=== PATIENT | male | born 1960 | race Caucasian/White ===

== ENCOUNTER 2016-03-26 08:19 | Inpatient (IN) ==
--- NOTE | 2016-03-26 08:18 | Anesthesia Evaluation PreOp ---
Date of Encounter: 03/26/16 Time of Encounter: 09:05 - Past History Planned Operation: R-femoral endarterectomy Cardiac History: Denies any Significant Hx (PVD - with associated LE claudication maintained on ASA, Pentoxifylline), Hyperlipidemia (maintained on Lovastatin,), Other (Nuclear STRESS 06/2015 - LVEF = 68%, medium sized, mild- moderate intensity fixed inferior/infero-lateral defect. Prior infarct cannot be excluded. 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 BiPolar d/o maintained on Citalopram, Seropquel. Anxiety. Agoraphobia - maintained on Valium, ATivan, Lorazepam, Propanolol, Quetiapine) Other Medical History: Diabetes Type II (maintained on Metformin, Jardiance, Lantus, Januvia) Anesthesia History: No Prior Anesthetic Complications, Past Anesthesia (Tammie, Colonoscopy, R-foot surgery 02/2016, LLE femoral endarectomy 01/2017) Alcohol Use: none Drug use: none Medications and Allergies Gabapentin [Neurontin] 800 mg PO TID 07/19/15 [History] GlipiZIDE [Glipizide] 10 mg PO BID 07/19/15 [History] LORazepam [Ativan] 1 mg PO BID 07/19/15 [History] Lovastatin 40 mg PO HS 07/19/15 [History] Propranolol [Inderal] 40 mg PO BID 07/19/15 [History] Quetiapine Fumarate [Seroquel] 600 mg PO HS 07/19/15 [History] Ranitidine HCl [Zantac] 150 mg PO BID 07/19/15 [History] Sitagliptin Phosphate [Januvia] 50 mg PO DAILY 07/19/15 [History] TraMADol [Ultram] 50 mg PO TID 07/19/15 [History] Zolpidem [Ambien] 10 mg PO HS 07/19/15 [History] Furosemide [Lasix] 40 mg PO DAILY 10/17/15 [History] Aspirin 81 mg PO DAILY 01/24/16 [History] Citalopram Hydrobromide [Celexa] 40 mg PO DAILY 01/24/16 [History] Empagliflozin [Jardiance] 10 mg PO DAILY 01/24/16 [History] Insulin Glargine,Hum.rec.anlog [Lantus Solostar] 10 unit SQ DAILY 01/24/16 [ History] Metformin HCl [Metformin HCl ER] 500 mg PO HS 01/24/16 [History] Naproxen [Naprosyn] 500 mg PO BID 01/24/16 [History] Pentoxifylline [TRENtal] 400 mg PO BID 01/24/16 [History] Potassium Chloride [Klor-Con] 20 meq PO DAILY 01/24/16 [History] OxyCODONE Immed Rel [Roxicodone 5 MG] 5 mg PO Q4H PRN #40 tablet 01/25/16 [Rx] Allergies No Known Allergies Allergy (Verified 01/24/16 07:39) - Meds/Allergy Pre-op Review Medications Reviewed: Yes Allergies Reviewed: Yes Beta Blockers on Current Med List: Yes (Propanolol) If Beta Blockers taken, Date/Time (Last Dose taken): 03/26/16 @ 0630 Anesthesia Results - Labs Laboratory Tests 09/28/15 02/22/16 03/24/16 13:40 14:38 12:46 WBC Hgb Hct Plt Count PT 11.5 INR 1.1 APTT 30.6 Sodium Potassium Chloride Carbon Dioxide BUN POC Creatinine 1.00 Creatinine Est GFR (Non-Af Amer) Glucose Est Mean Plasma Glucose 154 Hemoglobin A1c 7.0 H 03/24/16 03/24/16 12:46 12:46 WBC 12.7 H Hgb 15.5 Hct 44.5 Plt Count 247 PT INR APTT Sodium 136 Potassium 4.0 Chloride 97 L Carbon Dioxide 28 BUN 12 POC Creatinine Creatinine 1.11 Est GFR (Non-Af Amer) > 60 Glucose 190 H Est Mean Plasma Glucose Hemoglobin A1c - Imaging EKG: image reviewed (54bpm SB) Anesthesia Exam O2 Sat Height 1.78 m Height 1.78 m Weight 111.13 kg Weight 111.13 kg O2 Sat by Pulse Oximetry 97 Vital Signs Temp Pulse Resp BP Pulse Ox 99.2 F 66 18 135/69 97 03/26/16 08:43 03/26/16 08:43 03/26/16 08:43 03/26/16 08:43 03/26/16 08:43 Height: 5'10" Weight: 261# BMI = 35 - HEENT Pupil (Motor): Pupils equal, EOMI Mallampati: II Teeth: Edentulous Oral Opening: Greater than 3 - 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 LOC: Oriented 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 Sierra Jaimes MD
[2016-03-26] MEDS ORDERED: *HR* Labetalol 100 MG/20 ML MDV IVP PRN (08:27)
[2016-03-26] MEDS ORDERED: *HR* Promethazine 25 MG/ML VIAL IVP PRN (08:27)
[2016-03-26] MEDS ORDERED: cloNIDine HCl 0.1 MG TABLET PO ONE (08:27)
[2016-03-26] MEDS ORDERED: *HR* HYDROmorphone (PF) 1 MG/ML SYRINGE IVP PRN (08:27)
[2016-03-26] MEDS ORDERED: Famotidine 20 MG/2 ML VIAL IVP ONE (08:27)
[2016-03-26] MEDS ORDERED: Gabapentin 300 MG CAPSULE PO STA (08:30)
[2016-03-26] MEDS ORDERED: Lidocaine -MPF 2% 2 ML VIAL ONE (08:46)
[2016-03-26] MEDS ORDERED: Dexamethasone 4 MG/ML VIAL ONE (08:46)
[2016-03-26] MEDS ORDERED: Ondansetron 4 MG/2 ML VIAL ONE (08:46)
[2016-03-26] MEDS ORDERED: *HR* Succinylcholine 200 MG/10 ML VIAL IVP ONE (08:46)
[2016-03-26] MEDS ORDERED: *HR* Heparin 5,000 UNIT/ML VIAL ONE (08:47)
[2016-03-26] MEDS ORDERED: *HR* Propofol 200 MG/20 ML VIAL IVP ONE (08:48)
[2016-03-26] MEDS ORDERED: *HR* FentaNYL (PF) 100 MCG/2 ML VIAL ONE (08:48)
[2016-03-26] MEDS ORDERED: Heparin 1,000 UNITS/500 mL NS 1,000 ML ONE (08:48)
[2016-03-26] MEDS ORDERED: Vancomycin 1,000 MG VIAL ONE (08:48)
[2016-03-26] MEDS ORDERED: *HR* Midazolam HCl 2 MG/2 ML VIAL ONE (08:48)
[2016-03-26] MEDS ORDERED: Vancomycin 1,750 MG in D5% in Water 250 ML IVPB ONE (08:53)
[2016-03-26] MEDS ORDERED: CeFAZolin Pre 2,000 MG/100 ML 2,000 MG/100 ML BAG IVPB ONE (08:53)
[2016-03-26] MEDS ORDERED: Albuterol 2.5 MG/3 ML NEBULIZER IH ONE (08:55)
[2016-03-26] MEDS ORDERED: NiCARdipine 2.5 MG/10 ML Syringe IVPB ONE (08:58)
[2016-03-26] MEDS ORDERED: Ringers Solution, Lactated 1,000 ML IVC SCH (09:00)
[2016-03-26] MEDS ORDERED: *HR* Phenylephrine 10 MG/ML VIAL ONE ×2 (09:04)
--- NOTE | 2016-03-26 09:29 | History & Physical Report ---
Date of Encounter: 03/26/16 Time of Encounter: 09:15 24 Hour HP Update - Instructions Instructions: If the History and Physical is less than 30 days old and was completed prior to A.M. admission and or procedure and has NOT been updated on calendar day of procedure please complete this update prior to performing procedure. - Update Patient reports changes in Medical Condition: No Changes in assessment/condition: No Changes in Medication: No Preop tests/diagnostics Reviewed: Yes Surgery Remains Indicated: Yes Consent for Planned Operative Procedure(s) Verified: Yes - Pre-Operative Checklist Preoperative Checklist Indicated: Yes Prophylactic Antibiotic Ordered: Yes (Vancomycin due to MRSA risk) Home Medications Include Beta Praneeth: Yes Beta Praneeth Taken Today (Day of Surgery): Yes Beta Praneeth Taken Yesterday (Day Prior to Surgery): Yes
[2016-03-26] MEDS ORDERED: EPHEDrine 50 MG/ML VIAL ONE (10:35)
[2016-03-26] MEDS ORDERED: *HR* Vasopressin 20 UNIT/ML VIAL ONE (10:56)
[2016-03-26] MEDS ORDERED: Naloxone 0.4 MG/ML INJ ONE (11:24)
--- NOTE | 2016-03-26 13:24 | Operative Note ---
Date of procedure: 03/26/16 Pre-op diagnosis: Peripheral Vascular Disease with Disabling Claudication Post-op diagnosis: same Procedure: 1. Right iliofemoral endarterectomy with bovine pericardial patch angioplasty. 2. Right superficial femoral endarterectomy with bovine pericardial patch angioplasty. Complications: None Anesthesia: LYUBOVA Surgeon: Wale Hansen Estimated blood loss (cc): 100 Specimen: Right lower extremity plaque Condition: stable Disposition: same day Procedure in Detail: Indications: The patient is a 56 year old male with a history of peripheral vascular disease with disabling claudication. He was lso noted to have right foot and ankle ulcers. He was found to have significant right iliac and femoral artery disease. Endarterectomy was recommended to alleviate symptoms, promote wound healing and minimize risk of limb loss. Procedure: The patient was identified in the preoperative area. The risks, benefits, and alternatives of procedure were discussed and all questions were answered. He was taken to the operating room and placed in supine position on the operating room table. After the induction of general endotracheal anesthesia, she was cleaned and draped in normal sterile fashion. An oblique incision was made in the right groin sharply. Hemostasis was obtained with electrocautery. Through a process of blunt and sharp electrocautery dissection , the skin and subcutaneous tissues were incised and the right distal iliac, common femoral, deep femoral and superficial femoral arteries were dissected cicumferentially and surrounded with vessel loops. The patient received 5000 units of heparin intravenously and additional heparin. After waiting adequate time for the heparin to ciruclate. The vessels were occluded by applying tension to the vessel loops. A longitudinal ateriotomy was made into the common femoral artery. It was extended proximally into the right external iliac artery and distally into the superficial femoral artery beyond the stenotic superficial femoral arteryplaque. Using a dental [place], a standard iliofemoral endarterctomy was performed. The plaque was excised then an endarterectomy was performed on the proximal superficial femoral artery for several centimeters. Proximal and distal endpoints were inspected. No elevated flaps were noted. A bovine pericardial patch was cut to fit the defect and sutured in place with running 6-0 Prolene. Brittney entire patch was required for the procedure. Prior to completing the patch anastomosis, each vessel was flushed individually, then reoccluded. Heparinized saline was infused into the lumen. The patch was completed and flow was restored. Thrombin and Gelfoam were used to aid in hemostasis. Polyphasic signal was noted distal to the distal end of the patch as well as the posterior tibial artery. Wound was irrigated with antibiotic-containing saline. Platelet-rich and platelet-poor plasma were infused into the wound. The wounds were reapproximated with layer of 2-0 Vicryl followed by two layers of 3-0 and Vicryl 3-0 Monocryl in the subcuticular layer. Sterile dressings were applied. The patient was extubated, taken to recovery room in stable condition.
[2016-03-26] MEDS ORDERED: Ondansetron 4 MG/2 ML VIAL IVP PRN (14:47)
[2016-03-26] MEDS ORDERED: D5% in Water 1,000 ML IV PRN (14:47)
[2016-03-26] MEDS ORDERED: Dextrose Gel 15 GM PO PRN ×2 (14:47)
[2016-03-26] MEDS ORDERED: *HR* Dextrose 50 % in Water (Syg) 50 ML SYRINGE IVP PRN (14:47)
[2016-03-26] MEDS ORDERED: *HR* HYDROcodone/Acet 5/325 mg TABLET PO PRN (14:47)
[2016-03-26] MEDS ORDERED: Acetaminophen 325 MG TABLET PO PRN (14:47)
[2016-03-26] MEDS ORDERED: Naloxone 0.4 MG/ML INJ IVP PRN (14:47)
[2016-03-26] MEDS ORDERED: *HR* Morphine 2 MG/ML SYRINGE IVP PRN (14:47)
[2016-03-26] MEDS ORDERED: *HR* Labetalol 20 MG/4 ML SYRINGE IVP PRN (14:47)
[2016-03-26] MEDS ORDERED: *HR* OxyCODONE Immed Rel 5 MG TABLET PO PRN (14:47)
--- NOTE | 2016-03-26 15:09 | Anesthesia Evaluation Post Op ---
Date of Encounter: 03/26/16 Time of Encounter: 14:50 - Vital Signs Vital Signs: Vital Signs/O2 Sat/Glucose, Most Recent Temp Pulse Resp BP Pulse Ox 97.6 F 74 14 106/56 96 03/26/16 14:59 03/26/16 14:59 03/26/16 14:59 03/26/16 14:59 03/26/16 14:59 Blood Glucose* 208 - Lungs Lungs: Clear Ascult./Percussion - Airway Airway: Non-obstructed - Cardiovascular Regular Rate - Mental Status Mental Status: Alert & Oriented, Answers Appropriately - Pain Pain Scale: 0 Pain Scale used: Numeric (1 - 10) - Nausea Vomiting Nausea Vomiting: Not Present - Hydration Hydration: NPO - Discharge PostOp Status: Transfer Patient to floor
[2016-03-26] MEDS: Gabapentin 400 MG CAPSULE PO SCH ×2 (16:42→22:12)
[2016-03-26] MEDS: ceFAZolin 2,000 MG in D5% in Water 100 ML IVPB SCH (16:52)
[2016-03-26] MEDS: Insulin LISPRO 300 UNITS/3 ML VIAL SQ SCH (16:58)
[2016-03-26] MEDS: *HR* GlipiZIDE 5 MG TABLET PO SCH (17:01)
[2016-03-26] MEDS: *HR* Metoprolol 5 MG/5 ML VIAL IVP SCH (17:07)
[2016-03-26] MEDS ORDERED: *HR* Heparin 5,000 UNIT/ML VIAL SQ SCH (19:00)
[2016-03-26] MEDS ORDERED: Vancomycin 1,500 MG in D5% in Water 250 ML IVPB ONE (20:30)
[2016-03-26] MEDS ORDERED: Insulin LISPRO 300 UNITS/3 ML VIAL SQ SCH (21:00)
[2016-03-26] MEDS: Famotidine 20 MG TABLET PO SCH (22:11)
[2016-03-26] MEDS: *HR* LORazepam 1 MG TABLET PO SCH (22:14)
[2016-03-27] MEDS: ceFAZolin 2,000 MG in D5% in Water 100 ML IVPB SCH (00:04)
[2016-03-27] MEDS: *HR* Metoprolol 5 MG/5 ML VIAL IVP SCH ×2 (00:12→06:30)
[2016-03-27 04:09] LABS: Basophils % 0.1 %; Hematocrit 40.1 % (37.5-50.1); Immature Granulocytes % 0.8 % (0-4); Lymphocytes # 2.3 K/mcL (0.6-4.6); Lymphocytes % 10.6 %; Mean Corpuscular HGB Conc 33.7 g/dL (31.6-35.5); Mean Corpuscular Volume 92.2 fL (83.0-100.0); Mean Platelet Volume 8.7 fL (9.4-12.4); Monocytes # 1.7 K/mcL (0.0-1.3); Monocytes % 7.7 %; Platelet Count 222 K/mcL (140-400); Red Blood Count 4.35 M/mcL (4.19-5.50); Red Cell Distribution Width 13.3 % (11.5-14.5); Segmented Neutrophils % 80.8 %
[2016-03-27 04:11] LABS: Hemoglobin 13.5 g/dL (12.9-16.9); Neutrophils # 17.9 K/mcL (1.6-8.9)
[2016-03-27 04:21] LABS: BUN/Creatinine Ratio 12 (6-26); Blood Urea Nitrogen 12 mg/dL (8-26); Calcium 8.8 mg/dL (8.6-10.8); Carbon Dioxide 27 mEq/L (19-29); Chloride 101 mEq/L (98-109); Glucose 116 mg/dL (70-99); Osmolality,Calculated 283 (280-300); Potassium 3.9 mEq/L (3.5-4.5); Sodium 136 mEq/L (136-145); eGFR For African Americans > 60 (> 60); eGFR For Non-African Americans > 60 (> 60)
[2016-03-27 04:46] VITALS: BP 108/68
[2016-03-27] MEDS: *HR* Heparin 5,000 UNIT/ML VIAL SQ SCH ×2 (06:30→06:32)
--- NOTE | 2016-03-27 07:58 | Discharge Summary ---
Date of Encounter: 03/27/16 Time of Encounter: 07:45 - Discharge Diagnosis (1) Atherosclerosis of [place] arteries of right leg with ulceration of other part of foot Priority: Primary Status: Chronic Comments: The patient is postoperative day #1 after right iliofemoral and deep femoral endarterectomy for PVD with ulceration. He reports that his foot feels better. His wound is healing. He will be discharged today. 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 (4) Mixed hyperlipidemia Priority: Secondary Status: Chronic (5) Tobacco abuse Priority: Secondary Status: Chronic Comments: The patient was counseled regarding smoking cessation. He was reminded that continued smoking would likely lead to progression of his periphearl vascular disease and it's associated complications. - Discharge Medications Prescriptions: OxyCODONE Immed Rel [Roxicodone 5 MG] 5 mg PO Q4H PRN #40 tablet PRN Reason: POSTOPERATIVE PAIN Home Medications: Gabapentin [Neurontin] 800 mg PO TID 07/19/15 [History] LORazepam [Ativan] 1 mg PO BID 07/19/15 [History] Lovastatin 40 mg PO HS 07/19/15 [History] Propranolol [Inderal] 40 mg PO BID 07/19/15 [History] Quetiapine Fumarate [Seroquel] 300 mg PO BID 07/19/15 [History] Ranitidine HCl [Zantac] 150 mg PO BID 07/19/15 [History] TraMADol [Ultram] 100 mg PO TID PRN 07/19/15 [History] Zolpidem [Ambien] 10 mg PO HS 07/19/15 [History] Citalopram Hydrobromide [Celexa] 40 mg PO DAILY 01/24/16 [History] Empagliflozin [Jardiance] 10 mg PO DAILY 01/24/16 [History] Insulin Glargine,Hum.rec.anlog [Lantus Solostar] 10 unit SQ DAILY 01/24/16 [ History] Metformin HCl [Metformin HCl ER] 500 mg PO HS 01/24/16 [History] Naproxen [Naprosyn] 500 mg PO BID 01/24/16 [History] Pentoxifylline [TRENtal] 400 mg PO BID 01/24/16 [History] Potassium Chloride [Klor-Con] 20 meq PO DAILY 01/24/16 [History] Aspirin Enteric Coated [Aspirin EC] 81 mg PO DAILY 03/26/16 [History] GlipiZIDE [Glipizide] 10 mg PO BID 03/26/16 [History] SitaGLIPtin [Januvia] 100 mg PO DAILY 03/26/16 [History] OxyCODONE Immed Rel [Roxicodone 5 MG] 5 mg PO Q4H PRN #40 tablet 03/27/16 [Rx] Allergies/Adverse Reactions: Allergies No Known Allergies Allergy (Verified 03/26/16 10:37) Date of admission: 03/26/16 13:35 Primary care physician: Sunita Murrell Discharging clinician: Wale Hansen Anticipated date of discharge: 03/27/16 - Patient Status Disposition: Home, Self-Care Condition: Good Functional capacity at discharge: independent ambulation Overall status at discharge: patient is back to baseline - Discharge Instructions Instructions: Peripheral Vascular Disorders (DC) Follow Up With: Sunita Murrell MD [Primary Care Provider] - Amada Moreno CNP [Advanced Practice Nurse] - 03/31/16 4:00 pm Wale Hansen MD [Partnered Physician] - 05/05/16 1:10 pm Additional Instructions: May shower 03/28/16. Wash wound gently and pat to dry. Apply dry gauze to groin wound daily for 7 days. Call [phone] with questions or concerns. - Diet and Activity Activity: increase activity as tolerated Diet: diabetic diet - Hospital Course Hospital course: Mr. Almanza is a 55 year old male with a history of peripheral vascular disease with ulceration. He was admitted on 03/26/16 and taken to the OR. He underwent a right lower extremity endarterectomy. He tolerated the procedure well. He was discharged on postoperative day #1 without complications. At discharge, he reported that his right leg felt better, his incision was healing and his compartments were soft. - Time Spent with Patient Total time spent providing and/or coordinating discharge services: Exam Vital Signs, Last 4 Hours Temp Pulse Resp BP Pulse Ox 03/27/16 04:42 97.8 F 69 16 108/68 97 General: Present: Conversant, No Apparent Distress HEENT: Present: Atraumatic Neck: Absent: JVD Cardiac: Present: Reg Rate and Rhythm, Normal S1 and S2 Lungs: Present: Normal Breath Sounds, No Wheeze, Rales, Rhonchi Neuro: Present: Alert and responsive, No focal deficits noted Abdomen: Present: Soft, Non-tender Vascular: Present: Normal capillary refill, Surgical incisions (incision clean, dry and intact wihtout erythema, drainage or hematoma). Absent: Cyanosis, Edema Skin: Present: Wound/ulcer(s) (chronic right leg ulcers are stable without evidence of infection) - VTE Documentation of Mechanical Device: Intermittent pneumatic compression device
[2016-03-27] MEDS: *HR* LORazepam 1 MG TABLET PO SCH (08:20)
[2016-03-27] MEDS: Gabapentin 400 MG CAPSULE PO SCH (08:23)
[2016-03-27] MEDS: Famotidine 20 MG TABLET PO SCH (08:24)
[2016-03-27] MEDS: *HR* GlipiZIDE 5 MG TABLET PO SCH (08:25)
[2016-03-27] MEDS: Insulin LISPRO 300 UNITS/3 ML VIAL SQ SCH (08:27)
[2016-03-27] MEDS ORDERED: (Empagliflozin [Jardiance] 10 MG) PO SCH (09:00)
[2016-03-27] MEDS ORDERED: Aspirin Enteric Coated 81 MG Tablet PO SCH (09:00)
[2016-03-27] MEDS ORDERED: Insulin DETEMIR 100 UNIT/ML X5UNITS SQ SCH (09:00)
[2016-03-27] MEDS ORDERED: *HR* Metformin 500 MG TABLET PO SCH (21:00)
[2016-03-28] MEDS ORDERED: *HR* SitaGLIPtin 100 MG TABLET PO SCH (09:00)
== END 2016-03-27 10:57 | disposition home or self-care (01) | DRG 169 ==
LOC: SAMDAY 08:19 → 2NNU 13:35
PROVIDERS: ADMIT Surgery; ATTEND Surgery

== ENCOUNTER 2016-08-28 06:13 | Inpatient (IN) ==
[2016-08-28] MEDS ORDERED: Lidocaine -MPF 1% 2 ML VIAL ID ONE (06:29)
[2016-08-28] MEDS ORDERED: Vancomycin 1,750 MG in D5% in Water 250 ML IVPB ONE (06:29)
[2016-08-28] MEDS ORDERED: CeFAZolin Pre 2,000 MG/100 ML 2,000 MG/100 ML BAG IVPB ONE (06:29)
[2016-08-28] MEDS ORDERED: Albuterol 2.5 MG/3 ML NEBULIZER IH ONE ×2 (06:31→11:36)
[2016-08-28] MEDS ORDERED: Albuterol 2.5 MG/3 ML NEBULIZER ONE (06:33)
[2016-08-28] MEDS ORDERED: Vancomycin 1,750 MG in D5% in Water 500 ML IVPB ONE ×2 (06:34→18:00)
[2016-08-28] MEDS ORDERED: Ringers Solution, Lactated 1,000 ML IVC SCH (06:45)
[2016-08-28] MEDS ORDERED: *HR* Rocuronium Bromide 50 MG/5 ML VIAL ONE (06:57)
[2016-08-28] MEDS ORDERED: Lidocaine -MPF 4% 5 ML AMPUL ONE (06:57)
[2016-08-28] MEDS ORDERED: Lidocaine -MPF 2% 2 ML VIAL ONE (06:57)
[2016-08-28] MEDS ORDERED: *HR* Phenylephrine 10 MG/ML VIAL ONE (06:57)
[2016-08-28] MEDS ORDERED: Dexamethasone 4 MG/ML VIAL ONE (06:57)
[2016-08-28] MEDS ORDERED: Ondansetron 4 MG/2 ML VIAL ONE (06:57)
[2016-08-28] MEDS ORDERED: *HR* FentaNYL (PF) 100 MCG/2 ML VIAL ONE ×2 (07:01→07:59)
[2016-08-28] MEDS ORDERED: *HR* Midazolam HCl 2 MG/2 ML VIAL ONE (07:01)
[2016-08-28] MEDS ORDERED: *HR* Propofol 200 MG/20 ML VIAL IVP ONE (07:01)
[2016-08-28] MEDS ORDERED: *HR* Remifentanil 1 MG VIAL IVP ONE (07:02)
--- NOTE | 2016-08-28 07:07 | Anesthesia Evaluation PreOp ---
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) Other Medical History: Diabetes Type II (insulin dependent) Anesthesia History: No Prior Anesthetic Complications, Past Anesthesia (R fem endarterectomy, cholecystectomy, L knee surgery, multiple cystectomies) Alcohol Use: none Drug use: none Medications and Allergies Gabapentin [Neurontin] 800 mg PO TID 07/19/15 [History] LORazepam [Ativan] 1 mg PO BID 07/19/15 [History] Lovastatin 40 mg PO HS 07/19/15 [History] Propranolol [Inderal] 40 mg PO BID 07/19/15 [History] Quetiapine Fumarate [Seroquel] 300 mg PO BID 07/19/15 [History] Ranitidine HCl [Zantac] 150 mg PO BID 07/19/15 [History] Zolpidem [Ambien] 10 mg PO HS 07/19/15 [History] traMADol [Ultram] 100 mg PO TID PRN 07/19/15 [History] Citalopram Hydrobromide [Celexa] 40 mg PO DAILY 01/24/16 [History] Empagliflozin [Jardiance] 10 mg PO DAILY 01/24/16 [History] Insulin Glargine,Hum.rec.anlog [Lantus Solostar] 10 unit SQ DAILY 01/24/16 [ History] Metformin HCl [Metformin HCl ER] 500 mg PO HS 01/24/16 [History] Naproxen [Naprosyn] 500 mg PO BID 01/24/16 [History] Pentoxifylline [TRENtal] 400 mg PO BID 01/24/16 [History] Potassium Chloride [Klor-Con] 20 meq PO DAILY 01/24/16 [History] Aspirin Enteric Coated [Aspirin EC] 81 mg PO DAILY 03/26/16 [History] SitaGLIPtin [Januvia] 100 mg PO DAILY 03/26/16 [History] glipiZIDE [Glipizide] 10 mg PO BID 03/26/16 [History] OxyCODONE Immed Rel [Roxicodone 5 MG] 5 mg PO Q4H PRN #40 tablet 03/27/16 [Rx] Allergies No Known Allergies Allergy (Verified 03/26/16 10:37) - Meds/Allergy Pre-op Review Medications Reviewed: Yes Allergies Reviewed: Yes Beta Blockers on Current Med List: Yes (propranolol) If Beta Blockers taken, Date/Time (Last Dose taken): 08-27-16 14:00 Anesthesia Results - Labs Laboratory Tests 08/25/16 08/25/16 08/25/16 15:30 15:30 15:30 WBC 11.9 H Hgb 14.9 Hct 45.7 Plt Count 258 PT 11.5 INR 1.1 APTT 30.3 Sodium 135 L Potassium 4.0 Chloride 98 Carbon Dioxide 27 BUN 13 Creatinine 1.32 H Est GFR ( Amer) > 60 Est GFR (Non-Af Amer) 56 L BUN/Creatinine Ratio 10 Glucose 164 H Est Mean Plasma Glucose Hemoglobin A1c Calculated Osmolality 284 Calcium 9.2 08/25/16 15:30 WBC Hgb Hct Plt Count PT INR APTT Sodium Potassium Chloride Carbon Dioxide BUN Creatinine Est GFR ( Amer) Est GFR (Non-Af Amer) BUN/Creatinine Ratio Glucose Est Mean Plasma Glucose 143 Hemoglobin A1c 6.6 H Calculated Osmolality Calcium - Imaging EKG: report reviewed, image reviewed (SR) Anesthesia Exam Last Vital Signs Temp 99.0 F 08/28/16 06:26 Pulse 60 08/28/16 06:26 Resp 18 08/28/16 06:46 BP 134/71 08/28/16 06:46 Pulse Ox 97 08/28/16 06:46 Weight: 112 kg NPO (# of Hours): >>8 hrs - HEENT Pupil (Motor): Pupils equal, EOMI Mallampati: III Teeth: Edentulous Oral Opening: Greater than 3 - 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
[2016-08-28] MEDS ORDERED: Heparin 1,000 UNITS/500 mL NS 1,000 ML ONE (07:12)
[2016-08-28] MEDS ORDERED: Heparin 1,000 UNITS/500 mL NS 500 ML ONE ×2 (07:27→07:29)
--- NOTE | 2016-08-28 07:33 | History & Physical Report ---
Date of Encounter: 08/28/16 Time of Encounter: 07:28 24 Hour HP Update - Instructions Instructions: If the History and Physical is less than 30 days old and was completed prior to A.M. admission and or procedure and has NOT been updated on calendar day of procedure please complete this update prior to performing procedure. - Update Patient reports changes in Medical Condition: No Changes in examination, assessment, or condition: No Changes in Medication: No Preop tests/diagnostics Reviewed: Yes Pre-Op MRSA Screen: Positive, Vancomycin for Prophylaxis Surgery Remains Indicated: Yes Consent for Planned Operative Procedure(s) Verified: Yes - Pre-Operative Checklist Preoperative Checklist Indicated: Yes Prophylactic Antibiotic Ordered: Yes (vancomycin due to MRSA ) Home Medications Include Beta Praneeth: Yes Beta Praneeth Taken Today (Day of Surgery): Yes Beta Praneeth Taken Yesterday (Day Prior to Surgery): Yes Is VTE Prophylaxis Indicated?: Yes
[2016-08-28] MEDS ORDERED: EPHEDrine 50 MG/ML VIAL ONE (08:07)
[2016-08-28] MEDS ORDERED: *HR* Vasopressin 20 UNIT/ML VIAL ONE (08:28)
--- NOTE | 2016-08-28 08:51 | Anesthesia Procedures ---
Date of Encounter: 08/28/16 Time of Encounter: 07:45 Procedures: Anesthesia - Arterial Line Consent obtained: verbal consent Time out performed: Yes Sedation: Versed (mg): 2 Sedation: Fentanyl (mcg): 100 Supplemental Oxygen via Nasal Cannula (L/min): 2 Local Anesthetic: Lidocaine 1% Amount of Anesthetic used (mls): 0.5 Size (Gauge): 20 Length (inches): 1 3/4 Technique Used: sterile prep, guide wire technique Post-Procedure: line taped into place, dry sterile dressing placed Patient tolerated procedure: well, no complications Complications: none Site: Radial R Vitals: Vital Signs/O2 Sat/Glucose, Most Recent Temp Pulse Resp BP Pulse Ox 99.0 F 57 18 125/72 98 08/28/16 06:26 08/28/16 07:50 08/28/16 07:50 08/28/16 07:50 08/28/16 07:50 Blood Glucose* 148 Comments: [email or web address]
[2016-08-28] MEDS ORDERED: *HR* Labetalol 20 MG/4 ML SYRINGE IVP PRN ×2 (08:52→12:46)
[2016-08-28] MEDS ORDERED: Ondansetron 4 MG/2 ML VIAL IVP ONE (08:52)
[2016-08-28] MEDS ORDERED: *HR* Morphine 2 MG/ML SYRINGE IVP PRN (08:52)
[2016-08-28] MEDS ORDERED: Dexamethasone 4 MG/ML VIAL IVP ONE (08:52)
[2016-08-28] MEDS ORDERED: *HR* Promethazine 25 MG/ML VIAL IVP PRN (08:52)
[2016-08-28] MEDS ORDERED: *HR* EPINEPHrine 1 MG/ML AMPUL ONE (08:55)
[2016-08-28] MEDS ORDERED: *HR* Heparin 5,000 UNIT/ML VIAL ONE (09:48)
[2016-08-28] MEDS ORDERED: Vancomycin 1,000 MG VIAL ONE (11:02)
[2016-08-28] MEDS ORDERED: *HR* Morphine 10 MG/ML VIAL ONE (11:05)
--- NOTE | 2016-08-28 11:55 | Operative Note ---
Date of procedure: 08/28/16 Pre-op diagnosis: Peripheral vascular disease with ulceration Post-op diagnosis: same Procedure: 1. Right femoral to above knee popliteal artery bypass with 6mm Distaflo PTFE small cuff graft. 2. Right deep femoral thrombectomy with 4 chadian balloon. 3. Right popliteal artery endarterectomy. Complications: None Anesthesia: LYUBOVA Surgeon: Wale Hansen Estimated blood loss (cc): 200 Specimen: None Condition: stable Disposition: PACU Procedure in Detail: Indications: The patient is a 56 year old male with a long history of peripheral vascular disease. The patient has a history of a right femoral endarterctomy. He presented to clinic with a new right lower extremity nonhealing ulcer. He was found to have significant femoral to popliteal artery disease and bypass was recommended to aid in healing his wound and reduce his risk of limb loss. Procedure: The patient was identified in the preoperative area. The risks, benefits, and alternatives of the procedure were discussed. All questions were answered. The patient was taken to the operating room and placed in supine position on the operating room table. After the induction of general endotracheal anesthesia, he was cleaned and draped in normal sterile fashion. An oblique incision was made through is prior scar over the right groin sharply. The scar was noted to be hypertrophic and was completely excised. Hemostasis was obtained with electrocautery. Through a process of blunt, sharp , and electrocautery dissection, the right femoral vessels were dissected circumferentially and surrounded with vessel loops. An incision was made on the right medial distal thigh sharply. Hemostasis was obtained with electrocautery. Through a process of blunt, sharp, and electrocautery dissection, the right above-knee popliteal artery was dissected proximally and distally and surrounded with vessel loops. A graft was tunneled between the popliteal and femoral incisions. The patient received 5000 units of heparin intravenously. Additional heparin was given throughout the case to maintain adequate anticoagulation. The popliteal vessels were occluded and a longitudinal arteriotomy was made in the popliteal artery. A paritally occlusive plaque was noted at this level and was excised with a freer. Endopints revealed no elevated flaps. The distal end of the graft was then sutured in place with a running 6-0 Prolene, but not tied. Heparinized saline was infused into the lumen. Tension was applied to the femoral vessel loops. An arteriotomy was made in the common femoral artery. At this point chronic thrombus was identified in the common femoral artery. NO retrograde flow was noted through the deep femoral artery. However strong pulsatile antegrade flow as noted from the external iliac artery. The thrombus was removed under direct vision. However, this did not improve flow from the deep femoral artery. Using a 4 chadian choe occluder balloon, a deep femoral thrombectomy was performed. After multiple passes, significant well organized thrombus was retrieved and retrograde flow as noted. The vessel was flushed with heparinized saline and the choe occluder was then inflated in the lumen. The proximal end of the bypass graft was then cut to fit the defect. The graft was anastamosed with a running 6-0 Prolene. Prior to completing the anastamosis , the Choe occluder was deflated and removed. The anastamosis was completed and tied. The vessels were flushed through the graft and heparin was infused into the lumen. The graft was clamped with an atraumatic clamp. Thrombis and gelfoam were used at the proximal anastamosis. The distal arterial anastomosis was completed and prior to completing the closure, the popliteal vessels were flushed and reoccluded. Heparinized saline was infused into the lumen. The anastamosis was tied and then flow was restored. Polyphasic signals were noted distal to the distal anastomosis as well as at the posterior tibial artery. Wounds were irrigated with antibiotic-containing saline. Thrombin and gelfoam were used to aid in hemostasis. Platelet rich and platelet poor plasma were infused into the wounds. Meticulous hemostasis was obtained throughout the wound with electrocautery. Wounds were reapproximated with layers of 2-0 and 3-0 Vicryl. Skin was reapproximated with 3-0 Monocryl. Sterile dressing was applied. The patient was extubated and taken to recovery room in stable condition.
--- NOTE | 2016-08-28 11:58 | Operative Note ---
Date of procedure: 08/28/16 Pre-op diagnosis: Right lower extremity PAD and nonhealing ulcer Post-op diagnosis: same Procedure: Right femoral to above-knee popliteal artery bypass graft with 6 mm PTFE. Right above-knee popliteal artery endarterectomy Complications: None Anesthesia: GETA Surgeon: Wale Hansen Co-Surgeon: Eddy Jasso Foil Spinner Other: 100 Specimen: None Condition: stable Disposition: PACU Procedure in Detail: History Hola Almanza is a 56-year-old white male who is seen in the [facility] for lower extremity vascular disease and he has gone on to develop a nonhealing ulcer of the right leg. Workup has revealed occlusion of the right superficial femoral artery. As he has been unresponsive to conservative therapy the patient was recommended to undergo direct vascular reconstruction and he now comes for that operation. Of note the patient is status post a previous right common femoral artery endarterectomy and patch angioplasty. Procedure After informed consent was obtained the patient was taken to the operating room. General endotracheal anesthesia was established under arterial line pressure monitoring. The abdomen groins and right lower extremity were sterilely prepped and draped. A timeout protocol was observed. A 2 team surgical approach was used in order to reduce blood loss and time in the OR. Also to facilitate complex intraoperative decision making in this redo surgery. A 2 team approach was utilized. Dissection was made in the [id number] popliteal artery as well as through the previous incision in the right groin. The dissection in the right groin was particular tedious due to the scar and the inflammation surrounding the femoral artery. Dissection of the above-knee popliteal revealed a normal diameter vessel. It was moderately soft. A subsartorial tunnel was created after vascular introitus obtained. 5000 units of heparin were administered intravenously. After 3 minute delay the vessels were clamped. The distal anastomosis was created first as the graft and been passed through the subsartorial tunnel. A 6 mm PTFE small cuffed Distaflo graft was selected. The anastomosis was made and an end of graft to side of artery fashion using 6-0 Prolene suture. It should be noted that that upon opening the popliteal artery there were findings of chronic thrombus as well as atherosclerotic disease. Therefore an endarterectomy was performed of the above- the-knee popliteal in order to enhance the runoff and decreased resistance through the graft at this level. Simultaneously the proximal anastomosis was being performed to the common femoral artery in an end-to-side fashion using 6- 0 Prolene. After appropriate backbleeding and flushing the graft was opened. Excellent pulsatile flow into the popliteal artery was demonstrated. A strong biphasic signal was documented over the dorsalis pedis artery distal to the area of the pretibial wound. The incisions were then irrigated with antibiotic containing solution and hemostasis was achieved. The incisions were then closed in layers using absorbable suture. Dry sterile dressings were applied. The patient was extubated and taken to the recovery room in stable condition. There were no intraoperative complications.
--- NOTE | 2016-08-28 12:11 | Anesthesia Evaluation Post Op ---
Date of Encounter: 08/28/16 Time of Encounter: 12:09 - Vital Signs Vital Signs: Vital Signs/O2 Sat, Most Current Temp Pulse Resp BP Pulse Ox 98.5 F 71 14 124/82 95 08/28/16 11:36 08/28/16 11:56 08/28/16 11:56 08/28/16 11:56 08/28/16 11:56 - Lungs Lungs: Clear Ascult./Percussion - Airway Airway: Non-obstructed - Cardiovascular Regular Rate - Mental Status Mental Status: Alert & Oriented, Answers Appropriately - Pain Pain Scale: 5 Pain Scale used: Numeric (1 - 10) - Nausea Vomiting Nausea Vomiting: Not Present - Hydration Hydration: Ice chips, Farley catheter - Discharge PostOp Status: Transfer Patient to floor
[2016-08-28] MEDS ORDERED: D5% in Water 1,000 ML IVC PRN (12:46)
[2016-08-28] MEDS ORDERED: 0.9 % Sodium Chloride 1,000 ML IVC SCH (12:46)
[2016-08-28] MEDS ORDERED: Naloxone 0.4 MG/ML INJ IVP PRN (12:46)
[2016-08-28] MEDS ORDERED: *HR* Dextrose 50 % in Water (Syg) 50 ML SYRINGE IVP PRN (12:46)
[2016-08-28] MEDS ORDERED: Ondansetron 4 MG/2 ML VIAL IVP PRN (12:46)
[2016-08-28] MEDS ORDERED: *HR* OxyCODONE Immed Rel 5 MG TABLET PO PRN (12:46)
[2016-08-28] MEDS ORDERED: Acetaminophen 325 MG TABLET PO PRN (12:46)
[2016-08-28] MEDS ORDERED: Dextrose Gel 15 GM PO PRN ×2 (12:46)
[2016-08-28] MEDS: *HR* Morphine 2 MG/ML SYRINGE IVP PRN ×3 (13:18→19:28)
[2016-08-28] MEDS: ceFAZolin 2,000 MG in D5% in Water 100 ML IVPB SCH ×2 (14:30→21:43)
[2016-08-28] MEDS: Gabapentin 400 MG CAPSULE PO SCH ×2 (16:01→21:44)
[2016-08-28] MEDS: Insulin LISPRO 300 UNITS/3 ML VIAL SQ SCH (16:16)
[2016-08-28] MEDS: *HR* Heparin 5,000 UNIT/ML VIAL SQ SCH (17:01)
[2016-08-28] MEDS ORDERED: Vancomycin 0 MG in D5% in Water 250 ML IVPB ONE (18:00)
[2016-08-28] MEDS ORDERED: *HR* Heparin 5,000 UNIT/ML VIAL SQ SCH (18:00)
[2016-08-28] MEDS ORDERED: Insulin LISPRO 300 UNITS/3 ML VIAL SQ SCH (21:00)
[2016-08-28] MEDS: Famotidine 20 MG TABLET PO SCH (21:45)
[2016-08-28] MEDS: *HR* LORazepam 1 MG TABLET PO SCH (21:45)
[2016-08-28] MEDS: *HR* HYDROcodone/Acet 5/325 mg TABLET PO PRN (21:51)
[2016-08-29 04:30] LABS: Hematocrit 39.5 % (37.5-50.1); Hemoglobin 13.4 g/dL (12.9-16.9); Immature Granulocytes % 0.6 % (0-4); Lymphocytes % 8.7 %; Mean Corpuscular HGB Conc 33.9 g/dL (31.6-35.5); Mean Corpuscular Hemoglobin 31.7 pg (28.0-33.3); Mean Corpuscular Volume 93.4 fL (83.0-100.0); Monocytes % 7.9 %; Platelet Count 232 K/mcL (140-400); Red Blood Count 4.23 M/mcL (4.19-5.50); Red Cell Distribution Width 13.1 % (11.5-14.5); Segmented Neutrophils % 82.7 %
[2016-08-29 04:31] LABS: Basophils % 0.1 %; Lymphocytes # 1.8 K/mcL (0.6-4.6); Monocytes # 1.6 K/mcL (0.0-1.3)
[2016-08-29 04:51] LABS: BUN/Creatinine Ratio 12 (6-26); Blood Urea Nitrogen 11 mg/dL (8-26); Calcium 8.7 mg/dL (8.6-10.8); Carbon Dioxide 27 mEq/L (19-29); Chloride 102 mEq/L (98-109); Glucose 134 mg/dL (70-99); Osmolality,Calculated 283 (280-300); Potassium 4.1 mEq/L (3.5-4.5); Sodium 136 mEq/L (136-145); eGFR For African Americans > 60 (> 60); eGFR For Non-African Americans > 60 (> 60)
[2016-08-29] MEDS: *HR* Heparin 5,000 UNIT/ML VIAL SQ SCH (05:53)
--- NOTE | 2016-08-29 07:12 | Discharge Summary ---
Date of Encounter: 08/29/16 Time of Encounter: 08:05 - Discharge Diagnosis (1) Atherosclerosis of craig arteries of right leg with ulceration of other part of foot Priority: Primary Status: Chronic Comments: The patient is postoperative day #1 after a right femoral to popliteal artery bypass for PVD with ulceration. He is healing well. He has polyphasic signals and he reports that his leg feels much better. He will be discharged today. (2) Mixed hyperlipidemia Priority: Secondary Status: Chronic Comments: The patient was counseled regarding atherosclerotic risk factor reduction. (3) Tobacco abuse Priority: Secondary Status: Chronic (4) Diabetes mellitus with peripheral angiopathy without gangrene Priority: Secondary Status: Chronic Qualifiers: Diabetes mellitus type: type 2 Diabetes mellitus assisted insulin use: with assisted use Qualified Code(s): E11.51 - Type 2 diabetes mellitus with diabetic peripheral angiopathy without gangrene; Z79.4 - exterminator helper termite (current) use of insulin (5) Essential hypertension Priority: Secondary Status: Chronic (6) Carotid stenosis, bilateral Priority: Secondary Status: Chronic - Discharge Medications Prescriptions: OxyCODONE/APAP 5/325 [Percocet 5/325 MG] 1 each PO Q4HR PRN #30 tablet PRN Reason: postoperative pain Clopidogrel [Plavix] 75 mg PO DAILY #30 tablet Home Medications: Gabapentin [Neurontin] 800 mg PO TID 07/19/15 [History] LORazepam [Ativan] 1 mg PO BID 07/19/15 [History] Lovastatin 40 mg PO HS 07/19/15 [History] Propranolol [Inderal] 40 mg PO BID 07/19/15 [History] Quetiapine Fumarate [Seroquel] 300 mg PO BID 07/19/15 [History] Ranitidine HCl [Zantac] 150 mg PO BID 07/19/15 [History] Zolpidem [Ambien] 10 mg PO HS 07/19/15 [History] traMADol [Ultram] 100 mg PO TID PRN 07/19/15 [History] Citalopram Hydrobromide [Celexa] 40 mg PO DAILY 01/24/16 [History] Empagliflozin [Jardiance] 10 mg PO DAILY 01/24/16 [History] Insulin Glargine,Hum.rec.anlog [Lantus Solostar] 10 unit SQ DAILY 01/24/16 [ History] Metformin HCl [Metformin HCl ER] 500 mg PO HS 01/24/16 [History] Naproxen [Naprosyn] 500 mg PO BID PRN 01/24/16 [History] Pentoxifylline [TRENtal] 400 mg PO BID 01/24/16 [History] Potassium Chloride [Klor-Con] 20 meq PO DAILY 01/24/16 [History] Aspirin Enteric Coated [Aspirin EC] 81 mg PO DAILY 03/26/16 [History] SitaGLIPtin [Januvia] 100 mg PO DAILY 03/26/16 [History] glipiZIDE [Glipizide] 10 mg PO BID 03/26/16 [History] Furosemide [Lasix] 40 mg PO DAILY 08/28/16 [History] Clopidogrel [Plavix] 75 mg PO DAILY #30 tablet 08/29/16 [Rx] OxyCODONE/APAP 5/325 [Percocet 5/325 MG] 1 each PO Q4HR PRN #30 tablet 08/29/16 [Rx] Allergies/Adverse Reactions: Allergies No Known Allergies Allergy (Verified 08/28/16 10:04) Date of admission: 08/28/16 12:07 Primary care physician: Sunita Murrell Procedure(s) Performed: Right femoral to popliteal artery bypass Discharging clinician: Wale Hansen Anticipated date of discharge: 08/29/16 - Patient Status Disposition: Home, Self-Care Condition: Good Functional capacity at discharge: independent ambulation Overall status at discharge: patient is back to baseline - Discharge Instructions Instructions: Femoropopliteal Bypass (DC), Diabetes Mellitus Type 2 in Adults ( DC), Peripheral Vascular Disorders (DC), Chronic Hypertension (DC) Follow Up With: Sunita Murrell MD [Primary Care Provider] - 09/04/16 7:00 pm () Wale Hansen MD [Partnered Physician] - 10/08/16 1:50 pm Additional Instructions: MAY REMOVE BANDAGE AND SHOWER ON 08/30/16. WASH WOUND GENTLY AND PAT TO DRY. APPLY DRY BANDAGE DAILY FOR 7 DAYS. NO TUB BATHS OR SWIMMING UNTIL 09/23/16. CALL DR. HANSEN AT [phone] WITH QUESTIONS OR CONCERNS. - Diet and Activity Activity: increase activity as tolerated Diet: diabetic diet - Hospital Course Hospital course: Mr. Almanza is a 56 year old male with multiple medical comorbidities who presented with a nonhealing right lower extremity ulcer. He was admitted on . He underwent a right femoral to popliteal artery bypass. He tolerated the procedure well. He was discharged in stable condition on postoperative day #1 without complications. Time spent discussing smoking cessation with patient: 3 to 10 minutes - Time Spent with Patient Total time spent providing and/or coordinating discharge services: Exam Vital Signs, Last 4 Hours Temp Pulse Resp Pulse Ox 08/29/16 04:10 74 08/29/16 04:03 98.1 F 79 18 95 General: Present: Conversant, No Apparent Distress HEENT: Present: Atraumatic Cardiac: Present: Reg Rate and Rhythm Lungs: Present: Normal Breath Sounds Neuro: Present: Alert and responsive, No focal deficits noted Abdomen: Present: Soft Vascular: Present: Normal capillary refill, Surgical incisions (no hematoma). Absent: Clubbing, Cyanosis Skin: Present: No rashes noted on visualized skin, Wound/ulcer(s) (ulcer without erythema or drainage) - VTE Documentation of Mechanical Device: Intermittent pneumatic compression device
[2016-08-29 08:02] VITALS: BP 124/65
[2016-08-29] MEDS: Insulin LISPRO 300 UNITS/3 ML VIAL SQ SCH (08:02)
[2016-08-29] MEDS: Gabapentin 400 MG CAPSULE PO SCH (08:06)
[2016-08-29] MEDS: *HR* LORazepam 1 MG TABLET PO SCH (08:07)
[2016-08-29] MEDS: Famotidine 20 MG TABLET PO SCH (08:07)
[2016-08-29] MEDS: *HR* HYDROcodone/Acet 5/325 mg TABLET PO PRN (08:07)
[2016-08-29] MEDS ORDERED: Patient Taking Own Medication 1 EACH PO SCH (09:00)
[2016-08-29] MEDS ORDERED: Furosemide 40 MG TABLET PO SCH (09:00)
[2016-08-29] MEDS ORDERED: Aspirin Enteric Coated 81 MG Tablet PO SCH (09:00)
== END 2016-08-29 11:56 | disposition home or self-care (01) | DRG 181 ==
LOC: SAMDAY 06:13 → 2NNU 12:07
PROVIDERS: ADMIT Surgery; ATTEND Surgery

== ENCOUNTER 2016-11-25 07:48 | Inpatient (IN) ==
[2016-11-25] MEDS ORDERED: *HR* HYDROcodone/Acet 5/325 mg TABLET PO PRN ×2 (08:42→20:28)
[2016-11-25] MEDS ORDERED: *HR* OxyCODONE Immed Rel 5 MG TABLET PO PRN (08:42)
[2016-11-25] MEDS ORDERED: *HR* Morphine 2 MG/ML SYRINGE IVP PRN ×2 (08:42→20:28)
[2016-11-25] MEDS ORDERED: *HR* Labetalol 20 MG/4 ML SYRINGE IVP PRN ×2 (08:42→20:28)
[2016-11-25] MEDS ORDERED: Naloxone 0.4 MG/ML INJ IVP PRN ×2 (08:42→20:28)
[2016-11-25] MEDS ORDERED: Acetaminophen 325 MG TABLET PO PRN ×2 (08:42→20:28)
[2016-11-25] MEDS ORDERED: 0.9 % Sodium Chloride 1,000 ML IVC SCH (08:45)
[2016-11-25] MEDS ORDERED: *HR* Dextrose 50 % in Water (Syg) 50 ML SYRINGE IVP PRN ×2 (08:47→20:28)
[2016-11-25] MEDS ORDERED: D5% in Water 1,000 ML IVC PRN ×2 (08:47→20:28)
[2016-11-25] MEDS ORDERED: Dextrose Gel 15 GM PO PRN ×4 (08:47→20:28)
--- NOTE | 2016-11-25 08:55 | Vascular/Endovascular H&P ---
Date of Encounter: 11/25/16 Time of Encounter: 11:00 Assessment and Plan (1) Atherosclerosis of [place] arteries of right leg with ulceration of other part of foot Status: Acute The patient has a long history of peripheral vascular disease with ulceration. He presented with progressive pain in the right lower extremity with walking and at rest. He has superficial ulcers on the right lower extremity. CT reveals an occluded right femoral to popliteal artery bypass graft. Due to his progressive symptoms, he is being admitted for anticoagulation and pain pain control. He has been scheduled for graft thrombectomy with possible revision. The risks, benefits and alternatives were discussed and all questions were answered. He expressed understanding and wishes to proceed. He was informed that due to the progressive limb ischemia, he is at increased risk for amputation. (2) Mixed hyperlipidemia Status: Chronic He was counseled regarding atherosclerotic risk factor reduction. (3) Unspecified essential hypertension Status: Chronic (4) Carotid stenosis, bilateral Status: Chronic (5) Tobacco abuse Status: Chronic He was counseled extensively regarding smoking cessation. He was advised that continued smoking will likely result in limb loss. (6) Diabetes mellitus with peripheral angiopathy without gangrene Status: Chronic Qualifiers: Diabetes mellitus type: type 2 Diabetes mellitus assisted insulin use: with superintendent terminal use Qualified Code(s): E11.51 - Type 2 diabetes mellitus with diabetic peripheral angiopathy without gangrene; Z79.4 - alf (current) use of insulin; Z79.4 - superintendent terminal (current) use of insulin; Z79.4 - alf ( current) use of insulin; Z79.4 - superintendent terminal (current) use of insulin (7) Essential hypertension Status: Chronic History of Present Illness Chief complaint: Acute on chronic limb ischemia HPI: Mr. Almanza is a 56 year old male with a long history of peripheral vascular disease with ulceration. He has previously undergone femoral endarterectomy and a right femoral to popliteal artery bypass. The patient underwent vascular labs on 11/18/16 and was found to have a right SILVIA of 0.0. The patient was immediately seen in the office and adivsed to be admitted for anticoagulation, further evaluation and surgical intervention. The patient declined admission at that time despite being advised multiple times about his risk of limb loss. He stated that he wanted to wait until today to be admitted. The patient underwent a CT scan and was found to have a graft occlusion with evidence of occlusion distal to the graft. He reports that his foot continues to hurt. He now reports decreasd sensation and decreased motor function. He denies chest pain or shortness of breath. Past Med Surg Social Fam HX - Past Medical History Medical history: COPD, diabetes, hyperlipidemia, hypertension, peripheral artery disease Psychiatric history: anxiety, bipolar, other - Past Surgical History Surgical History: cholecystectomy, vascular surgery (Bilateral femoral endarterectomy, bilateral femoral to popliteal artery bypass) - Social History Smoking Status: Current every day smoker Smokeless Tobacco Status: No Alcohol use: none Drug use: none - Family History Paternal Living Status: Hx Family Cardiac Disorders: No Hx Family Respiratory Disorders: Yes (Emphysema Grandfather) Hx Family Cancer: Yes (Mother and sister stomach CA, Grand father prostate) Hx Family GI Disorders: No Hx Family Endocrine Disorder: Yes (Grandmother) Hx Family Neuromuscular Disorders: No Hx Family Neurologic Disorders: No Hx Family HEENT Disorders: No Hx Family Autoimmune Disorders: No Medications and Allergies Gabapentin [Neurontin] 800 mg PO TID 07/19/15 [History] LORazepam [Ativan] 1 mg PO HS 07/19/15 [History] Lovastatin 40 mg PO HS 07/19/15 [History] Propranolol [Inderal] 40 mg PO BID 07/19/15 [History] Quetiapine Fumarate [Seroquel] 600 mg PO HS 07/19/15 [History] Ranitidine HCl [Zantac] 150 mg PO BID 07/19/15 [History] Zolpidem [Ambien] 10 mg PO HS 07/19/15 [History] traMADol [Ultram] 100 mg PO BID 07/19/15 [History] Citalopram Hydrobromide [Celexa] 40 mg PO DAILY 01/24/16 [History] Empagliflozin [Jardiance] 10 mg PO DAILY 01/24/16 [History] Insulin Glargine,Hum.rec.anlog [Lantus Solostar] 10 unit SQ QAM 01/24/16 [ History] Metformin HCl [Metformin HCl ER] 500 mg PO HS 01/24/16 [History] Naproxen [Naprosyn] 500 mg PO BID PRN 01/24/16 [History] Pentoxifylline [TRENtal] 400 mg PO BID 01/24/16 [History] Aspirin Enteric Coated [Aspirin EC] 81 mg PO DAILY 03/26/16 [History] glipiZIDE [Glipizide] 10 mg PO BID 03/26/16 [History] Furosemide [Lasix] 40 mg PO DAILY 08/28/16 [History] Alogliptin Benzoate [Alogliptin] 25 mg PO DAILY 11/25/16 [History] Amantadine HCl [Amantadine] 100 mg PO BID 11/25/16 [History] Potassium Chloride [Klor-Con 10] 10 meq PO DAILY 11/25/16 [History] Nicotine Patch [Nicoderm] 21 mg TD DAILY #30 patch.td24 11/26/16 [Rx] OxyCODONE/APAP 5/325 [Percocet 5/325 MG] 1 each PO Q6HR PRN #25 tablet 11/26/16 [Rx] Rivaroxaban [Xarelto] 20 mg PO DAILY #30 tablet 11/26/16 [Rx] 3 Allergy/AdvReac Type Severity Reaction Status Date / Time No Known Allergies Allergy Verified 08/28/16 10:04 All Systems Review: A 10-system review of systems was performed and is negative for pertinent findings except as documented above in the HPI. - Constitutional Constitutional: no chills, no fatigue, no fever(s) - Cardiovascular Cardiovascular: no chest pain at rest, no dyspnea at rest - Vascular Vascular: lower extremity coldness (right foot) Exam Vital Signs, Last 4 Hours Temp Pulse Resp BP Pulse Ox 11/25/16 08:00 98.9 F 72 16 103/63 98 General: Present: Conversant, No Apparent Distress HEENT: Present: Atraumatic, Trachea midline, Pupils equal Neck: Absent: JVD, Lymphadenopathy Cardiac: Present: Reg Rate and Rhythm, Normal S1 and S2 Lungs: Present: Normal Breath Sounds, No Wheeze, Rales, Rhonchi Neuro: Present: Alert and responsive, Motor nerves grossly intact (decreased at right foot), Sensory nerves grossly intact (Decreased at right foot) Abdomen: Present: Soft, Non-tender. Absent: Masses Vascular: Present: Capillary refill delayed (Right foot), Pulse, absent (Right popliteal dorsalis pedis and posterior tibial pulses), Color/Temperature (Right foot cool to touch) Skin: Present: Wound/ulcer(s) (Multiple eschars and ulcers present on right foot and leg, no erythema, minimal serous drainage), Other Results 11/26/16 04:45 11/26/16 04:45 - Imaging / Other Tests CT/CTA: report reviewed, image reviewed
[2016-11-25] MEDS ORDERED: Nicotine 21 MG PATCH.TD24 TD SCH (09:00)
[2016-11-25] MEDS ORDERED: *HR* Heparin 5,000 UNIT/ML VIAL IVP PRN ×4 (11:12→20:28)
[2016-11-25] MEDS ORDERED: *HR* Heparin 5,000 UNIT/ML VIAL IVP ONE (11:12)
[2016-11-25] MEDS ORDERED: Heparin 25,000 UNIT/500 ML D5W 25,000 UNIT/500 ML MLS IVC SCH ×2 (11:15→20:28)
[2016-11-25 12:59] LABS: Hematocrit 34.5 % (37.5-50.1); Hemoglobin 11.5 g/dL (12.9-16.9); Mean Corpuscular HGB Conc 33.3 g/dL (31.6-35.5); Mean Corpuscular Hemoglobin 28.7 pg (28.0-33.3); Mean Platelet Volume 8.6 fL (9.4-12.4); Platelet Count 406 K/mcL (140-400); Red Blood Count 4.01 M/mcL (4.19-5.50); Red Cell Distribution Width 13.7 % (11.5-14.5)
[2016-11-25 13:04] LABS: INR 1.4; Prothrombin Time 14.8 Seconds (9.4-12.1)
[2016-11-25 13:07] LABS: Activated Partial Thrombo Time 32.1 Seconds (26.0-36.0)
[2016-11-25] MEDS: Insulin LISPRO 300 UNITS/3 ML VIAL SQ SCH ×2 (13:31→18:15)
[2016-11-25] MEDS: *HR* Metoprolol 5 MG/5 ML VIAL IVP SCH ×3 (13:33→23:55)
--- NOTE | 2016-11-25 13:57 | Anesthesia Evaluation PreOp ---
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: Other (tremor) Other Medical History: Diabetes Type II (accu check 130) Anesthesia History: No Prior Anesthetic Complications, Past Anesthesia Alcohol Use: none Drug use: none Medications and Allergies Gabapentin [Neurontin] 800 mg PO TID 07/19/15 [History] LORazepam [Ativan] 1 mg PO HS 07/19/15 [History] Lovastatin 40 mg PO HS 07/19/15 [History] Propranolol [Inderal] 40 mg PO BID 07/19/15 [History] Quetiapine Fumarate [Seroquel] 600 mg PO HS 07/19/15 [History] Ranitidine HCl [Zantac] 150 mg PO BID 07/19/15 [History] Zolpidem [Ambien] 10 mg PO HS 07/19/15 [History] traMADol [Ultram] 100 mg PO BID 07/19/15 [History] Citalopram Hydrobromide [Celexa] 40 mg PO DAILY 01/24/16 [History] Empagliflozin [Jardiance] 10 mg PO DAILY 01/24/16 [History] Insulin Glargine,Hum.rec.anlog [Lantus Solostar] 10 unit SQ QAM 01/24/16 [ History] Metformin HCl [Metformin HCl ER] 500 mg PO HS 01/24/16 [History] Naproxen [Naprosyn] 500 mg PO BID PRN 01/24/16 [History] Pentoxifylline [TRENtal] 400 mg PO BID 01/24/16 [History] Potassium Chloride [Klor-Con] 20 meq PO DAILY 01/24/16 [History] Aspirin Enteric Coated [Aspirin EC] 81 mg PO DAILY 03/26/16 [History] glipiZIDE [Glipizide] 10 mg PO BID 03/26/16 [History] Furosemide [Lasix] 40 mg PO DAILY 08/28/16 [History] Clopidogrel [Plavix] 75 mg PO DAILY #30 tablet 08/29/16 [Rx] Alogliptin Benzoate [Alogliptin] 25 mg PO DAILY 11/25/16 [History] Amantadine HCl [Amantadine] 100 mg PO BID 11/25/16 [History] Potassium Chloride [Klor-Con 10] 10 meq PO DAILY 11/25/16 [History] 3 Allergy/AdvReac Type Severity Reaction Status Date / Time No Known Allergies Allergy Verified 08/28/16 10:04 - Meds/Allergy Pre-op Review Medications Reviewed: Yes Allergies Reviewed: Yes Beta Blockers on Current Med List: Yes (Labetolol 1330) Anesthesia Results - Labs 11/25/16 12:49 - Imaging EKG: report reviewed (sinus rhythm) Anesthesia Exam Selected Entries 11/25/16 11:44 Temperature 99.0 F Pulse Rate 72 Respiratory Rate 18 Blood Pressure 109/71 O2 Sat by Pulse Oximetry 98 Weight: 94 kg BMI 29 - HEENT Pupil (Motor): Pupils equal Mallampati: I Teeth: Edentulous Oral Opening: Greater than 3 - ASSOCIATE VETERINARIAN ASSOCIATE VETERINARIAN Motor: Normal RUE (diffuse intention tremors), Normal LUE - Cardiac Rhythm: Regular Murmur: None - Pulmonary Breath Sounds: bilateral Clear Respiratory Effort: Symmetrical Anesthesia Assess/Plan ASA Score: 3 Modified [place] Scale for Level of Consciousness: Cooperative, oriented, and tranquil Anesthetic Plan: General Monitoring Plan: Standard Monitors Recovery Plan: PACU
[2016-11-25] MEDS ORDERED: Lidocaine -MPF 2% 2 ML VIAL ONE ×2 (14:08→14:27)
[2016-11-25] MEDS ORDERED: *HR* Succinylcholine 200 MG/10 ML VIAL IVP ONE ×2 (14:08→14:27)
[2016-11-25] MEDS ORDERED: *HR* FentaNYL (PF) 100 MCG/2 ML VIAL ONE ×2 (14:08→14:28)
[2016-11-25] MEDS ORDERED: Ondansetron 4 MG/2 ML VIAL ONE ×2 (14:08→14:27)
[2016-11-25] MEDS ORDERED: Albuterol 2.5 MG/3 ML NEBULIZER IH ONE (14:08)
[2016-11-25] MEDS ORDERED: *HR* Midazolam HCl 2 MG/2 ML VIAL ONE (14:08)
[2016-11-25] MEDS ORDERED: Dexamethasone 4 MG/ML VIAL ONE ×2 (14:08→14:27)
[2016-11-25] MEDS ORDERED: Lidocaine -MPF 4% 5 ML AMPUL ONE ×2 (14:08→14:27)
[2016-11-25] MEDS ORDERED: *HR* Propofol 200 MG/20 ML VIAL IVP ONE ×2 (14:08→14:28)
[2016-11-25] MEDS ORDERED: Vancomycin 1,000 MG VIAL ONE (14:34)
[2016-11-25] MEDS ORDERED: Heparin 1,000 UNITS/500 mL NS 500 ML ONE (14:34)
[2016-11-25] MEDS ORDERED: Vancomycin 1,500 MG in D5% in Water 250 ML IVPB ONE (14:50)
[2016-11-25] MEDS ORDERED: ceFAZolin 2,000 MG in D5% in Water (Mini-Bag+) 100 ML IVPB ONE (14:50)
[2016-11-25] MEDS ORDERED: CeFAZolin Pre 2,000 MG/100 ML 2,000 MG/100 ML BAG IVPB ONE (15:00)
[2016-11-25] MEDS ORDERED: ceFAZolin 2,000 MG in D5% in Water 100 ML IVPB ONE (15:03)
[2016-11-25] MEDS ORDERED: *HR* Remifentanil 2 MG VIAL IVP ONE (15:57)
[2016-11-25] MEDS ORDERED: *HR* Heparin 5,000 UNIT/ML VIAL ONE (16:47)
[2016-11-25] MEDS ORDERED: *HR* Promethazine 25 MG/ML VIAL IVP PRN (19:18)
--- NOTE | 2016-11-25 19:18 | Operative Note ---
Date of procedure: 11/25/16 Pre-op diagnosis: Acute on chronic right lower extremity ischemia Post-op diagnosis: same Procedure: 1. Right femoral to popliteal artery bypass graft thrombectomy with 4 scottish princess embolectomy catheter. 2. Right tibial thrombectomy with 3 scott[place] princess embolectomy catheter. Complications: None Anesthesia: LYUBOVA Surgeon: Wale Hansen Estimated blood loss (cc): 400 Specimen: Right groin lymph node, right lower extremity thrombus Condition: stable Disposition: PACU Procedure in Detail: Indications: The patient is a 56 year old male with a history of peripheral vascular disease. He was seen in clinic with an ankle brachial index of 0.0 and an occluded right lower extremity bypass graft. The patient was advised to get admitted for anticoagulation and revascularization. He declined and present to the hosptial today. He was found to have sensory and motor deficits with rogressive limb ischemia including a cold foot, ulceration and skin necrosis with eschar formation. He was brought to the OR for revascularization. Procedure: The patient was identified in the preoperative area. The risks, benefits and alternatives were discussed and all questions were answered. The patient was taken to the operating room and placed in the supine position on the operating room table. After the induction of general endotracheal anesthesia, the patient was cleaned and draped in the normal sterile fashion. An oblique incision was made sharply through his previous right groin scar overlying the femoral vessels and graft. Hemostasis was obtained with electrocautery. Through a process of blunt, sharp and electrocautery dissection , the common, deep and superficial femoral arteries were dissected and surrounded with vessel loops. The graft was also dissected and surrounded with vesel loops. The patient received a 5000 unit bolus of heparin. After waiting adequate time or the heparin to circulate, the vessels were occluded with the vessel loops. Additonal heparin was given throughout the procedure to maintain anticoagulation. A longitudinal arteriotomy was made through the graft anastamosis and extended distally. No flow was noted on release of the loops. A 4 scottish princess catheter was passed into the aorta and inflated. It was withdrawn and some acute thrombus and chronic thrombus was retrieved. This was sent to pathology. Brisk pulsatile flow was noted at this time. Additional passes of the catheter resulted in no additional thrombus or embolus proximally. A 4 scottish princess catheter was passed distally and thrombus was retrieved from the deep femoral artery. Significant retrograde flow was noted from the deep femoral artery. A 4 scottish princess catheter was passed distally through the graft and into the distal popliteal artery. Thrombus was retrieved on multiple passes. Additional passes then resulted in no additional thrombus retrieval. Retrograde flow as noted through the graft. The vessels and graft were flushed with heparin. The graftotomy was reapproximated with a runnnig 6-0 prolene. Prior to completing the closure, the vessels were flushed, the graft was flushed and heparin was infused into the lumen. Flow was restored in the [place] vessels and graft. No signals could be identified in the posterior tibial or dorsalis pedis arteries. An incision was made in the right medial calf. Through a process of blunt, sharp and electrocautery dissection, skin, subcutaneous tissue and gastrocnemius fascia was traversed. The popliteal artery was dissected proximally and distally. No doppler damon was identified in the popliteal artery. A transverse arteriotomy was then performed and a 3 scottish princess was passed proximally and distally. Significant organized thrombus was retrieved. After multiple passes, pulsatile antegrade flow and brisk retrograde flow was noted. The lumen was flushed with heparinized saline. The arteriotomy was reapproximated with 6-0 prolene. Flow was restored and a polyphasic signal was present in the popliteal artery distal to the arteriotomy. However, no signals were identified in the posterior tibial or dorsalis pedis arteries. Given that thrombectomy had been performed to the foot the tibial vessels appeared to be in spasm. The wounds were irrigated with antibiotic containing saline. Hemostasis was obtained with electrocautery. The wounds were reapproximated with 2-0 and 3-0 vicryl. Skin was reapproximated with 3-0 Monocryl. Sterile dressings were applied. The patient was then extubated and taken to the recovery room in stable condition.
[2016-11-25] MEDS ORDERED: *HR* HYDROmorphone (PF) 1 MG/ML SYRINGE IVP PRN (19:19)
[2016-11-25] MEDS ORDERED: *HR* Promethazine 25 MG/ML VIAL ONE (19:19)
--- NOTE | 2016-11-25 19:57 | Anesthesia Evaluation Post Op ---
Date of Encounter: 11/25/16 Time of Encounter: 19:56 - Vital Signs Vital Signs: Last Vital Signs Temp 98.3 F 11/25/16 19:45 Pulse 86 11/25/16 19:45 Resp 16 11/25/16 19:45 BP 132/84 11/25/16 19:45 Pulse Ox 100 11/25/16 19:45 - Lungs Lungs: Clear Ascult./Percussion - Airway Airway: Non-obstructed - Cardiovascular Regular Rate - Mental Status Mental Status: Alert & Oriented, Answers Appropriately - Pain Pain Scale: 5 - Nausea Vomiting Nausea Vomiting: Not Present - Hydration Hydration: Ice chips - Discharge PostOp Status: Transfer Patient to floor
[2016-11-25] MEDS ORDERED: *HR* LORazepam 1 MG TABLET PO SCH (21:00)
[2016-11-25] MEDS ORDERED: Insulin LISPRO 300 UNITS/3 ML VIAL SQ SCH ×2 (21:00)
[2016-11-25] MEDS: Famotidine 20 MG TABLET PO SCH (21:52)
[2016-11-25] MEDS: 0.9 % Sodium Chloride 1,000 ML IVC SCH (21:53)
[2016-11-25] MEDS: *HR* OxyCODONE Immed Rel 5 MG TABLET PO PRN (21:53)
[2016-11-25] MEDS: Gabapentin 400 MG CAPSULE PO SCH (21:53)
[2016-11-26 05:44] LABS: Basophils % 0.3 %; Eosinophils % 0.1 %; Hematocrit 32.1 % (37.5-50.1); Hemoglobin 10.3 g/dL (12.9-16.9); Immature Granulocytes % 0.8 % (0-4); Lymphocytes # 1.9 K/mcL (0.6-4.6); Lymphocytes % 13.7 %; Mean Corpuscular HGB Conc 32.1 g/dL (31.6-35.5); Mean Corpuscular Hemoglobin 27.9 pg (28.0-33.3); Mean Platelet Volume 8.7 fL (9.4-12.4); Monocytes # 1.3 K/mcL (0.0-1.3); Monocytes % 9.2 %; Neutrophils # 10.7 K/mcL (1.6-8.9); Platelet Count 377 K/mcL (140-400); Red Blood Count 3.69 M/mcL (4.19-5.50); Red Cell Distribution Width 13.7 % (11.5-14.5); Segmented Neutrophils % 75.9 %
[2016-11-26 06:05] LABS: BUN/Creatinine Ratio 12 (6-26); Blood Urea Nitrogen 8 mg/dL (8-26); Calcium 8.8 mg/dL (8.6-10.8); Carbon Dioxide 26 mEq/L (19-29); Chloride 100 mEq/L (98-109); Glucose 111 mg/dL (70-99); Osmolality,Calculated 281 (280-300); Potassium 3.2 mEq/L (3.5-4.5); Sodium 136 mEq/L (136-145); eGFR For African Americans > 60 (> 60); eGFR For Non-African Americans > 60 (> 60)
[2016-11-26] MEDS: *HR* Metoprolol 5 MG/5 ML VIAL IVP SCH ×2 (06:10→11:57)
[2016-11-26] MEDS: Gabapentin 400 MG CAPSULE PO SCH ×2 (07:31→15:17)
[2016-11-26] MEDS: Insulin LISPRO 300 UNITS/3 ML VIAL SQ SCH ×2 (07:33→11:49)
[2016-11-26] MEDS: 0.9 % Sodium Chloride 1,000 ML IVC SCH (07:42)
[2016-11-26] MEDS ORDERED: Furosemide 40 MG TABLET PO SCH (09:00)
[2016-11-26] MEDS ORDERED: Aspirin Enteric Coated 81 MG Tablet PO SCH (09:00)
[2016-11-26] MEDS ORDERED: Nicotine 21 MG PATCH.TD24 TD SCH (09:00)
[2016-11-26 11:42] VITALS: BP 151/76
[2016-11-26] MEDS: *HR* OxyCODONE Immed Rel 5 MG TABLET PO PRN (11:54)
--- NOTE | 2016-11-26 13:34 | Discharge Summary ---
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 He underwent a right lower extremity thrombectomy. His right foot is warm. His ulcers are stable. He has pedal signals by doppler. He reports subjective improvement of his symptoms. His compartments are soft. He will be discharged today. Given the severity of his disease and progression despite aspirin and plavix, he will start Xarelto for anticoagulation. He will be discharged today with home health. (2) Mixed hyperlipidemia Priority: Secondary Status: Chronic (3) Unspecified essential hypertension Priority: Secondary Status: Chronic (4) Carotid stenosis, bilateral Priority: Secondary Status: Chronic (5) Tobacco abuse Priority: Secondary Status: Chronic Comments: He was counseled regarding smoking cessation. He was informed that continued smoking will most likely result in amputation. (6) Diabetes mellitus with peripheral angiopathy without gangrene Priority: Secondary Status: Chronic Qualifiers: Diabetes mellitus type: type 2 Diabetes mellitus fdc insulin use: with terminal worker use Qualified Code(s): E11.51 - Type 2 diabetes mellitus with diabetic peripheral angiopathy without gangrene; Z79.4 - detention (current) use of insulin; Z79.4 - detention (current) use of insulin; Z79.4 - detention ( current) use of insulin; Z79.4 - detention (current) use of insulin (7) Essential hypertension Priority: Secondary Status: Chronic (8) Chronic anemia Priority: Secondary Status: Chronic Comments: The patient has chronic anemia. He is hemodynamically stable without evidence of ongoing blood loss. - Discharge Medications Prescriptions: OxyCODONE/APAP 5/325 [Percocet 5/325 MG] 1 each PO Q6HR PRN #25 tablet PRN Reason: postoperative pain Nicotine Patch [Nicoderm] 21 mg TD DAILY #30 patch.td24 Rivaroxaban [Xarelto] 20 mg PO DAILY #30 tablet Home Medications: Gabapentin [Neurontin] 800 mg PO TID 07/19/15 [History] LORazepam [Ativan] 1 mg PO HS 07/19/15 [History] Lovastatin 40 mg PO HS 07/19/15 [History] Propranolol [Inderal] 40 mg PO BID 07/19/15 [History] Quetiapine Fumarate [Seroquel] 600 mg PO HS 07/19/15 [History] Ranitidine HCl [Zantac] 150 mg PO BID 07/19/15 [History] Zolpidem [Ambien] 10 mg PO HS 07/19/15 [History] traMADol [Ultram] 100 mg PO BID 07/19/15 [History] Citalopram Hydrobromide [Celexa] 40 mg PO DAILY 01/24/16 [History] Empagliflozin [Jardiance] 10 mg PO DAILY 01/24/16 [History] Insulin Glargine,Hum.rec.anlog [Lantus Solostar] 10 unit SQ QAM 01/24/16 [ History] Metformin HCl [Metformin HCl ER] 500 mg PO HS 01/24/16 [History] Naproxen [Naprosyn] 500 mg PO BID PRN 01/24/16 [History] Pentoxifylline [TRENtal] 400 mg PO BID 01/24/16 [History] Aspirin Enteric Coated [Aspirin EC] 81 mg PO DAILY 03/26/16 [History] glipiZIDE [Glipizide] 10 mg PO BID 03/26/16 [History] Furosemide [Lasix] 40 mg PO DAILY 08/28/16 [History] Alogliptin Benzoate [Alogliptin] 25 mg PO DAILY 11/25/16 [History] Amantadine HCl [Amantadine] 100 mg PO BID 11/25/16 [History] Potassium Chloride [Klor-Con 10] 10 meq PO DAILY 11/25/16 [History] Nicotine Patch [Nicoderm] 21 mg TD DAILY #30 patch.td24 11/26/16 [Rx] OxyCODONE/APAP 5/325 [Percocet 5/325 MG] 1 each PO Q6HR PRN #25 tablet 11/26/16 [Rx] Rivaroxaban [Xarelto] 20 mg PO DAILY #30 tablet 11/26/16 [Rx] Allergies/Adverse Reactions: 3 Allergy/AdvReac Type Severity Reaction Status Date / Time No Known Allergies Allergy Verified 08/28/16 10:04 Date of admission: 11/25/16 07:48 Primary care physician: Sunita Murrell Consults: 11/25/16 09:48 Consult to Automatic Casting Machine Operator [CONS] Routine Reason for SW Consult: Patient currently has home health Procedure(s) Performed: Right lower extremity thrombectomy. Discharging clinician: Wale Hansen Anticipated date of discharge: 11/26/16 - Patient Status Disposition: Home Health Service Condition: Good Functional capacity at discharge: independent ambulation Overall status at discharge: patient is progressing back to baseline - Discharge Instructions Instructions: Rivaroxaban (By mouth), How to Stop Smoking (GEN), Cigarette Smoking and Your Health (GEN), Peripheral Vascular Disorders (GEN) Follow Up With: Amada Moreno CNP [Advanced Practice Nurse] - 12/03/16 4:00 pm Wale Hansen MD [Partnered Physician] - 01/06/17 1:00 pm Additional Instructions: Resume showers on 11/30/16 No lifting more than 10 pounds for two weeks No driving for one week - Diet and Activity Activity: increase activity as tolerated Diet: diabetic diet - Hospital Course Hospital course: Mr. Almanza is a 56 year old male admitted on 11/25/16 with acute on chronic limb ischemia. The patient was advised approximately 1 week ago that he needed urgent surgery. He chose to wait until 11/25/16 for admission. On arrival, it was noted that his right lower extremity had deteriorated significantly with the interval development of ulcerations and skin necrosis. The patient had decreased sensation and motor function. He was started on a heparin drip and taken to the operating room where he underwent an extensive thrombectomy of the right lower extremity. On postoperative day #1, he was noted to had pedal signals present, his foot was warm and his motor function had returned. He reported improved sensation and his wounds were healing. His compartments were soft. He was noted to have chronic anemia without evidence of ongoing blood loss. He was started on Xarelto and discharged to home with home health in stable condition without complication. Time spent discussing smoking cessation with patient: 3 to 10 minutes - Time Spent with Patient Total time spent providing and/or coordinating discharge services: Exam Vital Signs, Last 4 Hours Temp Pulse Resp BP Pulse Ox 11/26/16 11:38 98.4 F 66 18 151/76 98 General: Present: Conversant, No Apparent Distress HEENT: Present: Pupils equal Cardiac: Present: Reg Rate and Rhythm Lungs: Present: Normal Breath Sounds Neuro: Present: Alert and responsive, No focal deficits noted Abdomen: Present: Soft Vascular: Present: Pulse, diminished (RIGHT DORSALIS PEDIS SIGNAL IS POLYPHASIC) , Color/Temperature (right foot warm), Other (compartments soft) Skin: Present: Wound/ulcer(s) (eschars present on right leg wounds, incisions clean, dry and intact without erythema) - VTE Documentation of Mechanical Device: Intermittent pneumatic compression device
--- NOTE | 2016-11-26 13:42 | Physician Discharge Referral ---
Home Health/Hosp Referral Info Transfer to: Home Health Provider in Charge Post Discharge: PCP - Diagnosis (1) Atherosclerosis of [place] arteries of right leg with ulceration of other part of foot Priority: Primary Status: Chronic (2) Mixed hyperlipidemia Priority: Secondary Status: Chronic (3) Unspecified essential hypertension Priority: Secondary Status: Chronic (4) Carotid stenosis, bilateral Priority: Secondary Status: Chronic (5) Tobacco abuse Priority: Secondary Status: Chronic (6) Diabetes mellitus with peripheral angiopathy without gangrene Priority: Secondary Status: Chronic (7) Essential hypertension Priority: Secondary Status: Chronic - Respiratory Orders Smoking Cessation: Smoking cessation has been advised. For more information, call the [place] Tobacco Quit Line at 6-635-KNBP-NOW. - Activity Activity Orders: Up ad lorenzo - Services Needed Following services are medically necessary services: Home Health Aide Other Treatments: Cleanse right lower extremity wounds daily. Cleanse incisions daily and apply dry gauze to wounds daily and as needed. - Transfer Medications Prescriptions: OxyCODONE/APAP 5/325 [Percocet 5/325 MG] 1 each PO Q6HR PRN #25 tablet PRN Reason: postoperative pain Home Medications: Gabapentin [Neurontin] 800 mg PO TID 07/19/15 [History] LORazepam [Ativan] 1 mg PO HS 07/19/15 [History] Lovastatin 40 mg PO HS 07/19/15 [History] Propranolol [Inderal] 40 mg PO BID 07/19/15 [History] Quetiapine Fumarate [Seroquel] 600 mg PO HS 07/19/15 [History] Ranitidine HCl [Zantac] 150 mg PO BID 07/19/15 [History] Zolpidem [Ambien] 10 mg PO HS 07/19/15 [History] traMADol [Ultram] 100 mg PO BID 07/19/15 [History] Citalopram Hydrobromide [Celexa] 40 mg PO DAILY 01/24/16 [History] Empagliflozin [Jardiance] 10 mg PO DAILY 01/24/16 [History] Insulin Glargine,Hum.rec.anlog [Lantus Solostar] 10 unit SQ QAM 01/24/16 [ History] Metformin HCl [Metformin HCl ER] 500 mg PO HS 01/24/16 [History] Naproxen [Naprosyn] 500 mg PO BID PRN 01/24/16 [History] Pentoxifylline [TRENtal] 400 mg PO BID 01/24/16 [History] Aspirin Enteric Coated [Aspirin EC] 81 mg PO DAILY 03/26/16 [History] glipiZIDE [Glipizide] 10 mg PO BID 03/26/16 [History] Furosemide [Lasix] 40 mg PO DAILY 08/28/16 [History] Clopidogrel [Plavix] 75 mg PO DAILY #30 tablet 08/29/16 [Rx] Alogliptin Benzoate [Alogliptin] 25 mg PO DAILY 11/25/16 [History] Amantadine HCl [Amantadine] 100 mg PO BID 11/25/16 [History] Potassium Chloride [Klor-Con 10] 10 meq PO DAILY 11/25/16 [History] OxyCODONE/APAP 5/325 [Percocet 5/325 MG] 1 each PO Q6HR PRN #25 tablet 11/26/16 [Rx] Allergies/Adverse Reactions: 3 Allergy/AdvReac Type Severity Reaction Status Date / Time No Known Allergies Allergy Verified 08/28/16 10:04 Certification: Further, I certify that my clinical findings support that this patient is homebound (i.e. absences from home require considerable and taxing effort and are for medical reasons or restoration services or infrequently or short duration when for other reasons) because: Homebound Reason: Post-surgery restriction and or conditions limit ability to leave home, Leaving home requires considerable and taxing effort due to condition Attestation: My signature below is to certify that this patient is under my care and that I, or nurse practitioner, or a physician's photographer assistant working with me, has a face-to -face encounter with this patient.
[2016-11-26] MEDS: Famotidine 20 MG TABLET PO SCH (13:54)
[2016-11-26] MEDS ORDERED: *HR* Rivaroxaban 10 MG TABLET PO SCH (14:00)
[2016-11-26] MEDS ORDERED: Famotidine 20 MG TABLET PO SCH (21:00)
== END 2016-11-26 16:09 | disposition home health service (06) | DRG 181 ==
LOC: 2NNU 07:48
PROVIDERS: ADMIT Surgery; ATTEND Surgery

== ENCOUNTER 2016-12-23 13:46 | Inpatient (IN) ==
[~2016-12-23 13:46] MED LIST: *HR* Etomidate 20 MG/10 ML AMPUL IVP ONE; *HR* Midazolam HCl 5 MG/5 ML VIAL IVP ONE
--- NOTE | 2016-12-23 14:02 | Emergency Department Note ---
Disposition Clinical Impression: Arterial insufficiency of lower extremity, Septic shock, Anemia, Hypokalemia, Hypotension, Altered mental status, Elevated troponin, Demand ischemia, ST segment depression, Lactic acid acidosis, Hyperglycemia Disposition: Admitted As Inpatient Condition: Critical General Adult HPI - General Chief complaint: ED Altered Mental Status Stated complaint: Lethargic / Right LE Infection Time Seen by Provider: 12/23/16 13:57 Source: EMS Limitations: altered mental status - History of Present Illness Pain Scale: 0 - Related Data Home Medications Medication Instructions Recorded Confirmed Gabapentin [Neurontin] 800 mg PO TID 07/19/15 12/23/16 LORazepam [Ativan] 1 mg PO HS 07/19/15 12/23/16 Lovastatin 40 mg PO HS 07/19/15 12/23/16 Propranolol [Inderal] 40 mg PO BID 07/19/15 12/23/16 Quetiapine Fumarate [Seroquel] 600 mg PO HS 07/19/15 12/23/16 Ranitidine HCl [Zantac] 150 mg PO BID 07/19/15 12/23/16 Zolpidem [Ambien] 10 mg PO HS 07/19/15 12/23/16 traMADol [Ultram] 100 mg PO BID 07/19/15 12/23/16 Citalopram Hydrobromide [Celexa] 40 mg PO DAILY 01/24/16 12/23/16 Empagliflozin [Jardiance] 10 mg PO DAILY 01/24/16 12/23/16 Metformin HCl [Metformin HCl ER] 500 mg PO HS 01/24/16 12/23/16 Naproxen [Naprosyn] 500 mg PO BID PRN 01/24/16 12/23/16 Pentoxifylline [TRENtal] 400 mg PO BID 01/24/16 12/23/16 Aspirin Enteric Coated [Aspirin EC] 81 mg PO DAILY 03/26/16 12/23/16 glipiZIDE [Glipizide] 10 mg PO BID 03/26/16 12/23/16 Furosemide [Lasix] 40 mg PO DAILY 08/28/16 12/23/16 Alogliptin Benzoate [Alogliptin] 25 mg PO DAILY 11/25/16 12/23/16 Amantadine HCl [Amantadine] 100 mg PO BID 11/25/16 12/23/16 Potassium Chloride [Klor-Con 10] 10 meq PO DAILY 11/25/16 12/23/16 Clopidogrel [Plavix] 75 mg PO DAILY 12/23/16 12/23/16 Insulin Glargine,Hum.rec.anlog 6 unit SQ DAILY 12/23/16 12/23/16 [Basaglar Kwikpen U-100] Previous Rx's Medication Instructions Recorded Nicotine Patch [Nicoderm] 21 mg TD DAILY #30 patch.td24 11/26/16 Rivaroxaban [Xarelto] 20 mg PO DAILY #30 tablet 11/26/16 Allergies Allergy/AdvReac Type Severity Reaction Status Date / Time No Known Allergies Allergy Verified 08/28/16 10:04 Past Medical History - Past Medical History Medical history: Reports: COPD, diabetes, hyperlipidemia, hypertension, peripheral artery disease Surgical history: Reports: cholecystectomy, vascular surgery (Bilateral femoral endarterectomy, bilateral femoral to popliteal artery bypass) Psychiatric history: Reports: anxiety, bipolar, other - Social History Smoking Status: Current every day smoker Smokeless Tobacco Status: No Alcohol use: Reports: none Drug use: Reports: none Physical Exam - General Limitations: altered mental status General appearance: lethargic Course Vital Signs Temperature 97.8 F 12/23/16 13:49 Pulse Rate 114 12/23/16 13:49 Respiratory Rate 10 12/23/16 13:49 Blood Pressure 64/46 12/23/16 13:49 O2 Sat by Pulse Oximetry 99 12/23/16 13:49 Temperature 99.8 F H 12/23/16 22:00 Pulse Rate 106 12/23/16 22:00 Respiratory Rate 15 12/23/16 22:00 Blood Pressure 100/55 12/23/16 22:00 O2 Sat by Pulse Oximetry 100 12/23/16 22:00 Oxygen Delivery Oxygen Delivery Room Air Medical Decision Making - Lab Data Result diagrams: 12/23/16 17:44 12/23/16 18:59 Lab Results 12/23/16 12/23/16 12/23/16 Range/Units 13:52 13:55 13:55 WBC 18.3 H (4.3-11.1) K/mcL RBC 2.39 L (4.19-5.50) M/mcL Hgb 6.1 L (12.9-16.9) g/dL Hct 19.7 L (37.5-50.1) % MCV 82.4 L (83.0-100.0) fL MCH 25.5 L (28.0-33.3) pg MCHC 31.0 L (31.6-35.5) g/dL RDW 16.2 H (11.5-14.5) % Plt Count 410 H (140-400) K/mcL MPV 9.3 L (9.4-12.4) fL Immature Gran % 2.8 (0-4) % Seg Neutrophils % 87.4 % Lymphocytes % 4.6 % Monocytes % 4.9 % Eosinophils % 0.1 % Basophils % 0.2 % Neutrophils # 16.0 H (1.6-8.9) K/mcL Lymphocytes # 0.9 (0.6-4.6) K/mcL Monocytes # 0.9 (0.0-1.3) K/mcL Eosinophils # 0.0 (0.0-0.6) K/mcL Basophils # 0.0 (0.0-0.2) K/mcL PT 41.1 H (9.4-12.1) Seconds INR 3.7 APTT 39.1 H (26.0-36.0) Seconds Sample Site ABG pH (7.32-7.45) pH Units ABG pCO2 (35-45) mmHg ABG pO2 (85-104) mmHg ABG HCO3 (21-27) mEq/L ABG Total CO2 (20-26) mEq/L ABG O2 Saturation (95-98) % ABG Base Excess (-2 to 3) mEq/L Roland Test O2 Delivery Device Sodium (136-145) mEq/L Potassium (3.5-4.5) mEq/L Chloride (98-109) mEq/L Carbon Dioxide (19-29) mEq/L BUN (8-26) mg/dL Creatinine (0.72-1.25) mg/dL Est GFR ( Amer) (> 60) Est GFR (Non-Af Amer) (> 60) BUN/Creatinine Ratio (6-26) Glucose (70-99) mg/dL POC Glucose 272 H (58-89) Calculated Osmolality (280-300) Lactic Acid (0.5-2.2) mmol/L Calcium (8.6-10.8) mg/dL Phosphorus (2.3-4.7) mg/dL Magnesium (1.6-2.6) mg/dL Total Bilirubin (0.2-1.2) mg/dL Direct Bilirubin (0.0-0.5) mg/dL Indirect Bilirubin (0.0-1.2) mg/dL AST (5-34) Units/L ALT (0-55) Units/L Alkaline Phosphatase (38-126) Units/L Creatine Kinase (30-200) Units/L Troponin I (0-0.03) ng/mL Serum Total Protein (6.0-8.3) g/dL Albumin (3.5-5.0) g/dL Globulin (2.4-3.5) g/dL Albumin/Globulin Ratio (1.1-2.2) Urine Color (Yellow) Urine Clarity (Clear) Urine pH (5.0-8.0) pH Units Ur Specific [place] (1.010-1.025) Urine Protein (Neg-Trace) mg/dL Urine Glucose (UA) (Normal) mg/dL Urine Ketones (Negative) mg/dL Urine Blood (Negative) Urine Nitrite (Negative) Urine Bilirubin (Negative) Urine Urobilinogen (Normal) mg/dL Ur Leukocyte Esterase (Negative) Ur Culture Indicated? (NO) Blood Type Antibody Screen Crossmatch 12/23/16 12/23/16 12/23/16 Range/Units 13:55 13:55 13:55 WBC (4.3-11.1) K/mcL RBC (4.19-5.50) M/mcL Hgb (12.9-16.9) g/dL Hct (37.5-50.1) % MCV (83.0-100.0) fL MCH (28.0-33.3) pg MCHC (31.6-35.5) g/dL RDW (11.5-14.5) % Plt Count (140-400) K/mcL MPV (9.4-12.4) fL Immature Gran % (0-4) % Seg Neutrophils % % Lymphocytes % % Monocytes % % Eosinophils % % Basophils % % Neutrophils # (1.6-8.9) K/mcL Lymphocytes # (0.6-4.6) K/mcL Monocytes # (0.0-1.3) K/mcL Eosinophils # (0.0-0.6) K/mcL Basophils # (0.0-0.2) K/mcL PT (9.4-12.1) Seconds INR APTT (26.0-36.0) Seconds Sample Site ABG pH (7.32-7.45) pH Units ABG pCO2 (35-45) mmHg ABG pO2 (85-104) mmHg ABG HCO3 (21-27) mEq/L ABG Total CO2 (20-26) mEq/L ABG O2 Saturation (95-98) % ABG Base Excess (-2 to 3) mEq/L Roland Test O2 Delivery Device Sodium 134 L (136-145) mEq/L Potassium 2.2 L* (3.5-4.5) mEq/L Chloride 89 L (98-109) mEq/L Carbon Dioxide 27 (19-29) mEq/L BUN 21 (8-26) mg/dL Creatinine 1.11 (0.72-1.25) mg/dL Est GFR ( Amer) > 60 (> 60) Est GFR (Non-Af Amer) > 60 (> 60) BUN/Creatinine Ratio 19 (6-26) Glucose 348 H (70-99) mg/dL POC Glucose (58-89) Calculated Osmolality 295 (280-300) Lactic Acid 7.2 H* (0.5-2.2) mmol/L Calcium 9.0 (8.6-10.8) mg/dL Phosphorus 4.9 H (2.3-4.7) mg/dL Magnesium 1.7 (1.6-2.6) mg/dL Total Bilirubin 0.6 (0.2-1.2) mg/dL Direct Bilirubin 0.5 (0.0-0.5) mg/dL Indirect Bilirubin 0.1 (0.0-1.2) mg/dL AST 23 (5-34) Units/L ALT 15 (0-55) Units/L Alkaline Phosphatase 149 H (38-126) Units/L Creatine Kinase 94 (30-200) Units/L Troponin I 2.51 H* (0-0.03) ng/mL Serum Total Protein 6.9 (6.0-8.3) g/dL Albumin 2.2 L (3.5-5.0) g/dL Globulin 4.7 H (2.4-3.5) g/dL Albumin/Globulin Ratio 0.5 L (1.1-2.2) Urine Color (Yellow) Urine Clarity (Clear) Urine pH (5.0-8.0) pH Units Ur Specific [place] (1.010-1.025) Urine Protein (Neg-Trace) mg/dL Urine Glucose (UA) (Normal) mg/dL Urine Ketones (Negative) mg/dL Urine Blood (Negative) Urine Nitrite (Negative) Urine Bilirubin (Negative) Urine Urobilinogen (Normal) mg/dL Ur Leukocyte Esterase (Negative) Ur Culture Indicated? (NO) Blood Type Antibody Screen Crossmatch 12/23/16 12/23/16 12/23/16 Range/Units 13:55 14:02 15:16 WBC (4.3-11.1) K/mcL RBC (4.19-5.50) M/mcL Hgb (12.9-16.9) g/dL Hct (37.5-50.1) % MCV (83.0-100.0) fL MCH (28.0-33.3) pg MCHC (31.6-35.5) g/dL RDW (11.5-14.5) % Plt Count (140-400) K/mcL MPV (9.4-12.4) fL Immature Gran % (0-4) % Seg Neutrophils % % Lymphocytes % % Monocytes % % Eosinophils % % Basophils % % Neutrophils # (1.6-8.9) K/mcL Lymphocytes # (0.6-4.6) K/mcL Monocytes # (0.0-1.3) K/mcL Eosinophils # (0.0-0.6) K/mcL Basophils # (0.0-0.2) K/mcL PT (9.4-12.1) Seconds INR APTT (26.0-36.0) Seconds Sample Site L Brach ABG pH 7.41 (7.32-7.45) pH Units ABG pCO2 31 L (35-45) mmHg ABG pO2 75 L (85-104) mmHg ABG HCO3 20 L (21-27) mEq/L ABG Total CO2 21 (20-26) mEq/L ABG O2 Saturation 95 (95-98) % ABG Base Excess -4 L (-2 to 3) mEq/L Roland Test N/A O2 Delivery Device Room Air Sodium (136-145) mEq/L Potassium (3.5-4.5) mEq/L Chloride (98-109) mEq/L Carbon Dioxide (19-29) mEq/L BUN (8-26) mg/dL Creatinine (0.72-1.25) mg/dL Est GFR ( Amer) (> 60) Est GFR (Non-Af Amer) (> 60) BUN/Creatinine Ratio (6-26) Glucose (70-99) mg/dL POC Glucose (58-89) Calculated Osmolality (280-300) Lactic Acid (0.5-2.2) mmol/L Calcium (8.6-10.8) mg/dL Phosphorus (2.3-4.7) mg/dL Magnesium (1.6-2.6) mg/dL Total Bilirubin (0.2-1.2) mg/dL Direct Bilirubin (0.0-0.5) mg/dL Indirect Bilirubin (0.0-1.2) mg/dL AST (5-34) Units/L ALT (0-55) Units/L Alkaline Phosphatase (38-126) Units/L Creatine Kinase (30-200) Units/L Troponin I (0-0.03) ng/mL Serum Total Protein (6.0-8.3) g/dL Albumin (3.5-5.0) g/dL Globulin (2.4-3.5) g/dL Albumin/Globulin Ratio (1.1-2.2) Urine Color Yellow (Yellow) Urine Clarity Clear (Clear) Urine pH 6.0 (5.0-8.0) pH Units Ur Specific [place] 1.026 H (1.010-1.025) Urine Protein Negative (Neg-Trace) mg/dL Urine Glucose (UA) >=1000 H (Normal) mg/dL Urine Ketones Negative (Negative) mg/dL Urine Blood Negative (Negative) Urine Nitrite Negative (Negative) Urine Bilirubin Negative (Negative) Urine Urobilinogen Normal (Normal) mg/dL Ur Leukocyte Esterase Negative (Negative) Ur Culture Indicated? NO (NO) Blood Type A POSITIVE Antibody Screen NEGATIVE Crossmatch See Detail 12/23/16 Range/Units 15:55 WBC (4.3-11.1) K/mcL RBC (4.19-5.50) M/mcL Hgb (12.9-16.9) g/dL Hct (37.5-50.1) % MCV (83.0-100.0) fL MCH (28.0-33.3) pg MCHC (31.6-35.5) g/dL RDW (11.5-14.5) % Plt Count (140-400) K/mcL MPV (9.4-12.4) fL Immature Gran % (0-4) % Seg Neutrophils % % Lymphocytes % % Monocytes % % Eosinophils % % Basophils % % Neutrophils # (1.6-8.9) K/mcL Lymphocytes # (0.6-4.6) K/mcL Monocytes # (0.0-1.3) K/mcL Eosinophils # (0.0-0.6) K/mcL Basophils # (0.0-0.2) K/mcL PT (9.4-12.1) Seconds INR APTT (26.0-36.0) Seconds Sample Site ABG pH (7.32-7.45) pH Units ABG pCO2 (35-45) mmHg ABG pO2 (85-104) mmHg ABG HCO3 (21-27) mEq/L ABG Total CO2 (20-26) mEq/L ABG O2 Saturation (95-98) % ABG Base Excess (-2 to 3) mEq/L Roland Test O2 Delivery Device Sodium (136-145) mEq/L Potassium 2.8 L (3.5-4.5) mEq/L Chloride (98-109) mEq/L Carbon Dioxide (19-29) mEq/L BUN (8-26) mg/dL Creatinine (0.72-1.25) mg/dL Est GFR ( Amer) (> 60) Est GFR (Non-Af Amer) (> 60) BUN/Creatinine Ratio (6-26) Glucose (70-99) mg/dL POC Glucose (58-89) Calculated Osmolality (280-300) Lactic Acid (0.5-2.2) mmol/L Calcium (8.6-10.8) mg/dL Phosphorus (2.3-4.7) mg/dL Magnesium (1.6-2.6) mg/dL Total Bilirubin (0.2-1.2) mg/dL Direct Bilirubin (0.0-0.5) mg/dL Indirect Bilirubin (0.0-1.2) mg/dL AST (5-34) Units/L ALT (0-55) Units/L Alkaline Phosphatase (38-126) Units/L Creatine Kinase (30-200) Units/L Troponin I (0-0.03) ng/mL Serum Total Protein (6.0-8.3) g/dL Albumin (3.5-5.0) g/dL Globulin (2.4-3.5) g/dL Albumin/Globulin Ratio (1.1-2.2) Urine Color (Yellow) Urine Clarity (Clear) Urine pH (5.0-8.0) pH Units Ur Specific [place] (1.010-1.025) Urine Protein (Neg-Trace) mg/dL Urine Glucose (UA) (Normal) mg/dL Urine Ketones (Negative) mg/dL Urine Blood (Negative) Urine Nitrite (Negative) Urine Bilirubin (Negative) Urine Urobilinogen (Normal) mg/dL Ur Leukocyte Esterase (Negative) Ur Culture Indicated? (NO) Blood Type Antibody Screen Crossmatch Critical Care Time Critical Care Time: Yes Total Critical Care Time: 30 Attestation: Patient with a STEMI, sepsis, hypotension, necrotic right lower extremity Attestation Statement - Attestation Attestation: I examined this patient and my medical decision-making was reviewed with the Resident Physician. I agree with the documented findings, disposition and treatment plan as described except to the extent set forth below. [id number] time provided Patient presents with altered mental status. He appears to have an ischemic necrotic right lower extremity. He is hypotensive. Likely septic. He is alert and able to open his eyes to command. He is protecting his airway. EKG shows no ST segment elevation pattern in the inferior leads which is dynamically new compared to previous study dated earlier this year. STEMI alert activated.
[2016-12-23] MEDS ORDERED: Vancomycin 1,000 MG in D5% in Water 250 ML IVPB ONE (14:03)
[2016-12-23] MEDS ORDERED: Piperacillin/Tazobactam 3.375 GM in D5% in Water 50 ML IVPB ONE (14:03)
[2016-12-23 14:17] LABS: Bilirubin,Urine Negative (Negative); Blood,Urine Negative (Negative); Clarity,Urine Clear (Clear); Color,Urine Yellow (Yellow); Glucose,Urine (UA) >=1000 mg/dL (Normal); Ketones,Urine Negative (Negative); Leukocyte Esterase,Urine Negative (Negative); Nitrite,Urine Negative (Negative); Protein,Urine Negative (Neg-Trace); Specific Gravity,Urine 1.026 (1.010-1.025); Urobilinogen,Urine Normal (Normal)
[2016-12-23 14:18] LABS: Basophils % 0.2 %; Eosinophils % 0.1 %; Hematocrit 19.7 % (37.5-50.1); Immature Granulocytes % 2.8 % (0-4); Lymphocytes # 0.9 K/mcL (0.6-4.6); Lymphocytes % 4.6 %; Mean Corpuscular Hemoglobin 25.5 pg (28.0-33.3); Mean Corpuscular Volume 82.4 fL (83.0-100.0); Mean Platelet Volume 9.3 fL (9.4-12.4); Monocytes # 0.9 K/mcL (0.0-1.3); Monocytes % 4.9 %; Platelet Count 410 K/mcL (140-400); Red Blood Count 2.39 M/mcL (4.19-5.50); Red Cell Distribution Width 16.2 % (11.5-14.5); Segmented Neutrophils % 87.4 %
[2016-12-23 14:21] LABS: INR 3.7; Prothrombin Time 41.1 Seconds (9.4-12.1)
[2016-12-23] MEDS ORDERED: 0.9 % Sodium Chloride 1,000 ML ONE ×2 (14:21→20:05)
[2016-12-23 14:23] LABS: Activated Partial Thrombo Time 39.1 Seconds (26.0-36.0)
[2016-12-23] MEDS: 0.9 % Sodium Chloride 1,000 ML IVC SCH ×3 (14:24→14:27)
[2016-12-23 14:31] LABS: Alanine Aminotransferase 15 Units/L (0-55); Albumin 2.2 g/dL (3.5-5.0); Albumin/Globulin Ratio 0.5 (1.1-2.2); Alkaline Phosphatase 149 Units/L (38-126); Aspartate Amino Transferase 23 Units/L (5-34); BUN/Creatinine Ratio 19 (6-26); Bilirubin,Direct 0.5 mg/dL (0.0-0.5); Bilirubin,Indirect 0.1 mg/dL (0.0-1.2); Bilirubin,Total 0.6 mg/dL (0.2-1.2); Blood Urea Nitrogen 21 mg/dL (8-26); Carbon Dioxide 27 mEq/L (19-29); Chloride 89 mEq/L (98-109); Globulin 4.7 g/dL (2.4-3.5); Glucose 348 mg/dL (70-99); Hemoglobin 6.1 g/dL (12.9-16.9); Magnesium 1.7 mg/dL (1.6-2.6); Osmolality,Calculated 295 (280-300); Phosphorous 4.9 mg/dL (2.3-4.7); Sodium 134 mEq/L (136-145); Total Protein 6.9 g/dL (6.0-8.3); eGFR For African Americans > 60 (> 60); eGFR For Non-African Americans > 60 (> 60)
--- NOTE | 2016-12-23 14:35 | Emergency Department Note ---
Disposition Clinical Impression: Arterial insufficiency of lower extremity, Septic shock, Hypokalemia, Elevated troponin, Demand ischemia, ST segment depression, Lactic acid acidosis, Hyperglycemia Anemia Qualifiers: Anemia type: unspecified type Qualified Code(s): D64.9 - Anemia, unspecified Hypotension Qualifiers: Hypotension type: unspecified hypotension type Qualified Code(s): I95.9 - Hypotension, unspecified Altered mental status Qualifiers: Altered mental status type: somnolence Qualified Code(s): R40.0 - Somnolence Disposition: Admitted As Inpatient Condition: Critical Referrals: Sunita Murrell MD [Primary Care Provider] - Forms: ED Satisfaction Letter Time of Disposition: 16:12 General Adult HPI - General Chief complaint: ED Altered Mental Status Stated complaint: Lethargic / Right LE Infection Time Seen by Provider: 12/23/16 13:57 Source: EMS Mode of arrival: EMS Limitations: altered mental status Nursing Notes Reviewed: Yes Vital Signs Reviewed: Yes - History of Present Illness HPI Narrative: 56-year-old male with history of recent fem-popliteal bypass as well as right lower extremity thrombectomy arrives [facility] emergency department with alteration in mentation. The patient was noted to be tachycardic in the 120s to 130s and was noted initially to be hypertensive. The patient was noted to have a large amount of bleeding in his right ankle associated with a possible laceration that was noted at home. EMS noted a large amount of blood on the floor. The patient was alert to sternal rub. He was answering some questions appropriate and following some commands appropriately. The patient was hypotensive with a systolic in the 60s upon arrival to the emergency department is tachycardic with a heart rate in the 130s. The patient had 2 boluses of IV fluids immediately performed after second IV was placed by nursing staff. At that time a central line was elected to be placed emergently in the right IJ. Upon arrival to the emergency Department EKG was performed which noted ST elevation in leads 3, aVF. As well as ST depressions noted in V2, V3 3. At that time a STEMI alert was activated where we consulted cardiology. Interventional cardiology, Dr. Ivy came to bedside with EKG and stated that she did not feel as though this was an actual STEMI and this was likely demand ischemia. She did however state that we will perform a bedside echocardiogram to determine if there are any wall abnormalities to determine if this is a STEMI. She also recommended consultation with Dr. Hansen, who performed the patient's femoropopliteal in August of 2016. At that time we spoke to Dr. Hansen who stated this was likely associated with the patient's thrombectomy in November of 2016 and infection. He had recommendation of medical management of the patient's symptoms at this time. He felt as though given the patient's ST elevation and instability, the patient would be not appropriate to go to the OR at this time. The patient was started on IV vancomycin and Zosyn. The patient received 4 L of normal saline. It was elected at that time after placement of the right IJ CVC that we would start the patient on levophed. The patient's labs were drawn and the patient will likely be admitted to the ICU. It was noted that the patient's right lower extremity is without pulses on both Doppler as well as palpation. The patient has no capillary refill of the right lower extremity is cold to palpation. Onset (ago): unknown Pain Scale: 0 Associated symptoms: Reports: confusion Treatments Prior to Arrival: none - Related Data Home Medications Medication Instructions Recorded Confirmed Gabapentin [Neurontin] 800 mg PO TID 07/19/15 12/23/16 LORazepam [Ativan] 1 mg PO HS 07/19/15 12/23/16 Lovastatin 40 mg PO HS 07/19/15 12/23/16 Propranolol [Inderal] 40 mg PO BID 07/19/15 12/23/16 Quetiapine Fumarate [Seroquel] 600 mg PO HS 07/19/15 12/23/16 Ranitidine HCl [Zantac] 150 mg PO BID 07/19/15 12/23/16 Zolpidem [Ambien] 10 mg PO HS 07/19/15 12/23/16 traMADol [Ultram] 100 mg PO BID 07/19/15 12/23/16 Citalopram Hydrobromide [Celexa] 40 mg PO DAILY 01/24/16 12/23/16 Empagliflozin [Jardiance] 10 mg PO DAILY 01/24/16 12/23/16 Metformin HCl [Metformin HCl ER] 500 mg PO HS 01/24/16 12/23/16 Naproxen [Naprosyn] 500 mg PO BID PRN 01/24/16 12/23/16 Pentoxifylline [TRENtal] 400 mg PO BID 01/24/16 12/23/16 Aspirin Enteric Coated [Aspirin EC] 81 mg PO DAILY 03/26/16 12/23/16 glipiZIDE [Glipizide] 10 mg PO BID 03/26/16 12/23/16 Furosemide [Lasix] 40 mg PO DAILY 08/28/16 12/23/16 Alogliptin Benzoate [Alogliptin] 25 mg PO DAILY 11/25/16 12/23/16 Amantadine HCl [Amantadine] 100 mg PO BID 11/25/16 12/23/16 Potassium Chloride [Klor-Con 10] 10 meq PO DAILY 11/25/16 12/23/16 Clopidogrel [Plavix] 75 mg PO DAILY 12/23/16 12/23/16 Insulin Glargine,Hum.rec.anlog 6 unit SQ DAILY 12/23/16 12/23/16 [Basaglar Kwikpen U-100] Previous Rx's Medication Instructions Recorded Nicotine Patch [Nicoderm] 21 mg TD DAILY #30 patch.td24 11/26/16 Rivaroxaban [Xarelto] 20 mg PO DAILY #30 tablet 11/26/16 Allergies Allergy/AdvReac Type Severity Reaction Status Date / Time No Known Allergies Allergy Verified 08/28/16 10:04 Limitations: ROS unobtainable due to patients medical condition Past Medical History - Past Medical History Source: old records reviewed Medical history: Reports: COPD, diabetes, hyperlipidemia, hypertension, peripheral artery disease Surgical history: Reports: cholecystectomy, vascular surgery (Bilateral femoral endarterectomy, bilateral femoral to popliteal artery bypass) Psychiatric history: Reports: anxiety, bipolar, other - Social History Smoking Status: Current every day smoker Smokeless Tobacco Status: No Alcohol use: Reports: none Drug use: Reports: none Physical Exam - General Limitations: altered mental status General appearance: lethargic - Head Head exam: atraumatic, normocephalic, normal inspection - Eye Eye exam: Present: normal appearance, PERRL, EOMI - ENT ENT exam: normal exam, normal oropharynx, mucous membranes moist - Neck Neck exam: Present: normal inspection, full ROM, trachea midline - Chest Chest inspection: Present: normal inspection, symmetric chest wall rise - Respiratory Respiratory exam: Present: normal lung sounds bilaterally - Cardiovascular Cardiovascular exam: Present: normal rhythm, tachycardia, normal heart sounds - Abdominal Exam Abdominal exam: Present: soft, Non-Tender - Male exam: Present: normal inspection - Extremities Exam Extremities exam: Present: other (The patient has no pulse in right lower extremity at the DP or PT region. His right lower extremity is cold to palpation and is pale. The patient has an incision wound of his right medial calf with a large area of necrosis on the right lower extremity. The patient had a bandage surrounding his right lower extremity. It was a large amount of blood around his ankle where it appears the patient has a small laceration and skin tear. The patient has a large amount of necrotic tissue underneath the bandage with purulent discharge surrounding wound. The patient has femoral pulses bilaterally. Other abnormalities noted on either extremity with the exception of left lower extremity cold to palpation.) Course - Consultations Consultation #1: After speaking with Dr. Arora, he requested that Dr. Hansen perform a bedside exam on the patient. He also requested that we control the patient's airway. He had no further recommendations other than likely beginning the patient on a second vasopressor. He agrees to admission and accepts the patient to ICU once vascular surgeon has seen the patient. Time: 16:04 Consultation #2: After speaking with vascular surgery, Dr. Hansen, who examined the patient and noted that this is likely a pulseless extremity, he recommended the patient go to the operating room. After discussion with patient's family, vascular surgeon , [employer], we will not perform intubation here in the emergency department and perform it in OR once patient was operating room as patient is stable with his airway at this time. Time: 16:05 Vital Signs Temperature 97.8 F 12/23/16 13:49 Pulse Rate 114 12/23/16 13:49 Respiratory Rate 10 12/23/16 13:49 Blood Pressure 64/46 12/23/16 13:49 O2 Sat by Pulse Oximetry 99 12/23/16 13:49 Temperature 97.8 F 12/23/16 13:49 Pulse Rate 121 12/23/16 15:37 Respiratory Rate 18 12/23/16 15:37 Blood Pressure 82/56 12/23/16 15:37 O2 Sat by Pulse Oximetry 96 12/23/16 15:37 Oxygen Delivery Oxygen Delivery Room Air Medical Decision Making - MDM Narrative Medical decision making narrative: After speaking with vascular surgeon and [employer], was concerned about stability of patient's airway in addition to his generalized instability including blood pressure. The patient had a concern for decompensation of his airway. After bedside examination bibasilar surgery, it was recommended that the patient go to the operating room for removal of his right lower extremity AKA. The patient will be transfused with packed red blood cells. He received 5 L of IV fluids. He is on Levothroid at 20 mics at this time. The patient will have vasopressin added. The patient's map has remained above 65 since started on Levophed. He should not will be intubated in the OR. No further recommendations at this time. The patient received vancomycin and Zosyn at bedside. Central line was placed. The patient was accepted by [employer], Dr. Chopra. - Lab Data Lab results reviewed: Yes I reviewed the patient's lab results. Result diagrams: 12/23/16 13:55 12/23/16 13:55 Lab Results 12/23/16 12/23/16 12/23/16 Range/Units 13:55 13:55 13:55 WBC 18.3 H (4.3-11.1) K/mcL RBC 2.39 L (4.19-5.50) M/mcL Hgb 6.1 L (12.9-16.9) g/dL Hct 19.7 L (37.5-50.1) % MCV 82.4 L (83.0-100.0) fL MCH 25.5 L (28.0-33.3) pg MCHC 31.0 L (31.6-35.5) g/dL RDW 16.2 H (11.5-14.5) % Plt Count 410 H (140-400) K/mcL MPV 9.3 L (9.4-12.4) fL Immature Gran % 2.8 (0-4) % Seg Neutrophils % 87.4 % Lymphocytes % 4.6 % Monocytes % 4.9 % Eosinophils % 0.1 % Basophils % 0.2 % Neutrophils # 16.0 H (1.6-8.9) K/mcL Lymphocytes # 0.9 (0.6-4.6) K/mcL Monocytes # 0.9 (0.0-1.3) K/mcL Eosinophils # 0.0 (0.0-0.6) K/mcL Basophils # 0.0 (0.0-0.2) K/mcL PT 41.1 H (9.4-12.1) Seconds INR 3.7 APTT 39.1 H (26.0-36.0) Seconds Sample Site ABG pH (7.32-7.45) pH Units ABG pCO2 (35-45) mmHg ABG pO2 (85-104) mmHg ABG HCO3 (21-27) mEq/L ABG Total CO2 (20-26) mEq/L ABG O2 Saturation (95-98) % ABG Base Excess (-2 to 3) mEq/L Roland Test O2 Delivery Device Sodium 134 L (136-145) mEq/L Potassium 2.2 L* (3.5-4.5) mEq/L Chloride 89 L (98-109) mEq/L Carbon Dioxide 27 (19-29) mEq/L BUN 21 (8-26) mg/dL Creatinine 1.11 (0.72-1.25) mg/dL Est GFR ( Amer) > 60 (> 60) Est GFR (Non-Af Amer) > 60 (> 60) BUN/Creatinine Ratio 19 (6-26) Glucose 348 H (70-99) mg/dL Calculated Osmolality 295 (280-300) Lactic Acid (0.5-2.2) mmol/L Calcium 9.0 (8.6-10.8) mg/dL Phosphorus 4.9 H (2.3-4.7) mg/dL Magnesium 1.7 (1.6-2.6) mg/dL Total Bilirubin 0.6 (0.2-1.2) mg/dL Direct Bilirubin 0.5 (0.0-0.5) mg/dL Indirect Bilirubin 0.1 (0.0-1.2) mg/dL AST 23 (5-34) Units/L ALT 15 (0-55) Units/L Alkaline Phosphatase 149 H (38-126) Units/L Creatine Kinase 94 (30-200) Units/L Troponin I (0-0.03) ng/mL Serum Total Protein 6.9 (6.0-8.3) g/dL Albumin 2.2 L (3.5-5.0) g/dL Globulin 4.7 H (2.4-3.5) g/dL Albumin/Globulin Ratio 0.5 L (1.1-2.2) Urine Color (Yellow) Urine Clarity (Clear) Urine pH (5.0-8.0) pH Units Ur Specific [place] (1.010-1.025) Urine Protein (Neg-Trace) mg/dL Urine Glucose (UA) (Normal) mg/dL Urine Ketones (Negative) mg/dL Urine Blood (Negative) Urine Nitrite (Negative) Urine Bilirubin (Negative) Urine Urobilinogen (Normal) mg/dL Ur Leukocyte Esterase (Negative) Ur Culture Indicated? (NO) Blood Type Antibody Screen Crossmatch 12/23/16 12/23/16 12/23/16 Range/Units 13:55 13:55 13:55 WBC (4.3-11.1) K/mcL RBC (4.19-5.50) M/mcL Hgb (12.9-16.9) g/dL Hct (37.5-50.1) % MCV (83.0-100.0) fL MCH (28.0-33.3) pg MCHC (31.6-35.5) g/dL RDW (11.5-14.5) % Plt Count (140-400) K/mcL MPV (9.4-12.4) fL Immature Gran % (0-4) % Seg Neutrophils % % Lymphocytes % % Monocytes % % Eosinophils % % Basophils % % Neutrophils # (1.6-8.9) K/mcL Lymphocytes # (0.6-4.6) K/mcL Monocytes # (0.0-1.3) K/mcL Eosinophils # (0.0-0.6) K/mcL Basophils # (0.0-0.2) K/mcL PT (9.4-12.1) Seconds INR APTT (26.0-36.0) Seconds Sample Site ABG pH (7.32-7.45) pH Units ABG pCO2 (35-45) mmHg ABG pO2 (85-104) mmHg ABG HCO3 (21-27) mEq/L ABG Total CO2 (20-26) mEq/L ABG O2 Saturation (95-98) % ABG Base Excess (-2 to 3) mEq/L Roland Test O2 Delivery Device Sodium (136-145) mEq/L Potassium (3.5-4.5) mEq/L Chloride (98-109) mEq/L Carbon Dioxide (19-29) mEq/L BUN (8-26) mg/dL Creatinine (0.72-1.25) mg/dL Est GFR ( Amer) (> 60) Est GFR (Non-Af Amer) (> 60) BUN/Creatinine Ratio (6-26) Glucose (70-99) mg/dL Calculated Osmolality (280-300) Lactic Acid 7.2 H* (0.5-2.2) mmol/L Calcium (8.6-10.8) mg/dL Phosphorus (2.3-4.7) mg/dL Magnesium (1.6-2.6) mg/dL Total Bilirubin (0.2-1.2) mg/dL Direct Bilirubin (0.0-0.5) mg/dL Indirect Bilirubin (0.0-1.2) mg/dL AST (5-34) Units/L ALT (0-55) Units/L Alkaline Phosphatase (38-126) Units/L Creatine Kinase (30-200) Units/L Troponin I 2.51 H* (0-0.03) ng/mL Serum Total Protein (6.0-8.3) g/dL Albumin (3.5-5.0) g/dL Globulin (2.4-3.5) g/dL Albumin/Globulin Ratio (1.1-2.2) Urine Color (Yellow) Urine Clarity (Clear) Urine pH (5.0-8.0) pH Units Ur Specific [place] (1.010-1.025) Urine Protein (Neg-Trace) mg/dL Urine Glucose (UA) (Normal) mg/dL Urine Ketones (Negative) mg/dL Urine Blood (Negative) Urine Nitrite (Negative) Urine Bilirubin (Negative) Urine Urobilinogen (Normal) mg/dL Ur Leukocyte Esterase (Negative) Ur Culture Indicated? (NO) Blood Type A POSITIVE Antibody Screen NEGATIVE Crossmatch See Detail 12/23/16 12/23/16 Range/Units 14:02 15:16 WBC (4.3-11.1) K/mcL RBC (4.19-5.50) M/mcL Hgb (12.9-16.9) g/dL Hct (37.5-50.1) % MCV (83.0-100.0) fL MCH (28.0-33.3) pg MCHC (31.6-35.5) g/dL RDW (11.5-14.5) % Plt Count (140-400) K/mcL MPV (9.4-12.4) fL Immature Gran % (0-4) % Seg Neutrophils % % Lymphocytes % % Monocytes % % Eosinophils % % Basophils % % Neutrophils # (1.6-8.9) K/mcL Lymphocytes # (0.6-4.6) K/mcL Monocytes # (0.0-1.3) K/mcL Eosinophils # (0.0-0.6) K/mcL Basophils # (0.0-0.2) K/mcL PT (9.4-12.1) Seconds INR APTT (26.0-36.0) Seconds Sample Site L Brach ABG pH 7.41 (7.32-7.45) pH Units ABG pCO2 31 L (35-45) mmHg ABG pO2 75 L (85-104) mmHg ABG HCO3 20 L (21-27) mEq/L ABG Total CO2 21 (20-26) mEq/L ABG O2 Saturation 95 (95-98) % ABG Base Excess -4 L (-2 to 3) mEq/L Roland Test N/A O2 Delivery Device Room Air Sodium (136-145) mEq/L Potassium (3.5-4.5) mEq/L Chloride (98-109) mEq/L Carbon Dioxide (19-29) mEq/L BUN (8-26) mg/dL Creatinine (0.72-1.25) mg/dL Est GFR ( Amer) (> 60) Est GFR (Non-Af Amer) (> 60) BUN/Creatinine Ratio (6-26) Glucose (70-99) mg/dL Calculated Osmolality (280-300) Lactic Acid (0.5-2.2) mmol/L Calcium (8.6-10.8) mg/dL Phosphorus (2.3-4.7) mg/dL Magnesium (1.6-2.6) mg/dL Total Bilirubin (0.2-1.2) mg/dL Direct Bilirubin (0.0-0.5) mg/dL Indirect Bilirubin (0.0-1.2) mg/dL AST (5-34) Units/L ALT (0-55) Units/L Alkaline Phosphatase (38-126) Units/L Creatine Kinase (30-200) Units/L Troponin I (0-0.03) ng/mL Serum Total Protein (6.0-8.3) g/dL Albumin (3.5-5.0) g/dL Globulin (2.4-3.5) g/dL Albumin/Globulin Ratio (1.1-2.2) Urine Color Yellow (Yellow) Urine Clarity Clear (Clear) Urine pH 6.0 (5.0-8.0) pH Units Ur Specific [place] 1.026 H (1.010-1.025) Urine Protein Negative (Neg-Trace) mg/dL Urine Glucose (UA) >=1000 H (Normal) mg/dL Urine Ketones Negative (Negative) mg/dL Urine Blood Negative (Negative) Urine Nitrite Negative (Negative) Urine Bilirubin Negative (Negative) Urine Urobilinogen Normal (Normal) mg/dL Ur Leukocyte Esterase Negative (Negative) Ur Culture Indicated? NO (NO) Blood Type Antibody Screen Crossmatch - EKG Data EKG #1 EKG attestation: Yes I reviewed and interpreted this EKG. EKG results narrative: Heart rate 1 14 bpm. IA interval 82 ms. QTC 393 ms. Normal axis. Sinus tachycardia. ST elevation noted in leads [address] depression noted in leads V1, V2, V3. EKG from 06/20/2016. 1509: Heart rate 1 20 bpm. IA interval 152 ms. QTC 367 ms. Sinus tachycardia. No ST elevation but mild ST depression noted in leads V2 and V3 as well as V4. There is some J-point depression noted throughout. No longer any ST elevation from previous EKG performed at 1351.
[2016-12-23 14:37] LABS: Potassium 2.2 mEq/L (3.5-4.5)
[2016-12-23] MEDS ORDERED: Potassium Chloride 40 MEQ/200 ML BAG IVPB PRN (14:37)
[2016-12-23] MEDS: Norepinephrine 4 MG in D5% in Water 250 ML IVC SCH ×2 (14:43→23:50)
[2016-12-23] MEDS ORDERED: Perflutren Lipid Microsphere 1.3 ML in 0.9 % Sodium Chloride 8.7 ML IVP ONE (15:04)
[2016-12-23] MEDS ORDERED: Perflutren Lipid Microsphere 2 ML VIAL ONE (15:06)
[2016-12-23 15:31] LABS: Creatine Kinase 94 Units/L (30-200)
[2016-12-23 15:34] LABS: ABG Base Excess -4 mEq/L (-2 to 3); ABG HCO3 20 mEq/L (21-27); ABG Oxygen Saturation 95 % (95-98); ABG PCO2 31 mmHg (35-45); ABG PH 7.41 pH Units (7.32-7.45); ABG PO2 75 mmHg (85-104); ABG TCO2 21 mEq/L (20-26)
[2016-12-23] MEDS: Vasopressin 40 UNIT in D5% in Water 100 ML IV SCH (15:52)
[2016-12-23] MEDS ORDERED: *HR* Midazolam HCl 2 MG/2 ML VIAL ONE ×2 (16:10→16:49)
[2016-12-23] MEDS ORDERED: *HR* Propofol 200 MG/20 ML VIAL IVP ONE (16:10)
[2016-12-23] MEDS ORDERED: Ketamine *HR* 500 MG/10 ML MDV ONE (16:10)
[2016-12-23] MEDS ORDERED: Lidocaine -MPF 2% 2 ML VIAL ONE (16:10)
[2016-12-23] MEDS ORDERED: *HR* FentaNYL (PF) 100 MCG/2 ML VIAL ONE (16:10)
--- NOTE | 2016-12-23 16:15 | Anesthesia Evaluation PreOp ---
Date of Encounter: 12/23/16 Time of Encounter: 16:13 - Past History Planned Operation: right AKA Cardiac History: HTN, Hyperlipidemia, Other (demand ischemia) Pulmonary History: COPD Other Medical History: Diabetes Type II, Other (sepsis) Anesthesia History: No Prior Anesthetic Complications, Past Anesthesia (fem-pop , sepideh) Alcohol Use: none Drug use: none Medications and Allergies Gabapentin [Neurontin] 800 mg PO TID 07/19/15 [History] LORazepam [Ativan] 1 mg PO HS 07/19/15 [History] Lovastatin 40 mg PO HS 07/19/15 [History] Propranolol [Inderal] 40 mg PO BID 07/19/15 [History] Quetiapine Fumarate [Seroquel] 600 mg PO HS 07/19/15 [History] Ranitidine HCl [Zantac] 150 mg PO BID 07/19/15 [History] Zolpidem [Ambien] 10 mg PO HS 07/19/15 [History] traMADol [Ultram] 100 mg PO BID 07/19/15 [History] Citalopram Hydrobromide [Celexa] 40 mg PO DAILY 01/24/16 [History] Empagliflozin [Jardiance] 10 mg PO DAILY 01/24/16 [History] Metformin HCl [Metformin HCl ER] 500 mg PO HS 01/24/16 [History] Naproxen [Naprosyn] 500 mg PO BID PRN 01/24/16 [History] Pentoxifylline [TRENtal] 400 mg PO BID 01/24/16 [History] Aspirin Enteric Coated [Aspirin EC] 81 mg PO DAILY 03/26/16 [History] glipiZIDE [Glipizide] 10 mg PO BID 03/26/16 [History] Furosemide [Lasix] 40 mg PO DAILY 08/28/16 [History] Alogliptin Benzoate [Alogliptin] 25 mg PO DAILY 11/25/16 [History] Amantadine HCl [Amantadine] 100 mg PO BID 11/25/16 [History] Potassium Chloride [Klor-Con 10] 10 meq PO DAILY 11/25/16 [History] Nicotine Patch [Nicoderm] 21 mg TD DAILY #30 patch.td24 11/26/16 [Rx] Rivaroxaban [Xarelto] 20 mg PO DAILY #30 tablet 11/26/16 [Rx] Clopidogrel [Plavix] 75 mg PO DAILY 12/23/16 [History] Insulin Glargine,Hum.rec.anlog [Abhayagldaija Quirogapen U-100] 6 unit SQ DAILY [History] 3 Allergy/AdvReac Type Severity Reaction Status Date / Time No Known Allergies Allergy Verified 08/28/16 10:04 - Meds/Allergy Pre-op Review Medications Reviewed: Yes Allergies Reviewed: Yes Beta Blockers on Current Med List: Yes If Beta Blockers taken, Date/Time (Last Dose taken): unknown Anesthesia Results - Labs 12/23/16 13:55 12/23/16 15:55 Anesthesia Exam Selected Entries 12/23/16 16:01 12/23/16 16:13 Pulse Rate 124 Respiratory Rate 18 Blood Pressure 84/59 O2 Sat by Pulse Oximetry 96 Weight: 104kg - HEENT Pupil (Motor): EOMI Mallampati: II Teeth: Edentulous Oral Opening: Greater than 3 - [employer] LOC: Confused, Disoriented, Uncooperative [employer] Motor: Normal RUE, Normal LUE, Normal RLE, Normal LLE, Normal Face [employer] Sensory: Normal: RUE, LUE, LLE, Face, Deficit: RLE - Cardiac Rhythm: Regular (tachy) Murmur: None - Pulmonary Breath Sounds: bilateral Clear (expir wheezes) Anesthesia Assess/Plan ASA Score: 5, E Modified Radha Scale for Level of Consciousness: Anixous, agitated or restless Anesthetic Plan: General Monitoring Plan: Standard Monitors, A-Line Recovery Plan: ICU
--- NOTE | 2016-12-23 16:16 | Pulmonology History & Physical ---
<Jori Alfonso W - Last Filed: 12/23/16 17:05> Date of Encounter: 12/23/16 History of Present Illness HPI: Mr. Almanza is a 56 year old male Medications and Allergies Gabapentin [Neurontin] 800 mg PO TID 07/19/15 [History] LORazepam [Ativan] 1 mg PO HS 07/19/15 [History] Lovastatin 40 mg PO HS 07/19/15 [History] Propranolol [Inderal] 40 mg PO BID 07/19/15 [History] Quetiapine Fumarate [Seroquel] 600 mg PO HS 07/19/15 [History] Ranitidine HCl [Zantac] 150 mg PO BID 07/19/15 [History] Zolpidem [Ambien] 10 mg PO HS 07/19/15 [History] traMADol [Ultram] 100 mg PO BID 07/19/15 [History] Citalopram Hydrobromide [Celexa] 40 mg PO DAILY 01/24/16 [History] Empagliflozin [Jardiance] 10 mg PO DAILY 01/24/16 [History] Metformin HCl [Metformin HCl ER] 500 mg PO HS 01/24/16 [History] Naproxen [Naprosyn] 500 mg PO BID PRN 01/24/16 [History] Pentoxifylline [TRENtal] 400 mg PO BID 01/24/16 [History] Aspirin Enteric Coated [Aspirin EC] 81 mg PO DAILY 03/26/16 [History] glipiZIDE [Glipizide] 10 mg PO BID 03/26/16 [History] Furosemide [Lasix] 40 mg PO DAILY 08/28/16 [History] Alogliptin Benzoate [Alogliptin] 25 mg PO DAILY 11/25/16 [History] Amantadine HCl [Amantadine] 100 mg PO BID 11/25/16 [History] Potassium Chloride [Klor-Con 10] 10 meq PO DAILY 11/25/16 [History] Nicotine Patch [Nicoderm] 21 mg TD DAILY #30 patch.td24 11/26/16 [Rx] Rivaroxaban [Xarelto] 20 mg PO DAILY #30 tablet 11/26/16 [Rx] Clopidogrel [Plavix] 75 mg PO DAILY 12/23/16 [History] Insulin Glargine,Hum.rec.anlog [Basaglar Kwikpen U-100] 6 unit SQ DAILY [History] 3 Allergy/AdvReac Type Severity Reaction Status Date / Time No Known Allergies Allergy Verified 08/28/16 10:04 All Systems: A 10-system review of systems was performed and is negative for pertinent findings except as documented above in the HPI. Physical Examination Vital Signs: Vital Signs, Last 4 Hours Pulse Resp BP Pulse Ox 12/23/16 16:29 117 36 78/56 89 Results - Laboratory Findings CBC and BMP: 12/23/16 13:55 12/23/16 15:55 ABG ABG pH 7.41 pH Units (7.32-7.45) 12/23/16 15:16 ABG pCO2 31 mmHg (35-45) L 12/23/16 15:16 ABG pO2 75 mmHg (85-104) L 12/23/16 15:16 ABG O2 Saturation 95 % (95-98) 12/23/16 15:16 PT/INR, D-dimer PT 41.1 Seconds (9.4-12.1) H 12/23/16 13:55 Abnormal lab findings: Abnormal lab results WBC 18.3 K/mcL (4.3-11.1) H 12/23/16 13:55 RBC 2.39 M/mcL (4.19-5.50) L 12/23/16 13:55 Hgb 6.1 g/dL (12.9-16.9) L 12/23/16 13:55 Hct 19.7 % (37.5-50.1) L 12/23/16 13:55 MCV 82.4 fL (83.0-100.0) L 12/23/16 13:55 MCH 25.5 pg (28.0-33.3) L 12/23/16 13:55 MCHC 31.0 g/dL (31.6-35.5) L 12/23/16 13:55 RDW 16.2 % (11.5-14.5) H 12/23/16 13:55 Plt Count 410 K/mcL (140-400) H 12/23/16 13:55 MPV 9.3 fL (9.4-12.4) L 12/23/16 13:55 Neutrophils # 16.0 K/mcL (1.6-8.9) H 12/23/16 13:55 PT 41.1 Seconds (9.4-12.1) H 12/23/16 13:55 APTT 39.1 Seconds (26.0-36.0) H 12/23/16 13:55 ABG pCO2 31 mmHg (35-45) L 12/23/16 15:16 ABG pO2 75 mmHg (85-104) L 12/23/16 15:16 ABG HCO3 20 mEq/L (21-27) L 12/23/16 15:16 ABG Base Excess -4 mEq/L (-2 to 3) L 12/23/16 15:16 Sodium 134 mEq/L (136-145) L 12/23/16 13:55 Potassium 2.8 mEq/L (3.5-4.5) L 12/23/16 15:55 Chloride 89 mEq/L (98-109) L 12/23/16 13:55 Glucose 348 mg/dL (70-99) H 12/23/16 13:55 Lactic Acid 7.2 mmol/L (0.5-2.2) H* 12/23/16 13:55 Phosphorus 4.9 mg/dL (2.3-4.7) H 12/23/16 13:55 Alkaline Phosphatase 149 Units/L (38-126) H 12/23/16 13:55 Troponin I 2.51 ng/mL (0-0.03) H* 12/23/16 13:55 Albumin 2.2 g/dL (3.5-5.0) L 12/23/16 13:55 Globulin 4.7 g/dL (2.4-3.5) H 12/23/16 13:55 Albumin/Globulin Ratio 0.5 (1.1-2.2) L 12/23/16 13:55 Ur Specific Mobile 1.026 (1.010-1.025) H 12/23/16 14:02 Urine Glucose (UA) >=1000 mg/dL (Normal) H 12/23/16 14:02 - Attending Attestation I examined this patient and my medical decision-making was reviewed with the Resident Physician. I agree with the documented findings, disposition and treatment plan as described except to the extent set forth below. We independently had twyr-pl-dduh contact with the patient Patient seen and examined at bedside in ED. Labs, radiology, chart personally reviewed. DIRECTOR IT PROJECT: Acute encephalopathy secondary to sepsis and metabolic derangements head CT pending Pulm: Recommend intubation as of metabolic demand from sepsis and encephalopathy repeat ABG post intubation. [place] ventilator bundle to prevent pneumonia Cards:Acute SEMI evaluated by cardiology felt to be demand ischemia in the context of acute blood loss anemia and septic shock. Formal echocardiogram has been ordered and is pending. Vasodilatory shock secondary to sepsis lactate elevated trend every 6 hours patient has received adequate volume resuscitation. Currently not a candidate for invasive intervention because of systemic illness and acute blood loss anemia of unclear etiology FEN-GI: Nothing by mouth for now PPI prophylaxis given Renal: Kidney function monitored trend electrolytes twice daily ID: Septic shock secondary to ischemic leg with kun gangrene vascular surgery has evaluated the patient plan to be taken to or for [id number] amputation appreciate vascular surgery seeing this patient. Continue broad-spectrum antimicrobials with planned to de-escalate Heme/Onc: Holding chemical DVT prophylaxis for acute blood loss anemia canister to mechanical prophylaxis as able unclear source of bleeding although there is significant bleeding from the lower extremity noted at the time of arrival we will transfuse for goal hemoglobin around 9 with active cardiac ischemia. It appears patient was taking NOAC prior to admission with notable coagulopathy which will need to be corrected prior to surgery. Recommend FFP and Vitamin K with ungoing undifferentiated blood loss anemia. Endo: Glucose Monitored Integ/MSK: Skin Care per routine ICU Nursing Protocol to prevent ulcers. Lines: All lines examined without evidence of infection : Dispo: OR then Transfer to ICU for ongoing care CODE: Full Code. <Thony Glez - Last Filed: 12/23/16 19:02> Date of Encounter: 12/23/16 Time of Encounter: 16:16 Assessment and Plan (1) Acute respiratory failure Current visit: Yes Status: Acute Secondary to septic shock in the setting of acute right lower extremity ischemia. Patient is on mechanical ventilation. We will continue this at this time. Recheck ABG upon arrival in the ICU post surgery. Qualifiers: Respiratory failure complication: hypoxia Qualified Code(s): J96.01 - Acute respiratory failure with hypoxia (2) Ischemic leg Current visit: Yes Status: Acute Patient has acute right lower extremity ischemia with necrosis. Patient was evaluated by vascular surgery in the emergency department and was taken emergently to the OR for an ohdog-ogd-[id number] amputation. (3) Septic shock Current visit: Yes Status: Acute Secondary to acute necrosis and infection of his right lower extremity. Patient is being taken emergently to the OR as discussed above. Blood cultures have been drawn, antibiotics and been initiated with vancomycin and Zosyn. Initial lactate was 7.4, repeat pending, trending lactates. (4) Acute blood loss anemia Current visit: Yes Status: Acute Secondary to lower extremity wound and acute leg ischemia. 4 units of blood have been ordered, for more on hold. We will have a transfusion goal of 9 given the concern for myocardial ischemia as well as limb ischemia. Given the patient's hypercoagulable state if he does not respond to transfusions will obtain CT of the abdomen and pelvis. (5) Elevated INR Current visit: Yes Status: Acute INR 3.7 on presentation. Patient is on Zaroxolyn home. Given the concern for acute blood loss anemia as well as recent surgery we will reverse with vitamin K 5 mg subcutaneous daily for 24h (6) PVD (peripheral vascular disease) Current visit: No Status: Chronic (7) Diabetes mellitus with peripheral angiopathy with gangrene Current visit: Yes Status: Acute Patient is nothing by mouth. [place] every 4 hours Accu-Cheks and sliding scale insulin. Continue monitoring blood sugars. 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 We will obtain a head CT when stable. Qualifiers: Altered mental status type: somnolence Qualified Code(s): R40.0 - Somnolence History of Present Illness Chief complaint: Leg ischemia HPI: Mr. Almanza is a 56 year old male with history of peripheral vascular disease, type 2 diabetes presents with acute right lower lobe. Patient is acutely altered and unable to provide history. Per record review he was seen by his brother over the last several days who advised him to seek medical attention however he declined. Apparently he sustained a laceration today and had significant blood loss. He was found unresponsive. On my evaluation the patient is minimally responsive, spontaneously breathing and spontaneously moving all 4 extremities. He does withdrawal to painful stimuli. He appears to be in mild distress. Past Med Surg Social Fam HX - Past Medical History Medical history: COPD, diabetes, hyperlipidemia, hypertension, peripheral artery disease Psychiatric history: anxiety, bipolar, other - Past Surgical History Surgical History: cholecystectomy, vascular surgery (Bilateral femoral endarterectomy, bilateral femoral to popliteal artery bypass) - Social History Smoking Status: Current every day smoker Smokeless Tobacco Status: No Alcohol use: none Drug use: none - Family History Paternal Living Status: Hx Family Cardiac Disorders: No Hx Family Respiratory Disorders: Yes (Emphysema Grandfather) Hx Family Cancer: Yes (Mother and sister stomach CA, Grand father prostate) Hx Family GI Disorders: No Hx Family Endocrine Disorder: Yes (Grandmother) Hx Family Neuromuscular Disorders: No Hx Family Neurologic Disorders: No Hx Family HEENT Disorders: No Hx Family Autoimmune Disorders: No ROS unobtainable: due to mental status All Systems: A 10-system review of systems was performed and is negative for pertinent findings except as documented above in the HPI. Physical Examination Vital Signs: Vital Signs, Last 4 Hours Temp Pulse Resp BP Pulse Ox 12/23/16 16:13 18 84/59 12/23/16 16:01 124 20 85/61 96 12/23/16 15:37 121 18 82/56 96 12/23/16 15:18 120 14 80/58 100 12/23/16 15:00 120 14 72/53 100 12/23/16 14:39 109 18 73/50 92 12/23/16 13:59 115 14 81/47 99 12/23/16 13:55 99 12/23/16 13:49 97.8 F 114 10 64/46 99 General appearance: lethargic, appears uncomfortable Effort: very labored Auscultation: bilateral: diminished breath sounds, rhonchi Cardiovascular: other (Regular rate, tachycardia) Gastrointestinal: hypoactive bowel sounds, soft, non-tender, non-distended Extremities: other (Right lower extremity is cold, cyanotic, with necrosis and multiple areas of purulent drainage below the knee) pupils equal and round, unable to assess due to mental status Results - Laboratory Findings CBC and BMP: 12/23/16 17:44 12/23/16 15:55 ABG ABG pH 7.41 pH Units (7.32-7.45) 12/23/16 15:16 ABG pCO2 31 mmHg (35-45) L 12/23/16 15:16 ABG pO2 75 mmHg (85-104) L 12/23/16 15:16 ABG O2 Saturation 95 % (95-98) 12/23/16 15:16 PT/INR, D-dimer PT 41.1 Seconds (9.4-12.1) H 12/23/16 13:55 Abnormal lab findings: Abnormal lab results WBC 18.3 K/mcL (4.3-11.1) H 12/23/16 13:55 RBC 2.39 M/mcL (4.19-5.50) L 12/23/16 13:55 Hgb 6.1 g/dL (12.9-16.9) L 12/23/16 13:55 Hct 19.7 % (37.5-50.1) L 12/23/16 13:55 MCV 82.4 fL (83.0-100.0) L 12/23/16 13:55 MCH 25.5 pg (28.0-33.3) L 12/23/16 13:55 MCHC 31.0 g/dL (31.6-35.5) L 12/23/16 13:55 RDW 16.2 % (11.5-14.5) H 12/23/16 13:55 Plt Count 410 K/mcL (140-400) H 12/23/16 13:55 MPV 9.3 fL (9.4-12.4) L 12/23/16 13:55 Neutrophils # 16.0 K/mcL (1.6-8.9) H 12/23/16 13:55 PT 41.1 Seconds (9.4-12.1) H 12/23/16 13:55 APTT 39.1 Seconds (26.0-36.0) H 12/23/16 13:55 ABG pCO2 31 mmHg (35-45) L 12/23/16 15:16 ABG pO2 75 mmHg (85-104) L 12/23/16 15:16 ABG HCO3 20 mEq/L (21-27) L 12/23/16 15:16 ABG Base Excess -4 mEq/L (-2 to 3) L 12/23/16 15:16 Sodium 134 mEq/L (136-145) L 12/23/16 13:55 Potassium 2.8 mEq/L (3.5-4.5) L 12/23/16 15:55 Chloride 89 mEq/L (98-109) L 12/23/16 13:55 Glucose 348 mg/dL (70-99) H 12/23/16 13:55 Lactic Acid 7.2 mmol/L (0.5-2.2) H* 12/23/16 13:55 Phosphorus 4.9 mg/dL (2.3-4.7) H 12/23/16 13:55 Alkaline Phosphatase 149 Units/L (38-126) H 12/23/16 13:55 Troponin I 2.51 ng/mL (0-0.03) H* 12/23/16 13:55 Albumin 2.2 g/dL (3.5-5.0) L 12/23/16 13:55 Globulin 4.7 g/dL (2.4-3.5) H 12/23/16 13:55 Albumin/Globulin Ratio 0.5 (1.1-2.2) L 12/23/16 13:55 Ur Specific Mobile 1.026 (1.010-1.025) H 12/23/16 14:02 Urine Glucose (UA) >=1000 mg/dL (Normal) H 12/23/16 14:02
--- NOTE | 2016-12-23 16:16 | Cardiology Consult Note ---
<Le Reed - Last Filed: 12/23/16 16:12> Date of Encounter: 12/23/16 Time of Encounter: 15:00 Assessment and Plan (1) Septic shock Current Visit: Yes Status: Acute Per cardiology: -Admitted after being found unresponsive at home. -Right leg wound noted with stables. -On vasopressors. -Management per primary service. (2) Abnormal ECG Current Visit: Yes Status: Acute Per cardiology: -Initial ECG with ST elevation in inferior leads. -Repeat ECG with diffuse ST depression, no Q waves noted. -ECGS reviewed with and Dr.Jennifer Ivy. -Unknown symptoms. -No previous history of CAD. -Stress test 06/2015 with no ischemia noted. Evidence of prior infarct. Gated EF 68%. -Patient is not a LHC candidate due to sepsis, anemia, hypotension, and mental status. -TTE pending. (3) Elevated troponin Current Visit: Yes Status: Acute Per cardiology: -Troponin 2.51, in the setting of septic shock, anemia, hypotension requireing multiple vasopressors. -Unknown symptoms. -ECG with changes noted. -Patient is not a LHC candidate at this time due to sepsis, anemia, hypotension , and mental status. -No cardiac rehab warranted at this time. -NO asa or heparin drip due to bleeding from leg wound and anemia. -No beta binta due to hypotension requireing vasopressors. -Trend troponins. (4) PAD (peripheral artery disease) Current Visit: Yes Status: Chronic Per cardiology: -Known PAD s/p thrombectomy with . -RIght leg wound noted with andrea. -Vascular surgery consulted. -Management per primary and vascular surgery. Discussion w patient/family: The assessment and plan as outlined above was discussed with the patient who expressed understanding and agreement. All questions were answered. Thank you for involving us in the care of your patient. Please call with any questions. Discussed and reviewed with . History of Present Illness Consult date: 12/23/16 Requesting physician: Po Lopez Consult reason: ECG changes Chief complaint: unresponsive History of present illness: Mr. Almanza is a 56 year old male with a relevant past medical history of PVD, hyperlipidemia, DM, COPD, tobacco abuse, anxiety. Per reports, patient was found altered at home by brother. Of note, it was also reported that patient was noted to have a pool of blood around his right foot. Cardiology has been asked to see and evaluate patient due to concerning ECG changes. At time of assessment, patient does not purposefully respond to stimuli. Patient has spontaneous movements of all four extremities, however movement non-purposeful. Does not respond to commands. Patient does not answer questions. Past Med Surg Social Fam HX - Past Medical History Attestation: Yes The following information was validated with the patient. Source: old records reviewed (Unable to obtain history from patient. ) Medical history: COPD, diabetes, hyperlipidemia, hypertension, peripheral artery disease Psychiatric history: anxiety, bipolar, other - Past Surgical History Surgical History: cholecystectomy, vascular surgery (Bilateral femoral endarterectomy, bilateral femoral to popliteal artery bypass) - Social History Smoking Status: Current every day smoker Smokeless Tobacco Status: No Alcohol use: none Drug use: none - Family History Paternal Living Status: Hx Family Cardiac Disorders: No Hx Family Respiratory Disorders: Yes (Emphysema Grandfather) Hx Family Cancer: Yes (Mother and sister stomach CA, Grand father prostate) Hx Family GI Disorders: No Hx Family Endocrine Disorder: Yes (Grandmother) Hx Family Neuromuscular Disorders: No Hx Family Neurologic Disorders: No Hx Family HEENT Disorders: No Hx Family Autoimmune Disorders: No Medications and Allergies Gabapentin [Neurontin] 800 mg PO TID 07/19/15 [History] LORazepam [Ativan] 1 mg PO HS 07/19/15 [History] Lovastatin 40 mg PO HS 07/19/15 [History] Propranolol [Inderal] 40 mg PO BID 07/19/15 [History] Quetiapine Fumarate [Seroquel] 600 mg PO HS 07/19/15 [History] Ranitidine HCl [Zantac] 150 mg PO BID 07/19/15 [History] Zolpidem [Ambien] 10 mg PO HS 07/19/15 [History] traMADol [Ultram] 100 mg PO BID 07/19/15 [History] Citalopram Hydrobromide [Celexa] 40 mg PO DAILY 01/24/16 [History] Empagliflozin [Jardiance] 10 mg PO DAILY 01/24/16 [History] Metformin HCl [Metformin HCl ER] 500 mg PO HS 01/24/16 [History] Naproxen [Naprosyn] 500 mg PO BID PRN 01/24/16 [History] Pentoxifylline [TRENtal] 400 mg PO BID 01/24/16 [History] Aspirin Enteric Coated [Aspirin EC] 81 mg PO DAILY 03/26/16 [History] glipiZIDE [Glipizide] 10 mg PO BID 03/26/16 [History] Furosemide [Lasix] 40 mg PO DAILY 08/28/16 [History] Alogliptin Benzoate [Alogliptin] 25 mg PO DAILY 11/25/16 [History] Amantadine HCl [Amantadine] 100 mg PO BID 11/25/16 [History] Potassium Chloride [Klor-Con 10] 10 meq PO DAILY 11/25/16 [History] Nicotine Patch [Nicoderm] 21 mg TD DAILY #30 patch.td24 11/26/16 [Rx] Rivaroxaban [Xarelto] 20 mg PO DAILY #30 tablet 11/26/16 [Rx] Clopidogrel [Plavix] 75 mg PO DAILY 12/23/16 [History] Insulin Glargine,Hum.rec.anlog [Basaglar Kwikpen U-100] 6 unit SQ DAILY [History] 3 Allergy/AdvReac Type Severity Reaction Status Date / Time No Known Allergies Allergy Verified 08/28/16 10:04 All Systems Review: A 10-system review of systems was performed and is negative for pertinent findings except as documented above in the HPI. - Cardiovascular Cardiovascular: as per HPI (Unresponsive) Physical Examination Vital Signs, Last 4 Hours Temp Pulse Resp BP Pulse Ox 12/23/16 16:01 124 20 85/61 96 12/23/16 15:37 121 18 82/56 96 12/23/16 15:18 120 14 80/58 100 12/23/16 15:00 120 14 72/53 100 12/23/16 14:39 109 18 73/50 92 12/23/16 13:59 115 14 81/47 99 12/23/16 13:55 99 12/23/16 13:49 97.8 F 114 10 64/46 99 General: Other (Non-verbal, no purposeful response to commands. ) HEENT: Atraumatic, Normocephaly, Mucus Membranes Moist Neck: No JVD, Normal carotid pulses Cardiac: Normal S1 and S2, No Murmur, Other (Tachycardic. ) Lungs: Normal Breath Sounds, No Wheeze, Rales, Rhonchi Neuro: Other (Spontaneous movement of all four extremities. Non-purposeful. ) Abdomen: Soft Skin: Other (Right leg dusky. Right leg andrea noted. ) Musculoskeletal: Other (No grimacing to chest wall palpation noted. ) Extremities: Other (No pulse noted to right lower extremity. ) Results 12/23/16 13:55 12/23/16 15:55 Lab Results Impressions Chest X-Ray 12/23/16 14:27 IMPRESSION: Right IJ central line appears in good position without evidence of pneumothorax. No acute cardiopulmonary process. D/ / Flaco Agee MD / Flaco Agee MD Interpreting Provider: Flaco Agee MD Active Medications Piperacillin Sod/Tazobactam (Sod 3.375 gm/ Dextrose) 50 mls @ 12.5 mls/hr IVPB ONCE ONE Stop: 12/23/16 18:02 Last Infusion: 12/23/16 15:22 Dose: Infused Norepinephrine Bitartrate 4 mg (/ Dextrose) 254 mls @ 19.05 mls/hr IVC CONT FLORA ; 5 MCG/MIN PRN Reason: Protocol Stop: 06/24/17 14:31 Last Admin: 12/23/16 14:43 Dose: 5 mcg/min, 19.05 mls/hr Potassium Chloride (Potassium Chloride 20 Meq/100 Ml) 40 meq in 200 mls @ 100 mls/hr IVPB Q1H PRN PRN Reason: hypokalemia Stop: 06/24/17 14:38 Last Admin: 12/23/16 15:28 Dose: 100 mls/hr Vasopressin 40 unit/ Dextrose 102 mls @ 4.59 mls/hr IV .[id number] FLORA PRN Reason: 0.03 UNIT/MIN Stop: 06/24/17 15:46 Last Admin: 12/23/16 15:52 Dose: 0.03 unit/min, 4.59 mls Laboratory Tests 12/23/16 12/23/16 12/23/16 13:55 13:55 13:55 WBC 18.3 H Hgb 6.1 L Potassium 2.2 L* Lactic Acid 7.2 H* Troponin I 12/23/16 13:55 WBC Hgb Potassium Lactic Acid Troponin I 2.51 H* - Imaging and Cardiology Chest Xray: report reviewed Stress Test: report reviewed Echo: pending - EKG Interpretation EKG results cardiology: personally reviewed (Most recent ECG with ST, HR 120. Diffuse ST depression noted.) Consult Discharge Plan - Plan Referrals: Sunita Murrell MD [Primary Care Provider] - <MiladShavonne - Last Filed: 12/23/16 18:09> Date of Encounter: 12/23/16 - Attending Attestation I have personally performed a face to face evaluation on this patient. I have reviewed and agree with the care plan with [facility]. Mr. Almanza presented with altered mental status in critical condition after being found down at home. An ECG obtained in the ER demonstrated concern for ST elevation changes in the inferior leads with possible posterior involvement. Repeat ECG at the time of bedside evaluation demonstrated resolution of inferior changes but possible worsening of depression laterally. ECG does not demonstrate STEMI criteria at this time. Overall, LV systolic function was difficult to evaluate by echo due to suboptimal images. He has a gangrenous lower extremity and is septic and requiring vasopressors. He also has profound anemia with Hgb 6. At this time, we would not recommend pursuing an invasive ischemic approach with [facility] due to critical condition. Consider repeat echo when clinical status improves and re-evaluation of LV systolic function. For now, we will sign off. Please call with questions. Assessment and Plan Discussion w patient/family: The assessment and plan as outlined above was discussed with the patient and/or family members who expressed understanding and agreement. All questions were answered. Thank you for involving us in the care of your patient. Please call with any questions. History of Present Illness History of present illness: Mr. Almanza is a 56 year old male All Systems Review: A 10-system review of systems was performed and is negative for pertinent findings except as documented above in the HPI. Physical Examination Vital Signs, Last 4 Hours Pulse Resp BP Pulse Ox 12/23/16 16:29 117 36 78/56 89 Results 12/23/16 13:55 12/23/16 15:55
[2016-12-23] MEDS ORDERED: Heparin 1,000 UNITS/500 mL NS 500 ML ONE (16:20)
--- NOTE | 2016-12-23 16:20 | Vascular/Endovasc Consult Note ---
Date of Encounter: 12/23/16 Time of Encounter: 15:40 Assessment and Plan (1) Atherosclerotic peripheral vascular disease with gangrene Current Visit: Yes Status: Chronic The patient was found unresponsive today by his family after severe days of progressive gangrenous changes to his right lower extremity. He has evidence of septic shock due to the chronic limb ischemia and prolonged gangrenous necrosis. Without amputation, appears likely. He will be taken emergently to the operating room for a right above knee amputation to improve his chances of survival. The patients condition was discussed in detail with his family. The risks and benefits of surgery were discussed with the patient and all questions were answered. The patient was discussed with the ER and ICU physicians. (2) Diabetes mellitus with peripheral angiopathy with gangrene Current Visit: Yes Status: Acute Qualifiers: Diabetes mellitus type: type 2 Diabetes mellitus alf insulin use: with terminal carman use Qualified Code(s): E11.52 - Type 2 diabetes mellitus with diabetic peripheral angiopathy with gangrene; Z79.4 - terminal operations supervisor (current) use of insulin; Z79.4 - terminal operations supervisor (current) use of insulin; Z79.4 - terminal operations supervisor ( current) use of insulin; Z79.4 - terminal operations supervisor (current) use of insulin (3) Lactic acid acidosis Current Visit: Yes Status: Acute Lactic acidosis likely secondary to his gangrenous right lower extremity. (4) Septic shock Current Visit: Yes Status: Acute Likely secondary to his gangrenous right lower extremity. (5) Essential hypertension Current Visit: No Status: Chronic (6) Mixed hyperlipidemia Current Visit: No Status: Chronic (7) Tobacco abuse Current Visit: No Status: Chronic (8) Coronary artery disease Current Visit: Yes Status: Acute The patient presented with EKG abnormalities, elevated tropoinins and hemodynamic instablity. He was evaluated by Cardiology. Qualifiers: Coronary Disease-Associated Artery/Lesion type: false pass artery [place] vs. transplanted heart: false pass heart Associated angina: with unspecified angina Qualified Code(s): I25.119 - Atherosclerotic heart disease of false pass coronary artery with unspecified angina pectoris (9) Acute blood loss anemia Current Visit: Yes Status: Acute The patient has a hemoglobin of 6.1 on arrival to the ER. His family reports that he lacerated his right foot yesterday with resultant significant blood loss. His family reports that he refused to seek medical attention regarding his injury. He will be transfused. (10) Acute respiratory failure Current Visit: Yes Status: Acute The patient will be intubated. Qualifiers: Respiratory failure complication: hypoxia Qualified Code(s): J96.01 - Acute respiratory failure with hypoxia (11) Altered mental status Current Visit: Yes Status: Acute Qualifiers: Altered mental status type: somnolence Qualified Code(s): R40.0 - Somnolence - History of Present Illness Consult date: 12/23/16 Requesting physician: Po Lopez Consult reason: Necrotic left foot Chief complaint: Necrotic right lower extremity History of present illness: Mr. Almanza is a 56 year old male with a long history of peripheral vascular disease. He has undergone multiple prior procedures including a right femoral to popliteal artery bypass and a right lower extremity thrombectomy. The patient reportedly developed acute right lower extremity ischemia 3-4 days ago. He was seen by his brother who advised him to seek medical attention several times over the last few days, however, the patient declined to go to the hospital. The patients brother reports that the patient sustained a laceration to the right foot yesterday and significant blood loss occurred. The patient was found unresponsive today and was transferred to [facility]. Vascular surgery was consulted for further evaluation. Past Med Surg Social Fam HX - Past Medical History Medical history: COPD, diabetes, hyperlipidemia, hypertension, peripheral artery disease Psychiatric history: anxiety, bipolar, other - Past Surgical History Surgical History: cholecystectomy, vascular surgery (Bilateral femoral endarterectomy, bilateral femoral to popliteal artery bypass) - Social History Smoking Status: Current every day smoker Smokeless Tobacco Status: No Alcohol use: none Drug use: none - Family History Paternal Living Status: Hx Family Cardiac Disorders: No Hx Family Respiratory Disorders: Yes (Emphysema Grandfather) Hx Family Cancer: Yes (Mother and sister stomach CA, Grand father prostate) Hx Family GI Disorders: No Hx Family Endocrine Disorder: Yes (Grandmother) Hx Family Neuromuscular Disorders: No Hx Family Neurologic Disorders: No Hx Family HEENT Disorders: No Hx Family Autoimmune Disorders: No Father Living Status: Still Living Mother Living Status: Age at : 37 Cause of : cancer Medications and Allergies Gabapentin [Neurontin] 800 mg PO TID 07/19/15 [History] LORazepam [Ativan] 1 mg PO HS 07/19/15 [History] Lovastatin 40 mg PO HS 07/19/15 [History] Propranolol [Inderal] 40 mg PO BID 07/19/15 [History] Quetiapine Fumarate [Seroquel] 600 mg PO HS 07/19/15 [History] Ranitidine HCl [Zantac] 150 mg PO BID 07/19/15 [History] Zolpidem [Ambien] 10 mg PO HS 07/19/15 [History] traMADol [Ultram] 100 mg PO BID 07/19/15 [History] Citalopram Hydrobromide [Celexa] 40 mg PO DAILY 01/24/16 [History] Empagliflozin [Jardiance] 10 mg PO DAILY 01/24/16 [History] Metformin HCl [Metformin HCl ER] 500 mg PO HS 01/24/16 [History] Naproxen [Naprosyn] 500 mg PO BID PRN 01/24/16 [History] Pentoxifylline [TRENtal] 400 mg PO BID 01/24/16 [History] Aspirin Enteric Coated [Aspirin EC] 81 mg PO DAILY 03/26/16 [History] glipiZIDE [Glipizide] 10 mg PO BID 03/26/16 [History] Furosemide [Lasix] 40 mg PO DAILY 08/28/16 [History] Alogliptin Benzoate [Alogliptin] 25 mg PO DAILY 11/25/16 [History] Amantadine HCl [Amantadine] 100 mg PO BID 11/25/16 [History] Potassium Chloride [Klor-Con 10] 10 meq PO DAILY 11/25/16 [History] Nicotine Patch [Nicoderm] 21 mg TD DAILY #30 patch.td24 11/26/16 [Rx] Rivaroxaban [Xarelto] 20 mg PO DAILY #30 tablet 11/26/16 [Rx] Clopidogrel [Plavix] 75 mg PO DAILY 12/23/16 [History] Insulin Glargine,Hum.rec.anlog [Basaglar Kwikpen U-100] 6 unit SQ DAILY [History] 3 Allergy/AdvReac Type Severity Reaction Status Date / Time No Known Allergies Allergy Verified 08/28/16 10:04 ROS unobtainable: due to mental status All Systems Review: A 10-system review of systems was performed and is negative for pertinent findings except as documented above in the HPI. Exam Vital Signs, Last 4 Hours Temp Pulse Resp BP Pulse Ox 12/23/16 16:01 124 20 85/61 96 12/23/16 15:37 121 18 82/56 96 12/23/16 15:18 120 14 80/58 100 12/23/16 15:00 120 14 72/53 100 12/23/16 14:39 109 18 73/50 92 12/23/16 13:59 115 14 81/47 99 12/23/16 13:55 99 12/23/16 13:49 97.8 F 114 10 64/46 99 General: Present: Well nourished HEENT: Present: Trachea midline, Pupils equal Neck: Absent: JVD Cardiac: Present: Reg Rate and Rhythm, Normal S1 and S2 Lungs: Present: Normal Breath Sounds, No Wheeze, Rales, Rhonchi Abdomen: Present: Soft Vascular: Present: Capillary refill delayed (right foot), Pulse, absent (right foot), Cyanosis (right foot), Other (The right foot is cold, necrosis is seen along the entire leg to the level just below the knee, purulent drainage from necrotic ulcers noted, foul odor present) Consult Discharge Plan - Plan Referrals: Sunita Murrell MD [Primary Care Provider] -
[2016-12-23] MEDS ORDERED: *HR* Vasopressin 20 UNIT/ML VIAL ONE (16:29)
[2016-12-23] MEDS ORDERED: Vancomycin 1,000 MG VIAL ONE (16:31)
[2016-12-23] MEDS ORDERED: *HR* Midazolam HCl 5 MG/5 ML VIAL IVP ONE (16:51)
[2016-12-23] MEDS ORDERED: *HR* FentaNYL (PF) 1,000 MCG/20 ML VIAL ONE (16:51)
[2016-12-23] MEDS ORDERED: Naloxone 0.4 MG/ML INJ IVP PRN (17:22)
[2016-12-23] MEDS ORDERED: Lacri-Lube 3.5 GM TUBE BOTH EYES PRN (17:37)
[2016-12-23] MEDS ORDERED: *HR* Dextrose 50 % in Water (Syg) 50 ML SYRINGE IVP PRN (17:41)
[2016-12-23] MEDS ORDERED: Dextrose Gel 15 GM PO PRN ×2 (17:41)
[2016-12-23] MEDS ORDERED: D5% in Water 1,000 ML IVC PRN (17:41)
--- NOTE | 2016-12-23 17:58 | Operative Note ---
Date of procedure: 12/23/16 Pre-op diagnosis: Right lower extremity gangrene Post-op diagnosis: same Procedure: Right above knee amputation Complications: None Anesthesia: LYUBOVA Surgeon: Wale Hansen Estimated blood loss (cc): 250 Specimen: Right lower extremity Condition: critical Disposition: ICU Procedure in Detail: Indications: The patient is a 56 year old male with a long history of peripheral vascular disease. The patient presented to the ER today with an ischemic leg with severe gangrenous necrosis of at least 3 days in duration. Emergent right above knee amputation has been recommended to reduce his risk of . Procedure: The patient was identified and the operative site was marked on the skin. A barrier was placed on the opposite extremity. The risks, benefits and alternatives were discussed and all questions were answered. The patient was taken to the operating room and placed in the supine position on the operating room table. After the induction of general endotracheal anesthesia, the patient was cleaned and draped in the normal sterile fashion. The skin was demarcated along the thigh with a marker in the standard fashion. The skin was incised with a #15 blade. Using a process of blunt, sharp and electrocautery dissection, the muscle fascia was traversed. Vessels were cauterized or ligated with silk suture for hemostasis. The nerve was identified and divided. The artery and vein were clamped and divided. The periosteum was elevated off of the femur. Using a powered saw, the femur was then transected along the midportion of the shaft. The specimen was sent to pathology. The artery and vein were then suture ligated with 2-0 silk suture. The nerve was grasped and transected as high as possible. The wound was irrigated with saline. Meticulous hemostasis was obtained through out the wound with electrocautery. The fascial layers were reapproximated with Vicryl surture. Skin was reapproximated with andrea. A sterile dressing was applied. The patient was taken to the intensive care unit and remained intubated.
[2016-12-23] MEDS ORDERED: 0.9 % Sodium Chloride 500 ML ONE (18:02)
[2016-12-23 18:14] LABS: ABG Base Excess -5 mEq/L (-2 to 3); ABG HCO3 24 mEq/L (21-27); ABG Oxygen Saturation 91 % (95-98); ABG PCO2 62 mmHg (35-45); ABG PH 7.19 pH Units (7.32-7.45); ABG PO2 76 mmHg (85-104); ABG TCO2 25 mEq/L (20-26); Blood Gas Modality VC; Blood Gas PEEP 5 cm H2O; Blood Gas Respiration Rate 12; Blood Gas VT 500 cc
[2016-12-23 18:25] LABS: ABG Base Excess -9 mEq/L (-2 to 3); ABG HCO3 18 mEq/L (21-27); ABG Oxygen Saturation 100 % (95-98); ABG PCO2 39 mmHg (35-45); ABG PH 7.27 pH Units (7.32-7.45); ABG PO2 296 mmHg (85-104); ABG TCO2 19 mEq/L (20-26)
[2016-12-23 18:31] LABS: Basophils % 0.1 %; Eosinophils % 0.1 %; Hematocrit 20.2 % (37.5-50.1); Hemoglobin 6.6 g/dL (12.9-16.9); Immature Granulocytes % 3.3 % (0-4); Lymphocytes # 0.9 K/mcL (0.6-4.6); Lymphocytes % 5.4 %; Mean Corpuscular HGB Conc 32.7 g/dL (31.6-35.5); Mean Corpuscular Hemoglobin 28.2 pg (28.0-33.3); Mean Corpuscular Volume 86.3 fL (83.0-100.0); Mean Platelet Volume 9.3 fL (9.4-12.4); Monocytes # 1.5 K/mcL (0.0-1.3); Monocytes % 8.9 %; Neutrophils # 14.1 K/mcL (1.6-8.9); Platelet Count 265 K/mcL (140-400); Red Blood Count 2.34 M/mcL (4.19-5.50); Red Cell Distribution Width 14.6 % (11.5-14.5); Segmented Neutrophils % 82.2 %
[2016-12-23 18:49] LABS: ABG Base Excess -3 mEq/L (-2 to 3); ABG HCO3 23 mEq/L (21-27); ABG Oxygen Saturation 99 % (95-98); ABG PCO2 46 mmHg (35-45); ABG PH 7.31 pH Units (7.32-7.45); ABG PO2 151 mmHg (85-104); ABG TCO2 24 mEq/L (20-26); Blood Gas Modality VC; Blood Gas PEEP 5 cm H2O; Blood Gas Respiration Rate 18; Blood Gas VT 500 cc
[2016-12-23] MEDS: *HR* Phytonadione 10 MG/ML AMPUL SQ SCH (18:51)
[2016-12-23] MEDS: FentaNYL (PF) 1,000 MCG in 0.9 % Sodium Chloride 80 ML IVC SCH ×2 (18:53→23:52)
[2016-12-23 19:25] LABS: INR 2.4
[2016-12-23 19:39] LABS: Alanine Aminotransferase 15 Units/L (0-55); Albumin/Globulin Ratio 0.5 (1.1-2.2); Alkaline Phosphatase 94 Units/L (38-126); Aspartate Amino Transferase 44 Units/L (5-34); BUN/Creatinine Ratio 21 (6-26); Blood Urea Nitrogen 16 mg/dL (8-26); Calcium 7.3 mg/dL (8.6-10.8); Carbon Dioxide 22 mEq/L (19-29); Chloride 104 mEq/L (98-109); Osmolality,Calculated 298 (280-300); Potassium 2.8 mEq/L (3.5-4.5); Sodium 137 mEq/L (136-145); Total Protein 4.6 g/dL (6.0-8.3); eGFR For African Americans > 60 (> 60); eGFR For Non-African Americans > 60 (> 60)
[2016-12-23 19:40] LABS: Albumin 1.6 g/dL (3.5-5.0); Glucose 322 mg/dL (70-99)
[2016-12-23] MEDS: Chlorhexidine Rinse 15 ML MOUTHWASH MM SCH (20:07)
[2016-12-23] MEDS: Insulin LISPRO 300 UNITS/3 ML VIAL SQ SCH (20:07)
[2016-12-23] MEDS: Lacri-Lube 3.5 GM TUBE BOTH EYES SCH (20:07)
[2016-12-23] MEDS: Potassium Chloride 40 MEQ/200 ML BAG IVPB PRN (20:15)
[2016-12-23] MEDS: Calcium Gluconate 1,000 MG in D5% in Water 100 ML IVPB PRN (21:13)
[2016-12-23] MEDS: Vancomycin 1,500 MG in D5% in Water 250 ML IVPB SCH (22:26)
[2016-12-23] MEDS: Piperacillin/Tazobactam 3.375 GM in D5% in Water 50 ML IVPB SCH (23:25)
[2016-12-24] MEDS: Lacri-Lube 3.5 GM TUBE BOTH EYES SCH ×7 (00:11→23:29)
[2016-12-24] MEDS: Insulin LISPRO 300 UNITS/3 ML VIAL SQ SCH ×6 (00:14→19:46)
[2016-12-24 00:39] LABS: Basophils % 0.1 %; Hematocrit 20.7 % (37.5-50.1); Immature Granulocytes % 0.8 % (0-4); Lymphocytes % 6.2 %; Mean Corpuscular HGB Conc 33.8 g/dL (31.6-35.5); Mean Corpuscular Hemoglobin 28.8 pg (28.0-33.3); Mean Corpuscular Volume 85.2 fL (83.0-100.0); Mean Platelet Volume 8.9 fL (9.4-12.4); Monocytes # 1.3 K/mcL (0.0-1.3); Monocytes % 8.5 %; Neutrophils # 13.4 K/mcL (1.6-8.9); Nucleated Red Blood Cells 0.1 /100 WBC (0); Platelet Count 215 K/mcL (140-400); Red Blood Count 2.43 M/mcL (4.19-5.50); Segmented Neutrophils % 84.4 %
[2016-12-24 00:41] LABS: INR 1.8; Prothrombin Time 19.1 Seconds (9.4-12.1)
[2016-12-24] MEDS ORDERED: *HR* Atropine Sulfate 1 MG/10 ML SYRINGE ONE (01:02)
[2016-12-24] MEDS ORDERED: *HR* EPINEPHrine 1 MG/10 ML SYRINGE ONE (01:02)
[2016-12-24 01:21] LABS: Alanine Aminotransferase 24 Units/L (0-55); Albumin/Globulin Ratio 0.5 (1.1-2.2); Alkaline Phosphatase 97 Units/L (38-126); Aspartate Amino Transferase 110 Units/L (5-34); BUN/Creatinine Ratio 21 (6-26); Bilirubin,Direct 0.6 mg/dL (0.0-0.5); Bilirubin,Indirect 0.3 mg/dL (0.0-1.2); Blood Urea Nitrogen 15 mg/dL (8-26); Carbon Dioxide 23 mEq/L (19-29); Chloride 105 mEq/L (98-109); Globulin 3.1 g/dL (2.4-3.5); Glucose 277 mg/dL (70-99); Magnesium 1.9 mg/dL (1.6-2.6); Osmolality,Calculated 293 (280-300); Phosphorous 2.7 mg/dL (2.3-4.7); Sodium 136 mEq/L (136-145); eGFR For African Americans > 60 (> 60); eGFR For Non-African Americans > 60 (> 60)
[2016-12-24 01:22] LABS: Bilirubin,Total 0.9 mg/dL (0.2-1.2); Calcium 7.7 mg/dL (8.6-10.8); Total Protein 4.8 g/dL (6.0-8.3)
[2016-12-24 01:23] LABS: Albumin 1.7 g/dL (3.5-5.0)
[2016-12-24] MEDS: Potassium Chloride 40 MEQ/200 ML BAG IVPB PRN ×2 (02:17→14:17)
[2016-12-24] MEDS ORDERED: 0.9 % Sodium Chloride 500 ML ONE (02:27)
[2016-12-24 04:03] LABS: ABG Base Excess 1 mEq/L (-2 to 3); ABG HCO3 26 mEq/L (21-27); ABG Oxygen Saturation 99 % (95-98); ABG PCO2 44 mmHg (35-45); ABG PH 7.38 pH Units (7.32-7.45); ABG PO2 121 mmHg (85-104); ABG TCO2 27 mEq/L (20-26); Blood Gas Modality PRVC; Blood Gas PEEP 5 cm H2O; Blood Gas Respiration Rate 14; Blood Gas VT 500 cc
[2016-12-24] MEDS: Norepinephrine 4 MG in D5% in Water 250 ML IVC SCH ×4 (04:29→20:37)
[2016-12-24] MEDS: Potassium Phosphate 44 MEQ in 0.9 % Sodium Chloride 250 ML IVPB PRN (04:29)
[2016-12-24] MEDS ORDERED: 0.9 % Sodium Chloride 250 ML ONE ×2 (05:11→08:07)
[2016-12-24 06:22] LABS: Basophils # 0.1 K/mcL (0.0-0.2); Basophils % 0.3 %; Eosinophils % 0.1 %; Hematocrit 29.5 % (37.5-50.1); Lymphocytes # 2.2 K/mcL (0.6-4.6); Mean Corpuscular HGB Conc 33.9 g/dL (31.6-35.5); Mean Corpuscular Hemoglobin 28.2 pg (28.0-33.3); Mean Corpuscular Volume 83.1 fL (83.0-100.0); Mean Platelet Volume 8.9 fL (9.4-12.4); Monocytes # 2.1 K/mcL (0.0-1.3); Monocytes % 9.7 %; Neutrophils # 16.9 K/mcL (1.6-8.9); Nucleated Red Blood Cells 0.3 /100 WBC (0); Platelet Count 296 K/mcL (140-400); Red Blood Count 3.55 M/mcL (4.19-5.50); Red Cell Distribution Width 14.2 % (11.5-14.5); Segmented Neutrophils % 78.9 %
[2016-12-24] MEDS: Piperacillin/Tazobactam 3.375 GM in D5% in Water 50 ML IVPB SCH ×3 (06:33→23:28)
[2016-12-24 06:38] LABS: Alanine Aminotransferase 30 Units/L (0-55); Albumin/Globulin Ratio 0.5 (1.1-2.2); Alkaline Phosphatase 92 Units/L (38-126); Aspartate Amino Transferase 137 Units/L (5-34); BUN/Creatinine Ratio 20 (6-26); Bilirubin,Direct 0.4 mg/dL (0.0-0.5); Bilirubin,Indirect 0.3 mg/dL (0.0-1.2); Bilirubin,Total 0.7 mg/dL (0.2-1.2); Blood Urea Nitrogen 13 mg/dL (8-26); Calcium 7.2 mg/dL (8.6-10.8); Carbon Dioxide 25 mEq/L (19-29); Chloride 109 mEq/L (98-109); Globulin 3.3 g/dL (2.4-3.5); Glucose 176 mg/dL (70-99); Magnesium 2.1 mg/dL (1.6-2.6); Osmolality,Calculated 292 (280-300); Phosphorous 2.9 mg/dL (2.3-4.7); Potassium 3.7 mEq/L (3.5-4.5); Sodium 139 mEq/L (136-145); Total Protein 4.9 g/dL (6.0-8.3); eGFR For African Americans > 60 (> 60); eGFR For Non-African Americans > 60 (> 60)
[2016-12-24 06:39] LABS: Albumin 1.6 g/dL (3.5-5.0)
[2016-12-24] MEDS: FentaNYL (PF) 1,000 MCG in 0.9 % Sodium Chloride 80 ML IVC SCH ×3 (08:03→20:09)
[2016-12-24] MEDS: Pantoprazole 40 MG VIAL IVPB SCH (08:13)
[2016-12-24] MEDS: Chlorhexidine Rinse 15 ML MOUTHWASH MM SCH ×2 (08:13→19:47)
--- NOTE | 2016-12-24 09:12 | Pulmonology Progress Note ---
<RenardThony reid - Last Filed: 12/24/16 11:35> Date of Encounter: 12/24/16 Time of Encounter: 09:11 Assessment and Plan (1) Acute respiratory failure Current Visit: Yes Status: Acute Secondary to septic shock in the setting of acute right lower extremity ischemia. Patient is on mechanical ventilation. We will continue this at this time. ABG shows adequate oxygenation and ventilation Qualifiers: Respiratory failure complication: hypoxia Qualified Code(s): J96.01 - Acute respiratory failure with hypoxia (2) Ischemic leg Current Visit: Yes Status: Acute Patient has acute right lower extremity ischemia with necrosis. Postop day 1 status post right [id number] amputation. Patient appears slightly improved clinically from before surgery. Vascular surgery is following. (3) Septic shock Current Visit: Yes Status: Acute Secondary to acute necrosis and infection of his right lower extremity. Patient is being taken emergently to the OR as discussed above. Blood cultures are pending, antibiotics and been initiated with vancomycin and Zosyn. Initial lactate was 7.4, trended down overnight and is normalized this morning (4) Acute blood loss anemia Current Visit: Yes Status: Acute Secondary to lower extremity wound and acute leg ischemia. 4 units of blood have been ordered, for more on hold. We will have a transfusion goal of 9 given the concern for myocardial ischemia as well as limb ischemia. Given the patient's hypercoagulable state if he does not respond to transfusions will obtain CT of the abdomen and pelvis. (5) Elevated INR Current Visit: Yes Status: Acute INR 3.7 on presentation. Patient is on Zaroxolyn home. Given the concern for acute blood loss anemia as well as recent surgery we will reverse with vitamin K 5 mg subcutaneous daily for 24h (6) PVD (peripheral vascular disease) Current Visit: No Status: Chronic (7) Diabetes mellitus with peripheral angiopathy with gangrene Current Visit: Yes Status: Acute Patient is nothing by mouth. [place] every 4 hours Accu-Cheks and sliding scale insulin. Continue monitoring blood sugars. Qualifiers: Diabetes mellitus type: type 2 Diabetes mellitus residential insulin use: with long term care pharmacist use Qualified Code(s): E11.52 - Type 2 diabetes mellitus with diabetic peripheral angiopathy with gangrene; Z79.4 - snf (current) use of insulin; Z79.4 - buttermaker (current) use of insulin; Z79.4 - buttermaker ( current) use of insulin; Z79.4 - snf (current) use of insulin (8) Altered mental status Current Visit: Yes Status: Acute Likely related to septic shock and acute gangrene as discussed above. We will obtain a head CT when stable. Qualifiers: Altered mental status type: somnolence Qualified Code(s): R40.0 - Somnolence (9) Elevated troponin Current Visit: Yes Status: Acute Subjective Principal diagnosis: Ischemic limb Interval history: Patient seen and examined at bedside. Patient is awake and responsive to verbal stimuli. He does not appear to be in any acute distress. Objective PUL Vital signs: Last Vital Signs Temp 99.6 F 12/24/16 08:00 Pulse 96 12/24/16 08:00 Resp 20 12/24/16 08:02 BP 106/65 12/24/16 08:02 Pulse Ox 100 12/24/16 08:02 General appearance: no acute distress ENT: oropharynx moist Auscultation: bilateral: diminished breath sounds Cardiovascular: irregular rhythm Gastrointestinal: normoactive bowel sounds, soft, non-tender Extremities: no cyanosis, no clubbing, other (Diminished pulses on the left) Musculoskeletal: other (Patient is status post right AKA, dressing clean dry and intact) unable to assess due to mental status Ventilator Settings Ventilator Settings: Ventilator Settings, Last 8 Hours Ventilator Mode VC+ Ventilator Mode VC+ Ventilator Mode VC+ Ventilator Mode VC+ Ventilator Mode VC+ Ventilator Mode VC+ Ventilator Tidal Volume 500 Setting Ventilator Tidal Volume 500 Setting Ventilator Tidal Volume 500 Setting Ventilator Tidal Volume 500 Setting Ventilator Tidal Volume 500 Setting Ventilator Tidal Volume 500 Setting Ventilator Respiratory Rate 14 Setting Ventilator Respiratory Rate 14 Setting Ventilator Respiratory Rate 14 Setting Ventilator Respiratory Rate 14 Setting Ventilator Respiratory Rate 14 Setting Ventilator Respiratory Rate 14 Setting Actual Respiratory Rate 18 Actual Respiratory Rate 18 Actual Respiratory Rate 18 Actual Respiratory Rate 18 Actual Respiratory Rate 16 Positive End Expiratory 5 Pressure Positive End Expiratory 5 Pressure Positive End Expiratory 5 Pressure Positive End Expiratory 5 Pressure Positive End Expiratory 5 Pressure Positive End Expiratory 5 Pressure Peak Inspiratory Airway 14 Pressure Peak Inspiratory Airway 14 Pressure Peak Inspiratory Airway 14 Pressure Peak Inspiratory Airway 13 Pressure Peak Inspiratory Airway 18 Pressure Results - Laboratory Findings CBC and BMP: 12/24/16 10:05 12/24/16 10:05 ABG ABG pH 7.38 pH Units (7.32-7.45) 12/24/16 04:00 ABG pCO2 44 mmHg (35-45) 12/24/16 04:00 ABG pO2 121 mmHg (85-104) H 12/24/16 04:00 ABG O2 Saturation 99 % (95-98) H 12/24/16 04:00 PT/INR, D-dimer PT 19.1 Seconds (9.4-12.1) H 12/24/16 00:30 Abnormal lab findings: Abnormal lab results WBC 21.4 K/mcL (4.3-11.1) H 12/24/16 06:15 RBC 3.55 M/mcL (4.19-5.50) L 12/24/16 06:15 Hgb 10.0 g/dL (12.9-16.9) L D 12/24/16 06:15 Hct 29.5 % (37.5-50.1) L 12/24/16 06:15 MPV 8.9 fL (9.4-12.4) L 12/24/16 06:15 Neutrophils # 16.9 K/mcL (1.6-8.9) H 12/24/16 06:15 Monocytes # 2.1 K/mcL (0.0-1.3) H 12/24/16 06:15 Nucleated RBCs/100 WBC 0.3 /100 WBC (0) H 12/24/16 06:15 PT 19.1 Seconds (9.4-12.1) H 12/24/16 00:30 APTT 39.1 Seconds (26.0-36.0) H 12/23/16 13:55 ABG pO2 121 mmHg (85-104) H 12/24/16 04:00 ABG Total CO2 27 mEq/L (20-26) H 12/24/16 04:00 ABG O2 Saturation 99 % (95-98) H 12/24/16 04:00 Creatinine 0.65 mg/dL (0.72-1.25) L 12/24/16 06:15 Glucose 176 mg/dL (70-99) H 12/24/16 06:15 POC Glucose 150 (58-89) H 12/24/16 07:09 Calcium 7.2 mg/dL (8.6-10.8) L 12/24/16 06:15 Ionized Calcium 1.04 mmol/L (1.15-1.35) L 12/24/16 06:38 AST 137 Units/L (5-34) H 12/24/16 06:15 Troponin I > 50.00 ng/mL (0-0.03) H* 12/24/16 06:38 Serum Total Protein 4.9 g/dL (6.0-8.3) L 12/24/16 06:15 Albumin 1.6 g/dL (3.5-5.0) L 12/24/16 06:15 Albumin/Globulin Ratio 0.5 (1.1-2.2) L 12/24/16 06:15 Ur Specific [place] 1.026 (1.010-1.025) H 12/23/16 14:02 Urine Glucose (UA) >=1000 mg/dL (Normal) H 12/23/16 14:02 - Clinical Findings Intake & Output: Intake & Output 12/23/16 12/24/16 12/24/16 23:59 07:59 15:59 Intake Total 1625 / 1625 1632 / 1632 69 / 69 Output Total 2625 / 2625 600 / 600 Balance -1000 / -1000 1032 / 1032 / 69 - VTE Documentation of Mechanical Device: Intermittent pneumatic compression device Consult Discharge Plan - Plan Referrals: Sunita Murrell MD [Primary Care Provider] - <Jori Alfonso W - Last Filed: 12/24/16 15:45> Date of Encounter: 12/24/16 Objective PUL Vital signs: Last Vital Signs Temp 99.6 F 12/24/16 08:00 Pulse 96 12/24/16 08:00 Resp 20 12/24/16 08:02 BP 106/65 12/24/16 08:02 Pulse Ox 100 12/24/16 08:02 Ventilator Settings Ventilator Settings: Ventilator Settings, Last 8 Hours Ventilator Mode VC+ Ventilator Mode VC+ Ventilator Mode VC+ Ventilator Mode VC+ Ventilator Mode VC+ Ventilator Mode VC+ Ventilator Tidal Volume 500 Setting Ventilator Tidal Volume 500 Setting Ventilator Tidal Volume 500 Setting Ventilator Tidal Volume 500 Setting Ventilator Tidal Volume 500 Setting Ventilator Tidal Volume 500 Setting Ventilator Respiratory Rate 14 Setting Ventilator Respiratory Rate 14 Setting Ventilator Respiratory Rate 14 Setting Ventilator Respiratory Rate 14 Setting Ventilator Respiratory Rate 14 Setting Ventilator Respiratory Rate 14 Setting Actual Respiratory Rate 18 Actual Respiratory Rate 18 Actual Respiratory Rate 18 Actual Respiratory Rate 18 Actual Respiratory Rate 16 Positive End Expiratory 5 Pressure Positive End Expiratory 5 Pressure Positive End Expiratory 5 Pressure Positive End Expiratory 5 Pressure Positive End Expiratory 5 Pressure Positive End Expiratory 5 Pressure Peak Inspiratory Airway 14 Pressure Peak Inspiratory Airway 14 Pressure Peak Inspiratory Airway 14 Pressure Peak Inspiratory Airway 13 Pressure Peak Inspiratory Airway 18 Pressure Results - Laboratory Findings CBC and BMP: 12/24/16 10:05 12/24/16 10:05 ABG ABG pH 7.38 pH Units (7.32-7.45) 12/24/16 04:00 ABG pCO2 44 mmHg (35-45) 12/24/16 04:00 ABG pO2 121 mmHg (85-104) H 12/24/16 04:00 ABG O2 Saturation 99 % (95-98) H 12/24/16 04:00 PT/INR, D-dimer PT 19.1 Seconds (9.4-12.1) H 12/24/16 00:30 Abnormal lab findings: Abnormal lab results WBC 21.4 K/mcL (4.3-11.1) H 12/24/16 06:15 RBC 3.55 M/mcL (4.19-5.50) L 12/24/16 06:15 Hgb 10.0 g/dL (12.9-16.9) L D 12/24/16 06:15 Hct 29.5 % (37.5-50.1) L 12/24/16 06:15 MPV 8.9 fL (9.4-12.4) L 12/24/16 06:15 Neutrophils # 16.9 K/mcL (1.6-8.9) H 12/24/16 06:15 Monocytes # 2.1 K/mcL (0.0-1.3) H 12/24/16 06:15 Nucleated RBCs/100 WBC 0.3 /100 WBC (0) H 12/24/16 06:15 PT 19.1 Seconds (9.4-12.1) H 12/24/16 00:30 APTT 39.1 Seconds (26.0-36.0) H 12/23/16 13:55 ABG pO2 121 mmHg (85-104) H 12/24/16 04:00 ABG Total CO2 27 mEq/L (20-26) H 12/24/16 04:00 ABG O2 Saturation 99 % (95-98) H 12/24/16 04:00 Creatinine 0.65 mg/dL (0.72-1.25) L 12/24/16 06:15 Glucose 176 mg/dL (70-99) H 12/24/16 06:15 POC Glucose 150 (58-89) H 12/24/16 07:09 Calcium 7.2 mg/dL (8.6-10.8) L 12/24/16 06:15 Ionized Calcium 1.04 mmol/L (1.15-1.35) L 12/24/16 06:38 AST 137 Units/L (5-34) H 12/24/16 06:15 Troponin I > 50.00 ng/mL (0-0.03) H* 12/24/16 06:38 Serum Total Protein 4.9 g/dL (6.0-8.3) L 12/24/16 06:15 Albumin 1.6 g/dL (3.5-5.0) L 12/24/16 06:15 Albumin/Globulin Ratio 0.5 (1.1-2.2) L 12/24/16 06:15 Ur Specific [place] 1.026 (1.010-1.025) H 12/23/16 14:02 Urine Glucose (UA) >=1000 mg/dL (Normal) H 12/23/16 14:02 - Clinical Findings Intake & Output: Intake & Output 12/23/16 12/24/16 12/24/16 23:59 07:59 15:59 Intake Total 1625 / 1625 1632 / 1632 69 / 69 Output Total 2625 / 2625 600 / 600 Balance -1000 / -1000 1032 / 1032 - Attending Attestation I examined this patient and my medical decision-making was reviewed with the Resident Physician. I agree with the documented findings, disposition and treatment plan as described except to the extent set forth below. We independently had [id number] contact with the patient I spent 30min of Critical Care time with this patient. It involved decision making of high complexity to assess, manipulate, and support vital organ system failure and/or to prevent further life threatening deterioration of the patient' s condition. The time involved in the performance of separately reportable procedures was not counted toward critical care time. Patient seen and examined at bedside Labs, radiology, chart personally reviewed. Management was reviewed during multidisciplinary critical care rounds. BPM ANALYST: Mild encephalopathy secondary to metabolic derangements septic shock and sedation continue to titrate sedation for goal [place] 2-3 Pulm: Hypoxic respiratory failure intubated on vent not currently SPT candidate secondary to ongoing shock and ongoing myocardial ischemia Cards: Vasodilatory shock secondary to sepsis acute myocardial infarction seen by cardiology but no acute intervention planned because of active hemorrhage is not a candidate for aspirin or antiplatelet therapy is also not a candidate for infusion of heparin. I suspect he is at high risk of sudden ventricular arrhythmia related to this ischemia and will need to monitor him closely FEN-GI: Nothing by mouth for now U PPI prophylaxis Renal: No AK I acceptable urine output continue to monitor electrolytes and replace per protocol ID: Septic shock secondary to ischemic right lower extremity status post above the knee amputation cultures pending patient remains on broad-spectrum antimicrobials we will plan to de-escalate based upon culture results Heme/Onc: Acute blood loss anemia likely secondary to trauma several lower extremity CT scan of the abdomen without clear evidence of intra-abdominal hemorrhage. He is status post transfusion of multiple PRBCs with stabilization in hemoglobin and hematocrit over this morning we will continue to trend this every 6 hours he also presented with a significant coagulopathy which is been corrected with plasma and vitamin K goal hemoglobin around 9 for active myocardial ischemia. Endo: Glucose Monitored Integ/MSK: Skin Care per routine ICU Nursing Protocol to prevent ulcers. History of peripheral vascular disease with ischemic gangrene of the lower extremity status post amputation with vascular surgery appreciate their consultation on this case Lines: All lines examined without evidence of infection : Dispo: Remain ICU for critical illness CODE: Full his next of kin brother and his were updated at bedside
--- NOTE | 2016-12-24 10:06 | Vascular/Endovas Progress Note ---
Date of Encounter: 12/24/16 Time of Encounter: 09:15 - Assessment and plan (1) Atherosclerotic peripheral vascular disease with gangrene Current Visit: Yes Status: Chronic He is postoperative day #1 after an emergent right above knee ampuation. His bandages is dry. The bandage will remain in place until Thursday. (2) Mixed hyperlipidemia Current Visit: No Status: Chronic (3) Tobacco abuse Current Visit: No Status: Chronic (4) Essential hypertension Current Visit: No Status: Chronic (5) Chronic anemia Current Visit: No Status: Chronic (6) Septic shock Current Visit: Yes Status: Acute - Subjective Interval history: The patient remains sedated and intubated. No acute issues overnight. Vital Signs, Last 4 Hours Temp Pulse Resp BP Pulse Ox 12/24/16 08:02 20 106/65 100 12/24/16 08:00 99.6 F 96 20 106/63 100 12/24/16 07:35 99.6 F 12/24/16 07:01 96 20 104/64 100 12/24/16 07:00 96 20 104/64 100 12/24/16 06:07 21 98/56 100 - Physical Examination HEENT: Present: Trachea midline Cardiac: Present: Reg Rate and Rhythm Lungs: Present: Normal Breath Sounds Vascular: Present: Normal capillary refill (left, pedal signals present by doppler), Surgical incisions (bandage dry, no drainage noted) Abdomen: Present: Soft - VTE Documentation of Mechanical Device: Intermittent pneumatic compression device Results 12/25/16 03:40 12/25/16 03:40 Lab Results, Last 24 hours 12/23/16 12/23/16 12/23/16 17:44 18:59 18:59 WBC 17.2 H Hgb 6.6 L Hct 20.2 L Plt Count 265 INR Sodium 137 Potassium 2.8 L Chloride 104 D Carbon Dioxide 22 BUN 16 Creatinine 0.77 Glucose 322 H Calcium 7.3 L D Magnesium Total Bilirubin 1.0 D AST 44 H ALT 15 Alkaline Phosphatase 94 Troponin I 3.17 H* 12/23/16 12/24/16 12/24/16 18:59 00:30 00:30 WBC 15.8 H Hgb 7.0 L Hct 20.7 L Plt Count 215 INR 2.4 Sodium Potassium Chloride Carbon Dioxide BUN Creatinine Glucose Calcium Magnesium Total Bilirubin AST ALT Alkaline Phosphatase Troponin I 41.80 H* 12/24/16 12/24/16 12/24/16 00:30 00:30 06:15 WBC 21.4 H Hgb 10.0 L D Hct 29.5 L Plt Count 296 INR 1.8 Sodium 136 Potassium 3.0 L Chloride 105 Carbon Dioxide 23 BUN 15 Creatinine 0.71 L Glucose 277 H Calcium 7.7 L Magnesium 1.9 Total Bilirubin 0.9 AST 110 H ALT 24 Alkaline Phosphatase 97 Troponin I 12/24/16 12/24/16 06:15 06:38 WBC Hgb Hct Plt Count INR Sodium 139 Potassium 3.7 Chloride 109 Carbon Dioxide 25 BUN 13 Creatinine 0.65 L Glucose 176 H Calcium 7.2 L Magnesium 2.1 Total Bilirubin 0.7 AST 137 H ALT 30 Alkaline Phosphatase 92 Troponin I > 50.00 H* Consult Discharge Plan - Plan Referrals: Sunita Murrell MD [Primary Care Provider] -
[2016-12-24 10:18] LABS: Hematocrit 30.1 % (37.5-50.1); Hemoglobin 10.2 g/dL (12.9-16.9)
[2016-12-24 10:29] LABS: Phosphorous 3.3 mg/dL (2.3-4.7); Potassium 3.8 mEq/L (3.5-4.5)
[2016-12-24] MEDS: Vancomycin 1,500 MG in D5% in Water 250 ML IVPB SCH ×2 (11:04→23:28)
[2016-12-24] MEDS: Vasopressin 40 UNIT in D5% in Water 100 ML IV SCH (11:51)
--- NOTE | 2016-12-24 12:54 | Cardiology Progress Note ---
Date of Encounter: 12/24/16 Time of Encounter: 10:30 Assessment and Plan (1) Septic shock Current Visit: Yes Status: Acute Per cardiology: -Admitted after being found unresponsive at home. -S/p AKA yesterday per vascular surgery. -On vasopressors. -Management per primary service. (2) Abnormal ECG Current Visit: Yes Status: Acute Per cardiology: -Initial ECG with ST elevation in inferior leads. -Repeat ECG with diffuse ST depression, no Q waves noted. -ECGS reviewed with and Dr.Jennifer Ivy. -Unknown symptoms. -No previous history of CAD. -Stress test 06/2015 with no ischemia noted. Evidence of prior infarct. Gated EF 68%. -TTE with poor windows. -Patient is not a LHC candidate due to sepsis, anemia, hypotension, and mental status. -Recommend repeating TTE once patient is extubated. (3) Elevated troponin Current Visit: Yes Status: Acute Per cardiology: -Troponin now >50 in the setting of septic shock, anemia, hypotension requireing multiple vasopressors. -Unknown symptoms. Patient currently intubated and sedated. -ECG with changes noted. -Patient is not a LHC candidate at this time due to sepsis, anemia, hypotension , and mental status. -No cardiac rehab warranted at this time. -NO asa or heparin drip due to bleeding from leg wound and anemia. -No beta binta due to hypotension requireing vasopressors. -Recommend LHC prior to discharge. (4) PAD (peripheral artery disease) Current Visit: Yes Status: Chronic Per cardiology: -Known PAD s/p right AKA yesterday with . -Vascular surgery following. -Management per primary and vascular surgery. Discussion w patient/family: The assessment and plan as outlined above was discussed with the patient. Thank you for involving us in the care of your patient. Please call with any questions. Discussed and reviewed with . Subjective Principal diagnosis: Ischemic limb Interval history: Patient intubated and sedated. Objective Vital Signs, Last 4 Hours Temp Pulse Resp BP Pulse Ox 12/24/16 12:23 99.9 F H 12/24/16 12:00 99.9 F H 89 17 115/65 96 12/24/16 11:23 99.6 F 96 20 106/63 99 12/24/16 11:11 17 98 12/24/16 11:00 92 18 112/63 100 12/24/16 10:00 99.6 F 85 12 112/61 100 12/24/16 09:09 17 108/59 99 12/24/16 09:00 96 20 113/65 100 General: Other (Intubated and sedated) HEENT: Atraumatic, Normocephaly, Mucus Membranes Moist Neck: No JVD, Normal carotid pulses Cardiac: Reg Rate and Rhythm, Normal S1 and S2, No Murmur Lungs: Normal Breath Sounds, No Wheeze, Rales, Rhonchi, Other (On ventilator with setting of RR 14, Vt 500, FiO2 40%, PEEP 5. ) Neuro: Other (Intubated and sedated) Abdomen: Soft Skin: Other (Right leg surgical dressing noted. ) Musculoskeletal: Other (No grimacing noted to chest wall palpation. ) Extremities: No Clubbing, No Cyanosis, No Edema, Other (Left lower extremity pulses per doppler. Right leg now with AKA. ) Results 12/24/16 10:05 12/24/16 10:05 Lab Results 12/23/16 12/23/16 12/23/16 17:44 18:59 18:59 WBC 17.2 H Hgb 6.6 L Hct 20.2 L Plt Count 265 INR Sodium 137 Potassium 2.8 L Chloride 104 D Carbon Dioxide 22 BUN 16 Creatinine 0.77 Glucose 322 H Calcium 7.3 L D Magnesium Total Bilirubin 1.0 D AST 44 H ALT 15 Alkaline Phosphatase 94 Troponin I 3.17 H* 12/23/16 12/24/16 12/24/16 18:59 00:30 00:30 WBC 15.8 H Hgb 7.0 L Hct 20.7 L Plt Count 215 INR 2.4 Sodium Potassium Chloride Carbon Dioxide BUN Creatinine Glucose Calcium Magnesium Total Bilirubin AST ALT Alkaline Phosphatase Troponin I 41.80 H* Impressions Echocardiogram Limited Views 12/23/16 00:00 Impressions: Technically sub-optimal due to poor echocardiographic windows and clinical status. Sinus tachycardia. Despite the use of Definity contrast enhancement, precise evaluation of LV function cannot be determined. Grossly, LV function appears normal. In some views, LV function appears grossly normal. Right ventricle was not well visualized. Unable to estimate RVSP due to lack of TR jet. No obvious significant valvular dysfunction. Recommend a repeat study to evaluate LV function once HR better controlled. Left Ventricular Wall Motion: Rest Echo Findings The apex, apical inferior, mid inferior, basal inferior, apical anterior, mid anterior, basal anterior, apical septal, mid inferior septal, basal inferior septal, apical lateral, mid anterior lateral, basal anterior lateral, mid anterior septal, mid inferior lateral, basal anterior septal and basal inferior lateral sarkar were hypokinetic. Findings: Study Quality * Technically sub-optimal due to poor echocardiographic windows and clinical status. ECG Findings * Sinus tachycardia. Left Ventricle * Despite the use of Definity contrast enhancement, precise evaluation of LV function cannot be determined. * In some views, LV function appears grossly normal. Right Ventricle * Right ventricle was not well visualized. Left Atrium * Left atrium is not well visualized. Right Atrium * Right atrium is not well visualized. Interatrial Septum * Interatrial septum not well evaluated. Aortic Valve * Aortic valve not well visualized. * No aortic stenosis. * No aortic regurgitation. Mitral Valve * Mitral valve not well visualized. * No mitral regurgitation. * No mitral stenosis. Tricuspid Valve * Tricuspid valve not well visualized. * No tricuspid regurgitation. * Unable to estimate RVSP due to lack of TR jet. Pulmonic Valve * Pulmonic valve not well visualized. * No pulmonic regurgitation. Aorta * Normally sized aortic root. Pericardium * The pericardium appears normal. IVC * Normal IVC dimensions and inspiratory collapse. * The IVC is not well evaluated. Pulmonary Artery * Pulmonary artery not well visualized. Chest X-Ray 12/23/16 14:27 IMPRESSION: Right IJ central line appears in good position without evidence of pneumothorax. No acute cardiopulmonary process. D/ / Flaco Agee MD / Flaco Agee MD Interpreting Provider: Flaco Agee MD Abdomen/Pelvis CT 12/24/16 00:53 IMPRESSION: 1. Limited study due to lack of IV contrast. 2. Within the right groin at the origin of the fem-pop bypass graft, there is a small fluid collection with tiny foci of gas which may represent sequela of recent catheterization with small hematoma. Correlate clinically. 3. Otherwise no acute findings within the abdomen or pelvis. No large intraperitoneal or retroperitoneal hemorrhage identified. 4. Trace bilateral pleural effusion with associated atelectasis or consolidation. D/ / 12/24/2016 07:28:35 Chan Sena MD / richa Interpreting Provider: Chan Sena MD Head CT 12/24/16 17:15 IMPRESSION: No acute intracranial abnormality. D/ / Thony Hernandez MD / Thony Hernandez MD Interpreting Provider: Thony Hernandez MD Active Medications Artificial Tears (Lacri-Lube) 1 appl BOTH EYES Q4HR FLORA PRN Reason: Protocol Stop: 06/24/17 20:01 Last Admin: 12/24/16 11:51 Dose: 1 appl Artificial Tears (Lacri-Lube) 1 appl BOTH EYES Q2HR PRN; Protocol PRN Reason: Dry Eyes Stop: 06/24/17 17:38 Chlorhexidine Gluconate (Chlorhexidine Rinse) 15 ml MM BID FLORA Stop: 06/24/17 21:01 Last Admin: 12/24/16 08:13 Dose: 15 ml Dextrose/Water (Dextrose 50% (Syg)) 25 ml IVP AD PRN PRN Reason: Hypoglycemia Stop: 06/24/17 17:42 Glucagon (Glucagen) 1 mg IM ONCE PRN PRN Reason: Hypoglycemia Stop: 06/24/17 17:42 Glucose (Gluctose) 15 gm PO ONCE PRN PRN Reason: Hypoglycemia Stop: 06/24/17 17:42 Glucose (Gluctose) 30 gm PO ONCE PRN PRN Reason: Hypoglycemia Stop: 06/24/17 17:42 Norepinephrine Bitartrate 4 mg (/ Dextrose) 254 mls @ 19.05 mls/hr IVC CONT FLORA ; 5 MCG/MIN PRN Reason: Protocol Stop: 06/24/17 14:31 Last Admin: 12/24/16 11:28 Dose: 13 mcg/min, 49.53 mls/hr Vasopressin 40 unit/ Dextrose 102 mls @ 4.59 mls/hr IV .[id number] FLORA PRN Reason: 0.03 UNIT/MIN Stop: 06/24/17 15:46 Last Admin: 12/24/16 11:51 Dose: Not Given Piperacillin Sod/Tazobactam (Sod 3.375 gm/ Dextrose) 50 mls @ 12.5 mls/hr IVPB Q8H FLORA Stop: 06/24/17 22:01 Last Admin: 12/24/16 06:33 Dose: 12.5 mls/hr Vancomycin HCl 1,500 mg/ (Dextrose) 250 mls @ 167 mls/hr IVPB Q12H FLORA PRN Reason: Protocol Stop: 06/24/17 22:01 Last Admin: 12/24/16 11:04 Dose: 167 mls/hr Fentanyl Citrate 1,000 mcg/ (Sodium Chloride) 100 mls @ 2.5 mls/hr IVC CONT FLORA ; 25 MCG/HR PRN Reason: Protocol Stop: 06/24/17 17:46 Last Admin: 12/24/16 08:03 Dose: 150 mcg/hr, 15 mls/hr Propofol (Diprivan) 1,000 mg in 100 mls @ 6.26 mls/hr IVC .[id number] FLORA; 10 MCG/ KG/MIN PRN Reason: Protocol Stop: 06/24/17 17:46 Last Admin: 12/24/16 04:27 Dose: 15 mcg/kg/min, 9.389 mls/hr Dextrose (Dextrose 5%) 1,000 mls @ 100 mls/hr IVC .Q10H PRN PRN Reason: HYPOGLYCEMIA Stop: 06/24/17 17:42 Calcium Gluconate 1,000 mg/ (Dextrose) 110 mls @ 50 mls/hr IVPB Q6HR PRN PRN Reason: Hypocalcemia Stop: 06/24/17 19:28 Last Infusion: 12/23/16 22:30 Dose: Infused Magnesium Sulfate (Magnesium Sulfate Premix 2gm/50ml) 2 gm in 50 mls @ 50 mls/ hr IVPB Q6H PRN PRN Reason: Hypomagnesemia Stop: 06/24/17 19:28 Last Infusion: 12/24/16 05:00 Dose: Infused Potassium Chloride (Potassium Chloride 20 Meq/100 Ml) 40 meq in 200 mls @ 100 mls/hr IVPB Q1H PRN PRN Reason: Potassium less than 4 Stop: 06/24/17 19:28 Last Infusion: 12/24/16 04:33 Dose: Infused Potassium Phosphate 44 meq/ (Sodium Chloride) 260 mls @ 40 mls/hr IVPB Q10H PRN PRN Reason: Phosphate less than 3 Stop: 06/24/17 19:28 Last Admin: 12/24/16 04:29 Dose: 40 mls/hr Insulin Human Lispro (Humalog) 0 units SQ Q4HR FLORA PRN Reason: Protocol Stop: 06/24/17 20:01 Last Admin: 12/24/16 11:50 Dose: 6 units Naloxone HCl (Narcan) 0.4 mg IVP Q2MIN PRN PRN Reason: Opioid Reversal Stop: 06/24/17 17:23 Pantoprazole Sodium (Protonix) 40 mg IVPB DAILY [facility] Stop: 06/25/17 09:01 Last Admin: 12/24/16 08:13 Dose: 40 mg Phytonadione (Aquamephyton) 5 mg SQ Q24H [facility] Stop: 12/25/16 17:31 Last Admin: 12/23/16 18:51 Dose: 5 mg Laboratory Tests 12/23/16 12/23/16 12/24/16 13:55 18:59 00:30 WBC Hgb Potassium Creatinine Troponin I 2.51 H* 3.17 H* 41.80 H* 12/24/16 12/24/16 12/24/16 00:30 00:30 06:38 WBC 15.8 H Hgb 7.0 L Potassium 3.0 L Creatinine 0.71 L Troponin I > 50.00 H* - Imaging and Cardiology Chest Xray: report reviewed Echo: report reviewed - EKG Interpretation EKG results cardiology: other (Telemetry reviewed with average HR previous 12 hours noted to be 98, sinus rhythm. PVCs, couplets, and short runs of non- sustained ventricular tachycardia noted, longest 10 beats. PACS noted.) - VTE Documentation of Mechanical Device: Intermittent pneumatic compression device Consult Discharge Plan - Plan Referrals: Sunita Murrell MD [Primary Care Provider] -
--- NOTE | 2016-12-24 13:05 | Electrocardiograph Report ---
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
--- NOTE | 2016-12-24 13:07 | Electrocardiograph Report ---
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
--- NOTE | 2016-12-24 13:15 | Electrocardiograph Report ---
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
[2016-12-24] MEDS: *HR* Phytonadione 10 MG/ML AMPUL SQ SCH (15:30)
[2016-12-24 17:01] LABS: Basophils # 0.1 K/mcL (0.0-0.2); Basophils % 0.2 %; Eosinophils % 0.2 %; Hematocrit 29.2 % (37.5-50.1); Hemoglobin 9.8 g/dL (12.9-16.9); Immature Granulocytes % 1.1 % (0-4); Lymphocytes # 2.1 K/mcL (0.6-4.6); Lymphocytes % 8.9 %; Mean Corpuscular HGB Conc 33.6 g/dL (31.6-35.5); Mean Corpuscular Hemoglobin 28.3 pg (28.0-33.3); Mean Corpuscular Volume 84.4 fL (83.0-100.0); Monocytes # 2.4 K/mcL (0.0-1.3); Monocytes % 10.2 %; Neutrophils # 18.4 K/mcL (1.6-8.9); Nucleated Red Blood Cells 0.2 /100 WBC (0); Platelet Count 294 K/mcL (140-400); Red Blood Count 3.46 M/mcL (4.19-5.50); Red Cell Distribution Width 14.6 % (11.5-14.5); Segmented Neutrophils % 79.4 %
[2016-12-24 17:07] LABS: INR 1.4; Prothrombin Time 14.7 Seconds (9.4-12.1)
[2016-12-24 17:23] LABS: BUN/Creatinine Ratio 16 (6-26); Blood Urea Nitrogen 10 mg/dL (8-26); Calcium 7.7 mg/dL (8.6-10.8); Carbon Dioxide 26 mEq/L (19-29); Chloride 108 mEq/L (98-109); Glucose 162 mg/dL (70-99); Osmolality,Calculated 293 (280-300); Potassium 4.3 mEq/L (3.5-4.5); Sodium 140 mEq/L (136-145); eGFR For African Americans > 60 (> 60); eGFR For Non-African Americans > 60 (> 60)
[2016-12-25] MEDS: FentaNYL (PF) 1,000 MCG in 0.9 % Sodium Chloride 80 ML IVC SCH (02:32)
[2016-12-25] MEDS: Insulin LISPRO 300 UNITS/3 ML VIAL SQ SCH ×6 (02:32→19:27)
[2016-12-25] MEDS: Lacri-Lube 3.5 GM TUBE BOTH EYES SCH ×2 (03:53→07:48)
[2016-12-25 03:55] LABS: Basophils % 0.2 %; Mean Corpuscular HGB Conc 32.8 g/dL (31.6-35.5); Red Blood Count 3.16 M/mcL (4.19-5.50); Red Cell Distribution Width 14.8 % (11.5-14.5)
[2016-12-25 03:58] LABS: Basophils # 0.1 K/mcL (0.0-0.2); Eosinophils % 0.1 %; Hematocrit 27.4 % (37.5-50.1); INR 1.4; Immature Granulocytes % 1.7 % (0-4); Immature Platelets 2.5 % (1.1-6.1); Lymphocytes # 2.2 K/mcL (0.6-4.6); Lymphocytes % 8.7 %; Mean Corpuscular Hemoglobin 28.5 pg (28.0-33.3); Mean Corpuscular Volume 86.7 fL (83.0-100.0); Mean Platelet Volume 8.8 fL (9.4-12.4); Monocytes # 2.3 K/mcL (0.0-1.3); Monocytes % 9.3 %; Neutrophils # 19.8 K/mcL (1.6-8.9); Nucleated Red Blood Cells 0.1 /100 WBC (0); Platelet Count 340 K/mcL (140-400); Prothrombin Time 15.6 Seconds (9.4-12.1)
[2016-12-25 04:06] LABS: Ionized Calcium 1.06 mmol/L (1.15-1.35)
[2016-12-25 04:10] LABS: Alanine Aminotransferase 30 Units/L (0-55); Albumin 1.6 g/dL (3.5-5.0); Albumin/Globulin Ratio 0.5 (1.1-2.2); Alkaline Phosphatase 95 Units/L (38-126); Aspartate Amino Transferase 83 Units/L (5-34); BUN/Creatinine Ratio 15 (6-26); Bilirubin,Direct 0.4 mg/dL (0.0-0.5); Bilirubin,Indirect 0.3 mg/dL (0.0-1.2); Bilirubin,Total 0.7 mg/dL (0.2-1.2); Blood Urea Nitrogen 10 mg/dL (8-26); Calcium 7.5 mg/dL (8.6-10.8); Carbon Dioxide 28 mEq/L (19-29); Chloride 106 mEq/L (98-109); Globulin 3.5 g/dL (2.4-3.5); Glucose 150 mg/dL (70-99); Magnesium 1.8 mg/dL (1.6-2.6); Osmolality,Calculated 290 (280-300); Potassium 4.2 mEq/L (3.5-4.5); Sodium 139 mEq/L (136-145); Total Protein 5.1 g/dL (6.0-8.3); eGFR For African Americans > 60 (> 60); eGFR For Non-African Americans > 60 (> 60)
[2016-12-25] MEDS ORDERED: FentaNYL (PF) 3,000 MCG in 0.9 % Sodium Chloride 240 ML IVC SCH (04:30)
[2016-12-25 05:06] LABS: Platelet Estimate Normal (Normal)
[2016-12-25] MEDS: Piperacillin/Tazobactam 3.375 GM in D5% in Water 50 ML IVPB SCH ×3 (05:42→23:01)
[2016-12-25] MEDS: Potassium Phosphate 44 MEQ in 0.9 % Sodium Chloride 250 ML IVPB PRN ×2 (06:14→18:37)
[2016-12-25] MEDS: Calcium Gluconate 1,000 MG in D5% in Water 100 ML IVPB PRN (06:14)
--- NOTE | 2016-12-25 07:37 | Pulmonology Progress Note ---
<RenardThony reid Jairo - Last Filed: 12/25/16 09:49> Date of Encounter: 12/25/16 Time of Encounter: 07:37 Assessment and Plan (1) Acute respiratory failure Current Visit: Yes Status: Acute Secondary to septic shock in the setting of acute right lower extremity ischemia. Patient is currently undergoing spontaneous breathing trial and tolerating well, plan for extubation today. ABG shows adequate oxygenation and ventilation. Qualifiers: Respiratory failure complication: hypoxia Qualified Code(s): J96.01 - Acute respiratory failure with hypoxia (2) Ischemic leg Current Visit: Yes Status: Acute Patient has acute right lower extremity ischemia with necrosis. Postop day 2 status post right [id number] amputation. Patient continues to improve. Vascular surgery is following. (3) Septic shock Current Visit: Yes Status: Acute Resolved. Patient is no longer requiring vasopressor support. Secondary to acute necrosis and infection of his right lower extremity. Patient had been taken emergently to the OR as discussed above. Blood cultures are pending, antibiotics and been initiated with vancomycin and Zosyn. Initial lactate was 7.4, trended down and has normalized (4) Acute blood loss anemia Current Visit: Yes Status: Acute Secondary to lower extremity wound and acute leg ischemia. Patient received a total of 8 units packed red blood cells. Hemoglobin has remained stable We will have a transfusion goal of 9 given the concern for myocardial ischemia as well as limb ischemia. (5) Elevated INR Current Visit: Yes Status: Acute INR 3.7 on presentation, down to 1.4 with 1 unit of FFP. Patient is on Xarelto at home. Given the concern for acute blood loss anemia as well as recent surgery we will reverse with vitamin K 5 mg subcutaneous daily for 3 days. (6) PVD (peripheral vascular disease) Current Visit: No Status: Chronic (7) Diabetes mellitus with peripheral angiopathy with gangrene Current Visit: Yes Status: Acute Patient is nothing by mouth, bedside swallow eval post extubation. Continue every 4 hours Accu-Cheks and sliding scale insulin. Blood sugars been under good control. Continue monitoring blood sugars. 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 Likely related to septic shock and acute gangrene as discussed above. Head CT unremarkable Qualifiers: Altered mental status type: somnolence Qualified Code(s): R40.0 - Somnolence (9) Elevated troponin Current Visit: Yes Status: Acute Subjective Principal diagnosis: Ischemic limb Interval history: Patient seen and examined at bedside. Patient is awake and responsive to verbal stimuli. He does not appear to be in any acute distress. Plan for extubation this morning. Objective PUL Vital signs: Last Vital Signs Temp 97.8 F 12/25/16 07:23 Pulse 96 12/25/16 07:23 Resp 16 12/25/16 07:29 BP 88/57 12/25/16 07:29 Pulse Ox 95 12/25/16 07:29 General appearance: no acute distress ENT: oropharynx moist Effort: normal Auscultation: bilateral: diminished breath sounds Cardiovascular: regular rate and rhythm Gastrointestinal: normoactive bowel sounds, soft, non-tender, non-distended Extremities: no cyanosis, no edema, no clubbing, other (Dressing applied to right AKA site, clean dry and intact.) normal mental status, non-focal exam Ventilator Settings Ventilator Settings: Ventilator Settings, Last 8 Hours Ventilator Mode CPAP Ventilator Mode CPAP Ventilator Mode A/C Ventilator Mode A/C Ventilator Mode A/C Ventilator Tidal Volume 500 Setting Ventilator Tidal Volume 500 Setting Ventilator Tidal Volume 500 Setting Ventilator Respiratory Rate 14 Setting Ventilator Respiratory Rate 14 Setting Ventilator Respiratory Rate 14 Setting Actual Respiratory Rate 12 Actual Respiratory Rate 12 Actual Respiratory Rate 17 Actual Respiratory Rate 19 Actual Respiratory Rate 15 Positive End Expiratory 5 Pressure Positive End Expiratory 5 Pressure Positive End Expiratory 5 Pressure Positive End Expiratory 5 Pressure Positive End Expiratory 5 Pressure Peak Inspiratory Airway 11 Pressure Peak Inspiratory Airway 14 Pressure Peak Inspiratory Airway 25 Pressure Peak Inspiratory Airway 21 Pressure Peak Inspiratory Airway 24 Pressure Results - Laboratory Findings CBC and BMP: 12/25/16 03:40 12/25/16 03:40 ABG ABG pH 7.38 pH Units (7.32-7.45) 12/24/16 04:00 ABG pCO2 44 mmHg (35-45) 12/24/16 04:00 ABG pO2 121 mmHg (85-104) H 12/24/16 04:00 ABG O2 Saturation 99 % (95-98) H 12/24/16 04:00 PT/INR, D-dimer PT 15.6 Seconds (9.4-12.1) H 12/25/16 03:40 Abnormal lab findings: Abnormal lab results WBC 24.8 K/mcL (4.3-11.1) H 12/25/16 03:40 RBC 3.16 M/mcL (4.19-5.50) L 12/25/16 03:40 Hgb 9.0 g/dL (12.9-16.9) L 12/25/16 03:40 Hct 27.4 % (37.5-50.1) L 12/25/16 03:40 RDW 14.8 % (11.5-14.5) H 12/25/16 03:40 MPV 8.8 fL (9.4-12.4) L 12/25/16 03:40 Neutrophils # 19.8 K/mcL (1.6-8.9) H 12/25/16 03:40 Monocytes # 2.3 K/mcL (0.0-1.3) H 12/25/16 03:40 Nucleated RBCs/100 WBC 0.1 /100 WBC (0) H 12/25/16 03:40 PT 15.6 Seconds (9.4-12.1) H 12/25/16 03:40 APTT 39.1 Seconds (26.0-36.0) H 12/23/16 13:55 ABG pO2 121 mmHg (85-104) H 12/24/16 04:00 ABG Total CO2 27 mEq/L (20-26) H 12/24/16 04:00 ABG O2 Saturation 99 % (95-98) H 12/24/16 04:00 Creatinine 0.65 mg/dL (0.72-1.25) L 12/25/16 03:40 Glucose 150 mg/dL (70-99) H 12/25/16 03:40 POC Glucose 124 (58-89) H 12/25/16 07:02 Calcium 7.5 mg/dL (8.6-10.8) L 12/25/16 03:40 Ionized Calcium 1.06 mmol/L (1.15-1.35) L 12/25/16 03:40 Phosphorus 2.0 mg/dL (2.3-4.7) L 12/25/16 03:40 AST 83 Units/L (5-34) H 12/25/16 03:40 Troponin I > 50.00 ng/mL (0-0.03) H* 12/24/16 06:38 Serum Total Protein 5.1 g/dL (6.0-8.3) L 12/25/16 03:40 Albumin 1.6 g/dL (3.5-5.0) L 12/25/16 03:40 Albumin/Globulin Ratio 0.5 (1.1-2.2) L 12/25/16 03:40 Ur Specific [place] 1.026 (1.010-1.025) H 12/23/16 14:02 Urine Glucose (UA) >=1000 mg/dL (Normal) H 12/23/16 14:02 - Clinical Findings Intake & Output: Intake & Output 12/24/16 12/24/16 12/25/16 15:59 23:59 07:59 Intake Total 523 / 523 1518 / 1518 838 / 838 Output Total 250 / 250 700 / 700 375 / 375 Balance 273 / 273 818 / 818 463 / 463 Weight 89.5 kg - VTE Documentation of Mechanical Device: Graduated compression elastic hosiery Consult Discharge Plan - Plan Referrals: Sunita Murrell MD [Primary Care Provider] - <Jori Alfonso - Last Filed: 12/25/16 10:21> Date of Encounter: 12/25/16 Objective PUL Vital signs: Last Vital Signs Temp 99.9 F H 12/25/16 08:13 Pulse 98 12/25/16 08:00 Resp 20 12/25/16 08:00 BP 81/50 12/25/16 08:00 Pulse Ox 91 12/25/16 08:00 Ventilator Settings Ventilator Settings: Ventilator Settings, Last 8 Hours Ventilator Mode CPAP Ventilator Mode CPAP Ventilator Mode A/C Ventilator Mode A/C Ventilator Mode A/C Ventilator Tidal Volume 500 Setting Ventilator Tidal Volume 500 Setting Ventilator Tidal Volume 500 Setting Ventilator Respiratory Rate 14 Setting Ventilator Respiratory Rate 14 Setting Ventilator Respiratory Rate 14 Setting Actual Respiratory Rate 12 Actual Respiratory Rate 12 Actual Respiratory Rate 17 Actual Respiratory Rate 19 Actual Respiratory Rate 15 Positive End Expiratory 5 Pressure Positive End Expiratory 5 Pressure Positive End Expiratory 5 Pressure Positive End Expiratory 5 Pressure Positive End Expiratory 5 Pressure Peak Inspiratory Airway 11 Pressure Peak Inspiratory Airway 14 Pressure Peak Inspiratory Airway 25 Pressure Peak Inspiratory Airway 21 Pressure Peak Inspiratory Airway 24 Pressure Results - Laboratory Findings CBC and BMP: 12/25/16 03:40 12/25/16 03:40 ABG ABG pH 7.38 pH Units (7.32-7.45) 12/24/16 04:00 ABG pCO2 44 mmHg (35-45) 12/24/16 04:00 ABG pO2 121 mmHg (85-104) H 12/24/16 04:00 ABG O2 Saturation 99 % (95-98) H 12/24/16 04:00 PT/INR, D-dimer PT 15.6 Seconds (9.4-12.1) H 12/25/16 03:40 Abnormal lab findings: Abnormal lab results WBC 24.8 K/mcL (4.3-11.1) H 12/25/16 03:40 RBC 3.16 M/mcL (4.19-5.50) L 12/25/16 03:40 Hgb 9.0 g/dL (12.9-16.9) L 12/25/16 03:40 Hct 27.4 % (37.5-50.1) L 12/25/16 03:40 RDW 14.8 % (11.5-14.5) H 12/25/16 03:40 MPV 8.8 fL (9.4-12.4) L 12/25/16 03:40 Neutrophils # 19.8 K/mcL (1.6-8.9) H 12/25/16 03:40 Monocytes # 2.3 K/mcL (0.0-1.3) H 12/25/16 03:40 Nucleated RBCs/100 WBC 0.1 /100 WBC (0) H 12/25/16 03:40 PT 15.6 Seconds (9.4-12.1) H 12/25/16 03:40 APTT 39.1 Seconds (26.0-36.0) H 12/23/16 13:55 ABG pO2 121 mmHg (85-104) H 12/24/16 04:00 ABG Total CO2 27 mEq/L (20-26) H 12/24/16 04:00 ABG O2 Saturation 99 % (95-98) H 12/24/16 04:00 Creatinine 0.65 mg/dL (0.72-1.25) L 12/25/16 03:40 Glucose 150 mg/dL (70-99) H 12/25/16 03:40 POC Glucose 124 (58-89) H 12/25/16 07:02 Calcium 7.5 mg/dL (8.6-10.8) L 12/25/16 03:40 Ionized Calcium 1.06 mmol/L (1.15-1.35) L 12/25/16 03:40 Phosphorus 2.0 mg/dL (2.3-4.7) L 12/25/16 03:40 AST 83 Units/L (5-34) H 12/25/16 03:40 Troponin I 25.68 ng/mL (0-0.03) H* 12/25/16 03:40 Serum Total Protein 5.1 g/dL (6.0-8.3) L 12/25/16 03:40 Albumin 1.6 g/dL (3.5-5.0) L 12/25/16 03:40 Albumin/Globulin Ratio 0.5 (1.1-2.2) L 12/25/16 03:40 Ur Specific [place] 1.026 (1.010-1.025) H 12/23/16 14:02 Urine Glucose (UA) >=1000 mg/dL (Normal) H 12/23/16 14:02 - Clinical Findings Intake & Output: Intake & Output 12/24/16 12/25/16 12/25/16 23:59 07:59 15:59 Intake Total 1518 / 1518 838 / 838 Output Total 700 / 700 375 / 375 200 / 200 Balance 818 / 818 463 / 463 -200 / -200 Weight 89.5 kg - Attending Attestation I examined this patient and my medical decision-making was reviewed with the Resident Physician. I agree with the documented findings, disposition and treatment plan as described except to the extent set forth below. We independently had [id number] contact with the patient Patient seen and examined at bedside Labs, radiology, chart personally reviewed. Management was reviewed during multidisciplinary critical care rounds. 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 Cont narcotics for pain control Pulm: liberated from vent acceptable oxygenation on Oxymask. Cards: ACS trop trending down cardiology following cardiology following plan for LHC when more stable. appreciate cardiology eval. BP on lower side but MAP > 65 off pressors. Start ASA 81mg. and statin when taking PO FEN-GI:ADAT after bedside s/s Renal: Good uop electrolytes ID: on broad spectrum abx with plan to deescalate Heme/Onc: acute blood loss anemia. Stabilized start chemical DVT prophylaxis. Endo: Glucose Monitored Integ/MSK: Skin Care per routine ICU Nursing Protocol to prevent ulcers. Right leg s/p amputation appropriately dressed. Lines: All lines examined without evidence of infection : Dispo: Reamin in ICU today CODE: Full
[2016-12-25] MEDS: Pantoprazole 40 MG VIAL IVPB SCH (08:21)
[2016-12-25] MEDS: Chlorhexidine Rinse 15 ML MOUTHWASH MM SCH (08:23)
[2016-12-25] MEDS: Vancomycin 1,500 MG in D5% in Water 250 ML IVPB SCH ×2 (10:31→23:38)
[2016-12-25] MEDS ORDERED: *HR* Morphine 2 MG/ML SYRINGE IVP PRN (11:19)
[2016-12-25] MEDS: *HR* Morphine 2 MG/ML SYRINGE IVP PRN ×2 (11:49→16:31)
[2016-12-25] MEDS ORDERED: Furosemide 40 MG/4 ML VIAL ONE (14:22)
[2016-12-25] MEDS ORDERED: Furosemide 40 MG/4 ML VIAL IVP ONE (14:29)
[2016-12-25] MEDS: Dexmedetomidine HCl 400 MCG/100 ML MLS IVC SCH ×2 (14:51→22:23)
[2016-12-25] MEDS ORDERED: Perflutren Lipid Microsphere 1.3 ML in 0.9 % Sodium Chloride 8.7 ML IVP ONE (15:03)
[2016-12-25] MEDS ORDERED: *HR* OxyCODONE Immed Rel 5 MG TABLET PO PRN (16:21)
[2016-12-25 16:27] LABS: Ionized Calcium 1.01 mmol/L (1.15-1.35)
[2016-12-25 16:33] LABS: Magnesium 1.5 mg/dL (1.6-2.6); Phosphorous 2.9 mg/dL (2.3-4.7)
[2016-12-25] MEDS ORDERED: *HR* HYDROmorphone 2 MG/ML SYRINGE ONE (17:03)
[2016-12-25] MEDS: *HR* Heparin 5,000 UNIT/ML VIAL SQ SCH (17:23)
[2016-12-25] MEDS: Nicotine 21 MG PATCH.TD24 TD SCH (17:23)
[2016-12-25] MEDS: *HR* HYDROmorphone (PF) 1 MG/ML SYRINGE IVP PRN (22:23)
[2016-12-26] MEDS: Insulin LISPRO 300 UNITS/3 ML VIAL SQ SCH ×7 (00:01→23:40)
[2016-12-26] MEDS: *HR* HYDROmorphone (PF) 1 MG/ML SYRINGE IVP PRN (02:56)
[2016-12-26 03:53] LABS: Basophils % 0.1 %; Nucleated Red Blood Cells 0.2 /100 WBC (0); Red Cell Distribution Width 14.6 % (11.5-14.5)
[2016-12-26 03:55] LABS: Hematocrit 27.6 % (37.5-50.1); Hemoglobin 8.8 g/dL (12.9-16.9); Immature Granulocytes % 4.3 % (0-4); Lymphocytes # 1.2 K/mcL (0.6-4.6); Mean Corpuscular HGB Conc 31.9 g/dL (31.6-35.5); Mean Corpuscular Hemoglobin 28.1 pg (28.0-33.3); Mean Corpuscular Volume 88.2 fL (83.0-100.0); Mean Platelet Volume 9.2 fL (9.4-12.4); Monocytes # 1.4 K/mcL (0.0-1.3); Monocytes % 4.8 %; Neutrophils # 25.7 K/mcL (1.6-8.9); Platelet Count 283 K/mcL (140-400); Red Blood Count 3.13 M/mcL (4.19-5.50); Segmented Neutrophils % 86.8 %
[2016-12-26] MEDS: Dexmedetomidine HCl 400 MCG/100 ML MLS IVC SCH ×3 (03:56→16:48)
[2016-12-26 03:59] LABS: INR 1.4; Prothrombin Time 15.5 Seconds (9.4-12.1)
[2016-12-26] MEDS ORDERED: Furosemide 40 MG/4 ML VIAL IVP ONE ×3 (03:59→13:46)
[2016-12-26 04:05] LABS: Ionized Calcium 1.05 mmol/L (1.15-1.35)
[2016-12-26 04:11] LABS: Alanine Aminotransferase 29 Units/L (0-55); Albumin/Globulin Ratio 0.4 (1.1-2.2); Alkaline Phosphatase 102 Units/L (38-126); Aspartate Amino Transferase 70 Units/L (5-34); BUN/Creatinine Ratio 21 (6-26); Bilirubin,Direct 0.5 mg/dL (0.0-0.5); Bilirubin,Indirect 0.4 mg/dL (0.0-1.2); Bilirubin,Total 0.9 mg/dL (0.2-1.2); Blood Urea Nitrogen 17 mg/dL (8-26); Calcium 7.7 mg/dL (8.6-10.8); Carbon Dioxide 27 mEq/L (19-29); Chloride 104 mEq/L (98-109); Globulin 3.6 g/dL (2.4-3.5); Glucose 176 mg/dL (70-99); Magnesium 2.1 mg/dL (1.6-2.6); Osmolality,Calculated 296 (280-300); Phosphorous 3.6 mg/dL (2.3-4.7); Potassium 4.5 mEq/L (3.5-4.5); Sodium 140 mEq/L (136-145); Total Protein 5.1 g/dL (6.0-8.3); eGFR For African Americans > 60 (> 60); eGFR For Non-African Americans > 60 (> 60)
[2016-12-26 04:14] LABS: Albumin 1.5 g/dL (3.5-5.0)
[2016-12-26 04:29] LABS: Platelet Estimate Normal (Normal)
[2016-12-26 04:30] LABS: Polychromasia 1+ (Not Present)
[2016-12-26] MEDS: Acetaminophen 325 MG TABLET PO PRN (04:35)
[2016-12-26] MEDS: Piperacillin/Tazobactam 3.375 GM in D5% in Water 50 ML IVPB SCH ×2 (05:12→12:09)
[2016-12-26] MEDS: *HR* Heparin 5,000 UNIT/ML VIAL SQ SCH (05:13)
--- NOTE | 2016-12-26 07:16 | Vascular/Endovas Progress Note ---
Date of Encounter: 12/25/16 Time of Encounter: 16:50 - Assessment and plan (1) Atherosclerotic peripheral vascular disease with gangrene Current Visit: Yes Status: Chronic He is postoperative day #2 after an emergent right above knee amputation. The [place] bandage was removed yesterday evening by nursing. A kerlix and deandre wrap were placed instead, but the patient has removed it multiple times. The wound was inspected and then a new bandage was placed this evening. He will begin daily dressing changes. He does have some ecchymosis on the posterior margin. This will be monitored. (2) Mixed hyperlipidemia Current Visit: No Status: Chronic (3) Tobacco abuse Current Visit: No Status: Chronic (4) Essential hypertension Current Visit: No Status: Chronic (5) Chronic anemia Current Visit: No Status: Chronic (6) Septic shock Current Visit: Yes Status: Acute Likely secondary to his gangrenous right lower extremity. - Subjective Interval history: The patient has been extubated. He remains confused. No acute issues overnight. Vital Signs, Last 4 Hours Temp Pulse Resp BP Pulse Ox 12/26/16 06:00 99.1 F 85 27 88/60 97 12/26/16 05:00 79 29 84/60 96 12/26/16 04:16 81 31 90/52 93 12/26/16 03:35 101.6 F H 12/26/16 03:14 28 114/71 94 - Physical Examination General: Present: No Apparent Distress HEENT: Present: Pupils equal Cardiac: Present: Reg Rate and Rhythm Lungs: Present: Normal Breath Sounds Neuro: Present: No focal deficits noted Vascular: Present: Surgical incisions (The right above knee amputation site is clean and dry withotu erythema, there is ecchymosis on the posterior skin margin. There is no edema) - VTE Documentation of Mechanical Device: Intermittent pneumatic compression device Results 12/26/16 03:32 12/26/16 03:32 Lab Results, Last 24 hours 12/25/16 12/25/16 12/26/16 03:40 16:05 03:32 WBC 29.6 H Hgb 8.8 L Hct 27.6 L Plt Count 283 INR Sodium Potassium Chloride Carbon Dioxide BUN Creatinine Glucose Calcium Magnesium 1.5 L Total Bilirubin AST ALT Alkaline Phosphatase Troponin I 25.68 H* 12/26/16 12/26/16 03:32 03:32 WBC Hgb Hct Plt Count INR 1.4 Sodium 140 Potassium 4.5 Chloride 104 Carbon Dioxide 27 BUN 17 Creatinine 0.80 Glucose 176 H Calcium 7.7 L Magnesium 2.1 Total Bilirubin 0.9 AST 70 H ALT 29 Alkaline Phosphatase 102 Troponin I Consult Discharge Plan - Plan Referrals: Sunita Murrell MD [Primary Care Provider] -
[2016-12-26] MEDS ORDERED: Meropenem 1,000 MG in 0.9 % Sodium Chloride Mini Bag 100 ML IVPB SCH (08:00)
--- NOTE | 2016-12-26 08:11 | Pulmonology Progress Note ---
<Jori Alfonso W - Last Filed: 12/26/16 10:12> Date of Encounter: 12/26/16 Objective PUL Vital signs: Last Vital Signs Temp 100.5 F H 12/26/16 07:00 Pulse 76 12/26/16 08:00 Resp 26 12/26/16 08:00 BP 84/61 12/26/16 08:00 Pulse Ox 98 12/26/16 08:00 Ventilator Settings Ventilator Settings: Ventilator Settings, Last 8 Hours Ventilator Tidal Volume 650 Setting Results - Laboratory Findings CBC and BMP: 12/26/16 03:32 12/26/16 03:32 ABG ABG pH 7.52 pH Units (7.32-7.45) H 12/26/16 08:22 ABG pCO2 35 mmHg (35-45) 12/26/16 08:22 ABG pO2 80 mmHg (85-104) L 12/26/16 08:22 ABG O2 Saturation 97 % (95-98) 12/26/16 08:22 PT/INR, D-dimer PT 15.5 Seconds (9.4-12.1) H 12/26/16 03:32 Abnormal lab findings: Abnormal lab results WBC 29.6 K/mcL (4.3-11.1) H 12/26/16 03:32 RBC 3.13 M/mcL (4.19-5.50) L 12/26/16 03:32 Hgb 8.8 g/dL (12.9-16.9) L 12/26/16 03:32 Hct 27.6 % (37.5-50.1) L 12/26/16 03:32 RDW 14.6 % (11.5-14.5) H 12/26/16 03:32 MPV 9.2 fL (9.4-12.4) L 12/26/16 03:32 Immature Gran % 4.3 % (0-4) H 12/26/16 03:32 Neutrophils # 25.7 K/mcL (1.6-8.9) H 12/26/16 03:32 Monocytes # 1.4 K/mcL (0.0-1.3) H 12/26/16 03:32 Nucleated RBCs/100 WBC 0.2 /100 WBC (0) H 12/26/16 03:32 Polychromasia 1+ (Not Present) A 12/26/16 03:32 PT 15.5 Seconds (9.4-12.1) H 12/26/16 03:32 APTT 39.1 Seconds (26.0-36.0) H 12/23/16 13:55 ABG pH 7.52 pH Units (7.32-7.45) H 12/26/16 08:22 ABG pO2 80 mmHg (85-104) L 12/26/16 08:22 ABG HCO3 28 mEq/L (21-27) H 12/26/16 08:22 ABG Total CO2 29 mEq/L (20-26) H 12/26/16 08:22 ABG Base Excess 5 mEq/L (-2 to 3) H 12/26/16 08:22 Glucose 176 mg/dL (70-99) H 12/26/16 03:32 POC Glucose 170 (58-89) H 12/26/16 07:07 Calcium 7.7 mg/dL (8.6-10.8) L 12/26/16 03:32 Ionized Calcium 1.05 mmol/L (1.15-1.35) L 12/26/16 03:32 AST 70 Units/L (5-34) H 12/26/16 03:32 Troponin I 25.68 ng/mL (0-0.03) H* 12/25/16 03:40 Serum Total Protein 5.1 g/dL (6.0-8.3) L 12/26/16 03:32 Albumin 1.5 g/dL (3.5-5.0) L 12/26/16 03:32 Globulin 3.6 g/dL (2.4-3.5) H 12/26/16 03:32 Albumin/Globulin Ratio 0.4 (1.1-2.2) L 12/26/16 03:32 Ur Specific [place] 1.026 (1.010-1.025) H 12/23/16 14:02 Urine Glucose (UA) >=1000 mg/dL (Normal) H 12/23/16 14:02 - Microbiology Findings Microbiology Findings: Microbiology, Last 48 Hours 12/23/16 20:20 Blood Culture - Preliminary Peripheral Venipuncture No growth. - Clinical Findings Intake & Output: Intake & Output 1112/26/16 12/26/16 23:59 07:59 15:59 Intake Total 510 / 510 720 / 720 Output Total 725 / 725 1400 / 1400 Balance -215 / -215 -680 / -680 Weight 86.5 kg Consult Discharge Plan - Plan Referrals: Sunita Murrell MD [Primary Care Provider] - - Attending Attestation I examined this patient and my medical decision-making was reviewed with the Resident Physician. I agree with the documented findings, disposition and treatment plan as described except to the extent set forth below. We independently had [id number] contact with the patient I spent 35min of Critical Care time with this patient. It involved decision making of high complexity to assess, manipulate, and support vital organ system failure and/or to prevent further life threatening deterioration of the patient' s condition. The time involved in the performance of separately reportable procedures was not counted toward critical care time. Patient seen and examined at bedside Labs, radiology, chart personally reviewed. Management was reviewed during multidisciplinary critical care rounds. [employer]SEM[employer]INGS: Remains mildly delirious comlicated by pain. Cont precedex and Narcotics. Pulm: Worsening Hypoxic respiratory failure requring NIV. B/l Infiltrates suggest CHF vs ARDS. Suspect progression to Intubation. HE desats precipitously off NIV Cards: Acute Myocardial ischemia with HFrEF. Cont asa plavix and aggressive diuresis. MAP low but stable. May need low dose vasopressor. FEN-GI: NPO for now. Renal: No ANNIE good UOP cont to monitor electrolytes and replace per protocl ID: Worsening Leukocytosis suspect related to prior infection and suspect staph/ strep but will broaden to Vanc/Merly for possibel ESBL..Repeat Blood Cultures Heme/Onc: DVT prophylaxis stable. H/H stable Endo: Glucose Monitored Integ/MSK: Skin Care per routine ICU Nursing Protocol to prevent ulcers. Cont dressings changes for right AKA per Vasc Surgery appreciate recs/eval Lines: All lines examined without evidence of infection : Dispo: Remain in ICU CODE: Full Code. <Candace Yancey - Last Filed: 12/26/16 14:30> Date of Encounter: 12/26/16 Time of Encounter: 08:11 Assessment and Plan (1) Acute respiratory failure Current Visit: Yes Status: Acute -d/t septic shock as result of gangrenous RLE, complicated by ischemic cardiac event -liberated from vent yesterday and currently quite dependent on BiPAP; O2 saturation drops quickly to low 80's when off BiPAP and rises quickly once back on BiPAP -12/26/16 CXR shows rapid development of diffuse opacities and likely represents pulmonary edema, hopeful for improvement in respiratory status if able to mobilize fluids with IV diuretic -continue to monitor respiratory status closely for decompensation requiring intubation Qualifiers: Respiratory failure complication: hypoxia Qualified Code(s): J96.01 - Acute respiratory failure with hypoxia (2) Septic shock Current Visit: Yes Status: Acute -necrotic RLE is the most likely source of infection -systolic BP 120s at best; recently systolic BPs in high 80s to low 100s-- maintaining MAP > 65 mmHg. Adding a vasopressor may be necessary. -febrile early this morning; Tmax 101.6 -current antibiotics: vancomycin 1.5mg IVPB Q12H and meropenem 1g IVP Q8H ( zosyn stopped today) (3) Acute blood loss anemia Current Visit: Yes Status: Acute (4) Ischemic leg Current Visit: Yes Status: Acute -POD #3 s/p AKA of necrotic, gangrenous right lower extremity -daily dressing changes, per vascular surgery's last note -vascular surgery following, recommendations appreciated (5) Diabetes mellitus with peripheral angiopathy with gangrene Current Visit: Yes Status: Acute -NPO since admission -insulin sliding scale for glucose management -blood glucose stable, POC readings have ranged 125-195 over last several readings Qualifiers: Diabetes mellitus type: type 2 Diabetes mellitus group home insulin use: with group home use Qualified Code(s): E11.52 - Type 2 diabetes mellitus with diabetic peripheral angiopathy with gangrene; Z79.4 - [facility] (current) use of insulin; Z79.4 - [facility] (current) use of insulin; 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; 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 - 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 Patient is awake and doesn't appear to be in any acute distress. Patient responds to verbal stimuli and follows some commands. Objective PUL Vital signs: Last Vital Signs Temp 100.5 F H 12/26/16 07:00 Pulse 76 12/26/16 08:00 Resp 26 12/26/16 08:00 BP 84/61 12/26/16 08:00 Pulse Ox 98 12/26/16 08:00 General appearance: no acute distress Neck: supple Effort: normal Auscultation: bilateral: diminished breath sounds Cardiovascular: regular rate and rhythm Gastrointestinal: normoactive bowel sounds, soft, non-tender Extremities: no cyanosis, no edema, no clubbing, cool Musculoskeletal: other (right-sided above the knee amputation) non-focal exam, pupils equal and round Results - Laboratory Findings CBC and BMP: 12/26/16 03:32 12/26/16 03:32 ABG ABG pH 7.38 pH Units (7.32-7.45) 12/24/16 04:00 ABG pCO2 44 mmHg (35-45) 12/24/16 04:00 ABG pO2 121 mmHg (85-104) H 12/24/16 04:00 ABG O2 Saturation 99 % (95-98) H 12/24/16 04:00 PT/INR, D-dimer PT 15.5 Seconds (9.4-12.1) H 12/26/16 03:32 Abnormal lab findings: Abnormal lab results WBC 29.6 K/mcL (4.3-11.1) H 12/26/16 03:32 RBC 3.13 M/mcL (4.19-5.50) L 12/26/16 03:32 Hgb 8.8 g/dL (12.9-16.9) L 12/26/16 03:32 Hct 27.6 % (37.5-50.1) L 12/26/16 03:32 RDW 14.6 % (11.5-14.5) H 12/26/16 03:32 MPV 9.2 fL (9.4-12.4) L 12/26/16 03:32 Immature Gran % 4.3 % (0-4) H 12/26/16 03:32 Neutrophils # 25.7 K/mcL (1.6-8.9) H 12/26/16 03:32 Monocytes # 1.4 K/mcL (0.0-1.3) H 12/26/16 03:32 Nucleated RBCs/100 WBC 0.2 /100 WBC (0) H 12/26/16 03:32 Polychromasia 1+ (Not Present) A 12/26/16 03:32 PT 15.5 Seconds (9.4-12.1) H 12/26/16 03:32 APTT 39.1 Seconds (26.0-36.0) H 12/23/16 13:55 ABG pO2 121 mmHg (85-104) H 12/24/16 04:00 ABG Total CO2 27 mEq/L (20-26) H 12/24/16 04:00 ABG O2 Saturation 99 % (95-98) H 12/24/16 04:00 Glucose 176 mg/dL (70-99) H 12/26/16 03:32 POC Glucose 170 (58-89) H 12/26/16 07:07 Calcium 7.7 mg/dL (8.6-10.8) L 12/26/16 03:32 Ionized Calcium 1.05 mmol/L (1.15-1.35) L 12/26/16 03:32 AST 70 Units/L (5-34) H 12/26/16 03:32 Troponin I 25.68 ng/mL (0-0.03) H* 12/25/16 03:40 Serum Total Protein 5.1 g/dL (6.0-8.3) L 12/26/16 03:32 Albumin 1.5 g/dL (3.5-5.0) L 12/26/16 03:32 Globulin 3.6 g/dL (2.4-3.5) H 12/26/16 03:32 Albumin/Globulin Ratio 0.4 (1.1-2.2) L 12/26/16 03:32 Ur Specific [place] 1.026 (1.010-1.025) H 12/23/16 14:02 Urine Glucose (UA) >=1000 mg/dL (Normal) H 12/23/16 14:02 - Microbiology Findings Microbiology Findings: Microbiology, Last 48 Hours 12/23/16 20:20 Blood Culture - Preliminary Peripheral Venipuncture No growth. - Clinical Findings Intake & Output: Intake & Output 12/25/16 12/26/16 12/26/16 23:59 07:59 15:59 Intake Total 510 / 510 720 / 720 Output Total 725 / 725 1000 / 1000 Balance -215 / -215 -280 / -280 Weight 86.5 kg - VTE Documentation of Mechanical Device: Intermittent pneumatic compression device
[2016-12-26] MEDS: Pantoprazole 40 MG VIAL IVPB SCH (08:13)
[2016-12-26] MEDS: Meropenem 1,000 MG in Water for inj. (sterile) 10 ML IVP SCH ×2 (08:21→15:06)
[2016-12-26 08:28] LABS: ABG Base Excess 5 mEq/L (-2 to 3); ABG HCO3 28 mEq/L (21-27); ABG Oxygen Saturation 97 % (95-98); ABG PCO2 35 mmHg (35-45); ABG PH 7.52 pH Units (7.32-7.45); ABG PO2 80 mmHg (85-104); ABG TCO2 29 mEq/L (20-26); Blood Gas Modality Avaps; Blood Gas PEEP 4 cm H2O; Blood Gas VT 650 cc
[2016-12-26] MEDS ORDERED: Aspirin Enteric Coated 81 MG Tablet PO SCH (09:00)
[2016-12-26] MEDS ORDERED: *HR* HYDROmorphone 2 MG/ML SYRINGE ONE (09:19)
[2016-12-26] MEDS: Vancomycin 1,500 MG in D5% in Water 250 ML IVPB SCH ×2 (09:22→22:16)
[2016-12-26] MEDS: *HR* HYDROmorphone 2 MG/ML SYRINGE IVP PRN ×4 (09:22→19:54)
[2016-12-26] MEDS ORDERED: Albumin Human 5% 50.0 GM/1,000 ML VIAL ONE (11:43)
[2016-12-26] MEDS: FentaNYL (PF) 1,000 MCG in 0.9 % Sodium Chloride 80 ML IVC SCH ×3 (11:43→18:12)
[2016-12-26 12:21] LABS: Adenovirus Not Detected (Not Detect); Bordetella Pertussis Not Detected (Not Detect); Chlamydophila pneumoniae Not Detected (Not Detect); Coronavirus 229E Not Detected (Not Detect); Coronavirus HKU1 Not Detected (Not Detect); Coronavirus NL63 Not Detected (Not Detect); Coronavirus OC43 Not Detected (Not Detect); Human Metapneumovirus Not Detected (Not Detect); Human Rhinovirus/Enterovirus Not Detected (Not Detect); Influenza A Subtype 2009 H1 Not Detected (Not Detect); Influenza A Untypeable Not Detected (Not Detect); Influenza B Not Detected (Not Detect); Mycoplasma pneumoniae Not Detected (Not Detect); Parainfluenza Virus 1 Not Detected (Not Detect); Parainfluenza Virus 2 Not Detected (Not Detect); Parainfluenza Virus 3 Not Detected (Not Detect); Parainfluenza Virus 4 Not Detected (Not Detect); Respiratory Syncytial Virus Not Detected (Not Detect)
[2016-12-26 14:38] LABS: Albumin 1.5 g/dL (3.5-5.0); BUN/Creatinine Ratio 19 (6-26); Blood Urea Nitrogen 15 mg/dL (8-26); Calcium 7.6 mg/dL (8.6-10.8); Carbon Dioxide 33 mEq/L (19-29); Chloride 99 mEq/L (98-109); Glucose 123 mg/dL (70-99); Osmolality,Calculated 294 (280-300); Phosphorous 3.2 mg/dL (2.3-4.7); Potassium 3.2 mEq/L (3.5-4.5); Sodium 141 mEq/L (136-145); eGFR For African Americans > 60 (> 60); eGFR For Non-African Americans > 60 (> 60)
[2016-12-26] MEDS: Nicotine 21 MG PATCH.TD24 TD SCH (15:07)
[2016-12-26] MEDS: Potassium Chloride 40 MEQ/200 ML BAG IVPB PRN ×2 (15:08→17:08)
[2016-12-26 15:19] LABS: Hematocrit 27.6 % (37.5-50.1)
[2016-12-26 15:42] LABS: Magnesium 1.5 mg/dL (1.6-2.6)
--- NOTE | 2016-12-26 16:17 | Vascular/Endovas Progress Note ---
Date of Encounter: 12/26/16 Time of Encounter: 14:00 - Assessment and plan (1) Atherosclerotic peripheral vascular disease with gangrene Current Visit: Yes Status: Chronic He is postoperative day #3 after an emergent right above knee amputation. The wound continues to heal without signs or symptoms of infection. Ecchymosis is present on the posterior flap, no skin breakdown noted. Continue with daily dressing changes using Kerlix and deandre wrap. Dr. Strickland is covering this weekend. Contact him if wound issue arises. Otherwise, will reassess patient on Thursday. (2) Mixed hyperlipidemia Current Visit: No Status: Chronic (3) Tobacco abuse Current Visit: No Status: Chronic (4) Essential hypertension Current Visit: No Status: Chronic (5) Chronic anemia Current Visit: No Status: Chronic (6) Septic shock Current Visit: Yes Status: Acute Likely secondary to his gangrenous right lower extremity. - Subjective Interval history: The patient was extubated yesterday. Today he is requiring more respiratory support. Reintubation appears likely. He remains confused but does respond to commands. Vital Signs, Last 4 Hours Pulse Resp BP Pulse Ox 12/26/16 15:47 27 95/58 90 12/26/16 15:00 74 22 103/75 91 12/26/16 14:00 78 23 100/59 91 12/26/16 13:00 81 25 99/60 90 - Physical Examination General: Present: No Apparent Distress HEENT: Present: Pupils equal Cardiac: Present: Reg Rate and Rhythm Vascular: Present: Surgical incisions (incision is clean, dry and intact, ecchymosis noted on posterior flap, no erythema, no drainage) - VTE Documentation of Mechanical Device: Intermittent pneumatic compression device Results 12/26/16 15:10 12/26/16 13:46 Lab Results, Last 24 hours 12/25/16 12/26/16 12/26/16 16:05 03:32 03:32 WBC 29.6 H Hgb 8.8 L Hct 27.6 L Plt Count 283 INR 1.4 Sodium Potassium Chloride Carbon Dioxide BUN Creatinine Glucose Calcium Magnesium 1.5 L Total Bilirubin AST ALT Alkaline Phosphatase 12/26/16 12/26/16 12/26/16 03:32 13:46 15:10 WBC Hgb 9.0 L Hct 27.6 L Plt Count INR Sodium 140 141 Potassium 4.5 3.2 L D Chloride 104 99 Carbon Dioxide 27 33 H BUN 17 15 Creatinine 0.80 0.79 Glucose 176 H 123 H Calcium 7.7 L 7.6 L Magnesium 2.1 1.5 L Total Bilirubin 0.9 AST 70 H ALT 29 Alkaline Phosphatase 102 Consult Discharge Plan - Plan Referrals: Sunita Murrell MD [Primary Care Provider] -
[2016-12-26] MEDS ORDERED: *HR* Propofol 500 MG/50 ML BOTTLE IVP ONE (21:06)
--- NOTE | 2016-12-26 21:59 | Event Note ---
Date of Encounter: 12/26/16 Time of Encounter: 21:53 Patient with acute hypoxic resp failure, n 100% FiO@ on BIPAP, extubated 12/25, he also has sepsis and is s/p L BKA for limb gangrene He continued to desat reapidly off BiPAP, refused to keep BiPAP on, and mentation is worse per RN since a.m RR from 35-45, diaphoretic Successfully reintubated by RT in my present CXR satisfactory tube placement with florid pulmonary edema-said to have received 160mg lasix during the day time and making adequate urine Place OGT. Obtain CXR after placement Propofol and fentanyl for sedation
[2016-12-26 22:14] LABS: ABG Base Excess 6 mEq/L (-2 to 3); ABG HCO3 30 mEq/L (21-27); ABG Oxygen Saturation 99 % (95-98); ABG PCO2 42 mmHg (35-45); ABG PH 7.47 pH Units (7.32-7.45); ABG PO2 129 mmHg (85-104); ABG TCO2 32 mEq/L (20-26); Blood Gas Modality ASSIST CONTROL; Blood Gas PEEP 8 cm H2O; Blood Gas Respiration Rate 16; Blood Gas VT 550 cc
[2016-12-26] MEDS: Pantoprazole 40 MG VIAL IVP SCH (22:16)
[2016-12-27] MEDS: Meropenem 1,000 MG in Water for inj. (sterile) 10 ML IVP SCH ×4 (00:44→23:30)
[2016-12-27] MEDS: Lacri-Lube 3.5 GM TUBE BOTH EYES SCH ×7 (00:45→23:31)
[2016-12-27] MEDS: Insulin LISPRO 300 UNITS/3 ML VIAL SQ SCH ×6 (04:36→23:31)
[2016-12-27 04:43] LABS: Eosinophils % 0.1 %; Hematocrit 27.1 % (37.5-50.1); Hemoglobin 8.6 g/dL (12.9-16.9); Immature Granulocytes % 1.3 % (0-4); Lymphocytes # 1.5 K/mcL (0.6-4.6); Lymphocytes % 6.7 %; Mean Corpuscular HGB Conc 31.7 g/dL (31.6-35.5); Mean Corpuscular Hemoglobin 27.9 pg (28.0-33.3); Mean Platelet Volume 9.3 fL (9.4-12.4); Monocytes # 1.8 K/mcL (0.0-1.3); Neutrophils # 18.8 K/mcL (1.6-8.9); Nucleated Red Blood Cells 0.2 /100 WBC (0); Platelet Count 332 K/mcL (140-400); Red Blood Count 3.08 M/mcL (4.19-5.50); Red Cell Distribution Width 14.8 % (11.5-14.5); Segmented Neutrophils % 83.9 %
[2016-12-27 04:48] LABS: INR 1.3; Prothrombin Time 14.4 Seconds (9.4-12.1)
[2016-12-27 05:00] LABS: Alanine Aminotransferase 32 Units/L (0-55); Albumin/Globulin Ratio 0.4 (1.1-2.2); Alkaline Phosphatase 105 Units/L (38-126); Aspartate Amino Transferase 60 Units/L (5-34); BUN/Creatinine Ratio 20 (6-26); Bilirubin,Direct 0.4 mg/dL (0.0-0.5); Bilirubin,Indirect 0.2 mg/dL (0.0-1.2); Bilirubin,Total 0.6 mg/dL (0.2-1.2); Blood Urea Nitrogen 18 mg/dL (8-26); Calcium 7.9 mg/dL (8.6-10.8); Carbon Dioxide 31 mEq/L (19-29); Chloride 100 mEq/L (98-109); Glucose 122 mg/dL (70-99); Magnesium 2.2 mg/dL (1.6-2.6); Osmolality,Calculated 299 (280-300); Phosphorous 2.7 mg/dL (2.3-4.7); Sodium 143 mEq/L (136-145); Total Protein 5.7 g/dL (6.0-8.3); eGFR For African Americans > 60 (> 60); eGFR For Non-African Americans > 60 (> 60)
[2016-12-27 05:19] LABS: Albumin 1.7 g/dL (3.5-5.0)
[2016-12-27 05:58] LABS: ABG Base Excess 8 mEq/L (-2 to 3); ABG HCO3 32 mEq/L (21-27); ABG Oxygen Saturation 96 % (95-98); ABG PCO2 43 mmHg (35-45); ABG PH 7.48 pH Units (7.32-7.45); ABG PO2 77 mmHg (85-104); ABG TCO2 33 mEq/L (20-26); Blood Gas Modality ASSIST CONTROL; Blood Gas PEEP 8 cm H2O; Blood Gas Respiration Rate 14; Blood Gas VT 500 cc
--- NOTE | 2016-12-27 06:58 | Pulmonology Progress Note ---
Addendum entered and electronically signed by Mandi Joseph MD 12/27/16 11:31: Nutrition re-consulted for initiation and management of tube feeding diet. Original Note: <Mandi Joseph - Last Filed: 12/27/16 11:19> Date of Encounter: 12/27/16 Time of Encounter: 06:58 Assessment and Plan (1) Acute respiratory failure Current Visit: Yes Status: Acute Hypoxic respiratory failure requiring intubation. 12/26/16 CXR suggestive of pulmonary edema. ABG reviewed this AM, with vent settings adjusted by attending at bedside. CT chest pending this AM. Qualifiers: Respiratory failure complication: hypoxia Qualified Code(s): J96.01 - Acute respiratory failure with hypoxia (2) Septic shock Current Visit: Yes Status: Acute Likely 2/2 to necrotic RLE as source of infection, Continue current antibiotics : vancomycin 1.5mg IVPB Q12H and meropenem 1g IVP Q8H. CT of R Thigh pending. (3) Anemia Current Visit: Yes Status: Acute Hbg stable over 24 hours. Pt will be restarted on cardiac medications. Qualifiers: Anemia type: unspecified type Qualified Code(s): D64.9 - Anemia, unspecified (4) Ischemic leg Current Visit: Yes Status: Acute -POD #4 s/p AKA of necrotic, gangrenous right lower extremity -daily dressing changes, per vascular surgery's last note -vascular surgery following, recommendations appreciated CT pending. 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 Cardiology recommends LHC before d/c from hospital, however due pt's clinical condition , pt is not candidate at time. Resumed ASA, PLAVIX, and statin (7) DVT prophylaxis Current Visit: Yes Status: Acute Heparin 5000 units SubQ Q12H, SCDs Subjective Principal diagnosis: Ischemic limb Objective PUL Vital signs: Last Vital Signs Temp 100.9 F H 12/27/16 04:54 Pulse 99 12/27/16 06:00 Resp 25 12/27/16 06:00 BP 106/60 12/27/16 06:00 Pulse Ox 97 12/27/16 06:00 General appearance: no acute distress Effort: normal Auscultation: bilateral: diminished breath sounds Cardiovascular: regular rate and rhythm Gastrointestinal: normoactive bowel sounds, soft, non-tender Musculoskeletal: other (Right Knee Amputation, dressing intact, no oozing) unable to assess due to mental status Ventilator Settings Ventilator Settings: Ventilator Settings, Last 8 Hours Ventilator Mode VC+ Ventilator Mode VC+ Ventilator Mode VC+ Ventilator Mode VC+ Ventilator Mode VC+ Ventilator Mode VC+ Ventilator Mode VC+ Ventilator Mode VC+ Ventilator Mode VC+ Ventilator Mode VC+ Ventilator Tidal Volume 500 Setting Ventilator Tidal Volume 500 Setting Ventilator Tidal Volume 500 Setting Ventilator Tidal Volume 500 Setting Ventilator Tidal Volume 500 Setting Ventilator Tidal Volume 500 Setting Ventilator Tidal Volume 500 Setting Ventilator Tidal Volume 500 Setting Ventilator Tidal Volume 500 Setting Ventilator Tidal Volume 500 Setting Ventilator Respiratory Rate 14 Setting Ventilator Respiratory Rate 14 Setting Ventilator Respiratory Rate 14 Setting Ventilator Respiratory Rate 14 Setting Ventilator Respiratory Rate 14 Setting Ventilator Respiratory Rate 14 Setting Ventilator Respiratory Rate 14 Setting Ventilator Respiratory Rate 14 Setting Ventilator Respiratory Rate 14 Setting Ventilator Respiratory Rate 14 Setting Actual Respiratory Rate 25 Actual Respiratory Rate 24 Actual Respiratory Rate 22 Actual Respiratory Rate 22 Actual Respiratory Rate 22 Actual Respiratory Rate 19 Actual Respiratory Rate 17 Actual Respiratory Rate 19 Actual Respiratory Rate 17 Actual Respiratory Rate 20 Positive End Expiratory 8 Pressure Positive End Expiratory 8 Pressure Positive End Expiratory 8 Pressure Positive End Expiratory 8 Pressure Positive End Expiratory 8 Pressure Positive End Expiratory 8 Pressure Positive End Expiratory 8 Pressure Positive End Expiratory 8 Pressure Positive End Expiratory 8 Pressure Positive End Expiratory 8 Pressure Peak Inspiratory Airway 17 Pressure Peak Inspiratory Airway 17 Pressure Peak Inspiratory Airway 17 Pressure Peak Inspiratory Airway 17 Pressure Peak Inspiratory Airway 17 Pressure Peak Inspiratory Airway 17 Pressure Peak Inspiratory Airway 16 Pressure Peak Inspiratory Airway 16 Pressure Peak Inspiratory Airway 17 Pressure Peak Inspiratory Airway 17 Pressure Results - Laboratory Findings CBC and BMP: 12/27/16 04:18 12/27/16 04:18 ABG ABG pH 7.48 pH Units (7.32-7.45) H 12/27/16 05:53 ABG pCO2 43 mmHg (35-45) 12/27/16 05:53 ABG pO2 77 mmHg (85-104) L 12/27/16 05:53 ABG O2 Saturation 96 % (95-98) 12/27/16 05:53 PT/INR, D-dimer PT 14.4 Seconds (9.4-12.1) H 12/27/16 04:18 Abnormal lab findings: Abnormal lab results WBC 22.4 K/mcL (4.3-11.1) H 12/27/16 04:18 RBC 3.08 M/mcL (4.19-5.50) L 12/27/16 04:18 Hgb 8.6 g/dL (12.9-16.9) L 12/27/16 04:18 Hct 27.1 % (37.5-50.1) L 12/27/16 04:18 MCH 27.9 pg (28.0-33.3) L 12/27/16 04:18 RDW 14.8 % (11.5-14.5) H 12/27/16 04:18 MPV 9.3 fL (9.4-12.4) L 12/27/16 04:18 Neutrophils # 18.8 K/mcL (1.6-8.9) H 12/27/16 04:18 Monocytes # 1.8 K/mcL (0.0-1.3) H 12/27/16 04:18 Nucleated RBCs/100 WBC 0.2 /100 WBC (0) H 12/27/16 04:18 Polychromasia 1+ (Not Present) A 12/26/16 03:32 PT 14.4 Seconds (9.4-12.1) H 12/27/16 04:18 APTT 39.1 Seconds (26.0-36.0) H 12/23/16 13:55 ABG pH 7.48 pH Units (7.32-7.45) H 12/27/16 05:53 ABG pO2 77 mmHg (85-104) L 12/27/16 05:53 ABG HCO3 32 mEq/L (21-27) H 12/27/16 05:53 ABG Total CO2 33 mEq/L (20-26) H 12/27/16 05:53 ABG Base Excess 8 mEq/L (-2 to 3) H 12/27/16 05:53 Carbon Dioxide 31 mEq/L (19-29) H 12/27/16 04:18 Glucose 122 mg/dL (70-99) H 12/27/16 04:18 POC Glucose 134 (58-89) H 12/27/16 04:14 Calcium 7.9 mg/dL (8.6-10.8) L 12/27/16 04:18 Ionized Calcium 1.00 mmol/L (1.15-1.35) L 12/27/16 04:18 AST 60 Units/L (5-34) H 12/27/16 04:18 Troponin I 25.68 ng/mL (0-0.03) H* 12/25/16 03:40 Serum Total Protein 5.7 g/dL (6.0-8.3) L 12/27/16 04:18 Albumin 1.7 g/dL (3.5-5.0) L 12/27/16 04:18 Globulin 4.0 g/dL (2.4-3.5) H 12/27/16 04:18 Albumin/Globulin Ratio 0.4 (1.1-2.2) L 12/27/16 04:18 Ur Specific [place] 1.026 (1.010-1.025) H 12/23/16 14:02 Urine Glucose (UA) >=1000 mg/dL (Normal) H 12/23/16 14:02 - Microbiology Findings Microbiology Findings: Microbiology, Last 48 Hours 12/23/16 20:20 Blood Culture - Preliminary Peripheral Venipuncture No growth. - Clinical Findings Intake & Output: Intake & Output 12/26/16 12/26/16 12/27/16 15:59 23:59 07:59 Intake Total 170 / 170 1245 / 1245 110 / 110 Output Total 2650 / 2650 850 / 850 350 / 350 Balance -2480 / -2480 395 / 395 -240 / -240 Weight 84.2 kg - VTE Documentation of Mechanical Device: Intermittent pneumatic compression device Consult Discharge Plan - Plan Referrals: Sunita Murrell MD [Primary Care Provider] - <Jori Alfonso - Last Filed: 12/27/16 13:52> Date of Encounter: 12/27/16 Objective PUL Vital signs: Last Vital Signs Temp 100.6 F H 12/27/16 07:41 Pulse 95 12/27/16 07:36 Resp 21 12/27/16 07:33 BP 114/63 12/27/16 07:33 Pulse Ox 95 12/27/16 07:33 Ventilator Settings Ventilator Settings: Ventilator Settings, Last 8 Hours Ventilator Mode VC+ Ventilator Mode VC+ Ventilator Mode VC+ Ventilator Mode VC+ Ventilator Mode VC+ Ventilator Mode VC+ Ventilator Mode VC+ Ventilator Mode VC+ Ventilator Mode VC+ Ventilator Mode VC+ Ventilator Mode VC+ Ventilator Tidal Volume 460 Setting Ventilator Tidal Volume 500 Setting Ventilator Tidal Volume 500 Setting Ventilator Tidal Volume 500 Setting Ventilator Tidal Volume 500 Setting Ventilator Tidal Volume 500 Setting Ventilator Tidal Volume 500 Setting Ventilator Tidal Volume 500 Setting Ventilator Tidal Volume 500 Setting Ventilator Tidal Volume 500 Setting Ventilator Tidal Volume 500 Setting Ventilator Respiratory Rate 14 Setting Ventilator Respiratory Rate 14 Setting Ventilator Respiratory Rate 14 Setting Ventilator Respiratory Rate 14 Setting Ventilator Respiratory Rate 14 Setting Ventilator Respiratory Rate 14 Setting Ventilator Respiratory Rate 14 Setting Ventilator Respiratory Rate 14 Setting Ventilator Respiratory Rate 14 Setting Ventilator Respiratory Rate 14 Setting Ventilator Respiratory Rate 14 Setting Actual Respiratory Rate 21 Actual Respiratory Rate 25 Actual Respiratory Rate 27 Actual Respiratory Rate 24 Actual Respiratory Rate 22 Actual Respiratory Rate 22 Actual Respiratory Rate 22 Actual Respiratory Rate 22 Actual Respiratory Rate 19 Actual Respiratory Rate 17 Positive End Expiratory 8 Pressure Positive End Expiratory 8 Pressure Positive End Expiratory 8 Pressure Positive End Expiratory 8 Pressure Positive End Expiratory 8 Pressure Positive End Expiratory 8 Pressure Positive End Expiratory 8 Pressure Positive End Expiratory 8 Pressure Positive End Expiratory 8 Pressure Positive End Expiratory 8 Pressure Positive End Expiratory 8 Pressure Peak Inspiratory Airway 17 Pressure Peak Inspiratory Airway 17 Pressure Peak Inspiratory Airway 17 Pressure Peak Inspiratory Airway 17 Pressure Peak Inspiratory Airway 17 Pressure Peak Inspiratory Airway 17 Pressure Peak Inspiratory Airway 17 Pressure Peak Inspiratory Airway 17 Pressure Peak Inspiratory Airway 17 Pressure Peak Inspiratory Airway 16 Pressure Results - Laboratory Findings CBC and BMP: 12/27/16 04:18 12/27/16 04:18 ABG ABG pH 7.48 pH Units (7.32-7.45) H 12/27/16 05:53 ABG pCO2 43 mmHg (35-45) 12/27/16 05:53 ABG pO2 77 mmHg (85-104) L 12/27/16 05:53 ABG O2 Saturation 96 % (95-98) 12/27/16 05:53 PT/INR, D-dimer PT 14.4 Seconds (9.4-12.1) H 12/27/16 04:18 Abnormal lab findings: Abnormal lab results WBC 22.4 K/mcL (4.3-11.1) H 12/27/16 04:18 RBC 3.08 M/mcL (4.19-5.50) L 12/27/16 04:18 Hgb 8.6 g/dL (12.9-16.9) L 12/27/16 04:18 Hct 27.1 % (37.5-50.1) L 12/27/16 04:18 MCH 27.9 pg (28.0-33.3) L 12/27/16 04:18 RDW 14.8 % (11.5-14.5) H 12/27/16 04:18 MPV 9.3 fL (9.4-12.4) L 12/27/16 04:18 Neutrophils # 18.8 K/mcL (1.6-8.9) H 12/27/16 04:18 Monocytes # 1.8 K/mcL (0.0-1.3) H 12/27/16 04:18 Nucleated RBCs/100 WBC 0.2 /100 WBC (0) H 12/27/16 04:18 Polychromasia 1+ (Not Present) A 12/26/16 03:32 PT 14.4 Seconds (9.4-12.1) H 12/27/16 04:18 APTT 39.1 Seconds (26.0-36.0) H 12/23/16 13:55 ABG pH 7.48 pH Units (7.32-7.45) H 12/27/16 05:53 ABG pO2 77 mmHg (85-104) L 12/27/16 05:53 ABG HCO3 32 mEq/L (21-27) H 12/27/16 05:53 ABG Total CO2 33 mEq/L (20-26) H 12/27/16 05:53 ABG Base Excess 8 mEq/L (-2 to 3) H 12/27/16 05:53 Carbon Dioxide 31 mEq/L (19-29) H 12/27/16 04:18 Glucose 122 mg/dL (70-99) H 12/27/16 04:18 POC Glucose 156 (58-89) H 12/27/16 07:13 Calcium 7.9 mg/dL (8.6-10.8) L 12/27/16 04:18 Ionized Calcium 1.00 mmol/L (1.15-1.35) L 12/27/16 04:18 AST 60 Units/L (5-34) H 12/27/16 04:18 Troponin I 25.68 ng/mL (0-0.03) H* 12/25/16 03:40 Serum Total Protein 5.7 g/dL (6.0-8.3) L 12/27/16 04:18 Albumin 1.7 g/dL (3.5-5.0) L 12/27/16 04:18 Globulin 4.0 g/dL (2.4-3.5) H 12/27/16 04:18 Albumin/Globulin Ratio 0.4 (1.1-2.2) L 12/27/16 04:18 Ur Specific [place] 1.026 (1.010-1.025) H 12/23/16 14:02 Urine Glucose (UA) >=1000 mg/dL (Normal) H 12/23/16 14:02 - Microbiology Findings Microbiology Findings: Microbiology, Last 48 Hours 12/23/16 20:20 Blood Culture - Preliminary Peripheral Venipuncture No growth. - Clinical Findings Intake & Output: Intake & Output 12/26/16 12/27/16 12/27/16 23:59 07:59 15:59 Intake Total 1245 / 1245 110 / 110 Output Total 850 / 850 500 / 500 Balance 395 / 395 -390 / -390 Weight 84.2 kg - Attending Attestation I examined this patient and my medical decision-making was reviewed with the Resident Physician. I agree with the documented findings, disposition and treatment plan as described except to the extent set forth below. We independently had [id number] contact with the patient I spent 33min of Critical Care time with this patient. It involved decision making of high complexity to assess, manipulate, and support vital organ system failure and/or to prevent further life threatening deterioration of the patient' s condition. The time involved in the performance of separately reportable procedures was not counted toward critical care time. Patient seen and examined at bedside Labs, radiology, chart personally reviewed. Management was reviewed during multidisciplinary critical care rounds. [employer]: Sedated on vent. Remains encephalopathic. Neuro Exam intact with SAT. Cont Sedation for Goal Mcwilliams 2-3. Pulm: Acute hypoxic hypercarbic respiratory failure I suspect this is development of pneumonia with likely ARDS and also component of cardiogenic pulmonary edema requiring reintubation acceptable oxygenation and ventilation today continue low tidal volume ventilatory strategy repeat ABG in the morning. Cards: Status post acute myocardial ischemia blood pressure stable on evidence of cardiogenic shock continue diuresis for cardiogenic edema cardiology following continue aspirin and Plavix and statin blood pressure has been tenuous at times were holding beta binta because of this. Appreciate cardiology evaluation possible left heart catheter prior to discharge FEN-GI: Nutrition consulted start enteral nutrition continue PPI prophylaxis Renal: Acceptable urine output and serum creatinine stable continue to monitor ID: Severe sepsis suspect multidrug resistant organism possibly pneumonia also admitted with gangrene of right lower extremity. He is on broad-spectrum antimicrobials encouragingly fever curve is improving as his leukocytosis terry CT today was not suggestive of alternative nidus of infection we will continue to monitor cultures pending Heme/Onc: Acute blood loss anemia likely due to trauma to her right extremity status post amputation. Yesterday he had dark stools concerning for GI bleeding but H&H has been stable and no further evidence of dark stools we will restart DVT prophylaxis because he is at high risk for BTE Endo: Glucose Monitored Integ/MSK: Skin Care per routine ICU Nursing Protocol to prevent ulcers. Vascular surgery is following this patient for dressing changes of the lower extremity status post AKA Lines: All lines examined without evidence of infection : Dispo: The ICU for critical illness CODE: Full
[2016-12-27] MEDS ORDERED: *HR* Midazolam HCl 5 MG/5 ML VIAL IVP PRN (07:58)
[2016-12-27] MEDS: FentaNYL (PF) 1,000 MCG in 0.9 % Sodium Chloride 80 ML IVC SCH ×2 (08:30→17:16)
[2016-12-27] MEDS: Pantoprazole 40 MG VIAL IVP SCH ×2 (08:46→20:38)
[2016-12-27] MEDS: Chlorhexidine Rinse 15 ML MOUTHWASH MM SCH ×2 (08:46→20:38)
[2016-12-27] MEDS ORDERED: Aspirin Enteric Coated 81 MG Tablet PO SCH (09:00)
[2016-12-27] MEDS: *HR* Midazolam HCl 5 MG/5 ML VIAL IVP PRN ×2 (09:55→21:04)
[2016-12-27] MEDS: Vancomycin 1,500 MG in D5% in Water 250 ML IVPB SCH ×2 (11:46→21:28)
[2016-12-27] MEDS: Potassium Phosphate 44 MEQ in 0.9 % Sodium Chloride 250 ML IVPB PRN ×2 (11:47→23:31)
[2016-12-27] MEDS ORDERED: Furosemide 40 MG/4 ML VIAL IVP ONE (13:33)
[2016-12-27] MEDS: *HR* Heparin 5,000 UNIT/ML VIAL SQ SCH (17:14)
[2016-12-27] MEDS: Nicotine 21 MG PATCH.TD24 TD SCH (17:15)
[2016-12-27] MEDS: Insulin DETEMIR 100 UNIT/ML X5UNITS SQ SCH (20:38)
[2016-12-27 21:08] LABS: Ionized Calcium 0.99 mmol/L (1.15-1.35)
[2016-12-27 21:18] LABS: Phosphorous 2.7 mg/dL (2.3-4.7)
[2016-12-28] MEDS: FentaNYL (PF) 3,000 MCG in 0.9 % Sodium Chloride 240 ML IVC SCH (01:45)
[2016-12-28] MEDS: Lacri-Lube 3.5 GM TUBE BOTH EYES SCH ×6 (04:35→23:50)
[2016-12-28] MEDS: Insulin LISPRO 300 UNITS/3 ML VIAL SQ SCH ×6 (04:35→23:50)
[2016-12-28] MEDS: *HR* Heparin 5,000 UNIT/ML VIAL SQ SCH ×2 (05:11→17:04)
[2016-12-28 05:42] LABS: Basophils % 0.1 %; Eosinophils # 0.1 K/mcL (0.0-0.6); Eosinophils % 0.6 %; Hematocrit 25.2 % (37.5-50.1); Hemoglobin 7.8 g/dL (12.9-16.9); Lymphocytes # 0.9 K/mcL (0.6-4.6); Lymphocytes % 7.5 %; Mean Corpuscular Hemoglobin 27.8 pg (28.0-33.3); Mean Corpuscular Volume 89.7 fL (83.0-100.0); Monocytes % 8.1 %; Neutrophils # 9.8 K/mcL (1.6-8.9); Nucleated Red Blood Cells 0.3 /100 WBC (0); Platelet Count 271 K/mcL (140-400); Red Blood Count 2.81 M/mcL (4.19-5.50); Red Cell Distribution Width 14.6 % (11.5-14.5); Segmented Neutrophils % 82.7 %
[2016-12-28 05:50] LABS: Ionized Calcium 1.03 mmol/L (1.15-1.35)
[2016-12-28 06:04] LABS: INR 1.2; Prothrombin Time 12.9 Seconds (9.4-12.1)
[2016-12-28 06:08] LABS: Alanine Aminotransferase 27 Units/L (0-55); Albumin/Globulin Ratio 0.4 (1.1-2.2); Alkaline Phosphatase 99 Units/L (38-126); Aspartate Amino Transferase 34 Units/L (5-34); BUN/Creatinine Ratio 20 (6-26); Bilirubin,Direct 0.5 mg/dL (0.0-0.5); Bilirubin,Indirect 0.1 mg/dL (0.0-1.2); Bilirubin,Total 0.6 mg/dL (0.2-1.2); Blood Urea Nitrogen 15 mg/dL (8-26); Calcium 8.2 mg/dL (8.6-10.8); Carbon Dioxide 35 mEq/L (19-29); Chloride 97 mEq/L (98-109); Globulin 3.8 g/dL (2.4-3.5); Glucose 171 mg/dL (70-99); Osmolality,Calculated 299 (280-300); Potassium 3.7 mEq/L (3.5-4.5); Sodium 142 mEq/L (136-145); Total Protein 5.5 g/dL (6.0-8.3); eGFR For African Americans > 60 (> 60); eGFR For Non-African Americans > 60 (> 60)
[2016-12-28 06:14] LABS: Albumin 1.7 g/dL (3.5-5.0)
--- NOTE | 2016-12-28 06:56 | Pulmonology Progress Note ---
<Mandi Joseph - Last Filed: 12/28/16 09:29> Date of Encounter: 12/28/16 Time of Encounter: 06:56 Assessment and Plan (1) Acute respiratory failure Current Visit: Yes Status: Acute Hypoxic respiratory failure requiring intubation. 12/26/16 CXR suggestive of pulmonary edema. CPAP trial this morning for 1.5 hours Monitor for ABG AM tomorrow.. If clinical status warrants, plan for SBT trial tomorrow. Qualifiers: Respiratory failure complication: hypoxia Qualified Code(s): J96.01 - Acute respiratory failure with hypoxia (2) Septic shock Current Visit: Yes Status: Acute Continue current antibiotics: vancomycin 1.5mg IVPB Q12H and meropenem 1g IVP Q8H. (3) Anemia Current Visit: Yes Status: Acute Transfuse goal for > 8, due to peripheral vascular disease. Ordered 2 U pRBCs, will trend CBC s/p transfusion. Qualifiers: Anemia type: unspecified type Qualified Code(s): D64.9 - Anemia, unspecified (4) Ischemic leg Current Visit: Yes Status: Acute -POD #5 s/p AKA of necrotic, gangrenous right lower extremity -daily dressing changes, per vascular surgery's last note -vascular surgery following, recommendations appreciated -Reviewed lower extremity CT findings- No findings to suggest necrotizing soft tissue infection, abscess, or osteomyelitis. -Per RN, brother related to staff history of patient stepping on sharp dirty object prior to ED visit, tetanus vaccine d/t to history of unknown vaccination (5) Diabetes mellitus with peripheral angiopathy with gangrene Current Visit: Yes Status: Acute Continue insulin sliding scale for glucose management. Blood glucose stable, continue monitor with Accuchecks. Qualifiers: Diabetes mellitus type: type 2 Diabetes mellitus prison insulin use: with manager intermediate use Qualified Code(s): E11.52 - Type 2 diabetes mellitus with diabetic peripheral angiopathy with gangrene; Z79.4 - longterm (current) use of insulin; Z79.4 - intermediate teacher (current) use of insulin; Z79.4 - intermediate teacher ( current) use of insulin; Z79.4 - longterm (current) use of insulin (6) Elevated troponin Current Visit: Yes Status: Acute Trops elevated, likely due to ischemic cardiac event and septic shock. Cardiology recommends LHC before d/c from hospital, however due pt's clinical condition , pt deemed not appropriate candidate. Resumed ASA, PLAVIX, and statin (7) On enteral nutrition Current Visit: Yes Status: Acute Nutrition consulted, for enteral nutrition. Close monitoring for refeeding syndrome and patient is on electrolyte protocol orders placed, goal to replace deficiencies in serum K, Mg, phosphate, Ca (8) DVT prophylaxis Current Visit: Yes Status: Acute Heparin 5000 units SubQ Q12H, SCDs on non-amputated leg Subjective Principal diagnosis: Ischemic limb Interval history: No acute events overnight. CPAP for approx. 1.5 hours. Pt opens eyes to resident 's voice, tracks movement, but did not respond to simple commands such as prompt to squeeze hand. Objective PUL Vital signs: Last Vital Signs Temp 100.6 F H 12/28/16 03:55 Pulse 92 12/28/16 06:00 Resp 12 12/28/16 06:30 BP 106/67 12/28/16 06:30 Pulse Ox 99 12/28/16 06:30 General appearance: no acute distress ENT: oropharynx dry Auscultation: bilateral: diminished breath sounds Cardiovascular: regular rate and rhythm Gastrointestinal: normoactive bowel sounds Musculoskeletal: other (R AKA, unchanged from yesterday) pupils equal and round, unable to assess due to mental status Ventilator Settings Ventilator Settings: Ventilator Settings, Last 8 Hours Ventilator Mode CPAP Ventilator Mode VC+ Ventilator Mode VC+ Ventilator Mode VC+ Ventilator Mode VC+ Ventilator Mode VC+ Ventilator Mode VC+ Ventilator Mode VC+ Ventilator Mode VC+ Ventilator Mode VC+ Ventilator Mode VC+ Ventilator Mode VC+ Ventilator Tidal Volume 460 Setting Ventilator Tidal Volume 460 Setting Ventilator Tidal Volume 460 Setting Ventilator Tidal Volume 460 Setting Ventilator Tidal Volume 460 Setting Ventilator Tidal Volume 460 Setting Ventilator Tidal Volume 460 Setting Ventilator Tidal Volume 460 Setting Ventilator Tidal Volume 460 Setting Ventilator Tidal Volume 460 Setting Ventilator Tidal Volume 460 Setting Ventilator Respiratory Rate 14 Setting Ventilator Respiratory Rate 14 Setting Ventilator Respiratory Rate 14 Setting Ventilator Respiratory Rate 14 Setting Ventilator Respiratory Rate 14 Setting Ventilator Respiratory Rate 14 Setting Ventilator Respiratory Rate 14 Setting Ventilator Respiratory Rate 14 Setting Ventilator Respiratory Rate 14 Setting Ventilator Respiratory Rate 14 Setting Ventilator Respiratory Rate 14 Setting Actual Respiratory Rate 12 Actual Respiratory Rate 17 Actual Respiratory Rate 15 Actual Respiratory Rate 18 Actual Respiratory Rate 23 Actual Respiratory Rate 20 Actual Respiratory Rate 17 Actual Respiratory Rate 19 Actual Respiratory Rate 20 Actual Respiratory Rate 20 Actual Respiratory Rate 19 Actual Respiratory Rate 19 Positive End Expiratory 8 Pressure Positive End Expiratory 8 Pressure Positive End Expiratory 8 Pressure Positive End Expiratory 8 Pressure Positive End Expiratory 8 Pressure Positive End Expiratory 8 Pressure Positive End Expiratory 8 Pressure Positive End Expiratory 8 Pressure Positive End Expiratory 8 Pressure Positive End Expiratory 8 Pressure Positive End Expiratory 8 Pressure Positive End Expiratory 8 Pressure Peak Inspiratory Airway 19 Pressure Peak Inspiratory Airway 15 Pressure Peak Inspiratory Airway 15 Pressure Peak Inspiratory Airway 15 Pressure Peak Inspiratory Airway 18 Pressure Peak Inspiratory Airway 15 Pressure Peak Inspiratory Airway 22 Pressure Peak Inspiratory Airway 15 Pressure Peak Inspiratory Airway 15 Pressure Peak Inspiratory Airway 17 Pressure Peak Inspiratory Airway 24 Pressure Peak Inspiratory Airway 26 Pressure Results - Laboratory Findings CBC and BMP: 12/28/16 05:30 12/28/16 05:30 ABG ABG pH 7.48 pH Units (7.32-7.45) H 12/27/16 05:53 ABG pCO2 43 mmHg (35-45) 12/27/16 05:53 ABG pO2 77 mmHg (85-104) L 12/27/16 05:53 ABG O2 Saturation 96 % (95-98) 12/27/16 05:53 PT/INR, D-dimer PT 12.9 Seconds (9.4-12.1) H 12/28/16 05:30 Abnormal lab findings: Abnormal lab results WBC 11.9 K/mcL (4.3-11.1) H 12/28/16 05:30 RBC 2.81 M/mcL (4.19-5.50) L 12/28/16 05:30 Hgb 7.8 g/dL (12.9-16.9) L 12/28/16 05:30 Hct 25.2 % (37.5-50.1) L 12/28/16 05:30 MCH 27.8 pg (28.0-33.3) L 12/28/16 05:30 MCHC 31.0 g/dL (31.6-35.5) L 12/28/16 05:30 RDW 14.6 % (11.5-14.5) H 12/28/16 05:30 MPV 9.0 fL (9.4-12.4) L 12/28/16 05:30 Neutrophils # 9.8 K/mcL (1.6-8.9) H 12/28/16 05:30 Nucleated RBCs/100 WBC 0.3 /100 WBC (0) H 12/28/16 05:30 Polychromasia 1+ (Not Present) A 12/26/16 03:32 PT 12.9 Seconds (9.4-12.1) H 12/28/16 05:30 APTT 39.1 Seconds (26.0-36.0) H 12/23/16 13:55 ABG pH 7.48 pH Units (7.32-7.45) H 12/27/16 05:53 ABG pO2 77 mmHg (85-104) L 12/27/16 05:53 ABG HCO3 32 mEq/L (21-27) H 12/27/16 05:53 ABG Total CO2 33 mEq/L (20-26) H 12/27/16 05:53 ABG Base Excess 8 mEq/L (-2 to 3) H 12/27/16 05:53 Chloride 97 mEq/L (98-109) L 12/28/16 05:30 Carbon Dioxide 35 mEq/L (19-29) H 12/28/16 05:30 Glucose 171 mg/dL (70-99) H 12/28/16 05:30 POC Glucose 157 (58-89) H 12/28/16 03:22 Calcium 8.2 mg/dL (8.6-10.8) L 12/28/16 05:30 Ionized Calcium 1.03 mmol/L (1.15-1.35) L 12/28/16 05:30 Troponin I 25.68 ng/mL (0-0.03) H* 12/25/16 03:40 Serum Total Protein 5.5 g/dL (6.0-8.3) L 12/28/16 05:30 Albumin 1.7 g/dL (3.5-5.0) L 12/28/16 05:30 Globulin 3.8 g/dL (2.4-3.5) H 12/28/16 05:30 Albumin/Globulin Ratio 0.4 (1.1-2.2) L 12/28/16 05:30 Ur Specific [place] 1.026 (1.010-1.025) H 12/23/16 14:02 Urine Glucose (UA) >=1000 mg/dL (Normal) H 12/23/16 14:02 - Clinical Findings Intake & Output: Intake & Output 1112/27/16 12/28/16 15:59 23:59 07:59 Intake Total 560 / 560 2512 / 2512 518 / 518 Output Total 275 / 275 525 / 525 175 / 175 Balance 285 / 285 1986 / 1986 343 / 343 Weight 83.4 kg - VTE Documentation of Mechanical Device: Intermittent pneumatic compression device Consult Discharge Plan - Plan Referrals: Sunita Murrell MD [Primary Care Provider] - <Jori Alfonso - Last Filed: 12/28/16 09:45> Date of Encounter: 12/28/16 Objective PUL Vital signs: Last Vital Signs Temp 100.0 F H 12/28/16 07:52 Pulse 96 12/28/16 09:00 Resp 15 12/28/16 09:00 BP 140/84 12/28/16 09:00 Pulse Ox 100 12/28/16 09:00 Ventilator Settings Ventilator Settings: Ventilator Settings, Last 8 Hours Ventilator Mode VC+ Ventilator Mode CPAP Ventilator Mode CPAP Ventilator Mode VC+ Ventilator Mode VC+ Ventilator Mode VC+ Ventilator Mode VC+ Ventilator Mode VC+ Ventilator Mode VC+ Ventilator Tidal Volume 460 Setting Ventilator Tidal Volume 460 Setting Ventilator Tidal Volume 460 Setting Ventilator Tidal Volume 460 Setting Ventilator Tidal Volume 460 Setting Ventilator Tidal Volume 460 Setting Ventilator Tidal Volume 460 Setting Ventilator Tidal Volume 460 Setting Ventilator Respiratory Rate 14 Setting Ventilator Respiratory Rate 14 Setting Ventilator Respiratory Rate 14 Setting Ventilator Respiratory Rate 14 Setting Ventilator Respiratory Rate 14 Setting Ventilator Respiratory Rate 14 Setting Ventilator Respiratory Rate 14 Setting Ventilator Respiratory Rate 14 Setting Actual Respiratory Rate 20 Actual Respiratory Rate 12 Actual Respiratory Rate 12 Actual Respiratory Rate 17 Actual Respiratory Rate 15 Actual Respiratory Rate 18 Actual Respiratory Rate 23 Actual Respiratory Rate 20 Actual Respiratory Rate 17 Positive End Expiratory 8 Pressure Positive End Expiratory 30 Pressure Positive End Expiratory 8 Pressure Positive End Expiratory 8 Pressure Positive End Expiratory 8 Pressure Positive End Expiratory 8 Pressure Positive End Expiratory 8 Pressure Positive End Expiratory 8 Pressure Positive End Expiratory 8 Pressure Peak Inspiratory Airway 23 Pressure Peak Inspiratory Airway 16 Pressure Peak Inspiratory Airway 19 Pressure Peak Inspiratory Airway 15 Pressure Peak Inspiratory Airway 15 Pressure Peak Inspiratory Airway 15 Pressure Peak Inspiratory Airway 18 Pressure Peak Inspiratory Airway 15 Pressure Peak Inspiratory Airway 22 Pressure Results - Laboratory Findings CBC and BMP: 12/28/16 05:30 12/28/16 05:30 ABG ABG pH 7.48 pH Units (7.32-7.45) H 12/27/16 05:53 ABG pCO2 43 mmHg (35-45) 12/27/16 05:53 ABG pO2 77 mmHg (85-104) L 12/27/16 05:53 ABG O2 Saturation 96 % (95-98) 12/27/16 05:53 PT/INR, D-dimer PT 12.9 Seconds (9.4-12.1) H 12/28/16 05:30 Abnormal lab findings: Abnormal lab results WBC 11.9 K/mcL (4.3-11.1) H 12/28/16 05:30 RBC 2.81 M/mcL (4.19-5.50) L 12/28/16 05:30 Hgb 7.8 g/dL (12.9-16.9) L 12/28/16 05:30 Hct 25.2 % (37.5-50.1) L 12/28/16 05:30 MCH 27.8 pg (28.0-33.3) L 12/28/16 05:30 MCHC 31.0 g/dL (31.6-35.5) L 12/28/16 05:30 RDW 14.6 % (11.5-14.5) H 12/28/16 05:30 MPV 9.0 fL (9.4-12.4) L 12/28/16 05:30 Neutrophils # 9.8 K/mcL (1.6-8.9) H 12/28/16 05:30 Nucleated RBCs/100 WBC 0.3 /100 WBC (0) H 12/28/16 05:30 Polychromasia 1+ (Not Present) A 12/26/16 03:32 PT 12.9 Seconds (9.4-12.1) H 12/28/16 05:30 APTT 39.1 Seconds (26.0-36.0) H 12/23/16 13:55 ABG pH 7.48 pH Units (7.32-7.45) H 12/27/16 05:53 ABG pO2 77 mmHg (85-104) L 12/27/16 05:53 ABG HCO3 32 mEq/L (21-27) H 12/27/16 05:53 ABG Total CO2 33 mEq/L (20-26) H 12/27/16 05:53 ABG Base Excess 8 mEq/L (-2 to 3) H 12/27/16 05:53 Chloride 97 mEq/L (98-109) L 12/28/16 05:30 Carbon Dioxide 35 mEq/L (19-29) H 12/28/16 05:30 Glucose 171 mg/dL (70-99) H 12/28/16 05:30 POC Glucose 148 (58-89) H 12/28/16 07:06 Calcium 8.2 mg/dL (8.6-10.8) L 12/28/16 05:30 Ionized Calcium 1.03 mmol/L (1.15-1.35) L 12/28/16 05:30 Troponin I 25.68 ng/mL (0-0.03) H* 12/25/16 03:40 Serum Total Protein 5.5 g/dL (6.0-8.3) L 12/28/16 05:30 Albumin 1.7 g/dL (3.5-5.0) L 12/28/16 05:30 Globulin 3.8 g/dL (2.4-3.5) H 12/28/16 05:30 Albumin/Globulin Ratio 0.4 (1.1-2.2) L 12/28/16 05:30 Ur Specific [place] 1.026 (1.010-1.025) H 12/23/16 14:02 Urine Glucose (UA) >=1000 mg/dL (Normal) H 12/23/16 14:02 Vancomycin Trough 28.2 mcg/mL (10-20) H* 12/28/16 08:45 - Clinical Findings Intake & Output: Intake & Output 12/27/16 12/28/16 12/28/16 23:59 07:59 15:59 Intake Total 2512 / 2512 518 / 518 110 / 110 Output Total 525 / 525 375 / 375 Balance 1986 / 1986 143 / 143 110 / 110 Weight 83.4 kg - Attending Attestation I examined this patient and my medical decision-making was reviewed with the Resident Physician. I agree with the documented findings, disposition and treatment plan as described except to the extent set forth below. We independently had [id number] contact with the patient Patient seen and examined at bedside Labs, radiology, chart personally reviewed. Management was reviewed during multidisciplinary critical care rounds. 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 but awake he is able to follow commands but clearly encephalopathic continue daily SAT Pulm: Intubated on vent acceptable oxygenation SPT today patient did relatively well but towards the end of the trial had some increased work of breathing and poor respiratory mechanics do not feel that he is ready for liberation from the ventilator today we will retrial again tomorrow Cards: He is status post myocardial infarction blood pressure has normalized and now he is actually hypertensive at times we will restart low-dose beta binta and titrate continue aspirin and Plavix and statin cardiology following. Plan for diuresis today with for pulmonary edema FEN-GI: Continue enteral nutrition continue PPI prophylaxis Renal: Urine output monitored electrolytes monitored and stable. Renal function stable ID: Septic shock has resolved leukocytosis trending down continue antimicrobials. Tetanus booster has been given patient given that it appears that this was traumatic insult to the right lower extremity. Heme/Onc: Mild anemia with hemoglobin less than 8 transfuse 2 units do not think patient is actively bleeding and feel that continuation of DVT prophylaxis outweighs risk of hemorrhage at this time. Goal hemoglobin greater than 8 for cardiac concern Endo: Glucose Monitored Integ/MSK: Skin Care per routine ICU Nursing Protocol to prevent ulcers. Lines: All lines examined without evidence of infection Dispo: Remain in ICU CODE: Full
[2016-12-28] MEDS ORDERED: Furosemide 40 MG/4 ML VIAL IVP ONE ×2 (07:12→17:45)
[2016-12-28] MEDS ORDERED: Td (TENIVAC) Vaccine 0.5 ML VIAL IM ONE (07:47)
[2016-12-28] MEDS ORDERED: Aminoglycoside Consult 1 EACH MC ONE (08:12)
[2016-12-28] MEDS: Pantoprazole 40 MG VIAL IVP SCH ×2 (08:47→20:14)
[2016-12-28] MEDS: Meropenem 1,000 MG in Water for inj. (sterile) 10 ML IVP SCH ×3 (08:48→23:50)
[2016-12-28] MEDS: Chlorhexidine Rinse 15 ML MOUTHWASH MM SCH ×2 (08:48→20:13)
[2016-12-28] MEDS: Furosemide 40 MG/4 ML VIAL IVP ONE ×2 (08:53→18:16)
[2016-12-28 09:09] LABS: Phosphorous 3.1 mg/dL (2.3-4.7)
[2016-12-28] MEDS: Vancomycin 1,500 MG in D5% in Water 250 ML IVPB SCH (09:24)
[2016-12-28] MEDS: Aspirin 81 MG TAB.CHEW PO SCH (09:24)
[2016-12-28 09:27] LABS: Vancomycin,Trough 28.2 mcg/mL (10-20)
[2016-12-28] MEDS ORDERED: 0.9 % Sodium Chloride 250 ML ONE ×2 (10:38→14:25)
[2016-12-28] MEDS: Nicotine 21 MG PATCH.TD24 TD SCH (17:02)
[2016-12-28 17:59] LABS: Basophils % 0.1 %; Eosinophils # 0.2 K/mcL (0.0-0.6); Eosinophils % 2.2 %; Hematocrit 33.5 % (37.5-50.1); Hemoglobin 10.7 g/dL (12.9-16.9); Immature Granulocytes % 1.1 % (0-4); Immature Platelets 2.8 % (1.1-6.1); Lymphocytes % 9.8 %; Mean Corpuscular HGB Conc 31.9 g/dL (31.6-35.5); Mean Corpuscular Hemoglobin 28.5 pg (28.0-33.3); Mean Corpuscular Volume 89.3 fL (83.0-100.0); Mean Platelet Volume 8.9 fL (9.4-12.4); Monocytes # 0.9 K/mcL (0.0-1.3); Monocytes % 8.7 %; Neutrophils # 7.7 K/mcL (1.6-8.9); Nucleated Red Blood Cells 0.2 /100 WBC (0); Platelet Count 341 K/mcL (140-400); Red Blood Count 3.75 M/mcL (4.19-5.50); Red Cell Distribution Width 14.6 % (11.5-14.5); Segmented Neutrophils % 78.1 %
[2016-12-28] MEDS: *HR* Midazolam HCl 5 MG/5 ML VIAL IVP PRN (19:24)
--- NOTE | 2016-12-28 19:35 | Electrocardiograph Report ---
[address] [address] Test Date: 2016-12-26 Pat Name: Hola Almanza Department: 109 Room: 02 Gender: M Pharmacy Picking Tech: : [id number] Requested By: Jori Alfonso Order Number: [id number] Reading MD: Xavier Rowell MD Measurements Intervals [place] Rate: 121 P: 54 [place]: 124 QRS: 48 QRSD: 91 T: 96 QT: 282 QTc: 354 Interpretive Statements SINUS TACHYCARDIA BASELINE ARTIFACT Electronically Signed On 12-28-2016 19:33:54 EST by Xavier Rowell MD
[2016-12-28] MEDS: Acetaminophen 325 MG TABLET PO PRN (20:14)
[2016-12-28] MEDS: Insulin DETEMIR 100 UNIT/ML X5UNITS SQ SCH (20:14)
[2016-12-29] MEDS: Insulin LISPRO 300 UNITS/3 ML VIAL SQ SCH ×6 (03:59→23:39)
[2016-12-29] MEDS: Lacri-Lube 3.5 GM TUBE BOTH EYES SCH ×6 (03:59→23:39)
[2016-12-29 05:19] LABS: ABG Base Excess 17 mEq/L (-2 to 3); ABG HCO3 43 mEq/L (21-27); ABG Oxygen Saturation 97 % (95-98); ABG PCO2 57 mmHg (35-45); ABG PH 7.49 pH Units (7.32-7.45); ABG PO2 85 mmHg (85-104); ABG TCO2 45 mEq/L (20-26); Blood Gas Modality PRVC; Blood Gas PEEP 855 cm H2O; Blood Gas Respiration Rate 14; Blood Gas VT 460 cc
[2016-12-29] MEDS: *HR* Heparin 5,000 UNIT/ML VIAL SQ SCH ×2 (06:02→17:34)
[2016-12-29 06:09] LABS: Basophils % 0.1 %; Eosinophils # 0.3 K/mcL (0.0-0.6); Eosinophils % 3.2 %; Hematocrit 34.2 % (37.5-50.1); Hemoglobin 10.9 g/dL (12.9-16.9); Immature Granulocytes % 1.2 % (0-4); Lymphocytes # 0.7 K/mcL (0.6-4.6); Lymphocytes % 8.2 %; Mean Corpuscular HGB Conc 31.9 g/dL (31.6-35.5); Mean Corpuscular Hemoglobin 28.4 pg (28.0-33.3); Mean Corpuscular Volume 89.1 fL (83.0-100.0); Mean Platelet Volume 9.4 fL (9.4-12.4); Monocytes % 11.5 %; Neutrophils # 6.8 K/mcL (1.6-8.9); Nucleated Red Blood Cells 0.2 /100 WBC (0); Platelet Count 321 K/mcL (140-400); Red Blood Count 3.84 M/mcL (4.19-5.50); Red Cell Distribution Width 14.9 % (11.5-14.5); Segmented Neutrophils % 75.8 %
[2016-12-29 06:22] LABS: INR 1.2; Prothrombin Time 13.2 Seconds (9.4-12.1)
[2016-12-29 06:25] LABS: Ionized Calcium 1.02 mmol/L (1.15-1.35)
[2016-12-29 06:27] LABS: Alanine Aminotransferase 29 Units/L (0-55); Albumin/Globulin Ratio 0.4 (1.1-2.2); Alkaline Phosphatase 105 Units/L (38-126); Aspartate Amino Transferase 39 Units/L (5-34); BUN/Creatinine Ratio 23 (6-26); Bilirubin,Direct 0.3 mg/dL (0.0-0.5); Bilirubin,Indirect 0.3 mg/dL (0.0-1.2); Bilirubin,Total 0.6 mg/dL (0.2-1.2); Blood Urea Nitrogen 18 mg/dL (8-26); Calcium 8.5 mg/dL (8.6-10.8); Chloride 96 mEq/L (98-109); Globulin 4.5 g/dL (2.4-3.5); Glucose 175 mg/dL (70-99); Osmolality,Calculated 306 (280-300); Phosphorous 2.1 mg/dL (2.3-4.7); Sodium 145 mEq/L (136-145); Total Protein 6.3 g/dL (6.0-8.3); eGFR For African Americans > 60 (> 60); eGFR For Non-African Americans > 60 (> 60)
[2016-12-29 06:28] LABS: Albumin 1.8 g/dL (3.5-5.0); Potassium 3.5 mEq/L (3.5-4.5)
[2016-12-29 06:30] LABS: Carbon Dioxide 40 mEq/L (19-29)
[2016-12-29] MEDS: FentaNYL (PF) 3,000 MCG in 0.9 % Sodium Chloride 240 ML IVC SCH (07:13)
[2016-12-29] MEDS: Aspirin 81 MG TAB.CHEW PO SCH (07:19)
[2016-12-29] MEDS: Pantoprazole 40 MG VIAL IVP SCH (07:19)
[2016-12-29] MEDS: Sennosides/Docusate Sodium TABLET PO SCH (07:19)
[2016-12-29] MEDS: Chlorhexidine Rinse 15 ML MOUTHWASH MM SCH ×2 (07:19→20:11)
[2016-12-29] MEDS: Meropenem 1,000 MG in Water for inj. (sterile) 10 ML IVP SCH ×3 (07:25→23:38)
--- NOTE | 2016-12-29 08:21 | Pulmonology Progress Note ---
<Belia Berry Tomi - Last Filed: 12/29/16 13:52> Date of Encounter: 12/29/16 Time of Encounter: 08:19 Assessment and Plan (1) Acute respiratory failure Current Visit: Yes Status: Acute Patient with trial of CPAP this morning that resulted in tachycardia, tachypnea , and hypertension, back on VC+ -Patient with metabolic alkalosis on ABG this morning with attempts at respiratory compensation. Dropped tidal volume from 460 to 450 and PEEP to 5. -FiO2 from 50 to 40. -Potential tracheostomy as patient may prove to be a difficult extubation. -Discontinued lasix as it may be contributing to contraction alkalosis. Will start diamox 250mg two doses. -start symbicort Qualifiers: Respiratory failure complication: hypoxia Qualified Code(s): J96.01 - Acute respiratory failure with hypoxia (2) Septic shock Current Visit: Yes Status: Acute Continue de-escalation of antibiotics -D/C'd Vancomycin today after receiving for 7 days. -D/C'd zosyn today after 6 days -Continue Merepenem Day #4 (3) Anemia Current Visit: Yes Status: Acute Patient received 2 units of PBRC yesterday. -Trend Cbc *Transfuse goal is > 8 due to PVD Qualifiers: Anemia type: unspecified type Qualified Code(s): D64.9 - Anemia, unspecified (4) Elevated troponin Current Visit: Yes Status: Acute Troponins were elevated. -Cardiology following. Appreciate their recommendations. -Potential LHC before discharge from hospital. Patient not currently a candidate. -Continue Plavix, ASA, and statin. (5) Ischemic leg Current Visit: Yes Status: Acute POD #6 AKA of necrotic, gangrenous right lower extremity -daily dressing changes per vascular surgery -Follow vasuclar surgery recommendations -LE CT findings- no findings to suggest necrotizing soft tissue infection, abscess, or osteomyelitis. 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 -monitoring for refeeding syndrome -electrolye protocol orders in place (8) DVT prophylaxis Current Visit: Yes Status: Acute Heparin 5000 units SQ q12H, SCD on non-amputated leg. (9) Decubitus ulcer of coccygeal region, stage 2 Current Visit: Yes Status: Acute Continue supportive care. Subjective Principal diagnosis: Ischemic limb Interval history: No acute events overnight. Patient is intubated. Trial of CPAP this morning was not handled well as patient became tachycardic, tachypneic, and hypertensive. Objective PUL Vital signs: Last Vital Signs Temp 100.6 F H 12/29/16 07:51 Pulse 102 12/29/16 07:52 Resp 25 12/29/16 07:00 BP 128/74 12/29/16 07:00 Pulse Ox 93 12/29/16 07:00 General appearance: no acute distress, comatose ENT: oropharynx dry Effort: other (Intubated) Auscultation: bilateral: diminished breath sounds Cardiovascular: regular rate and rhythm Gastrointestinal: normoactive bowel sounds, non-distended Extremities: other (R AKA, dressing clean, dry and intact) unable to assess due to mental status Ventilator Settings Ventilator Settings: Ventilator Settings, Last 8 Hours Ventilator Mode VC+ Ventilator Mode CPAP Ventilator Mode VC+ Ventilator Mode VC+ Ventilator Mode VC+ Ventilator Mode VC+ Ventilator Mode VC+ Ventilator Mode VC+ Ventilator Mode VC+ Ventilator Mode VC+ Ventilator Tidal Volume 450 Setting Ventilator Tidal Volume 460 Setting Ventilator Tidal Volume 460 Setting Ventilator Tidal Volume 460 Setting Ventilator Tidal Volume 460 Setting Ventilator Tidal Volume 460 Setting Ventilator Tidal Volume 460 Setting Ventilator Tidal Volume 460 Setting Ventilator Tidal Volume 460 Setting Ventilator Tidal Volume 460 Setting Ventilator Respiratory Rate 14 Setting Ventilator Respiratory Rate 14 Setting Ventilator Respiratory Rate 14 Setting Ventilator Respiratory Rate 14 Setting Ventilator Respiratory Rate 14 Setting Ventilator Respiratory Rate 14 Setting Ventilator Respiratory Rate 14 Setting Ventilator Respiratory Rate 14 Setting Actual Respiratory Rate 25 Actual Respiratory Rate 23 Actual Respiratory Rate 17 Actual Respiratory Rate 20 Actual Respiratory Rate 17 Actual Respiratory Rate 17 Actual Respiratory Rate 19 Actual Respiratory Rate 17 Actual Respiratory Rate 21 Positive End Expiratory 5 Pressure Positive End Expiratory 8 Pressure Positive End Expiratory 8 Pressure Positive End Expiratory 8 Pressure Positive End Expiratory 8 Pressure Positive End Expiratory 8 Pressure Positive End Expiratory 8 Pressure Positive End Expiratory 8 Pressure Positive End Expiratory 8 Pressure Positive End Expiratory 8 Pressure Peak Inspiratory Airway 12 Pressure Peak Inspiratory Airway 15 Pressure Peak Inspiratory Airway 15 Pressure Peak Inspiratory Airway 15 Pressure Peak Inspiratory Airway 15 Pressure Peak Inspiratory Airway 16 Pressure Peak Inspiratory Airway 18 Pressure Peak Inspiratory Airway 21 Pressure Peak Inspiratory Airway 18 Pressure Results - Laboratory Findings CBC and BMP: 12/29/16 06:00 12/29/16 06:00 ABG ABG pH 7.49 pH Units (7.32-7.45) H 12/29/16 05:13 ABG pCO2 57 mmHg (35-45) H 12/29/16 05:13 ABG pO2 85 mmHg (85-104) 12/29/16 05:13 ABG O2 Saturation 97 % (95-98) 12/29/16 05:13 PT/INR, D-dimer PT 13.2 Seconds (9.4-12.1) H 12/29/16 06:00 Abnormal lab findings: Abnormal lab results RBC 3.84 M/mcL (4.19-5.50) L 12/29/16 06:00 Hgb 10.9 g/dL (12.9-16.9) L 12/29/16 06:00 Hct 34.2 % (37.5-50.1) L 12/29/16 06:00 RDW 14.9 % (11.5-14.5) H 12/29/16 06:00 Nucleated RBCs/100 WBC 0.2 /100 WBC (0) H 12/29/16 06:00 Polychromasia 1+ (Not Present) A 12/26/16 03:32 PT 13.2 Seconds (9.4-12.1) H 12/29/16 06:00 APTT 39.1 Seconds (26.0-36.0) H 12/23/16 13:55 ABG pH 7.49 pH Units (7.32-7.45) H 12/29/16 05:13 ABG pCO2 57 mmHg (35-45) H 12/29/16 05:13 ABG HCO3 43 mEq/L (21-27) H 12/29/16 05:13 ABG Total CO2 45 mEq/L (20-26) H 12/29/16 05:13 ABG Base Excess 17 mEq/L (-2 to 3) H 12/29/16 05:13 Chloride 96 mEq/L (98-109) L 12/29/16 06:00 Carbon Dioxide 40 mEq/L (19-29) H* 12/29/16 06:00 Glucose 175 mg/dL (70-99) H 12/29/16 06:00 POC Glucose 186 (58-89) H 12/29/16 07:09 Calculated Osmolality 306 (280-300) H 12/29/16 06:00 Calcium 8.5 mg/dL (8.6-10.8) L 12/29/16 06:00 Ionized Calcium 1.02 mmol/L (1.15-1.35) L 12/29/16 06:00 Phosphorus 2.1 mg/dL (2.3-4.7) L 12/29/16 06:00 AST 39 Units/L (5-34) H 12/29/16 06:00 Troponin I 25.68 ng/mL (0-0.03) H* 12/25/16 03:40 Albumin 1.8 g/dL (3.5-5.0) L 12/29/16 06:00 Globulin 4.5 g/dL (2.4-3.5) H 12/29/16 06:00 Albumin/Globulin Ratio 0.4 (1.1-2.2) L 12/29/16 06:00 Ur Specific Mcclure 1.026 (1.010-1.025) H 12/23/16 14:02 Urine Glucose (UA) >=1000 mg/dL (Normal) H 12/23/16 14:02 Vancomycin Trough 28.2 mcg/mL (10-20) H* 12/28/16 08:45 - Microbiology Findings Microbiology Findings: Microbiology, Last 48 Hours 12/23/16 20:20 Blood Culture - Final Peripheral Venipuncture No growth. 12/26/16 07:44 Blood Culture - Preliminary Peripheral Venipuncture No growth. 12/26/16 07:35 Blood Culture - Preliminary Peripheral Venipuncture No growth. - Clinical Findings Intake & Output: Intake & Output 12/28/16 12/29/16 12/29/16 23:59 07:59 15:59 Intake Total 719 / 719 888 / 888 Output Total 1375 / 1375 800 / 800 Balance -656 / -656 88 / 88 Weight 82.5 kg - VTE Documentation of Mechanical Device: Intermittent pneumatic compression device Consult Discharge Plan - Plan Referrals: Sunita Murrell MD [Primary Care Provider] - <MacarenaEverett Greene - Last Filed: 12/29/16 16:23> Date of Encounter: 12/29/16 Objective PUL Vital signs: Last Vital Signs Temp 99.3 F 12/29/16 11:00 Pulse 93 12/29/16 11:11 Resp 24 12/29/16 11:23 BP 126/80 12/29/16 11:23 Pulse Ox 97 12/29/16 11:23 Ventilator Settings Ventilator Settings: Ventilator Settings, Last 8 Hours Ventilator Mode VC+ Ventilator Mode VC+ Ventilator Mode VC+ Ventilator Mode VC+ Ventilator Mode VC+ Ventilator Mode CPAP Ventilator Mode VC+ Ventilator Mode VC+ Ventilator Mode VC+ Ventilator Tidal Volume 450 Setting Ventilator Tidal Volume 450 Setting Ventilator Tidal Volume 450 Setting Ventilator Tidal Volume 450 Setting Ventilator Tidal Volume 450 Setting Ventilator Tidal Volume 460 Setting Ventilator Tidal Volume 460 Setting Ventilator Tidal Volume 460 Setting Ventilator Tidal Volume 460 Setting Ventilator Respiratory Rate 14 Setting Ventilator Respiratory Rate 14 Setting Ventilator Respiratory Rate 14 Setting Ventilator Respiratory Rate 14 Setting Ventilator Respiratory Rate 14 Setting Ventilator Respiratory Rate 14 Setting Ventilator Respiratory Rate 14 Setting Actual Respiratory Rate 22 Actual Respiratory Rate 24 Actual Respiratory Rate 23 Actual Respiratory Rate 23 Actual Respiratory Rate 25 Actual Respiratory Rate 23 Actual Respiratory Rate 17 Actual Respiratory Rate 20 Positive End Expiratory 5 Pressure Positive End Expiratory 5 Pressure Positive End Expiratory 5 Pressure Positive End Expiratory 5 Pressure Positive End Expiratory 5 Pressure Positive End Expiratory 8 Pressure Positive End Expiratory 8 Pressure Positive End Expiratory 8 Pressure Positive End Expiratory 8 Pressure Peak Inspiratory Airway 12 Pressure Peak Inspiratory Airway 12 Pressure Peak Inspiratory Airway 12 Pressure Peak Inspiratory Airway 15 Pressure Peak Inspiratory Airway 12 Pressure Peak Inspiratory Airway 15 Pressure Peak Inspiratory Airway 15 Pressure Peak Inspiratory Airway 15 Pressure Results - Laboratory Findings CBC and BMP: 12/29/16 06:00 12/29/16 13:40 ABG ABG pH 7.49 pH Units (7.32-7.45) H 12/29/16 05:13 ABG pCO2 57 mmHg (35-45) H 12/29/16 05:13 ABG pO2 85 mmHg (85-104) 12/29/16 05:13 ABG O2 Saturation 97 % (95-98) 12/29/16 05:13 PT/INR, D-dimer PT 13.2 Seconds (9.4-12.1) H 12/29/16 06:00 Abnormal lab findings: Abnormal lab results RBC 3.84 M/mcL (4.19-5.50) L 12/29/16 06:00 Hgb 10.9 g/dL (12.9-16.9) L 12/29/16 06:00 Hct 34.2 % (37.5-50.1) L 12/29/16 06:00 RDW 14.9 % (11.5-14.5) H 12/29/16 06:00 Nucleated RBCs/100 WBC 0.2 /100 WBC (0) H 12/29/16 06:00 Polychromasia 1+ (Not Present) A 12/26/16 03:32 PT 13.2 Seconds (9.4-12.1) H 12/29/16 06:00 APTT 39.1 Seconds (26.0-36.0) H 12/23/16 13:55 ABG pH 7.49 pH Units (7.32-7.45) H 12/29/16 05:13 ABG pCO2 57 mmHg (35-45) H 12/29/16 05:13 ABG HCO3 43 mEq/L (21-27) H 12/29/16 05:13 ABG Total CO2 45 mEq/L (20-26) H 12/29/16 05:13 ABG Base Excess 17 mEq/L (-2 to 3) H 12/29/16 05:13 Chloride 96 mEq/L (98-109) L 12/29/16 06:00 Carbon Dioxide 40 mEq/L (19-29) H* 12/29/16 06:00 Glucose 175 mg/dL (70-99) H 12/29/16 06:00 POC Glucose 254 (58-89) H 12/29/16 11:05 Calculated Osmolality 306 (280-300) H 12/29/16 06:00 Calcium 8.5 mg/dL (8.6-10.8) L 12/29/16 06:00 Ionized Calcium 1.02 mmol/L (1.15-1.35) L 12/29/16 06:00 Phosphorus 2.1 mg/dL (2.3-4.7) L 12/29/16 06:00 AST 39 Units/L (5-34) H 12/29/16 06:00 Troponin I 25.68 ng/mL (0-0.03) H* 12/25/16 03:40 Albumin 1.8 g/dL (3.5-5.0) L 12/29/16 06:00 Globulin 4.5 g/dL (2.4-3.5) H 12/29/16 06:00 Albumin/Globulin Ratio 0.4 (1.1-2.2) L 12/29/16 06:00 Ur Specific Mcclure 1.026 (1.010-1.025) H 12/23/16 14:02 Urine Glucose (UA) >=1000 mg/dL (Normal) H 12/23/16 14:02 Vancomycin Trough 28.2 mcg/mL (10-20) H* 12/28/16 08:45 - Microbiology Findings Microbiology Findings: Microbiology, Last 48 Hours 12/23/16 20:20 Blood Culture - Final Peripheral Venipuncture No growth. 12/26/16 07:44 Blood Culture - Preliminary Peripheral Venipuncture No growth. 12/26/16 07:35 Blood Culture - Preliminary Peripheral Venipuncture No growth. - Clinical Findings Intake & Output: Intake & Output 12/28/16 12/29/16 12/29/16 23:59 07:59 15:59 Intake Total 719 / 719 958 / 958 391 / 391 Output Total 1375 / 1375 800 / 800 850 / 850 Balance -656 / -656 158 / 158 -459 / -459 Weight 82.5 kg - Attending Attestation I examined this patient and my medical decision-making was reviewed with the Resident Physician. I agree with the documented findings, disposition and treatment plan as described except to the extent set forth below. Patient seen and examined. Labs, radiology, chart personally reviewed. 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 Pulmonary: Patient did not tolerate taking is breathing trial. I have lowered PEEP to 5 and lower tidal volume also since patient has evidence of embolic alkalosis. Reviewing his images I suspect patient might be difficult to extubate and he might even need tracheostomy. Cardiovascular: stable GI: Nutrition per dietary and GI prophylaxis per routine Heme: DVT prophylaxis per routine ID: Continue antibiotics and plan to de-escalation Renal; urine out put and renal funtion reviewed. I trial of acetazolamide and he may need gentle hydration Endorcine: blood glucose is monitored Lines: all lines checked and no evidence of infections Skin: skin care to prevent pressure ulcers per nursing routine care I spent 35 min of Critical Care time with this patient. It involved decision making of high complexity to assess, manipulate, and support vital organ system failure and/or to prevent further life threatening deterioration of the patient' s condition. The time involved in the performance of separately reportable procedures was not counted toward critical care time.
[2016-12-29] MEDS ORDERED: Vancomycin 1,500 MG in D5% in Water 250 ML IVPB SCH (09:00)
[2016-12-29] MEDS ORDERED: Potassium Chloride Elixir 20 MEQ/15 ML UDC GTUBE ONE ×2 (09:19→14:53)
[2016-12-29] MEDS: Dexmedetomidine HCl 400 MCG/100 ML MLS IVC SCH (10:34)
[2016-12-29] MEDS: Insulin DETEMIR 100 UNIT/ML X5UNITS SQ SCH ×2 (10:48→20:12)
[2016-12-29 14:00] LABS: Phosphorous 2.3 mg/dL (2.3-4.7); Potassium 3.3 mEq/L (3.5-4.5)
[2016-12-29 14:02] LABS: Ionized Calcium 1.07 mmol/L (1.15-1.35)
[2016-12-29] MEDS: Nicotine 21 MG PATCH.TD24 TD SCH (17:34)
[2016-12-29 18:21] LABS: Ionized Calcium 1.13 mmol/L (1.15-1.35)
[2016-12-29 18:29] LABS: Phosphorous 2.6 mg/dL (2.3-4.7)
[2016-12-29] MEDS: Acetaminophen 325 MG TABLET PO PRN (20:11)
[2016-12-29] MEDS: Budesonide/Formoterol 160/4.5 MDI IH SCH (21:34)
[2016-12-30 03:51] LABS: Eosinophils % 0.6 %; Hematocrit 38.7 % (37.5-50.1); Hemoglobin 12.2 g/dL (12.9-16.9); Immature Granulocytes % 0.9 % (0-4); Lymphocytes % 10.4 %; Mean Corpuscular HGB Conc 31.5 g/dL (31.6-35.5); Mean Corpuscular Hemoglobin 28.6 pg (28.0-33.3); Mean Corpuscular Volume 90.6 fL (83.0-100.0); Mean Platelet Volume 9.4 fL (9.4-12.4); Monocytes % 11.8 %; Platelet Count 355 K/mcL (140-400); Red Blood Count 4.27 M/mcL (4.19-5.50); Red Cell Distribution Width 15.3 % (11.5-14.5); Segmented Neutrophils % 76.1 %
[2016-12-30 03:52] LABS: Basophils % 0.2 %; Eosinophils # 0.1 K/mcL (0.0-0.6); Lymphocytes # 1.3 K/mcL (0.6-4.6); Monocytes # 1.5 K/mcL (0.0-1.3); Neutrophils # 9.6 K/mcL (1.6-8.9)
[2016-12-30 04:09] LABS: Alanine Aminotransferase 25 Units/L (0-55); Albumin/Globulin Ratio 0.4 (1.1-2.2); Alkaline Phosphatase 105 Units/L (38-126); Aspartate Amino Transferase 30 Units/L (5-34); BUN/Creatinine Ratio 30 (6-26); Bilirubin,Total 0.5 mg/dL (0.2-1.2); Blood Urea Nitrogen 23 mg/dL (8-26); Calcium 8.6 mg/dL (8.6-10.8); Carbon Dioxide 32 mEq/L (19-29); Chloride 106 mEq/L (98-109); Globulin 4.7 g/dL (2.4-3.5); Glucose 197 mg/dL (70-99); Magnesium 1.8 mg/dL (1.6-2.6); Osmolality,Calculated 311 (280-300); Phosphorous 3.5 mg/dL (2.3-4.7); Potassium 3.3 mEq/L (3.5-4.5); Sodium 146 mEq/L (136-145); Total Protein 6.5 g/dL (6.0-8.3); eGFR For African Americans > 60 (> 60); eGFR For Non-African Americans > 60 (> 60)
[2016-12-30 04:10] LABS: Albumin 1.8 g/dL (3.5-5.0)
[2016-12-30] MEDS: Acetaminophen 325 MG TABLET PO PRN ×3 (04:17→17:34)
[2016-12-30] MEDS: Insulin LISPRO 300 UNITS/3 ML VIAL SQ SCH ×5 (04:28→20:06)
[2016-12-30] MEDS: Lacri-Lube 3.5 GM TUBE BOTH EYES SCH ×5 (04:28→20:07)
[2016-12-30] MEDS: Dexmedetomidine HCl 400 MCG/100 ML MLS IVC SCH (04:33)
[2016-12-30] MEDS: *HR* Heparin 5,000 UNIT/ML VIAL SQ SCH ×2 (05:40→17:33)
[2016-12-30 05:48] LABS: ABG Base Excess 7 mEq/L (-2 to 3); ABG HCO3 33 mEq/L (21-27); ABG Oxygen Saturation 94 % (95-98); ABG PCO2 51 mmHg (35-45); ABG PH 7.42 pH Units (7.32-7.45); ABG PO2 71 mmHg (85-104); ABG TCO2 35 mEq/L (20-26); Blood Gas Modality VC; Blood Gas PEEP 5 cm H2O; Blood Gas Respiration Rate 14; Blood Gas VT 450 cc
[2016-12-30] MEDS: FentaNYL (PF) 3,000 MCG in 0.9 % Sodium Chloride 240 ML IVC SCH ×2 (07:12→15:18)
[2016-12-30] MEDS: Budesonide/Formoterol 160/4.5 MDI IH SCH ×2 (08:09→19:25)
[2016-12-30] MEDS: Aspirin 81 MG TAB.CHEW PO SCH (08:12)
[2016-12-30] MEDS: Sennosides/Docusate Sodium TABLET PO SCH ×3 (08:12→20:10)
[2016-12-30] MEDS: Meropenem 1,000 MG in Water for inj. (sterile) 10 ML IVP SCH ×2 (08:13→16:08)
[2016-12-30] MEDS: Chlorhexidine Rinse 15 ML MOUTHWASH MM SCH ×2 (08:13→20:10)
[2016-12-30] MEDS: Pantoprazole 40 MG VIAL IVP SCH (08:13)
[2016-12-30] MEDS: Insulin DETEMIR 100 UNIT/ML X5UNITS SQ SCH ×2 (08:18→20:10)
--- NOTE | 2016-12-30 08:39 | Pulmonology Progress Note ---
<Belia Berry Tomi - Last Filed: 12/30/16 12:23> Date of Encounter: 12/30/16 Time of Encounter: 08:38 Assessment and Plan (1) Acute respiratory failure Current Visit: Yes Status: Acute Patient with trial of CPAP this morning that resulted in tachypnea and agitation. Back on VC+ -Alkalosis resolving. -Potential tracheostomy as patient may prove to be a difficult extubation. -Diuretics discontinued yesterday -continue symbicort Qualifiers: Respiratory failure complication: hypoxia Qualified Code(s): J96.01 - Acute respiratory failure with hypoxia (2) Septic shock Current Visit: Yes Status: Acute Continue de-escalation of antibiotics. Low-grade fevers are resolving. Afebrile overnight. -D/C'd Vancomycin yesterday after receiving for 7 days. -D/C'd zosyn yesterday after 6 days -Continue Merepenem Day #5 (3) Anemia Current Visit: Yes Status: Acute Patient received 2 units of PBRC 2 days ago. Hemoglobin stable -Trend Cbc *Transfuse goal is > 8 due to PVD Qualifiers: Anemia type: unspecified type Qualified Code(s): D64.9 - Anemia, unspecified (4) Elevated troponin Current Visit: Yes Status: Acute Troponins were elevated. -Cardiology following. Appreciate their recommendations. -Potential LHC before discharge from hospital. Patient not currently a candidate. -Continue Plavix, ASA, and statin. (5) Ischemic leg Current Visit: Yes Status: Acute POD # 7 AKA of necrotic, gangrenous right lower extremity -daily dressing changes per vascular surgery -Follow vasuclar surgery recommendations -LE CT findings- no findings to suggest necrotizing soft tissue infection, abscess, or osteomyelitis. (6) Diabetes mellitus with peripheral angiopathy with gangrene Current Visit: Yes Status: Acute Continue insulin sliding scale. Patient received 42 units of sliding scale coverage yesterday in addition to 10 units twice a day detemir. -Increase basal insulin to 15 units twice a day -continue accuchecks Qualifiers: Diabetes mellitus type: type 2 Diabetes mellitus manager terminal insulin use: with manager terminal use Qualified Code(s): E11.52 - Type 2 diabetes mellitus with diabetic peripheral angiopathy with gangrene; Z79.4 - exterminator (current) use of insulin; Z79.4 - exterminator (current) use of insulin; Z79.4 - exterminator ( current) use of insulin; Z79.4 - USP (current) use of insulin (7) On enteral nutrition Current Visit: Yes Status: Acute Nutrition consulted. -monitoring for refeeding syndrome -electrolye protocol orders in place -Increase Senna 2 twice a day. (8) DVT prophylaxis Current Visit: Yes Status: Acute Heparin 5000 units SQ q12H, SCD on non-amputated leg. (9) Decubitus ulcer of coccygeal region, stage 2 Current Visit: Yes Status: Acute Continue supportive care. Subjective Principal diagnosis: Ischemic limb Interval history: No acute events overnight. Patient is intubated. Trial of CPAP this morning lasted for 9 minutes, patient became agitated and tachypneic. Objective PUL Vital signs: Last Vital Signs Temp 98.8 F 12/30/16 07:00 Pulse 102 12/30/16 07:15 Resp 21 12/30/16 08:11 BP 142/91 12/30/16 07:00 Pulse Ox 95 12/30/16 08:11 General appearance: other (Sedated) Eyes: injected ENT: oropharynx moist Neck: supple Auscultation: bilateral: diminished breath sounds, rhonchi Cardiovascular: regular rate and rhythm Gastrointestinal: normoactive bowel sounds Integumentary: decubitus ulcer (Coccygeal) Extremities: other (AKA on the right lower extremity. Left lower extremity is pink and warm with normal pulses) unable to assess due to mental status Ventilator Settings Ventilator Settings: Ventilator Settings, Last 8 Hours Ventilator Mode VC+ Ventilator Mode VC+ Ventilator Mode VC+ Ventilator Mode VC+ Ventilator Mode VC+ Ventilator Mode VC+ Ventilator Mode VC+ Ventilator Mode VC+ Ventilator Mode VC+ Ventilator Mode VC+ Ventilator Mode VC+ Ventilator Mode VC+ Ventilator Tidal Volume 450 Setting Ventilator Tidal Volume 450 Setting Ventilator Tidal Volume 450 Setting Ventilator Tidal Volume 450 Setting Ventilator Tidal Volume 450 Setting Ventilator Tidal Volume 450 Setting Ventilator Tidal Volume 450 Setting Ventilator Tidal Volume 450 Setting Ventilator Tidal Volume 450 Setting Ventilator Tidal Volume 450 Setting Ventilator Tidal Volume 450 Setting Ventilator Tidal Volume 450 Setting Ventilator Respiratory Rate 14 Setting Ventilator Respiratory Rate 14 Setting Ventilator Respiratory Rate 14 Setting Ventilator Respiratory Rate 14 Setting Ventilator Respiratory Rate 14 Setting Ventilator Respiratory Rate 14 Setting Ventilator Respiratory Rate 14 Setting Ventilator Respiratory Rate 14 Setting Ventilator Respiratory Rate 14 Setting Ventilator Respiratory Rate 14 Setting Ventilator Respiratory Rate 14 Setting Ventilator Respiratory Rate 14 Setting Actual Respiratory Rate 23 Actual Respiratory Rate 18 Actual Respiratory Rate 18 Actual Respiratory Rate 16 Actual Respiratory Rate 16 Actual Respiratory Rate 26 Actual Respiratory Rate 21 Actual Respiratory Rate 18 Actual Respiratory Rate 19 Actual Respiratory Rate 18 Actual Respiratory Rate 25 Positive End Expiratory 5 Pressure Positive End Expiratory 5 Pressure Positive End Expiratory 5 Pressure Positive End Expiratory 5 Pressure Positive End Expiratory 5 Pressure Positive End Expiratory 5 Pressure Positive End Expiratory 5 Pressure Positive End Expiratory 5 Pressure Positive End Expiratory 5 Pressure Positive End Expiratory 5 Pressure Positive End Expiratory 5 Pressure Positive End Expiratory 5 Pressure Peak Inspiratory Airway 12 Pressure Peak Inspiratory Airway 13 Pressure Peak Inspiratory Airway 13 Pressure Peak Inspiratory Airway 13 Pressure Peak Inspiratory Airway 13 Pressure Peak Inspiratory Airway 13 Pressure Peak Inspiratory Airway 13 Pressure Peak Inspiratory Airway 13 Pressure Peak Inspiratory Airway 13 Pressure Peak Inspiratory Airway 13 Pressure Results - Laboratory Findings CBC and BMP: 12/30/16 03:15 12/30/16 03:15 ABG ABG pH 7.42 pH Units (7.32-7.45) 12/30/16 05:44 ABG pCO2 51 mmHg (35-45) H 12/30/16 05:44 ABG pO2 71 mmHg (85-104) L 12/30/16 05:44 ABG O2 Saturation 94 % (95-98) L 12/30/16 05:44 PT/INR, D-dimer PT 13.2 Seconds (9.4-12.1) H 12/29/16 06:00 Abnormal lab findings: Abnormal lab results WBC 12.6 K/mcL (4.3-11.1) H 12/30/16 03:15 Hgb 12.2 g/dL (12.9-16.9) L 12/30/16 03:15 MCHC 31.5 g/dL (31.6-35.5) L 12/30/16 03:15 RDW 15.3 % (11.5-14.5) H 12/30/16 03:15 Neutrophils # 9.6 K/mcL (1.6-8.9) H 12/30/16 03:15 Monocytes # 1.5 K/mcL (0.0-1.3) H 12/30/16 03:15 Nucleated RBCs/100 WBC 0.2 /100 WBC (0) H 12/29/16 06:00 Polychromasia 1+ (Not Present) A 12/26/16 03:32 PT 13.2 Seconds (9.4-12.1) H 12/29/16 06:00 APTT 39.1 Seconds (26.0-36.0) H 12/23/16 13:55 ABG pCO2 51 mmHg (35-45) H 12/30/16 05:44 ABG pO2 71 mmHg (85-104) L 12/30/16 05:44 ABG HCO3 33 mEq/L (21-27) H 12/30/16 05:44 ABG Total CO2 35 mEq/L (20-26) H 12/30/16 05:44 ABG O2 Saturation 94 % (95-98) L 12/30/16 05:44 ABG Base Excess 7 mEq/L (-2 to 3) H 12/30/16 05:44 Sodium 146 mEq/L (136-145) H 12/30/16 03:15 Potassium 3.3 mEq/L (3.5-4.5) L 12/30/16 03:15 Carbon Dioxide 32 mEq/L (19-29) H 12/30/16 03:15 BUN/Creatinine Ratio 30 (6-26) H 12/30/16 03:15 Glucose 197 mg/dL (70-99) H 12/30/16 03:15 POC Glucose 158 (58-89) H 12/30/16 07:03 Calculated Osmolality 311 (280-300) H 12/30/16 03:15 Ionized Calcium 1.10 mmol/L (1.15-1.35) L 12/30/16 03:15 Troponin I 25.68 ng/mL (0-0.03) H* 12/25/16 03:40 Albumin 1.8 g/dL (3.5-5.0) L 12/30/16 03:15 Globulin 4.7 g/dL (2.4-3.5) H 12/30/16 03:15 Albumin/Globulin Ratio 0.4 (1.1-2.2) L 12/30/16 03:15 Ur Specific [place] 1.026 (1.010-1.025) H 12/23/16 14:02 Urine Glucose (UA) >=1000 mg/dL (Normal) H 12/23/16 14:02 Vancomycin Trough 28.2 mcg/mL (10-20) H* 12/28/16 08:45 - Microbiology Findings Microbiology Findings: Microbiology, Last 48 Hours 12/23/16 20:20 Blood Culture - Final Peripheral Venipuncture No growth. 12/26/16 07:44 Blood Culture - Preliminary Peripheral Venipuncture No growth. 12/26/16 07:35 Blood Culture - Preliminary Peripheral Venipuncture No growth. - Clinical Findings Intake & Output: Intake & Output 12/29/16 12/30/16 12/30/16 23:59 07:59 15:59 Intake Total 819 / 819 979 / 979 Output Total 600 / 600 750 / 750 Balance 219 / 219 229 / 229 Weight 82 kg - VTE Documentation of Mechanical Device: Intermittent pneumatic compression device Consult Discharge Plan - Plan Referrals: Sunita Murrell MD [Primary Care Provider] - <Everett Fiore - Last Filed: 12/30/16 13:40> Date of Encounter: 12/30/16 Objective PUL Vital signs: Last Vital Signs Temp 100.6 F H 12/30/16 11:00 Pulse 83 12/30/16 13:00 Resp 20 12/30/16 13:00 BP 133/85 12/30/16 13:00 Pulse Ox 97 12/30/16 13:00 Ventilator Settings Ventilator Settings: Ventilator Settings, Last 8 Hours Ventilator Mode VC+ Ventilator Mode VC+ Ventilator Mode VC+ Ventilator Mode VC+ Ventilator Mode VC+ Ventilator Mode VC+ Ventilator Mode VC+ Ventilator Mode VC+ Ventilator Mode VC+ Ventilator Mode VC+ Ventilator Mode VC+ Ventilator Mode VC+ Ventilator Tidal Volume 450 Setting Ventilator Tidal Volume 450 Setting Ventilator Tidal Volume 450 Setting Ventilator Tidal Volume 450 Setting Ventilator Tidal Volume 450 Setting Ventilator Tidal Volume 450 Setting Ventilator Tidal Volume 450 Setting Ventilator Tidal Volume 450 Setting Ventilator Tidal Volume 450 Setting Ventilator Tidal Volume 450 Setting Ventilator Tidal Volume 450 Setting Ventilator Tidal Volume 450 Setting Ventilator Respiratory Rate 14 Setting Ventilator Respiratory Rate 14 Setting Ventilator Respiratory Rate 14 Setting Ventilator Respiratory Rate 14 Setting Ventilator Respiratory Rate 14 Setting Ventilator Respiratory Rate 14 Setting Ventilator Respiratory Rate 14 Setting Ventilator Respiratory Rate 14 Setting Ventilator Respiratory Rate 14 Setting Ventilator Respiratory Rate 14 Setting Ventilator Respiratory Rate 14 Setting Ventilator Respiratory Rate 14 Setting Actual Respiratory Rate 20 Actual Respiratory Rate 19 Actual Respiratory Rate 19 Actual Respiratory Rate 20 Actual Respiratory Rate 21 Actual Respiratory Rate 22 Actual Respiratory Rate 22 Actual Respiratory Rate 23 Actual Respiratory Rate 22 Actual Respiratory Rate 18 Actual Respiratory Rate 18 Positive End Expiratory 5 Pressure Positive End Expiratory 5 Pressure Positive End Expiratory 5 Pressure Positive End Expiratory 5 Pressure Positive End Expiratory 5 Pressure Positive End Expiratory 5 Pressure Positive End Expiratory 5 Pressure Positive End Expiratory 5 Pressure Positive End Expiratory 5 Pressure Positive End Expiratory 5 Pressure Positive End Expiratory 5 Pressure Positive End Expiratory 5 Pressure Peak Inspiratory Airway 13 Pressure Peak Inspiratory Airway 13 Pressure Peak Inspiratory Airway 12 Pressure Peak Inspiratory Airway 13 Pressure Results - Laboratory Findings CBC and BMP: 12/30/16 03:15 12/30/16 03:15 ABG ABG pH 7.42 pH Units (7.32-7.45) 12/30/16 05:44 ABG pCO2 51 mmHg (35-45) H 12/30/16 05:44 ABG pO2 71 mmHg (85-104) L 12/30/16 05:44 ABG O2 Saturation 94 % (95-98) L 12/30/16 05:44 PT/INR, D-dimer PT 13.2 Seconds (9.4-12.1) H 12/29/16 06:00 Abnormal lab findings: Abnormal lab results WBC 12.6 K/mcL (4.3-11.1) H 12/30/16 03:15 Hgb 12.2 g/dL (12.9-16.9) L 12/30/16 03:15 MCHC 31.5 g/dL (31.6-35.5) L 12/30/16 03:15 RDW 15.3 % (11.5-14.5) H 12/30/16 03:15 Neutrophils # 9.6 K/mcL (1.6-8.9) H 12/30/16 03:15 Monocytes # 1.5 K/mcL (0.0-1.3) H 12/30/16 03:15 Nucleated RBCs/100 WBC 0.2 /100 WBC (0) H 12/29/16 06:00 Polychromasia 1+ (Not Present) A 12/26/16 03:32 PT 13.2 Seconds (9.4-12.1) H 12/29/16 06:00 APTT 39.1 Seconds (26.0-36.0) H 12/23/16 13:55 ABG pCO2 51 mmHg (35-45) H 12/30/16 05:44 ABG pO2 71 mmHg (85-104) L 12/30/16 05:44 ABG HCO3 33 mEq/L (21-27) H 12/30/16 05:44 ABG Total CO2 35 mEq/L (20-26) H 12/30/16 05:44 ABG O2 Saturation 94 % (95-98) L 12/30/16 05:44 ABG Base Excess 7 mEq/L (-2 to 3) H 12/30/16 05:44 Sodium 146 mEq/L (136-145) H 12/30/16 03:15 Potassium 3.3 mEq/L (3.5-4.5) L 12/30/16 03:15 Carbon Dioxide 32 mEq/L (19-29) H 12/30/16 03:15 BUN/Creatinine Ratio 30 (6-26) H 12/30/16 03:15 Glucose 197 mg/dL (70-99) H 12/30/16 03:15 POC Glucose 206 (58-89) H 12/30/16 10:59 Calculated Osmolality 311 (280-300) H 12/30/16 03:15 Ionized Calcium 1.10 mmol/L (1.15-1.35) L 12/30/16 03:15 Troponin I 25.68 ng/mL (0-0.03) H* 12/25/16 03:40 Albumin 1.8 g/dL (3.5-5.0) L 12/30/16 03:15 Globulin 4.7 g/dL (2.4-3.5) H 12/30/16 03:15 Albumin/Globulin Ratio 0.4 (1.1-2.2) L 12/30/16 03:15 Ur Specific [place] 1.026 (1.010-1.025) H 12/23/16 14:02 Urine Glucose (UA) >=1000 mg/dL (Normal) H 12/23/16 14:02 Vancomycin Trough 28.2 mcg/mL (10-20) H* 12/28/16 08:45 - Microbiology Findings Microbiology Findings: Microbiology, Last 48 Hours 12/23/16 20:20 Blood Culture - Final Peripheral Venipuncture No growth. 12/26/16 07:44 Blood Culture - Preliminary Peripheral Venipuncture No growth. 12/26/16 07:35 Blood Culture - Preliminary Peripheral Venipuncture No growth. - Clinical Findings Intake & Output: Intake & Output 12/29/16 12/30/16 12/30/16 23:59 07:59 15:59 Intake Total 819 / 819 1079 / 1079 754 / 754 Output Total 600 / 600 750 / 750 350 / 350 Balance 219 / 219 329 / 329 404 / 404 Weight 82 kg - Attending Attestation I examined this patient and my medical decision-making was reviewed with the Resident Physician. I agree with the documented findings, disposition and treatment plan as described except to the extent set forth below. Patient seen and examined. Labs, radiology, chart personally reviewed. 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 Patient failed spontaneous breathing trial. Continue treatment for pneumonia and suspect he might need tracheostomy. Cardiovascular: stable GI: Nutrition per dietary and GI prophylaxis per routine Heme: DVT prophylaxis per routine ID: Continue antibiotics and plan to de-escalation Renal; urine out put and renal funtion reviewed Endorcine: blood glucose is monitored. Adjust insulin dose for a goal of blood sugar less than 180 Lines: all lines checked and no evidence of infections Skin: skin care to prevent pressure ulcers per nursing routine care
[2016-12-30 15:01] LABS: Magnesium 2.2 mg/dL (1.6-2.6); Potassium 3.4 mEq/L (3.5-4.5)
[2016-12-31] MEDS: Meropenem 1,000 MG in Water for inj. (sterile) 10 ML IVP SCH ×3 (00:36→17:44)
[2016-12-31] MEDS: Insulin LISPRO 300 UNITS/3 ML VIAL SQ SCH ×6 (00:37→19:46)
[2016-12-31] MEDS: Lacri-Lube 3.5 GM TUBE BOTH EYES SCH ×6 (00:37→19:38)
[2016-12-31] MEDS: Dexmedetomidine HCl 400 MCG/100 ML MLS IVC SCH ×4 (04:06→20:09)
[2016-12-31] MEDS: *HR* Heparin 5,000 UNIT/ML VIAL SQ SCH ×2 (05:14→17:59)
[2016-12-31 05:58] LABS: Basophils % 0.1 %; Eosinophils # 0.3 K/mcL (0.0-0.6); Eosinophils % 2.2 %; Hematocrit 36.7 % (37.5-50.1); Hemoglobin 11.5 g/dL (12.9-16.9); Immature Granulocytes % 0.6 % (0-4); Lymphocytes # 1.8 K/mcL (0.6-4.6); Lymphocytes % 12.6 %; Mean Corpuscular HGB Conc 31.3 g/dL (31.6-35.5); Mean Corpuscular Hemoglobin 28.5 pg (28.0-33.3); Mean Corpuscular Volume 90.8 fL (83.0-100.0); Mean Platelet Volume 9.1 fL (9.4-12.4); Monocytes # 1.4 K/mcL (0.0-1.3); Monocytes % 9.8 %; Neutrophils # 10.6 K/mcL (1.6-8.9); Platelet Count 358 K/mcL (140-400); Red Blood Count 4.04 M/mcL (4.19-5.50); Red Cell Distribution Width 14.9 % (11.5-14.5); Segmented Neutrophils % 74.7 %
[2016-12-31 06:16] LABS: BUN/Creatinine Ratio 39 (6-26); Blood Urea Nitrogen 27 mg/dL (8-26); Calcium 8.2 mg/dL (8.6-10.8); Carbon Dioxide 28 mEq/L (19-29); Chloride 106 mEq/L (98-109); Glucose 190 mg/dL (70-99); Osmolality,Calculated 304 (280-300); Potassium 3.7 mEq/L (3.5-4.5); Sodium 142 mEq/L (136-145); eGFR For African Americans > 60 (> 60); eGFR For Non-African Americans > 60 (> 60)
[2016-12-31] MEDS: Pantoprazole 40 MG VIAL IVP SCH (07:38)
--- NOTE | 2016-12-31 07:39 | Pulmonology Progress Note ---
<Belia Berry Tomi - Last Filed: 12/31/16 07:30> Date of Encounter: 12/31/16 Time of Encounter: 07:30 Assessment and Plan (1) Acute respiratory failure Current Visit: Yes Status: Acute Patient handling CPAP well this morning. -If patient continues to tolerate CPAP, we will extubate today. -continue symbicort Qualifiers: Respiratory failure complication: hypoxia Qualified Code(s): J96.01 - Acute respiratory failure with hypoxia (2) Septic shock Current Visit: Yes Status: Acute Continue de-escalation of antibiotics. Low-grade fevers are resolving. Afebrile overnight, mild low-grade fever this morning. Slight bump of white blood cell count overnight. -D/C'd Vancomycin 2 days ago after receiving for 7 days. -D/C'd zosyn 2 days ago after 6 days -Continue Merepenem Day # 6 (3) Anemia Current Visit: Yes Status: Resolved Patient received 2 units of PBRC 3 days ago. Hemoglobin stable -Trend Cbc *Transfuse goal is > 8 due to PVD Qualifiers: Anemia type: unspecified type Qualified Code(s): D64.9 - Anemia, unspecified (4) Elevated troponin Current Visit: Yes Status: Acute Troponins were elevated. -Cardiology following. Appreciate their recommendations. -Potential LHC before discharge from hospital. Patient not currently a candidate. -Continue Plavix, ASA, and statin. (5) Ischemic leg Current Visit: Yes Status: Acute POD # 8 AKA of necrotic, gangrenous right lower extremity -daily dressing changes per vascular surgery -Follow vasuclar surgery recommendations -LE CT findings- no findings to suggest necrotizing soft tissue infection, abscess, or osteomyelitis. (6) Diabetes mellitus with peripheral angiopathy with gangrene Current Visit: Yes Status: Acute Continue insulin sliding scale. -Increased basal insulin to 15 units twice a day -continue accuchecks Qualifiers: Diabetes mellitus type: type 2 Diabetes mellitus intermediate frame tender insulin use: with intermediate frame tender use Qualified Code(s): E11.52 - Type 2 diabetes mellitus with diabetic peripheral angiopathy with gangrene; Z79.4 - skilled nursing (current) use of insulin; Z79.4 - skilled nursing (current) use of insulin; Z79.4 - skilled nursing ( current) use of insulin; Z79.4 - long term care phlebotomist (current) use of insulin (7) On enteral nutrition Current Visit: Yes Status: Acute Nutrition consulted. -monitoring for refeeding syndrome -electrolye protocol orders in place -Increase Senna 2 twice a day. (8) DVT prophylaxis Current Visit: Yes Status: Acute Heparin 5000 units SQ q12H, SCD on non-amputated leg. (9) Decubitus ulcer of coccygeal region, stage 2 Current Visit: Yes Status: Acute Continue supportive care. Subjective Principal diagnosis: Ischemic limb Interval history: No acute events overnight. Patient is intubated. Trial of CPAP this morning going well. Patient seems to be comfortable. Objective PUL Vital signs: Last Vital Signs Temp 98.8 F 12/31/16 04:00 Pulse 97 12/31/16 07:00 Resp 30 12/31/16 07:00 BP 147/83 12/31/16 07:00 Pulse Ox 97 12/31/16 07:00 General appearance: no acute distress, other (Sedated) Eyes: nonicteric ENT: oropharynx moist Effort: mildly labored Auscultation: bilateral: diminished breath sounds (Mild), rhonchi (Mild) Cardiovascular: regular rate and rhythm Gastrointestinal: normoactive bowel sounds, soft, non-tender, non-distended Integumentary: other Extremities: no edema (Left-sided lower extremity), no clubbing (Left-sided lower extremity), other (Patient with a right-sided AKA, dressing is clean dry and intact. Patient is moving this extremity well.) unable to assess due to mental status Ventilator Settings Ventilator Settings: Ventilator Settings, Last 8 Hours Ventilator Mode CPAP Ventilator Mode CPAP Ventilator Mode VC+ Ventilator Mode VC+ Ventilator Mode VC+ Ventilator Mode VC+ Ventilator Mode VC+ Ventilator Mode VC+ Ventilator Mode VC+ Ventilator Mode VC+ Ventilator Mode VC+ Ventilator Mode VC+ Ventilator Tidal Volume 450 Setting Ventilator Tidal Volume 450 Setting Ventilator Tidal Volume 450 Setting Ventilator Tidal Volume 450 Setting Ventilator Tidal Volume 450 Setting Ventilator Tidal Volume 450 Setting Ventilator Tidal Volume 450 Setting Ventilator Tidal Volume 450 Setting Ventilator Tidal Volume 450 Setting Ventilator Tidal Volume 450 Setting Ventilator Tidal Volume 450 Setting Ventilator Tidal Volume 450 Setting Ventilator Respiratory Rate 14 Setting Ventilator Respiratory Rate 14 Setting Ventilator Respiratory Rate 14 Setting Ventilator Respiratory Rate 14 Setting Ventilator Respiratory Rate 14 Setting Ventilator Respiratory Rate 14 Setting Ventilator Respiratory Rate 14 Setting Ventilator Respiratory Rate 14 Setting Ventilator Respiratory Rate 14 Setting Ventilator Respiratory Rate 14 Setting Actual Respiratory Rate 30 Actual Respiratory Rate 30 Actual Respiratory Rate 22 Actual Respiratory Rate 17 Actual Respiratory Rate 18 Actual Respiratory Rate 21 Actual Respiratory Rate 16 Actual Respiratory Rate 16 Actual Respiratory Rate 17 Actual Respiratory Rate 18 Actual Respiratory Rate 17 Actual Respiratory Rate 20 Positive End Expiratory 5 Pressure Positive End Expiratory 5 Pressure Positive End Expiratory 5 Pressure Positive End Expiratory 5 Pressure Positive End Expiratory 5 Pressure Positive End Expiratory 5 Pressure Positive End Expiratory 5 Pressure Positive End Expiratory 5 Pressure Positive End Expiratory 5 Pressure Positive End Expiratory 5 Pressure Positive End Expiratory 5 Pressure Positive End Expiratory 5 Pressure Peak Inspiratory Airway 12 Pressure Peak Inspiratory Airway 12 Pressure Peak Inspiratory Airway 12 Pressure Peak Inspiratory Airway 12 Pressure Peak Inspiratory Airway 12 Pressure Peak Inspiratory Airway 13 Pressure Peak Inspiratory Airway 13 Pressure Peak Inspiratory Airway 12 Pressure Peak Inspiratory Airway 12 Pressure Peak Inspiratory Airway 12 Pressure Peak Inspiratory Airway 11 Pressure Peak Inspiratory Airway 12 Pressure Results - Laboratory Findings CBC and BMP: 12/31/16 05:44 12/31/16 05:44 ABG ABG pH 7.42 pH Units (7.32-7.45) 12/30/16 05:44 ABG pCO2 51 mmHg (35-45) H 12/30/16 05:44 ABG pO2 71 mmHg (85-104) L 12/30/16 05:44 ABG O2 Saturation 94 % (95-98) L 12/30/16 05:44 PT/INR, D-dimer PT 13.2 Seconds (9.4-12.1) H 12/29/16 06:00 Abnormal lab findings: Abnormal lab results WBC 14.2 K/mcL (4.3-11.1) H 12/31/16 05:44 RBC 4.04 M/mcL (4.19-5.50) L 12/31/16 05:44 Hgb 11.5 g/dL (12.9-16.9) L 12/31/16 05:44 Hct 36.7 % (37.5-50.1) L 12/31/16 05:44 MCHC 31.3 g/dL (31.6-35.5) L 12/31/16 05:44 RDW 14.9 % (11.5-14.5) H 12/31/16 05:44 MPV 9.1 fL (9.4-12.4) L 12/31/16 05:44 Neutrophils # 10.6 K/mcL (1.6-8.9) H 12/31/16 05:44 Monocytes # 1.4 K/mcL (0.0-1.3) H 12/31/16 05:44 Nucleated RBCs/100 WBC 0.2 /100 WBC (0) H 12/29/16 06:00 Polychromasia 1+ (Not Present) A 12/26/16 03:32 PT 13.2 Seconds (9.4-12.1) H 12/29/16 06:00 APTT 39.1 Seconds (26.0-36.0) H 12/23/16 13:55 ABG pCO2 51 mmHg (35-45) H 12/30/16 05:44 ABG pO2 71 mmHg (85-104) L 12/30/16 05:44 ABG HCO3 33 mEq/L (21-27) H 12/30/16 05:44 ABG Total CO2 35 mEq/L (20-26) H 12/30/16 05:44 ABG O2 Saturation 94 % (95-98) L 12/30/16 05:44 ABG Base Excess 7 mEq/L (-2 to 3) H 12/30/16 05:44 BUN 27 mg/dL (8-26) H 12/31/16 05:44 Creatinine 0.69 mg/dL (0.72-1.25) L 12/31/16 05:44 BUN/Creatinine Ratio 39 (6-26) H 12/31/16 05:44 Glucose 190 mg/dL (70-99) H 12/31/16 05:44 POC Glucose 158 (58-89) H 12/31/16 06:58 Calculated Osmolality 304 (280-300) H 12/31/16 05:44 Calcium 8.2 mg/dL (8.6-10.8) L 12/31/16 05:44 Ionized Calcium 1.10 mmol/L (1.15-1.35) L 12/30/16 03:15 Troponin I 25.68 ng/mL (0-0.03) H* 12/25/16 03:40 Albumin 1.8 g/dL (3.5-5.0) L 12/30/16 03:15 Globulin 4.7 g/dL (2.4-3.5) H 12/30/16 03:15 Albumin/Globulin Ratio 0.4 (1.1-2.2) L 12/30/16 03:15 Ur Specific [place] 1.026 (1.010-1.025) H 12/23/16 14:02 Urine Glucose (UA) >=1000 mg/dL (Normal) H 12/23/16 14:02 Vancomycin Trough 28.2 mcg/mL (10-20) H* 12/28/16 08:45 - Microbiology Findings Microbiology Findings: Microbiology, Last 48 Hours 12/23/16 20:20 Blood Culture - Final Peripheral Venipuncture No growth. - Clinical Findings Intake & Output: Intake & Output 12/30/16 12/30/16 12/31/16 15:59 23:59 07:59 Intake Total 1304 / 1304 798 / 798 938 / 938 Output Total 350 / 350 600 / 600 550 / 550 Balance 954 / 954 198 / 198 388 / 388 Weight 80 kg - VTE Documentation of Mechanical Device: Intermittent pneumatic compression device Consult Discharge Plan - Plan Referrals: Sunita Murrell MD [Primary Care Provider] - <Everett Fiore - Last Filed: 12/31/16 08:58> Date of Encounter: 12/31/16 Objective PUL Vital signs: Last Vital Signs Temp 100.9 F H 12/31/16 07:33 Pulse 89 12/31/16 08:30 Resp 20 12/31/16 08:30 BP 124/78 12/31/16 08:30 Pulse Ox 97 12/31/16 08:30 Ventilator Settings Ventilator Settings: Ventilator Settings, Last 8 Hours Ventilator Mode CPAP Ventilator Mode CPAP Ventilator Mode VC+ Ventilator Mode VC+ Ventilator Mode VC+ Ventilator Mode VC+ Ventilator Mode VC+ Ventilator Mode VC+ Ventilator Mode VC+ Ventilator Mode VC+ Ventilator Tidal Volume 450 Setting Ventilator Tidal Volume 450 Setting Ventilator Tidal Volume 450 Setting Ventilator Tidal Volume 450 Setting Ventilator Tidal Volume 450 Setting Ventilator Tidal Volume 450 Setting Ventilator Tidal Volume 450 Setting Ventilator Tidal Volume 450 Setting Ventilator Tidal Volume 450 Setting Ventilator Tidal Volume 450 Setting Ventilator Respiratory Rate 14 Setting Ventilator Respiratory Rate 14 Setting Ventilator Respiratory Rate 14 Setting Ventilator Respiratory Rate 14 Setting Ventilator Respiratory Rate 14 Setting Ventilator Respiratory Rate 14 Setting Ventilator Respiratory Rate 14 Setting Ventilator Respiratory Rate 14 Setting Actual Respiratory Rate 30 Actual Respiratory Rate 30 Actual Respiratory Rate 22 Actual Respiratory Rate 17 Actual Respiratory Rate 18 Actual Respiratory Rate 21 Actual Respiratory Rate 16 Actual Respiratory Rate 16 Actual Respiratory Rate 17 Actual Respiratory Rate 18 Positive End Expiratory 5 Pressure Positive End Expiratory 5 Pressure Positive End Expiratory 5 Pressure Positive End Expiratory 5 Pressure Positive End Expiratory 5 Pressure Positive End Expiratory 5 Pressure Positive End Expiratory 5 Pressure Positive End Expiratory 5 Pressure Positive End Expiratory 5 Pressure Positive End Expiratory 5 Pressure Peak Inspiratory Airway 12 Pressure Peak Inspiratory Airway 12 Pressure Peak Inspiratory Airway 12 Pressure Peak Inspiratory Airway 12 Pressure Peak Inspiratory Airway 12 Pressure Peak Inspiratory Airway 13 Pressure Peak Inspiratory Airway 13 Pressure Peak Inspiratory Airway 12 Pressure Peak Inspiratory Airway 12 Pressure Peak Inspiratory Airway 12 Pressure Results - Laboratory Findings CBC and BMP: 12/31/16 05:44 12/31/16 05:44 ABG ABG pH 7.42 pH Units (7.32-7.45) 12/30/16 05:44 ABG pCO2 51 mmHg (35-45) H 12/30/16 05:44 ABG pO2 71 mmHg (85-104) L 12/30/16 05:44 ABG O2 Saturation 94 % (95-98) L 12/30/16 05:44 PT/INR, D-dimer PT 13.2 Seconds (9.4-12.1) H 12/29/16 06:00 Abnormal lab findings: Abnormal lab results WBC 14.2 K/mcL (4.3-11.1) H 12/31/16 05:44 RBC 4.04 M/mcL (4.19-5.50) L 12/31/16 05:44 Hgb 11.5 g/dL (12.9-16.9) L 12/31/16 05:44 Hct 36.7 % (37.5-50.1) L 12/31/16 05:44 MCHC 31.3 g/dL (31.6-35.5) L 12/31/16 05:44 RDW 14.9 % (11.5-14.5) H 12/31/16 05:44 MPV 9.1 fL (9.4-12.4) L 12/31/16 05:44 Neutrophils # 10.6 K/mcL (1.6-8.9) H 12/31/16 05:44 Monocytes # 1.4 K/mcL (0.0-1.3) H 12/31/16 05:44 Nucleated RBCs/100 WBC 0.2 /100 WBC (0) H 12/29/16 06:00 Polychromasia 1+ (Not Present) A 12/26/16 03:32 PT 13.2 Seconds (9.4-12.1) H 12/29/16 06:00 APTT 39.1 Seconds (26.0-36.0) H 12/23/16 13:55 ABG pCO2 51 mmHg (35-45) H 12/30/16 05:44 ABG pO2 71 mmHg (85-104) L 12/30/16 05:44 ABG HCO3 33 mEq/L (21-27) H 12/30/16 05:44 ABG Total CO2 35 mEq/L (20-26) H 12/30/16 05:44 ABG O2 Saturation 94 % (95-98) L 12/30/16 05:44 ABG Base Excess 7 mEq/L (-2 to 3) H 12/30/16 05:44 BUN 27 mg/dL (8-26) H 12/31/16 05:44 Creatinine 0.69 mg/dL (0.72-1.25) L 12/31/16 05:44 BUN/Creatinine Ratio 39 (6-26) H 12/31/16 05:44 Glucose 190 mg/dL (70-99) H 12/31/16 05:44 POC Glucose 158 (58-89) H 12/31/16 06:58 Calculated Osmolality 304 (280-300) H 12/31/16 05:44 Calcium 8.2 mg/dL (8.6-10.8) L 12/31/16 05:44 Ionized Calcium 1.10 mmol/L (1.15-1.35) L 12/30/16 03:15 Troponin I 25.68 ng/mL (0-0.03) H* 12/25/16 03:40 Albumin 1.8 g/dL (3.5-5.0) L 12/30/16 03:15 Globulin 4.7 g/dL (2.4-3.5) H 12/30/16 03:15 Albumin/Globulin Ratio 0.4 (1.1-2.2) L 12/30/16 03:15 Ur Specific [place] 1.026 (1.010-1.025) H 12/23/16 14:02 Urine Glucose (UA) >=1000 mg/dL (Normal) H 12/23/16 14:02 Vancomycin Trough 28.2 mcg/mL (10-20) H* 12/28/16 08:45 - Microbiology Findings Microbiology Findings: Microbiology, Last 48 Hours 12/23/16 20:20 Blood Culture - Final Peripheral Venipuncture No growth. - Clinical Findings Intake & Output: Intake & Output 12/30/16 12/31/16 12/31/16 23:59 07:59 15:59 Intake Total 798 / 798 948 / 948 Output Total 600 / 600 750 / 750 Balance 198 / 198 198 / 198 Weight 80 kg - Attending Attestation I examined this patient and my medical decision-making was reviewed with the Resident Physician. I agree with the documented findings, disposition and treatment plan as described except to the extent set forth below. Patient seen and examined. Labs, radiology, chart personally reviewed. Agree with resident's history and physical, assessment, plan with following comments: SECURITY INTERN: Patient follows commands, Pulmonary: Acceptable oxygenation and ventilation. Patient was started on Precedex for his agitation and then successfully spontaneous breathing trial was done and was extubated to noninvasive ventilation. Cardiovascular: stable GI: Nutrition per dietary and GI prophylaxis per routine Heme: DVT prophylaxis per routine ID: Continue antibiotics and plan to de-escalation Renal; urine out put and renal funtion reviewed Endorcine: blood glucose is monitored Lines: all lines checked and no evidence of infections Skin: skin care to prevent pressure ulcers per nursing routine care
[2016-12-31] MEDS: Budesonide/Formoterol 160/4.5 MDI IH SCH ×2 (08:09→20:10)
[2016-12-31] MEDS: Chlorhexidine Rinse 15 ML MOUTHWASH MM SCH ×2 (10:53→19:38)
[2016-12-31] MEDS: Insulin DETEMIR 100 UNIT/ML X5UNITS SQ SCH ×2 (10:54→19:47)
[2016-12-31] MEDS: Aspirin 81 MG TAB.CHEW PO SCH (14:28)
[2016-12-31] MEDS: Sennosides/Docusate Sodium TABLET PO SCH ×2 (14:28→19:46)
[2016-12-31] MEDS ORDERED: Vancomycin 1,250 MG in D5% in Water 250 ML IVPB SCH (16:00)
[2016-12-31 17:02] LABS: Bilirubin,Urine Negative (Negative); Blood,Urine Moderate (Negative); Clarity,Urine Clear (Clear); Color,Urine Yellow (Yellow); Glucose,Urine (UA) >=1000 mg/dL (Normal); Ketones,Urine Trace mg/dL (Negative); Leukocyte Esterase,Urine Negative (Negative); Nitrite,Urine Negative (Negative); PH,Urine 7.5 pH Units (5.0-8.0); Protein,Urine 100 mg/dL (Neg-Trace); Specific Gravity,Urine 1.028 (1.010-1.025); Urobilinogen,Urine Normal (Normal)
[2016-12-31 17:04] LABS: Bacteria,Urine None Seen per hpf (None-Few); Hyaline Casts,Urine None Seen per lpf (None-Few); Squamous Epithelial Cell,Urine Many per lpf (None-Few); WBC,Urine 0-3 per hpf (0-3)
[2016-12-31] MEDS: Vancomycin 1,250 MG in D5% in Water 250 ML IVPB SCH (17:48)
[2016-12-31] MEDS: Acetaminophen 325 MG TABLET PO PRN (18:10)
[2017-01-01] MEDS: Meropenem 1,000 MG in Water for inj. (sterile) 10 ML IVP SCH ×3 (00:23→16:39)
[2017-01-01] MEDS: Acetaminophen 325 MG TABLET PO PRN (00:23)
[2017-01-01] MEDS: Insulin LISPRO 300 UNITS/3 ML VIAL SQ SCH ×6 (00:24→20:59)
[2017-01-01] MEDS: Lacri-Lube 3.5 GM TUBE BOTH EYES SCH ×6 (00:24→20:42)
[2017-01-01] MEDS: FentaNYL (PF) 3,000 MCG in 0.9 % Sodium Chloride 240 ML IVC SCH (04:29)
[2017-01-01] MEDS: Vancomycin 1,250 MG in D5% in Water 250 ML IVPB SCH ×2 (06:43→16:40)
[2017-01-01] MEDS: *HR* Heparin 5,000 UNIT/ML VIAL SQ SCH ×2 (06:44→18:12)
--- NOTE | 2017-01-01 07:08 | Pulmonology Progress Note ---
Addendum entered and electronically signed by Mandi Joseph MD 01/01/17 10:13: Correction for Dx of Ischemic Lig - POD #9, not 8 (s/p emergent AKA of R right lower extremity) Original Note: <Mandi Joseph - Last Filed: 01/01/17 08:45> Date of Encounter: 01/01/17 Time of Encounter: 07:08 Assessment and Plan (1) Acute respiratory failure Current Visit: Yes Status: Acute Pt extubated yesterday. Adequate oxygenation, will continue monitoring on tele. Patient failed beside swallow on 12/31/16 after coughing on water trial by spoon. Speech therapy consulted, with diet order adjusted per recs. See note below. Qualifiers: Respiratory failure complication: hypoxia Qualified Code(s): J96.01 - Acute respiratory failure with hypoxia (2) Septic shock Current Visit: Yes Status: Resolved Pt febrile yesterday. Afebrile this late morning, WBC downtrended from yesterday, however remains elevated, will order CXR for AM given elevated WBC. Continue to monitor WBC with timed CBC. Preliminary Blood culture preliminary - no growth. Continuing vancomycin and meropenem 1g IVP Q8H. (3) Anemia Current Visit: Yes Status: Resolved Transfuse goal for > 8, due to peripheral vascular disease. Currently at goal, Hgb 12.2. Continue timed CBC. Qualifiers: Anemia type: unspecified type Qualified Code(s): D64.9 - Anemia, unspecified (4) Ischemic leg Current Visit: Yes Status: Acute -POD 8 s/p AKA of necrotic, gangrenous right lower extremity -12/27/16 CT findings- No findings to suggest necrotizing soft tissue infection, abscess, or osteomyelitis. -Continue daily dressing changes, per vascular surgery's note, recs appreciated (5) Diabetes mellitus with peripheral angiopathy with gangrene Current Visit: Yes Status: Acute Continue insulin sliding scale for glucose management. Blood glucose stable, continue monitor with Accuchecks. Qualifiers: Diabetes mellitus type: type 2 Diabetes mellitus custodial insulin use: with supervisor intermediates use Qualified Code(s): E11.52 - Type 2 diabetes mellitus with diabetic peripheral angiopathy with gangrene; Z79.4 - terminal operations supervisor (current) use of insulin; Z79.4 - intermediate (current) use of insulin; Z79.4 - intermediate ( current) use of insulin; Z79.4 - terminal operations supervisor (current) use of insulin (6) Elevated troponin Current Visit: Yes Status: Acute Trops elevated, likely due to ischemic cardiac event and septic shock. Cardiology recommends evaluation for LHC before d/c from hospital, possibly following transfer from ICU. Resumed ASA, PLAVIX, and statin (7) Care involving speech therapy Current Visit: Yes Status: Acute Patient failed DNS on 12/31/16 at 11:17 after coughing on water trial by spoon. Speech therapy consulted and will follow recommendation for textures and honey thick liquid BY SPOON. Meds crushed in puree, no straw, assistance with feeds, small sips/bites,liquid by spoon. ST to follow, appreciate recs. (8) History of alcohol use unknown Current Visit: Yes Status: Acute Pt endorses history suggestive of alcohol dependence, but unclear of timing and nature. States he drinks "not anymore". Notified RN of possible history of alcohol dependence, RN agreed to monitor, and we may initiate CIWA protocol following close monitoring (9) DVT prophylaxis Current Visit: Yes Status: Acute Heparin 5000 units SubQ Q12H, SCDs on non-amputated leg Subjective Principal diagnosis: Ischemic limb Interval history: Afrebrile on exam. Pt oriented to person and place, stated year was 2017. Endorsed previous alcohol use. Pt states "everything is just fine", in no acute distress this AM. Objective PUL Vital signs: Last Vital Signs Temp 98.3 F 01/01/17 04:31 Pulse 84 01/01/17 06:00 Resp 16 01/01/17 06:00 BP 141/73 01/01/17 06:00 Pulse Ox 96 01/01/17 06:00 General appearance: no acute distress ENT: oropharynx dry Auscultation: bilateral: diminished breath sounds Cardiovascular: regular rate and rhythm Gastrointestinal: normoactive bowel sounds, soft, non-tender Extremities: no edema, other (R AKA, andrea intact, some echymosis, no drainage , no purulent oozing) Musculoskeletal: other (R AKA) pupils equal and round, other (no asterixis) mood appropriate, other Results - Laboratory Findings CBC and BMP: 01/01/17 07:00 01/01/17 07:00 ABG ABG pH 7.42 pH Units (7.32-7.45) 12/30/16 05:44 ABG pCO2 51 mmHg (35-45) H 12/30/16 05:44 ABG pO2 71 mmHg (85-104) L 12/30/16 05:44 ABG O2 Saturation 94 % (95-98) L 12/30/16 05:44 PT/INR, D-dimer PT 13.2 Seconds (9.4-12.1) H 12/29/16 06:00 Abnormal lab findings: Abnormal lab results WBC 14.2 K/mcL (4.3-11.1) H 12/31/16 05:44 RBC 4.04 M/mcL (4.19-5.50) L 12/31/16 05:44 Hgb 11.5 g/dL (12.9-16.9) L 12/31/16 05:44 Hct 36.7 % (37.5-50.1) L 12/31/16 05:44 MCHC 31.3 g/dL (31.6-35.5) L 12/31/16 05:44 RDW 14.9 % (11.5-14.5) H 12/31/16 05:44 MPV 9.1 fL (9.4-12.4) L 12/31/16 05:44 Neutrophils # 10.6 K/mcL (1.6-8.9) H 12/31/16 05:44 Monocytes # 1.4 K/mcL (0.0-1.3) H 12/31/16 05:44 Nucleated RBCs/100 WBC 0.2 /100 WBC (0) H 12/29/16 06:00 Polychromasia 1+ (Not Present) A 12/26/16 03:32 PT 13.2 Seconds (9.4-12.1) H 12/29/16 06:00 APTT 39.1 Seconds (26.0-36.0) H 12/23/16 13:55 ABG pCO2 51 mmHg (35-45) H 12/30/16 05:44 ABG pO2 71 mmHg (85-104) L 12/30/16 05:44 ABG HCO3 33 mEq/L (21-27) H 12/30/16 05:44 ABG Total CO2 35 mEq/L (20-26) H 12/30/16 05:44 ABG O2 Saturation 94 % (95-98) L 12/30/16 05:44 ABG Base Excess 7 mEq/L (-2 to 3) H 12/30/16 05:44 BUN 27 mg/dL (8-26) H 12/31/16 05:44 Creatinine 0.69 mg/dL (0.72-1.25) L 12/31/16 05:44 BUN/Creatinine Ratio 39 (6-26) H 12/31/16 05:44 Glucose 190 mg/dL (70-99) H 12/31/16 05:44 POC Glucose 133 (58-89) H 01/01/17 04:12 Calculated Osmolality 304 (280-300) H 12/31/16 05:44 Calcium 8.2 mg/dL (8.6-10.8) L 12/31/16 05:44 Ionized Calcium 1.10 mmol/L (1.15-1.35) L 12/30/16 03:15 Troponin I 25.68 ng/mL (0-0.03) H* 12/25/16 03:40 Albumin 1.8 g/dL (3.5-5.0) L 12/30/16 03:15 Globulin 4.7 g/dL (2.4-3.5) H 12/30/16 03:15 Albumin/Globulin Ratio 0.4 (1.1-2.2) L 12/30/16 03:15 Ur Specific [place] 1.028 (1.010-1.025) H 12/31/16 16:54 Urine Protein 100 mg/dL (Neg-Trace) H 12/31/16 16:54 Urine Glucose (UA) >=1000 mg/dL (Normal) H 12/31/16 16:54 Urine Ketones Trace mg/dL (Negative) H 12/31/16 16:54 Urine Blood Moderate (Negative) H 12/31/16 16:54 Urine Microscopic RBC 5-15 per hpf (0-3) H 12/31/16 16:54 Ur Squamous Epith Cells Many per lpf (None-Few) H 12/31/16 16:54 Vancomycin Trough 28.2 mcg/mL (10-20) H* 12/28/16 08:45 - Clinical Findings Intake & Output: Intake & Output 12/31/16 12/31/16 01/01/17 15:59 23:59 07:59 Intake Total 307 / 307 610 / 610 10 10 Output Total 300 / 300 1100 / 1100 475 / 475 Balance -490 / -490 -465 / -465 Weight 79.6 kg - VTE Documentation of Mechanical Device: Intermittent pneumatic compression device Consult Discharge Plan - Plan Referrals: Sunita Murrell MD [Primary Care Provider] - <Everett Fiore - Last Filed: 01/01/17 10:46> Date of Encounter: 01/01/17 Objective PUL Vital signs: Last Vital Signs Temp 100.3 F H 01/01/17 07:35 Pulse 114 01/01/17 10:00 Resp 20 01/01/17 10:00 BP 142/91 01/01/17 10:00 Pulse Ox 98 01/01/17 09:30 Results - Laboratory Findings CBC and BMP: 01/01/17 07:00 01/01/17 07:00 ABG ABG pH 7.42 pH Units (7.32-7.45) 12/30/16 05:44 ABG pCO2 51 mmHg (35-45) H 12/30/16 05:44 ABG pO2 71 mmHg (85-104) L 12/30/16 05:44 ABG O2 Saturation 94 % (95-98) L 12/30/16 05:44 PT/INR, D-dimer PT 13.2 Seconds (9.4-12.1) H 12/29/16 06:00 Abnormal lab findings: Abnormal lab results WBC 13.0 K/mcL (4.3-11.1) H 01/01/17 07:00 Hgb 12.2 g/dL (12.9-16.9) L 01/01/17 07:00 MCHC 30.9 g/dL (31.6-35.5) L 01/01/17 07:00 RDW 14.9 % (11.5-14.5) H 01/01/17 07:00 Plt Count 442 K/mcL (140-400) H 01/01/17 07:00 Neutrophils # 10.5 K/mcL (1.6-8.9) H 01/01/17 07:00 Nucleated RBCs/100 WBC 0.2 /100 WBC (0) H 12/29/16 06:00 Polychromasia 1+ (Not Present) A 12/26/16 03:32 PT 13.2 Seconds (9.4-12.1) H 12/29/16 06:00 APTT 39.1 Seconds (26.0-36.0) H 12/23/16 13:55 ABG pCO2 51 mmHg (35-45) H 12/30/16 05:44 ABG pO2 71 mmHg (85-104) L 12/30/16 05:44 ABG HCO3 33 mEq/L (21-27) H 12/30/16 05:44 ABG Total CO2 35 mEq/L (20-26) H 12/30/16 05:44 ABG O2 Saturation 94 % (95-98) L 12/30/16 05:44 ABG Base Excess 7 mEq/L (-2 to 3) H 12/30/16 05:44 Sodium 146 mEq/L (136-145) H 01/01/17 07:00 Potassium 3.0 mEq/L (3.5-4.5) L 01/01/17 07:00 BUN/Creatinine Ratio 32 (6-26) H 01/01/17 07:00 Glucose 224 mg/dL (70-99) H 01/01/17 07:00 POC Glucose 210 (58-89) H 01/01/17 07:12 Calculated Osmolality 313 (280-300) H 01/01/17 07:00 Ionized Calcium 1.10 mmol/L (1.15-1.35) L 12/30/16 03:15 Troponin I 25.68 ng/mL (0-0.03) H* 12/25/16 03:40 Albumin 1.8 g/dL (3.5-5.0) L 12/30/16 03:15 Globulin 4.7 g/dL (2.4-3.5) H 12/30/16 03:15 Albumin/Globulin Ratio 0.4 (1.1-2.2) L 12/30/16 03:15 Ur Specific [place] 1.028 (1.010-1.025) H 12/31/16 16:54 Urine Protein 100 mg/dL (Neg-Trace) H 12/31/16 16:54 Urine Glucose (UA) >=1000 mg/dL (Normal) H 12/31/16 16:54 Urine Ketones Trace mg/dL (Negative) H 12/31/16 16:54 Urine Blood Moderate (Negative) H 12/31/16 16:54 Urine Microscopic RBC 5-15 per hpf (0-3) H 12/31/16 16:54 Ur Squamous Epith Cells Many per lpf (None-Few) H 12/31/16 16:54 Vancomycin Trough 28.2 mcg/mL (10-20) H* 12/28/16 08:45 - Microbiology Findings Microbiology Findings: Microbiology, Last 48 Hours 12/26/16 07:44 Blood Culture - Final Peripheral Venipuncture No growth. 12/26/16 07:35 Blood Culture - Final Peripheral Venipuncture No growth. - Clinical Findings Intake & Output: Intake & Output 12/31/16 01/01/17 01/01/17 23:59 07:59 15:59 Intake Total 610 / 610 10 / 10 360 / 360 Output Total 1100 / 1100 825 / 825 Balance -490 / -490 -815 / -815 360 / 360 Weight 79.6 kg - Attending Attestation I examined this patient and my medical decision-making was reviewed with the Resident Physician. I agree with the documented findings, disposition and treatment plan as described except to the extent set forth below. Patient seen and examined. Labs, radiology, chart personally reviewed. 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 Patient is covered with broad-spectrum. Incentive spirometry. Cardiovascular: stable GI: Nutrition per dietary and GI prophylaxis per routine Heme: DVT prophylaxis per routine ID: Continue antibiotics and plan to de-escalation Renal; urine out put and renal funtion reviewed Endorcine: blood glucose is monitored Lines: all lines checked and no evidence of infections Skin: skin care to prevent pressure ulcers per nursing routine care Continue monitoring in ICU for another day or 2.
[2017-01-01 07:24] LABS: BUN/Creatinine Ratio 32 (6-26); Blood Urea Nitrogen 25 mg/dL (8-26); Calcium 8.6 mg/dL (8.6-10.8); Carbon Dioxide 26 mEq/L (19-29); Chloride 109 mEq/L (98-109); Glucose 224 mg/dL (70-99); Osmolality,Calculated 313 (280-300); Sodium 146 mEq/L (136-145); eGFR For African Americans > 60 (> 60); eGFR For Non-African Americans > 60 (> 60)
[2017-01-01 07:27] LABS: Basophils % 0.2 %; Eosinophils % 0.1 %; Hematocrit 39.5 % (37.5-50.1); Hemoglobin 12.2 g/dL (12.9-16.9); Lymphocytes # 1.2 K/mcL (0.6-4.6); Lymphocytes % 9.1 %; Mean Corpuscular HGB Conc 30.9 g/dL (31.6-35.5); Mean Corpuscular Volume 90.6 fL (83.0-100.0); Mean Platelet Volume 9.5 fL (9.4-12.4); Monocytes # 1.1 K/mcL (0.0-1.3); Monocytes % 8.6 %; Neutrophils # 10.5 K/mcL (1.6-8.9); Platelet Count 442 K/mcL (140-400); Red Blood Count 4.36 M/mcL (4.19-5.50); Red Cell Distribution Width 14.9 % (11.5-14.5)
[2017-01-01] MEDS: Budesonide/Formoterol 160/4.5 MDI IH SCH ×2 (07:43→20:20)
[2017-01-01] MEDS: Pantoprazole 40 MG VIAL IVP SCH (08:48)
[2017-01-01] MEDS: Sennosides/Docusate Sodium TABLET PO SCH ×2 (08:58→20:50)
[2017-01-01] MEDS: Aspirin 81 MG TAB.CHEW PO SCH (08:58)
[2017-01-01] MEDS: Insulin DETEMIR 100 UNIT/ML X5UNITS SQ SCH ×2 (09:01→20:58)
--- NOTE | 2017-01-01 10:03 | Vascular/[facility] Progress Note ---
Date of Encounter: 12/29/16 Time of Encounter: 17:00 - Assessment and plan (1) Atherosclerotic peripheral vascular disease with gangrene Current Visit: Yes Status: Chronic He is postoperative day #6 after an emergent right above knee amputation. The wound is healing and his ecchymosis has improved. Continue with daily dressing changes. (2) Mixed hyperlipidemia Current Visit: No Status: Chronic (3) Tobacco abuse Current Visit: No Status: Chronic (4) Essential hypertension Current Visit: No Status: Chronic (5) Chronic anemia Current Visit: No Status: Chronic (6) Septic shock Current Visit: Yes Status: Resolved Likely secondary to his gangrenous right lower extremity. - Subjective Interval history: The patient has been reintubated. Vital Signs, Last 4 Hours Temp Pulse Resp BP Pulse Ox 01/01/17 08:30 105 22 151/83 97 01/01/17 07:46 16 97 01/01/17 07:35 100.3 F H 01/01/17 07:30 89 20 143/79 97 - Physical Examination Vascular: Present: Surgical incisions (Incision clean, dry and intact without erythema or drainage, decreased ecchymosis.) - VTE Documentation of Mechanical Device: Intermittent pneumatic compression device Results 01/01/17 07:00 01/01/17 07:00 Lab Results, Last 24 hours 01/01/17 01/01/17 07:00 07:00 WBC 13.0 H Hgb 12.2 L Hct 39.5 Plt Count 442 H Sodium 146 H Potassium 3.0 L Chloride 109 Carbon Dioxide 26 BUN 25 Creatinine 0.78 Glucose 224 H Calcium 8.6 Consult Discharge Plan - Plan Referrals: Sunita Murrell MD [Primary Care Provider] -
--- NOTE | 2017-01-01 10:06 | Vascular/[facility] Progress Note ---
Date of Encounter: 01/01/17 Time of Encounter: 08:45 - Assessment and plan (1) Atherosclerotic peripheral vascular disease with gangrene Current Visit: Yes Status: Chronic He is postoperative day #9 after an emergent right above knee amputation. His wound is healing well. [place] will remain in for 2 additional weeks. Continue to keep wound covered and change dressing daily. (2) Mixed hyperlipidemia Current Visit: No Status: Chronic (3) Tobacco abuse Current Visit: No Status: Chronic (4) Essential hypertension Current Visit: No Status: Chronic (5) Chronic anemia Current Visit: No Status: Chronic (6) Septic shock Current Visit: Yes Status: Resolved Likely secondary to his gangrenous right lower extremity. - Subjective Interval history: He is extubated and resting comfortably. Vital Signs, Last 4 Hours Temp Pulse Resp BP Pulse Ox 01/01/17 09:30 104 20 125/48 98 01/01/17 08:30 105 22 151/83 97 01/01/17 07:46 16 97 01/01/17 07:35 100.3 F H 01/01/17 07:30 89 20 143/79 97 - VTE Documentation of Mechanical Device: Intermittent pneumatic compression device Results 01/01/17 07:00 01/01/17 07:00 Lab Results, Last 24 hours 01/01/17 01/01/17 07:00 07:00 WBC 13.0 H Hgb 12.2 L Hct 39.5 Plt Count 442 H Sodium 146 H Potassium 3.0 L Chloride 109 Carbon Dioxide 26 BUN 25 Creatinine 0.78 Glucose 224 H Calcium 8.6 Consult Discharge Plan - Plan Referrals: Sunita Murrell MD [Primary Care Provider] -
[2017-01-01] MEDS: Chlorhexidine Rinse 15 ML MOUTHWASH MM SCH ×2 (10:35→20:58)
[2017-01-02] MEDS: Lacri-Lube 3.5 GM TUBE BOTH EYES SCH ×3 (00:09→09:15)
[2017-01-02] MEDS: Insulin LISPRO 300 UNITS/3 ML VIAL SQ SCH ×6 (00:09→20:22)
[2017-01-02] MEDS: Meropenem 1,000 MG in Water for inj. (sterile) 10 ML IVP SCH ×3 (00:09→16:06)
[2017-01-02] MEDS: FentaNYL (PF) 3,000 MCG in 0.9 % Sodium Chloride 240 ML IVC SCH (00:14)
[2017-01-02] MEDS: *HR* HYDROmorphone 2 MG/ML SYRINGE IVP PRN (04:35)
[2017-01-02 04:46] LABS: Basophils % 0.1 %; Hematocrit 39.3 % (37.5-50.1); Hemoglobin 12.4 g/dL (12.9-16.9); Immature Granulocytes % 0.7 % (0-4); Lymphocytes # 1.4 K/mcL (0.6-4.6); Lymphocytes % 11.7 %; Mean Corpuscular HGB Conc 31.6 g/dL (31.6-35.5); Mean Corpuscular Hemoglobin 28.5 pg (28.0-33.3); Mean Corpuscular Volume 90.3 fL (83.0-100.0); Mean Platelet Volume 9.2 fL (9.4-12.4); Monocytes # 1.4 K/mcL (0.0-1.3); Monocytes % 12.1 %; Neutrophils # 8.7 K/mcL (1.6-8.9); Platelet Count 462 K/mcL (140-400); Red Blood Count 4.35 M/mcL (4.19-5.50); Red Cell Distribution Width 15.1 % (11.5-14.5); Segmented Neutrophils % 75.4 %
[2017-01-02 05:00] LABS: BUN/Creatinine Ratio 33 (6-26); Blood Urea Nitrogen 23 mg/dL (8-26); Calcium 8.2 mg/dL (8.6-10.8); Carbon Dioxide 26 mEq/L (19-29); Chloride 115 mEq/L (98-109); Glucose 86 mg/dL (70-99); Osmolality,Calculated 313 (280-300); Potassium 3.1 mEq/L (3.5-4.5); Sodium 150 mEq/L (136-145); eGFR For African Americans > 60 (> 60); eGFR For Non-African Americans > 60 (> 60)
[2017-01-02] MEDS: *HR* Heparin 5,000 UNIT/ML VIAL SQ SCH ×2 (05:37→18:24)
[2017-01-02] MEDS: Vancomycin 1,250 MG in D5% in Water 250 ML IVPB SCH ×2 (05:37→16:06)
[2017-01-02 07:14] LABS: Magnesium 2.4 mg/dL (1.6-2.6); Phosphorous 3.1 mg/dL (2.3-4.7)
[2017-01-02] MEDS: Budesonide/Formoterol 160/4.5 MDI IH SCH ×2 (07:45→19:26)
--- NOTE | 2017-01-02 07:53 | Pulmonology Progress Note ---
<Everett Fiore M - Last Filed: 01/02/17 08:19> Date of Encounter: 01/02/17 Objective PUL Vital signs: Last Vital Signs Temp 98.8 F 01/02/17 07:55 Pulse 118 01/02/17 07:54 Resp 15 01/02/17 07:47 BP 120/82 01/02/17 06:00 Pulse Ox 96 01/02/17 07:47 Results - Laboratory Findings CBC and BMP: 01/02/17 04:31 01/02/17 04:31 ABG ABG pH 7.42 pH Units (7.32-7.45) 12/30/16 05:44 ABG pCO2 51 mmHg (35-45) H 12/30/16 05:44 ABG pO2 71 mmHg (85-104) L 12/30/16 05:44 ABG O2 Saturation 94 % (95-98) L 12/30/16 05:44 PT/INR, D-dimer PT 13.2 Seconds (9.4-12.1) H 12/29/16 06:00 Abnormal lab findings: Abnormal lab results WBC 11.6 K/mcL (4.3-11.1) H 01/02/17 04:31 Hgb 12.4 g/dL (12.9-16.9) L 01/02/17 04:31 RDW 15.1 % (11.5-14.5) H 01/02/17 04:31 Plt Count 462 K/mcL (140-400) H 01/02/17 04:31 MPV 9.2 fL (9.4-12.4) L 01/02/17 04:31 Monocytes # 1.4 K/mcL (0.0-1.3) H 01/02/17 04:31 Nucleated RBCs/100 WBC 0.2 /100 WBC (0) H 12/29/16 06:00 Polychromasia 1+ (Not Present) A 12/26/16 03:32 PT 13.2 Seconds (9.4-12.1) H 12/29/16 06:00 APTT 39.1 Seconds (26.0-36.0) H 12/23/16 13:55 ABG pCO2 51 mmHg (35-45) H 12/30/16 05:44 ABG pO2 71 mmHg (85-104) L 12/30/16 05:44 ABG HCO3 33 mEq/L (21-27) H 12/30/16 05:44 ABG Total CO2 35 mEq/L (20-26) H 12/30/16 05:44 ABG O2 Saturation 94 % (95-98) L 12/30/16 05:44 ABG Base Excess 7 mEq/L (-2 to 3) H 12/30/16 05:44 Sodium 150 mEq/L (136-145) H 01/02/17 04:31 Potassium 3.1 mEq/L (3.5-4.5) L 01/02/17 04:31 Chloride 115 mEq/L (98-109) H 01/02/17 04:31 Creatinine 0.70 mg/dL (0.72-1.25) L 01/02/17 04:31 BUN/Creatinine Ratio 33 (6-26) H 01/02/17 04:31 POC Glucose 185 (58-89) H 01/02/17 07:24 Calculated Osmolality 313 (280-300) H 01/02/17 04:31 Calcium 8.2 mg/dL (8.6-10.8) L 01/02/17 04:31 Ionized Calcium 1.10 mmol/L (1.15-1.35) L 12/30/16 03:15 Troponin I 25.68 ng/mL (0-0.03) H* 12/25/16 03:40 Albumin 1.8 g/dL (3.5-5.0) L 12/30/16 03:15 Globulin 4.7 g/dL (2.4-3.5) H 12/30/16 03:15 Albumin/Globulin Ratio 0.4 (1.1-2.2) L 12/30/16 03:15 Ur Specific [place] 1.028 (1.010-1.025) H 12/31/16 16:54 Urine Protein 100 mg/dL (Neg-Trace) H 12/31/16 16:54 Urine Glucose (UA) >=1000 mg/dL (Normal) H 12/31/16 16:54 Urine Ketones Trace mg/dL (Negative) H 12/31/16 16:54 Urine Blood Moderate (Negative) H 12/31/16 16:54 Urine Microscopic RBC 5-15 per hpf (0-3) H 12/31/16 16:54 Ur Squamous Epith Cells Many per lpf (None-Few) H 12/31/16 16:54 - Microbiology Findings Microbiology Findings: Microbiology, Last 48 Hours 12/31/16 16:28 Blood Culture - Preliminary Peripheral Venipuncture No growth. 12/31/16 16:28 Blood Culture - Preliminary Peripheral Venipuncture No growth. 12/26/16 07:44 Blood Culture - Final Peripheral Venipuncture No growth. 12/26/16 07:35 Blood Culture - Final Peripheral Venipuncture No growth. - Clinical Findings Intake & Output: Intake & Output 01/01/17 01/02/17 01/02/17 23:59 07:59 15:59 Intake Total 260 / 260 Output Total 550 / 550 375 / 375 Balance -290 / -290 -365 / -365 Weight 80.05 kg Consult Discharge Plan - Plan Referrals: Sunita Murrell MD [Primary Care Provider] - - Attending Attestation I examined this patient and my medical decision-making was reviewed with the Resident Physician. I agree with the documented findings, disposition and treatment plan as described except to the extent set forth below. Patient seen and examined. Labs, radiology, chart personally reviewed. 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 Patient is doing much better and continue incentive spirometry. Cardiovascular: stable GI: Nutrition per dietary and GI prophylaxis per routine Heme: DVT prophylaxis per routine ID: Continue antibiotics and plan to de-escalation. Patient still have low- grade fever and is not clear entirely disorders, however I suspect pneumonia could not be and broad-spectrum antibiotics to be Continue until fever is improving or cultures are negative. Renal; urine out put and renal funtion reviewed. Replace electrolytes. Endorcine: blood glucose is monitored Lines: all lines checked and no evidence of infections Skin: skin care to prevent pressure ulcers per nursing routine care Checked with vascular surgery and patient can be transferred to [facility]. will follow -up when necessary. Patient will need physical therapy. <Niyah Virgen - Last Filed: 01/02/17 11:34> Date of Encounter: 01/02/17 Time of Encounter: 07:00 Assessment and Plan (1) Acute respiratory failure Current Visit: Yes Status: Resolved - Likely secondary to septic shock and multifocal pneumonia. - Patient was successfully extubated on 12/31/16 and remains on nasal cannula since. - Currently maintains O2 sat 97% on 3L NC. - Continue bronchodilator, supplemental oxygen and incentive spirometry. - Continue antibiotics for pneumonia. - Given patient's respiratory status improves and remains hemodynamically stable , patient can be transferred to . Case was signed off to admitting hospitalist Dr. Turner. Qualifiers: Respiratory failure complication: hypoxia Qualified Code(s): J96.01 - Acute respiratory failure with hypoxia (2) Pneumonia Current Visit: Yes Status: Acute - CT chest on 12/27/16 found multifocal consolidation consistent with pneumonia with trace left pleural effusion. - Clinically improves as patient's respiratory status improves both subjectively and objectively. - Continue IV vancomycin (since 12/23) and IV meropenem (since 12/26). The plan is to have total 14-day course for both antibiotics. 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 POD#10. - Vascular surgery on board and recommends continue wound care and daily dress change. (4) Septic shock Current Visit: Yes Status: Resolved - 4 SIRS criteria (fever, tachycardia, tachypnea and leukocytosis) with persistent hypotension and lactic acid 7.2 on admission. - Likely secondary to right lower extremity gangrene/infection. The multifocal pneumonia found later on CT chest likely also plays some role. - Improves as patient remains afebrile and blood pressure stable without the need of pressor. - Continue IV vancomycin (since 12/23) and IV meropenem (since 12/26). - Continue to monitor. (5) Elevated troponin Current Visit: Yes Status: Acute - Elevated troponin on admission and peaked at >50.00 on 12/24/16 before trending down to 25.68 on 12/25/16 - Cardiology note from 12/14/16 recommended considering LHC prior to discharge after clinical status improves and blood count stabilizes. Patient was considered not a good candidate for cath at that time. (6) Diabetes mellitus with peripheral angiopathy with gangrene Current Visit: Yes Status: Acute - Continue basal and sliding scale insulin with frequent glucose monitoring. Qualifiers: Diabetes mellitus type: type 2 Diabetes mellitus director long term care insulin use: with long-term use Qualified Code(s): E11.52 - Type 2 diabetes mellitus with diabetic peripheral angiopathy with gangrene; Z79.4 - director long term care (current) use of insulin; Z79.4 - [facility] (current) use of insulin; Z79.4 - [facility] ( current) use of insulin; Z79.4 - director long term care (current) use of insulin (7) Decubitus ulcer of coccygeal region, stage 2 Current Visit: Yes Status: Acute - Stage 2 decubitus ulcer noted at coccyx. - Continue support care. (8) DVT prophylaxis Current Visit: Yes Status: Acute - Continue SQ heparin. Subjective Principal diagnosis: Ischemic limb Interval history: Patient was seen and examined this morning. Patient reports breathing better than better. Patient has some pain at right AKA site but denies chest pain, abdominal pain, nausea, vomiting, fever, chills. Objective PUL Vital signs: Last Vital Signs Temp 99.6 F 01/02/17 03:35 Pulse 104 01/02/17 06:00 Resp 15 01/02/17 07:47 BP 120/82 01/02/17 06:00 Pulse Ox 96 01/02/17 07:47 General appearance: no acute distress Eyes: nonicteric Neck: supple Effort: normal Auscultation: bilateral: clear Cardiovascular: other (Tachycardia) Gastrointestinal: hypoactive bowel sounds, soft Integumentary: decubitus ulcer (Coccyx decubitus ulcer stage II) Extremities: no cyanosis, no edema, other (Right AKA) normal mental status mood appropriate, affect normal Results - Laboratory Findings CBC and BMP: 01/02/17 04:31 01/02/17 04:31 ABG ABG pH 7.42 pH Units (7.32-7.45) 12/30/16 05:44 ABG pCO2 51 mmHg (35-45) H 12/30/16 05:44 ABG pO2 71 mmHg (85-104) L 12/30/16 05:44 ABG O2 Saturation 94 % (95-98) L 12/30/16 05:44 PT/INR, D-dimer PT 13.2 Seconds (9.4-12.1) H 12/29/16 06:00 Abnormal lab findings: Abnormal lab results WBC 11.6 K/mcL (4.3-11.1) H 01/02/17 04:31 Hgb 12.4 g/dL (12.9-16.9) L 01/02/17 04:31 RDW 15.1 % (11.5-14.5) H 01/02/17 04:31 Plt Count 462 K/mcL (140-400) H 01/02/17 04:31 MPV 9.2 fL (9.4-12.4) L 01/02/17 04:31 Monocytes # 1.4 K/mcL (0.0-1.3) H 01/02/17 04:31 Nucleated RBCs/100 WBC 0.2 /100 WBC (0) H 12/29/16 06:00 Polychromasia 1+ (Not Present) A 12/26/16 03:32 PT 13.2 Seconds (9.4-12.1) H 12/29/16 06:00 APTT 39.1 Seconds (26.0-36.0) H 12/23/16 13:55 ABG pCO2 51 mmHg (35-45) H 12/30/16 05:44 ABG pO2 71 mmHg (85-104) L 12/30/16 05:44 ABG HCO3 33 mEq/L (21-27) H 12/30/16 05:44 ABG Total CO2 35 mEq/L (20-26) H 12/30/16 05:44 ABG O2 Saturation 94 % (95-98) L 12/30/16 05:44 ABG Base Excess 7 mEq/L (-2 to 3) H 12/30/16 05:44 Sodium 150 mEq/L (136-145) H 01/02/17 04:31 Potassium 3.1 mEq/L (3.5-4.5) L 01/02/17 04:31 Chloride 115 mEq/L (98-109) H 01/02/17 04:31 Creatinine 0.70 mg/dL (0.72-1.25) L 01/02/17 04:31 BUN/Creatinine Ratio 33 (6-26) H 01/02/17 04:31 POC Glucose 185 (58-89) H 01/02/17 07:24 Calculated Osmolality 313 (280-300) H 01/02/17 04:31 Calcium 8.2 mg/dL (8.6-10.8) L 01/02/17 04:31 Ionized Calcium 1.10 mmol/L (1.15-1.35) L 12/30/16 03:15 Troponin I 25.68 ng/mL (0-0.03) H* 12/25/16 03:40 Albumin 1.8 g/dL (3.5-5.0) L 12/30/16 03:15 Globulin 4.7 g/dL (2.4-3.5) H 12/30/16 03:15 Albumin/Globulin Ratio 0.4 (1.1-2.2) L 12/30/16 03:15 Ur Specific [place] 1.028 (1.010-1.025) H 12/31/16 16:54 Urine Protein 100 mg/dL (Neg-Trace) H 12/31/16 16:54 Urine Glucose (UA) >=1000 mg/dL (Normal) H 12/31/16 16:54 Urine Ketones Trace mg/dL (Negative) H 12/31/16 16:54 Urine Blood Moderate (Negative) H 12/31/16 16:54 Urine Microscopic RBC 5-15 per hpf (0-3) H 12/31/16 16:54 Ur Squamous Epith Cells Many per lpf (None-Few) H 12/31/16 16:54 - Microbiology Findings Microbiology Findings: Microbiology, Last 48 Hours 12/26/16 07:44 Blood Culture - Final Peripheral Venipuncture No growth. 12/26/16 07:35 Blood Culture - Final Peripheral Venipuncture No growth. - Diagnostic Findings Chest x-ray: report reviewed, image reviewed - Clinical Findings Intake & Output: Intake & Output 01/01/17 01/01/17 01/02/17 15:59 23:59 07:59 Intake Total 560 / 560 260 / 260 10 10 Output Total 300 / 300 550 / 550 200 / 200 Balance 260 / 260 -290 / -290 -190 / -190 Weight 80.05 kg - VTE Documentation of Mechanical Device: Intermittent pneumatic compression device
[2017-01-02 08:58] LABS: VBG HCO3 28 mEq/L (21-27); VBG Ionized Calcium 1.09 mmol/L (1.15-1.35); VBG PCO2 37 mmHg (41-51); VBG PH 7.49 pH Units (7.32-7.42); VBG PO2 182 mmHg (25-50)
[2017-01-02] MEDS: Pantoprazole 40 MG VIAL IVP SCH (09:13)
[2017-01-02] MEDS: Aspirin 81 MG TAB.CHEW PO SCH (09:13)
[2017-01-02] MEDS: Sennosides/Docusate Sodium TABLET PO SCH ×2 (09:13→19:58)
[2017-01-02] MEDS: Chlorhexidine Rinse 15 ML MOUTHWASH MM SCH ×2 (09:15→19:57)
[2017-01-02] MEDS: Insulin DETEMIR 100 UNIT/ML X5UNITS SQ SCH ×2 (09:16→20:21)
[2017-01-02] MEDS ORDERED: Naloxone 0.4 MG/ML INJ IVP PRN (10:32)
[2017-01-02] MEDS ORDERED: *HR* Dextrose 50 % in Water (Syg) 50 ML SYRINGE IVP PRN (10:32)
[2017-01-02] MEDS ORDERED: D5% in Water 1,000 ML IVC PRN (10:32)
[2017-01-02] MEDS ORDERED: Dextrose Gel 15 GM PO PRN ×2 (10:32)
[2017-01-02] MEDS ORDERED: Acetaminophen 325 MG TABLET PO PRN (10:32)
[2017-01-02] MEDS ORDERED: Potassium Chloride Elixir 20 MEQ/15 ML UDC PO ONE (18:50)
[2017-01-02 19:30] LABS: VBG HCO3 29 mEq/L (21-27); VBG Ionized Calcium 1.13 mmol/L (1.15-1.35); VBG PCO2 45 mmHg (41-51); VBG PH 7.42 pH Units (7.32-7.42); VBG PO2 49 mmHg (25-50)
[2017-01-03] MEDS: Meropenem 1,000 MG in Water for inj. (sterile) 10 ML IVP SCH ×4 (00:24→23:25)
[2017-01-03] MEDS: *HR* HYDROmorphone (PF) 1 MG/ML SYRINGE IVP PRN (00:24)
[2017-01-03] MEDS: Insulin LISPRO 300 UNITS/3 ML VIAL SQ SCH ×7 (00:25→23:26)
[2017-01-03 05:30] LABS: Basophils % 0.1 %; Eosinophils % 0.1 %; Lymphocytes # 1.3 K/mcL (0.6-4.6); Lymphocytes % 13.3 %; Mean Corpuscular Hemoglobin 27.7 pg (28.0-33.3); Mean Corpuscular Volume 92.4 fL (83.0-100.0); Mean Platelet Volume 9.4 fL (9.4-12.4); Monocytes # 1.3 K/mcL (0.0-1.3); Monocytes % 12.4 %; Neutrophils # 7.4 K/mcL (1.6-8.9); Platelet Count 450 K/mcL (140-400); Red Blood Count 4.33 M/mcL (4.19-5.50); Red Cell Distribution Width 15.3 % (11.5-14.5); Segmented Neutrophils % 73.1 %
[2017-01-03] MEDS: Vancomycin 1,250 MG in D5% in Water 250 ML IVPB SCH ×2 (05:45→15:59)
[2017-01-03] MEDS: *HR* Heparin 5,000 UNIT/ML VIAL SQ SCH ×2 (05:45→17:06)
[2017-01-03 05:46] LABS: BUN/Creatinine Ratio 29 (6-26); Blood Urea Nitrogen 22 mg/dL (8-26); Calcium 8.3 mg/dL (8.6-10.8); Carbon Dioxide 25 mEq/L (19-29); Chloride 115 mEq/L (98-109); Glucose 175 mg/dL (70-99); Osmolality,Calculated 318 (280-300); Potassium 3.5 mEq/L (3.5-4.5); Sodium 150 mEq/L (136-145); eGFR For African Americans > 60 (> 60); eGFR For Non-African Americans > 60 (> 60)
[2017-01-03] MEDS: Pantoprazole 40 MG VIAL IVP SCH (07:52)
[2017-01-03] MEDS: Budesonide/Formoterol 160/4.5 MDI IH SCH ×2 (07:53→20:39)
[2017-01-03] MEDS: Chlorhexidine Rinse 15 ML MOUTHWASH MM SCH ×2 (07:55→20:31)
[2017-01-03] MEDS: Aspirin 81 MG TAB.CHEW PO SCH (07:55)
[2017-01-03] MEDS: Sennosides/Docusate Sodium TABLET PO SCH ×2 (07:56→20:20)
--- NOTE | 2017-01-03 08:55 | Internal Med Progress Note ---
Date of Encounter: 01/03/17 Time of Encounter: 08:00 - Assessment and plan (1) Acute respiratory failure Current Visit: Yes Status: Resolved Qualifiers: Respiratory failure complication: hypoxia Qualified Code(s): J96.01 - Acute respiratory failure with hypoxia (2) Pneumonia Current Visit: Yes Status: Acute Qualifiers: Pneumonia type: due to unspecified organism Laterality: bilateral Lung location: unspecified part of lung Qualified Code(s): J18.9 - Pneumonia, unspecified organism (3) Atherosclerotic peripheral vascular disease with gangrene Current Visit: Yes Status: Chronic (4) Septic shock Current Visit: Yes Status: Resolved (5) Elevated troponin Current Visit: Yes Status: Acute (6) Diabetes mellitus with peripheral angiopathy with gangrene Current Visit: Yes Status: Acute Qualifiers: Diabetes mellitus type: type 2 Diabetes mellitus ad terminal makeup 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 Patient was seen and examined this morning. Patient reports breathing continue to improve. Patient has some pain at right AKA site but denies abdominal pain, nausea, vomiting, fever, chills. - Constitutional Vitals: Temp Pulse Resp BP Pulse Ox 99.1 F 106 16 126/72 95 01/03/17 08:02 01/03/17 08:00 01/03/17 08:00 01/03/17 08:00 01/03/17 08:00 Internal Medicine: Result - Labs CBC & Chem 7: 01/03/17 04:58 01/03/17 04:58 Labs: Short CBC 01/03/17 Range/Units 04:58 WBC 10.1 (4.3-11.1) K/mcL Hgb 12.0 L (12.9-16.9) g/dL Hct 40.0 (37.5-50.1) % Plt Count 450 H (140-400) K/mcL Neutrophils # 7.4 (1.6-8.9) K/mcL BMP 01/02/17 01/03/17 17:49 04:58 Sodium 150 H Potassium 3.6 3.5 Chloride 115 H Carbon Dioxide 25 BUN 22 Creatinine 0.75 Glucose 175 H Calcium 8.3 L - ABG Interpretation ABG results: ABG ABG pH 7.42 pH Units (7.32-7.45) 12/30/16 05:44 ABG pCO2 51 mmHg (35-45) H 12/30/16 05:44 ABG pO2 71 mmHg (85-104) L 12/30/16 05:44 ABG O2 Saturation 94 % (95-98) L 12/30/16 05:44 PT/INR, D-dimer PT 13.2 Seconds (9.4-12.1) H 12/29/16 06:00 - VTE Documentation of Mechanical Device: Intermittent pneumatic compression device Consult Discharge Plan - Plan Referrals: Sunita Murrell MD [Primary Care Provider] -
[2017-01-03] MEDS: Insulin DETEMIR 100 UNIT/ML X5UNITS SQ SCH ×2 (09:19→20:34)
--- NOTE | 2017-01-03 10:05 | Pulmonology Progress Note ---
<Niyah Virgen - Last Filed: 01/03/17 10:05> Date of Encounter: 01/03/17 Time of Encounter: 08:00 Assessment and Plan (1) Acute respiratory failure Current Visit: Yes Status: Resolved - Likely secondary to septic shock and multifocal pneumonia. - Patient was successfully extubated on 12/31/16. - Currently O2 sat 95% on room air. - Continue bronchodilator, supplemental oxygen and incentive spirometry. - Continue antibiotics for pneumonia. - Given patient's respiratory status improves and remains hemodynamically stable , patient can be transferred to once bed is available. Qualifiers: Respiratory failure complication: hypoxia Qualified Code(s): J96.01 - Acute respiratory failure with hypoxia (2) Pneumonia Current Visit: Yes Status: Acute - CT chest on 12/27/16 found multifocal consolidation consistent with pneumonia with trace left pleural effusion. - Clinically improves as patient's respiratory status improves both subjectively and objectively. - Continue IV vancomycin (since 12/23) and IV meropenem (since 12/26). The plan is finish total 14-day course for both antibiotics. 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 POD#11. - Vascular surgery on board and recommends continue wound care and daily dress change. (4) Septic shock Current Visit: Yes Status: Resolved - 4 SIRS criteria (fever, tachycardia, tachypnea and leukocytosis) with persistent hypotension and lactic acid 7.2 on admission. - Likely secondary to right lower extremity gangrene/infection. The multifocal pneumonia found later on CT chest likely also plays some role. - Improves as patient remains afebrile and blood pressure stable without the need of pressor. - Continue IV vancomycin (since 12/23) and IV meropenem (since 12/26). The goal is to finish total 14-day course for both antibiotics. - Continue to monitor. (5) Elevated troponin Current Visit: Yes Status: Acute - Elevated troponin on admission and peaked at >50.00 on 12/24/16 before trending down to 25.68 on 12/25/16 - Cardiology note from 12/14/16 recommended considering LHC prior to discharge after clinical status improves and blood count stabilizes. Patient was considered not a good candidate for cath at that time. (6) Diabetes mellitus with peripheral angiopathy with gangrene Current Visit: Yes Status: Acute - Continue basal and sliding scale insulin with frequent glucose monitoring. Qualifiers: Diabetes mellitus type: type 2 Diabetes mellitus local flatbed driver insulin use: with local flatbed driver use Qualified Code(s): E11.52 - Type 2 diabetes mellitus with diabetic peripheral angiopathy with gangrene; Z79.4 - double cutter (current) use of insulin; Z79.4 - double cutter (current) use of insulin; Z79.4 - double cutter ( current) use of insulin; Z79.4 - double cutter (current) use of insulin (7) Decubitus ulcer of coccygeal region, stage 2 Current Visit: Yes Status: Acute - Stage 2 decubitus ulcer noted at coccyx. - Continue support care. (8) DVT prophylaxis Current Visit: Yes Status: Acute - Continue SQ heparin. Subjective Principal diagnosis: Ischemic limb Interval history: Patient was noted to have fever 100.6 overnight but temperature back to normal this morning. Patient was seen and examined this morning. Patient reports breathing continue to improve. Patient has some pain at right AKA site but denies abdominal pain, nausea, vomiting, fever, chills. Objective PUL Vital signs: Last Vital Signs Temp 99.1 F 01/03/17 08:02 Pulse 95 01/03/17 08:00 Resp 16 01/03/17 08:00 BP 126/72 01/03/17 08:00 Pulse Ox 95 01/03/17 08:00 General appearance: no acute distress Eyes: nonicteric ENT: oropharynx dry Neck: supple Effort: normal Auscultation: bilateral: clear Cardiovascular: regular rate and rhythm Gastrointestinal: normoactive bowel sounds, soft Integumentary: decubitus ulcer (Stage II Coccyx decubitus ulcer) Extremities: no cyanosis, no edema, other (Right AKA site dry, clean and intact) normal mental status, non-focal exam mood appropriate, affect normal Results - Laboratory Findings CBC and BMP: 01/03/17 04:58 01/03/17 04:58 ABG ABG pH 7.42 pH Units (7.32-7.45) 12/30/16 05:44 ABG pCO2 51 mmHg (35-45) H 12/30/16 05:44 ABG pO2 71 mmHg (85-104) L 12/30/16 05:44 ABG O2 Saturation 94 % (95-98) L 12/30/16 05:44 PT/INR, D-dimer PT 13.2 Seconds (9.4-12.1) H 12/29/16 06:00 Abnormal lab findings: Abnormal lab results Hgb 12.0 g/dL (12.9-16.9) L 01/03/17 04:58 MCH 27.7 pg (28.0-33.3) L 01/03/17 04:58 MCHC 30.0 g/dL (31.6-35.5) L 01/03/17 04:58 RDW 15.3 % (11.5-14.5) H 01/03/17 04:58 Plt Count 450 K/mcL (140-400) H 01/03/17 04:58 Nucleated RBCs/100 WBC 0.2 /100 WBC (0) H 12/29/16 06:00 Platelet Estimate Slight increase (Normal) H 01/03/17 04:58 Polychromasia 1+ (Not Present) A 12/26/16 03:32 PT 13.2 Seconds (9.4-12.1) H 12/29/16 06:00 APTT 39.1 Seconds (26.0-36.0) H 12/23/16 13:55 ABG pCO2 51 mmHg (35-45) H 12/30/16 05:44 ABG pO2 71 mmHg (85-104) L 12/30/16 05:44 ABG HCO3 33 mEq/L (21-27) H 12/30/16 05:44 ABG Total CO2 35 mEq/L (20-26) H 12/30/16 05:44 ABG O2 Saturation 94 % (95-98) L 12/30/16 05:44 ABG Base Excess 7 mEq/L (-2 to 3) H 12/30/16 05:44 VBG HCO3 29 mEq/L (21-27) H 01/02/17 19:23 Sodium 150 mEq/L (136-145) H 01/03/17 04:58 Chloride 115 mEq/L (98-109) H 01/03/17 04:58 BUN/Creatinine Ratio 29 (6-26) H 01/03/17 04:58 Glucose 175 mg/dL (70-99) H 01/03/17 04:58 POC Glucose 186 (58-89) H 01/03/17 07:21 Calculated Osmolality 318 (280-300) H 01/03/17 04:58 Calcium 8.3 mg/dL (8.6-10.8) L 01/03/17 04:58 Venous Ioniz Calcium 1.13 mmol/L (1.15-1.35) L 01/02/17 19:23 Ionized Calcium 1.10 mmol/L (1.15-1.35) L 12/30/16 03:15 Troponin I 25.68 ng/mL (0-0.03) H* 12/25/16 03:40 Albumin 1.8 g/dL (3.5-5.0) L 12/30/16 03:15 Globulin 4.7 g/dL (2.4-3.5) H 12/30/16 03:15 Albumin/Globulin Ratio 0.4 (1.1-2.2) L 12/30/16 03:15 Ur Specific [place] 1.028 (1.010-1.025) H 12/31/16 16:54 Urine Protein 100 mg/dL (Neg-Trace) H 12/31/16 16:54 Urine Glucose (UA) >=1000 mg/dL (Normal) H 12/31/16 16:54 Urine Ketones Trace mg/dL (Negative) H 12/31/16 16:54 Urine Blood Moderate (Negative) H 12/31/16 16:54 Urine Microscopic RBC 5-15 per hpf (0-3) H 12/31/16 16:54 Ur Squamous Epith Cells Many per lpf (None-Few) H 12/31/16 16:54 - Microbiology Findings Microbiology Findings: Microbiology, Last 48 Hours 12/31/16 16:28 Blood Culture - Preliminary Peripheral Venipuncture No growth. 12/31/16 16:28 Blood Culture - Preliminary Peripheral Venipuncture No growth. 12/26/16 07:44 Blood Culture - Final Peripheral Venipuncture No growth. 12/26/16 07:35 Blood Culture - Final Peripheral Venipuncture No growth. - Clinical Findings Intake & Output: Intake & Output 11/01/03/17 01/03/17 23:59 07:59 15:59 Intake Total 260 / 260 10 / 10 Output Total 200 / 200 400 / 400 100 / 100 Balance 60 / 60 -390 / -390 -100 / -100 - VTE Documentation of Mechanical Device: Intermittent pneumatic compression device Consult Discharge Plan - Plan Referrals: Sunita Murrell MD [Primary Care Provider] - <Everett Fiore Ramona - Last Filed: 01/03/17 10:52> Date of Encounter: 01/03/17 Objective PUL Vital signs: Last Vital Signs Temp 99.1 F 01/03/17 08:02 Pulse 96 01/03/17 10:00 Resp 16 01/03/17 10:00 BP 131/73 01/03/17 10:00 Pulse Ox 95 01/03/17 10:00 Results - Laboratory Findings CBC and BMP: 01/03/17 04:58 01/03/17 04:58 ABG ABG pH 7.42 pH Units (7.32-7.45) 12/30/16 05:44 ABG pCO2 51 mmHg (35-45) H 12/30/16 05:44 ABG pO2 71 mmHg (85-104) L 12/30/16 05:44 ABG O2 Saturation 94 % (95-98) L 12/30/16 05:44 PT/INR, D-dimer PT 13.2 Seconds (9.4-12.1) H 12/29/16 06:00 Abnormal lab findings: Abnormal lab results Hgb 12.0 g/dL (12.9-16.9) L 01/03/17 04:58 MCH 27.7 pg (28.0-33.3) L 01/03/17 04:58 MCHC 30.0 g/dL (31.6-35.5) L 01/03/17 04:58 RDW 15.3 % (11.5-14.5) H 01/03/17 04:58 Plt Count 450 K/mcL (140-400) H 01/03/17 04:58 Nucleated RBCs/100 WBC 0.2 /100 WBC (0) H 12/29/16 06:00 Platelet Estimate Slight increase (Normal) H 01/03/17 04:58 Polychromasia 1+ (Not Present) A 12/26/16 03:32 PT 13.2 Seconds (9.4-12.1) H 12/29/16 06:00 APTT 39.1 Seconds (26.0-36.0) H 12/23/16 13:55 ABG pCO2 51 mmHg (35-45) H 12/30/16 05:44 ABG pO2 71 mmHg (85-104) L 12/30/16 05:44 ABG HCO3 33 mEq/L (21-27) H 12/30/16 05:44 ABG Total CO2 35 mEq/L (20-26) H 12/30/16 05:44 ABG O2 Saturation 94 % (95-98) L 12/30/16 05:44 ABG Base Excess 7 mEq/L (-2 to 3) H 12/30/16 05:44 VBG HCO3 29 mEq/L (21-27) H 01/02/17 19:23 Sodium 150 mEq/L (136-145) H 01/03/17 04:58 Chloride 115 mEq/L (98-109) H 01/03/17 04:58 BUN/Creatinine Ratio 29 (6-26) H 01/03/17 04:58 Glucose 175 mg/dL (70-99) H 01/03/17 04:58 POC Glucose 186 (58-89) H 01/03/17 07:21 Calculated Osmolality 318 (280-300) H 01/03/17 04:58 Calcium 8.3 mg/dL (8.6-10.8) L 01/03/17 04:58 Venous Ioniz Calcium 1.13 mmol/L (1.15-1.35) L 01/02/17 19:23 Ionized Calcium 1.10 mmol/L (1.15-1.35) L 12/30/16 03:15 Troponin I 25.68 ng/mL (0-0.03) H* 12/25/16 03:40 Albumin 1.8 g/dL (3.5-5.0) L 12/30/16 03:15 Globulin 4.7 g/dL (2.4-3.5) H 12/30/16 03:15 Albumin/Globulin Ratio 0.4 (1.1-2.2) L 12/30/16 03:15 Ur Specific [place] 1.028 (1.010-1.025) H 12/31/16 16:54 Urine Protein 100 mg/dL (Neg-Trace) H 12/31/16 16:54 Urine Glucose (UA) >=1000 mg/dL (Normal) H 12/31/16 16:54 Urine Ketones Trace mg/dL (Negative) H 12/31/16 16:54 Urine Blood Moderate (Negative) H 12/31/16 16:54 Urine Microscopic RBC 5-15 per hpf (0-3) H 12/31/16 16:54 Ur Squamous Epith Cells Many per lpf (None-Few) H 12/31/16 16:54 - Microbiology Findings Microbiology Findings: Microbiology, Last 48 Hours 12/31/16 16:28 Blood Culture - Preliminary Peripheral Venipuncture No growth. 12/31/16 16:28 Blood Culture - Preliminary Peripheral Venipuncture No growth. 12/26/16 07:44 Blood Culture - Final Peripheral Venipuncture No growth. 12/26/16 07:35 Blood Culture - Final Peripheral Venipuncture No growth. - Clinical Findings Intake & Output: Intake & Output 01/02/17 01/03/17 01/03/17 23:59 07:59 15:59 Intake Total 260 / 260 10 / 10 Output Total 200 / 200 400 / 400 100 / 100 Balance 60 / 60 -390 / -390 -100 / -100 - Attending Attestation I examined this patient and my medical decision-making was reviewed with the Resident Physician. I agree with the documented findings, disposition and treatment plan as described except to the extent set forth below. Patient seen and examined. Labs, radiology, chart personally reviewed. 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 Patient WBC is improving on current treatment and continue for total of 14 days for pneumonia. Wean off FiO2 to keep SPO2 around 90%. Cardiovascular: stable GI: Nutrition per dietary and GI prophylaxis per routine Heme: DVT prophylaxis per routine ID: Continue antibiotics and plan to de-escalation Renal; urine out put and renal funtion reviewed Endorcine: blood glucose is monitored Lines: all lines checked and no evidence of infections Skin: skin care to prevent pressure ulcers per nursing routine care Patient is awaiting for a bed to be transferred out. Physical therapy is important
[2017-01-04] MEDS: Vancomycin 1,250 MG in D5% in Water 250 ML IVPB SCH ×2 (03:45→16:22)
[2017-01-04] MEDS: Insulin LISPRO 300 UNITS/3 ML VIAL SQ SCH ×5 (03:49→20:52)
[2017-01-04] MEDS: *HR* Heparin 5,000 UNIT/ML VIAL SQ SCH ×2 (05:34→17:19)
[2017-01-04 06:25] LABS: BUN/Creatinine Ratio 25 (6-26); Blood Urea Nitrogen 19 mg/dL (8-26); Calcium 8.1 mg/dL (8.6-10.8); Carbon Dioxide 22 mEq/L (19-29); Chloride 118 mEq/L (98-109); Glucose 182 mg/dL (70-99); Osmolality,Calculated 315 (280-300); Potassium 3.5 mEq/L (3.5-4.5); Sodium 149 mEq/L (136-145); eGFR For African Americans > 60 (> 60); eGFR For Non-African Americans > 60 (> 60)
[2017-01-04 06:27] LABS: Basophils % 0.2 %; Eosinophils % 0.1 %; Hemoglobin 11.9 g/dL (12.9-16.9); Immature Granulocytes % 2.2 % (0-4); Lymphocytes # 2.4 K/mcL (0.6-4.6); Mean Corpuscular HGB Conc 31.3 g/dL (31.6-35.5); Mean Corpuscular Hemoglobin 28.5 pg (28.0-33.3); Mean Corpuscular Volume 90.9 fL (83.0-100.0); Mean Platelet Volume 9.7 fL (9.4-12.4); Monocytes # 1.5 K/mcL (0.0-1.3); Monocytes % 11.8 %; Neutrophils # 8.8 K/mcL (1.6-8.9); Platelet Count 448 K/mcL (140-400); Red Blood Count 4.18 M/mcL (4.19-5.50); Red Cell Distribution Width 15.3 % (11.5-14.5); Segmented Neutrophils % 67.7 %
[2017-01-04] MEDS: *HR* HYDROmorphone (PF) 1 MG/ML SYRINGE IVP PRN (08:27)
[2017-01-04] MEDS: Pantoprazole 40 MG VIAL IVP SCH (08:33)
[2017-01-04] MEDS: Meropenem 1,000 MG in Water for inj. (sterile) 10 ML IVP SCH ×2 (08:33→16:22)
[2017-01-04] MEDS: Sennosides/Docusate Sodium TABLET PO SCH ×2 (08:34→21:19)
[2017-01-04] MEDS: Aspirin 81 MG TAB.CHEW PO SCH (08:34)
[2017-01-04] MEDS: Chlorhexidine Rinse 15 ML MOUTHWASH MM SCH ×2 (08:34→21:27)
[2017-01-04] MEDS: Insulin DETEMIR 100 UNIT/ML X5UNITS SQ SCH ×2 (08:36→21:27)
[2017-01-04] MEDS: Budesonide/Formoterol 160/4.5 MDI IH SCH ×2 (08:51→20:35)
--- NOTE | 2017-01-04 08:58 | Internal Med Progress Note ---
<Candace Yancey - Last Filed: 01/04/17 08:58> Date of Encounter: 01/04/17 - Assessment and plan (1) Acute respiratory failure Current Visit: Yes Status: Resolved Qualifiers: Respiratory failure complication: hypoxia Qualified Code(s): J96.01 - Acute respiratory failure with hypoxia (2) Septic shock Current Visit: Yes Status: Resolved (3) Acute blood loss anemia Current Visit: Yes Status: Acute (4) Ischemic leg Current Visit: Yes Status: Acute (5) Diabetes mellitus with peripheral angiopathy with gangrene Current Visit: Yes Status: Acute Qualifiers: Diabetes mellitus type: type 2 Diabetes mellitus buttermaker continuous churn insulin use: with buttermaker continuous churn use Qualified Code(s): E11.52 - Type 2 diabetes mellitus with diabetic peripheral angiopathy with gangrene; Z79.4 - director long term care (current) use of insulin; Z79.4 - director long term care (current) use of insulin; Z79.4 - director long term care ( current) use of insulin; Z79.4 - director long term care (current) use of insulin (6) Elevated troponin Current Visit: Yes Status: Acute (7) DVT prophylaxis Current Visit: Yes Status: Acute - Subjective Interval history: Patient seen and examined this morning at bedside. Patient is awake and doesn't appear to be in any acute distress. Patient responds to verbal stimuli and follows some commands. - Constitutional Vitals: Temp Pulse Resp BP Pulse Ox 98.5 F 93 20 124/86 94 01/04/17 08:08 01/04/17 08:08 01/04/17 08:08 01/04/17 08:08 01/04/17 08:08 Internal Medicine: Result - Labs CBC & Chem 7: 01/04/17 05:58 01/04/17 05:58 Labs: Short CBC 01/04/17 Range/Units 05:58 WBC 13.0 H (4.3-11.1) K/mcL Hgb 11.9 L (12.9-16.9) g/dL Hct 38.0 (37.5-50.1) % Plt Count 448 H (140-400) K/mcL Neutrophils # 8.8 (1.6-8.9) K/mcL BMP 01/04/17 05:58 Sodium 149 H Potassium 3.5 Chloride 118 H Carbon Dioxide 22 BUN 19 Creatinine 0.75 Glucose 182 H Calcium 8.1 L - ABG Interpretation ABG results: ABG ABG pH 7.42 pH Units (7.32-7.45) 12/30/16 05:44 ABG pCO2 51 mmHg (35-45) H 12/30/16 05:44 ABG pO2 71 mmHg (85-104) L 12/30/16 05:44 ABG O2 Saturation 94 % (95-98) L 12/30/16 05:44 PT/INR, D-dimer PT 13.2 Seconds (9.4-12.1) H 12/29/16 06:00 - VTE Documentation of Mechanical Device: Intermittent pneumatic compression device Consult Discharge Plan - Plan Referrals: Sunita Murrell MD [Primary Care Provider] - <Wale Calixto - Last Filed: 01/04/17 15:35> Date of Encounter: 01/04/17 Time of Encounter: 13:00 - Constitutional Vitals: Temp Pulse Resp BP Pulse Ox 98.1 F 84 20 137/79 96 01/04/17 11:51 01/04/17 11:51 01/04/17 11:51 01/04/17 11:51 01/04/17 11:51 General appearance: Present: A&O X 2 - Head Head exam: Present: atraumatic, normocephalic - Eye Eye exam: Present: PERRL, conjuntiva pink, sclera anicteric Pupils: Present: PERRL - Neck Neck exam general surgery: Present: supple, trachea midline. Absent: lymphadenopathy - Respiratory Respiratory exam: Present: rales - Cardiovascular Cardiovascular exam: Present: RRR, +S1, +S2. Absent: diastolic murmur, gallop, rubs, systolic murmur - GI/Abdominal GI/Abdominal exam: Present: normal bowel sounds, soft, no peritoneal signs. Absent: distended, tenderness - Extremities Exam Extremities exam: Present: pedal edema (right BKA stump incisoun clean, dry, intact) - Neurological Exam Neurological exam: Present: CN II-XII intact, no focal deficits. Absent: pronater drift, facial droop, speech deficit - Skin Skin exam: Present: dry, intact Internal Medicine: Result - Labs CBC & Chem 7: 01/04/17 05:58 01/04/17 05:58 Labs: Short CBC 01/04/17 Range/Units 05:58 WBC 13.0 H (4.3-11.1) K/mcL Hgb 11.9 L (12.9-16.9) g/dL Hct 38.0 (37.5-50.1) % Plt Count 448 H (140-400) K/mcL Neutrophils # 8.8 (1.6-8.9) K/mcL BMP 01/04/17 05:58 Sodium 149 H Potassium 3.5 Chloride 118 H Carbon Dioxide 22 BUN 19 Creatinine 0.75 Glucose 182 H Calcium 8.1 L - ABG Interpretation ABG results: ABG ABG pH 7.42 pH Units (7.32-7.45) 12/30/16 05:44 ABG pCO2 51 mmHg (35-45) H 12/30/16 05:44 ABG pO2 71 mmHg (85-104) L 12/30/16 05:44 ABG O2 Saturation 94 % (95-98) L 12/30/16 05:44 PT/INR, D-dimer PT 13.2 Seconds (9.4-12.1) H 12/29/16 06:00 - Attending Attestation I performed and independent history and exam of this pt. I discussed the case with Dr. Evangelista. I agree with her findings, assessment and plan. ICU records reviewed as well. Continue IV Merrem and Vanco as previously planned. Pt continues to slowly improve. PT/OT eval. All else per note today. Suspect he will need Rehab facility. Repeat BMP in the AM as he has been running hypernatremic and hyperchloremic. May montserrat free water replacement.
--- NOTE | 2017-01-04 16:04 | Internal Med History&Physical ---
Date of Encounter: 01/04/17 Time of Encounter: 11:00 Assessment and Plan (1) Pneumonia Current visit: Yes Status: Acute Currently on vancomycin and meropenem as outlined above. Day#13 of 14 days vancomycin. Day #10 of 14 days meropenem He is doing well and satting 94% on room air. He had a low-grade temperature today we will continue to monitor. If recurs will repeat blood cultures. Of note he had recurrent low-grade temperatures for the last several days. Qualifiers: Pneumonia type: due to unspecified organism Laterality: bilateral Lung location: unspecified part of lung Qualified Code(s): J18.9 - Pneumonia, unspecified organism (2) Septic shock Current visit: Yes Status: Resolved Septic shock is resolved (3) Diabetes mellitus type 2 in nonobese Current visit: No Status: Chronic Blood sugars remain under reasonable control. Continue basal bolus insulin. 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 I do wonder if there may be a degree of anoxic encephalopathy. Will need speech and language pathology evaluation, cognitive evaluation. Qualifiers: Altered mental status type: somnolence Qualified Code(s): R40.0 - Somnolence (14) Demand ischemia Current visit: Yes Status: Acute Will need cardiology reevaluation prior to discharge, consideration for heart catheterization (15) Elevated troponin Current visit: Yes Status: Acute As mentioned, consideration for left heart catheterization prior to discharge (16) Lactic acid acidosis Current visit: Yes Status: Acute (17) Abnormal ECG Current visit: Yes Status: Acute (18) Acute blood loss anemia Current visit: Yes Status: Acute (19) Ischemic leg Current visit: Yes Status: Acute (20) Acute respiratory failure Current visit: Yes Status: Resolved Qualifiers: Respiratory failure complication: hypoxia Qualified Code(s): J96.01 - Acute respiratory failure with hypoxia (21) Atherosclerotic peripheral vascular disease with gangrene Current visit: Yes Status: Chronic (22) Elevated troponin Current visit: Yes Status: Acute (23) Coronary artery disease Current visit: Yes Status: Acute Qualifiers: Coronary Disease-Associated Artery/Lesion type: [place] artery [place] vs. transplanted heart: [place] heart Associated angina: with unspecified angina Qualified Code(s): I25.119 - Atherosclerotic heart disease of [place] coronary artery with unspecified angina pectoris (24) DVT prophylaxis Current visit: Yes Status: Acute On subcutaneous heparin (25) Decubitus ulcer of coccygeal region, stage 2 Current visit: Yes Status: Acute Continue local wound care (26) History of alcohol use unknown Current visit: Yes Status: Acute Counseling for cessation urged Internal Medicine - H&P: HPI Chief complaint: SOB History of present illness: Mr. Almanza is a 56 year old male with multiple medical problems including severe peripheral vascular disease status post right AKA on 12/23/2016. Patient has had a prolonged hospital course, including acute respiratory failure due to pneumonia with severe sepsis. He was intubated in the ICU. Please refer to IC records. Patient was extubated December 31 and is currently on IV vancomycin since December 23, and IV meropenem since December 26, with plans to complete a 14 day course of antibiotics. Septic shock has resolved. She was noted to have an elevated troponin during his hospital course and was seen by cardiology, who recommended future cardiac catheterization, possibly prior to discharge from the hospital. She also has a history of diabetes mellitus for which she is on insulin. He also has a decubitus ulcer of his coccygeal region, stage II. She was transferred to our service today for ongoing care. Patient is a limited historian as he is mildly confused and somewhat somnolent. He however denies any chest pain or shortness of breath. No nausea, vomiting , diarrhea. No fevers or chills. He is denying any pain, but he is a poor historian. Past Med Surg Social Fam HX - Past Medical History Medical history: COPD, diabetes, hyperlipidemia, hypertension, peripheral artery disease Psychiatric history: anxiety, bipolar, other - Past Surgical History Surgical History: cholecystectomy, vascular surgery (Bilateral femoral endarterectomy, bilateral femoral to popliteal artery bypass) - Social History Smoking Status: Current every day smoker Smokeless Tobacco Status: No Alcohol use: none Drug use: none Occupational status: other Current living situation: Home - Independent Activity Level: Wheelchair bound Recent Out of Country Travel Within the Last 8 Weeks: No Exposure or Possible Exposure to Illness During Travel: No - Family History Paternal Living Status: Hx Family Cardiac Disorders: No Hx Family Respiratory Disorders: Yes (Emphysema Grandfather) Hx Family Cancer: Yes (Mother and sister stomach CA, Grand father prostate) Hx Family GI Disorders: No Hx Family Endocrine Disorder: Yes (Grandmother) Hx Family Neuromuscular Disorders: No Hx Family Neurologic Disorders: No Hx Family HEENT Disorders: No Hx Family Autoimmune Disorders: No Father Living Status: Still Living Mother Living Status: Age at : 37 Cause of : cancer - Additional Family History Additional family history: Unable to obtain family history from patient at this time to his confusion Internal Medicine - H&P: Meds Gabapentin [Neurontin] 800 mg PO TID 07/19/15 [History] LORazepam [Ativan] 1 mg PO HS 07/19/15 [History] Lovastatin 40 mg PO HS 07/19/15 [History] Propranolol [Inderal] 40 mg PO BID 07/19/15 [History] Quetiapine Fumarate [Seroquel] 600 mg PO HS 07/19/15 [History] Ranitidine HCl [Zantac] 150 mg PO BID 07/19/15 [History] Zolpidem [Ambien] 10 mg PO HS 07/19/15 [History] traMADol [Ultram] 100 mg PO BID 07/19/15 [History] Citalopram Hydrobromide [Celexa] 40 mg PO DAILY 01/24/16 [History] Empagliflozin [Jardiance] 10 mg PO DAILY 01/24/16 [History] Metformin HCl [Metformin HCl ER] 500 mg PO HS 01/24/16 [History] Naproxen [Naprosyn] 500 mg PO BID PRN 01/24/16 [History] Pentoxifylline [TRENtal] 400 mg PO BID 01/24/16 [History] Aspirin Enteric Coated [Aspirin EC] 81 mg PO DAILY 03/26/16 [History] glipiZIDE [Glipizide] 10 mg PO BID 03/26/16 [History] Furosemide [Lasix] 40 mg PO DAILY 08/28/16 [History] Alogliptin Benzoate [Alogliptin] 25 mg PO DAILY 11/25/16 [History] Amantadine HCl [Amantadine] 100 mg PO BID 11/25/16 [History] Potassium Chloride [Klor-Con 10] 10 meq PO DAILY 11/25/16 [History] Nicotine Patch [Nicoderm] 21 mg TD DAILY #30 patch.td24 11/26/16 [Rx] Rivaroxaban [Xarelto] 20 mg PO DAILY #30 tablet 11/26/16 [Rx] Clopidogrel [Plavix] 75 mg PO DAILY 12/23/16 [History] Insulin Glargine,Hum.rec.anlog [Basaglar Kwikpen U-100] 6 unit SQ DAILY [History] 3 Allergy/AdvReac Type Severity Reaction Status Date / Time No Known Allergies Allergy Verified 08/28/16 10:04 All Systems PM: A 10-system review of systems was performed and is negative for pertinent findings except as documented above in the HPI. Review of systems: Review of systems is difficult to obtain, other than history of present illness a 10 point review of systems is reviewed and negative - Constitutional Vitals: Temp Pulse Resp BP Pulse Ox 99.6 F 93 22 136/87 94 01/04/17 15:47 01/04/17 15:47 01/04/17 15:47 01/04/17 15:47 01/04/17 15:47 General appearance: Present: A&O X 2, no acute distress - Head Head exam: Present: atraumatic, normocephalic - Neck Neck exam general surgery: Present: supple, trachea midline. Absent: lymphadenopathy - Respiratory Respiratory exam: Present: rales - Cardiovascular Cardiovascular exam: Present: RRR, +S1, +S2. Absent: diastolic murmur, gallop, rubs, systolic murmur - GI/Abdominal GI/Abdominal exam: Present: normal bowel sounds, soft, no peritoneal signs. Absent: distended, tenderness - Extremities Exam Additional comments: Right AKA with incision clean dry and intact. Chronic venous stasis changes of left lower extremity. 1+ Edema. - Neurological Exam Neurological exam: Present: CN II-XII intact, no focal deficits. Absent: pronater drift, facial droop, speech deficit - Skin Skin exam: Present: dry, intact Internal Med - H&P Results - Labs CBC & Chem 7: 01/04/17 05:58 01/04/17 05:58 Labs: Short CBC 01/04/17 Range/Units 05:58 WBC 13.0 H (4.3-11.1) K/mcL Hgb 11.9 L (12.9-16.9) g/dL Hct 38.0 (37.5-50.1) % Plt Count 448 H (140-400) K/mcL Neutrophils # 8.8 (1.6-8.9) K/mcL BMP 01/04/17 05:58 Sodium 149 H Potassium 3.5 Chloride 118 H Carbon Dioxide 22 BUN 19 Creatinine 0.75 Glucose 182 H Calcium 8.1 L - ABG Interpretation ABG results: 12/23/16 12/23/16 12/23/16 18:10 18:22 18:46 ABG pH 7.19 L* D 7.27 L 7.31 L ABG pCO2 62 H D 39 D 46 H ABG pO2 76 L 296 H D 151 H D ABG HCO3 24 18 L 23 ABG Total CO2 25 19 L 24 ABG O2 Saturation 91 L 100 H 99 H ABG Base Excess -5 L -9 L -3 L VBG pH VBG pCO2 VBG pO2 VBG HCO3 12/24/16 12/26/16 12/26/16 04:00 08:22 22:10 ABG pH 7.38 7.52 H 7.47 H ABG pCO2 44 35 42 ABG pO2 121 H 80 L 129 H ABG HCO3 26 28 H 30 H ABG Total CO2 27 H 29 H 32 H ABG O2 Saturation 99 H 97 99 H ABG Base Excess 1 5 H 6 H VBG pH VBG pCO2 VBG pO2 VBG HCO3 12/27/16 12/29/16 12/30/16 05:53 05:13 05:44 ABG pH 7.48 H 7.49 H 7.42 ABG pCO2 43 57 H 51 H ABG pO2 77 L 85 71 L ABG HCO3 32 H 43 H 33 H ABG Total CO2 33 H 45 H 35 H ABG O2 Saturation 96 97 94 L ABG Base Excess 8 H 17 H 7 H VBG pH VBG pCO2 VBG pO2 VBG HCO3 01/02/17 01/02/17 08:51 19:23 ABG pH ABG pCO2 ABG pO2 ABG HCO3 ABG Total CO2 ABG O2 Saturation ABG Base Excess VBG pH 7.49 H 7.42 VBG pCO2 37 L 45 VBG pO2 182 H 49 VBG HCO3 28 H 29 H - Impressions ITS Impressions Abdomen/Pelvis CT 12/24/16 00:53 IMPRESSION: 1. Limited study due to lack of IV contrast. 2. Within the right groin at the origin of the fem-pop bypass graft, there is a small fluid collection with tiny foci of gas which may represent sequela of recent catheterization with small hematoma. Correlate clinically. 3. Otherwise no acute findings within the abdomen or pelvis. No large intraperitoneal or retroperitoneal hemorrhage identified. 4. Trace bilateral pleural effusion with associated atelectasis or consolidation. D/ / 12/24/2016 07:28:35 Chan Sena MD / [facility] Interpreting Provider: Chan Sena MD Head CT 12/24/16 17:15 IMPRESSION: No acute intracranial abnormality. D/ / Thony Hernandez MD / Thony Hernandez MD Interpreting Provider: Thony Hernandez MD Echocardiogram Limited Views 12/25/16 09:33 Impressions: LVEF 30%. Severe global left ventricular systolic dysfunction. Left Ventricular Wall Motion: Rest Echo Findings The apex, apical inferior, mid inferior, basal inferior, apical anterior, mid anterior, basal anterior, apical septal, mid inferior septal, basal inferior septal, apical lateral, mid anterior lateral, basal anterior lateral, mid anterior septal, mid inferior lateral, basal anterior septal and basal inferior lateral sarkar were hypokinetic. Findings: Study Quality * Technically adequate exam. ECG Findings * Sinus tachycardia. Left Ventricle * LVEF 30%. * Severe global left ventricular systolic dysfunction. Chest X-Ray 12/26/16 03:02 IMPRESSION: Rapid interval development of diffuse airspace and interstitial opacity may represent pulmonary edema. D/ / Thony Hernandez MD / Thony Hernandez MD Interpreting Provider: Thony Hernandez MD Chest X-Ray 12/26/16 19:42 IMPRESSION: Patchy airspace opacities bilaterally, likely related to pulmonary edema versus pneumonia, stable. D/ / Roderick Valerio MD / Roderick Valerio MD Interpreting Provider: Roderick Valerio MD Chest X-Ray 12/26/16 20:50 IMPRESSION: Appropriate endotracheal tube positioning. No apparent pneumothorax. No substantial change in diffuse airspace opacities superimposed on background emphysema. D/ / Chan Vergara / Chan Vergara Interpreting Provider: Chan Vergara X-Ray 12/26/16 21:03 IMPRESSION: Proximal esophagogastric tube positioning. Recommend advancing another 5-8 cm. D/ / Chan Vergara / Chan Vergara Interpreting Provider: Chan Vergara Lower Extremity CT 12/27/16 07:53 IMPRESSION: 1. Recent right [id number] amputation with postsurgical edematous changes. No findings to suggest necrotizing soft tissue infection, abscess, or severe myositis. 2. Prior right femoral-popliteal bypass graft with no definite associated infection. 3. Normal right hip alignment with nonspecific mild effusion. No acute osseous abnormality or CT findings to suggest osteomyelitis. D/ / 12/27/2016 12:14:42 Davide Ibrahim MD / [facility] Interpreting Provider: Davide Ibrahim MD Abdomen/Pelvis CT 12/27/16 08:27 IMPRESSION: No acute intra-abdominal or pelvic process. airspace consolidations at the bilateral lower lung marks, likely related to pneumonia versus pulmonary edema, progressed. Small 1.6 x 1.0 cm fluid collection at the origin of the right fem-pop bypass graft, grossly stable since November 24, 2016. Findings may be related to postoperative hematoma or postoperative seroma. D/ / Roderick Valerio MD / Roderick Valerio MD Interpreting Provider: Roderick Valerio MD Chest CT 12/27/16 10:11 IMPRESSION: 1. COPD. Multifocal consolidation consistent with pneumonia with trace left pleural effusion. 2. Endotracheal tube tip 3.2 cm above the giselle. 3. Probable reactive mediastinal and hilar lymphadenopathy. D/ / 12/27/2016 12:59:25 [facility] Inter[facility] Provider: Davide Ibrahim MD Chest X-Ray 12/31/16 06:00 IMPRESSION: 1. Substantially improved pulmonary edema. 2. Increased atelectasis in the left lung base. 3. The orogastric tube side port is noted proximal to the GE junction. This could be advanced approximately 7 cm for more optimal placement. D/ / Hoang King MD / Hoang King MD Interpreting Provider: Hoang King MD Chest X-Ray 01/02/17 04:00 IMPRESSION: 1. Removal of the enteric tube. 2. Otherwise, no significant change in the appearance of the chest. D/ / Juan Manuel Mooney MD / Juan Manuel Mooney MD Interpreting Provider: Juan Manuel Mooney MD - VTE Documentation of Mechanical Device: Intermittent pneumatic compression device
[2017-01-05] MEDS: Meropenem 1,000 MG in Water for inj. (sterile) 10 ML IVP SCH ×3 (00:04→17:36)
[2017-01-05] MEDS: Insulin LISPRO 300 UNITS/3 ML VIAL SQ SCH ×5 (00:05→17:45)
[2017-01-05] MEDS: Vancomycin 1,250 MG in D5% in Water 250 ML IVPB SCH ×2 (03:37→17:36)
[2017-01-05] MEDS: *HR* HYDROmorphone (PF) 1 MG/ML SYRINGE IVP PRN ×2 (03:37→11:45)
[2017-01-05] MEDS: *HR* Heparin 5,000 UNIT/ML VIAL SQ SCH ×2 (06:13→17:37)
[2017-01-05 07:01] LABS: BUN/Creatinine Ratio 27 (6-26); Blood Urea Nitrogen 21 mg/dL (8-26); Calcium 8.1 mg/dL (8.6-10.8); Carbon Dioxide 23 mEq/L (19-29); Chloride 119 mEq/L (98-109); Glucose 183 mg/dL (70-99); Osmolality,Calculated 318 (280-300); Potassium 3.9 mEq/L (3.5-4.5); Sodium 150 mEq/L (136-145); eGFR For African Americans > 60 (> 60); eGFR For Non-African Americans > 60 (> 60)
[2017-01-05 07:03] LABS: Hematocrit 39.4 % (37.5-50.1); Hemoglobin 12.1 g/dL (12.9-16.9); Mean Corpuscular HGB Conc 30.7 g/dL (31.6-35.5); Mean Corpuscular Volume 91.2 fL (83.0-100.0); Mean Platelet Volume 9.8 fL (9.4-12.4); Platelet Count 474 K/mcL (140-400); Red Blood Count 4.32 M/mcL (4.19-5.50); Red Cell Distribution Width 15.1 % (11.5-14.5)
[2017-01-05] MEDS: Budesonide/Formoterol 160/4.5 MDI IH SCH ×2 (07:56→20:35)
--- NOTE | 2017-01-05 08:06 | Internal Med Progress Note ---
<Candace Yancey - Last Filed: 01/05/17 14:24> Date of Encounter: 01/05/17 Time of Encounter: 11:23 - Assessment and plan (1) Acute respiratory failure Current Visit: Yes Status: Acute Assessment and plan: - Likely secondary to septic shock and multifocal pneumonia. - Patient was successfully extubated on 12/31/16. - Continue bronchodilator, supplemental oxygen and incentive spirometry. - Continue antibiotics for pneumonia, see below. Qualifiers: Respiratory failure complication: hypoxia Qualified Code(s): J96.01 - Acute respiratory failure with hypoxia (2) Septic shock Current Visit: Yes Status: Resolved Assessment and plan: - on admission, met 4 SIRS criteria (fever, tachycardia, tachypnea and leukocytosis) with persistent hypotension and lactic acid 7.2 - Likely secondary to right lower extremity gangrene/infection. The multifocal pneumonia found later on CT chest likely to have a role. - Continue IV vancomycin (since 12/23) and IV meropenem (since 12/26). The goal is to finish total 14-day course for both antibiotics. - remains afebrile and maintaining BP w/o pressor support -Continue to monitor. (3) Diabetes mellitus with peripheral angiopathy with gangrene Current Visit: Yes Status: Acute Assessment and plan: -sliding scale insulin in addition to basal insulin. Monitor glucose with morning labs and POC accu-checks. 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 - Cardiology note from 12/14/16 recommended considering LHC prior to discharge after clinical status improves and blood count stabilizes. Patient was considered not a good candidate for cath at that time. (5) Electrolyte abnormality Current Visit: Yes Status: Acute Assessment and plan: -Hypernatremia and elevated chloride has developed over last few days d/t receiving IV vancomycin and multiple other IV meds in 0.9% saline solution. -Will give 1,000 mL of 0.45%NS @ slow rate (50 mL/hr) d/t his poor LVEF of 30%. -IV vancomycin now being given in 5% dextrose solution -Encourage PO fluids (6) Pneumonia Current Visit: Yes Status: Acute Assessment and plan: - CT chest on 12/27/16 found multifocal consolidation consistent with pneumonia with trace left pleural effusion. - Clinically improves as patient's respiratory status improves both subjectively and objectively. - Continue IV vancomycin (since 12/23) and IV meropenem (since 12/26). The plan is finish total 14-day course for both antibiotics. Qualifiers: Pneumonia type: due to unspecified organism Laterality: bilateral Lung location: unspecified part of lung Qualified Code(s): J18.9 - Pneumonia, unspecified organism (7) Atherosclerotic peripheral vascular disease with gangrene Current Visit: Yes Status: Acute Assessment and plan: -s/p surgery for above the knee amputation of right lower leg 12.23.16 -incision appears to be healing well, continue wound care (8) DVT prophylaxis Current Visit: Yes Status: Acute Assessment and plan: heparin 5,000 units subQ daily IPCD on left lower extremity - Subjective Interval history: Patient seen and examined this morning at bedside. Patient is resting in bed and appears to be in no acute distress. Denies chest pain, dyspnea, shortness of breath, abdominal pain, nausea, vomiting, other areas of discomfort/pain. Admits to productive cough. - Constitutional Vitals: Temp Pulse Resp BP Pulse Ox 99.4 F 96 18 134/87 94 01/05/17 07:43 01/05/17 07:43 01/05/17 07:58 01/05/17 07:43 01/05/17 07:58 General appearance: Present: no acute distress, answers questions appropriately - Head Head exam: Present: atraumatic, normocephalic - Eye Eye exam: Present: EOMI, sclera anicteric - ENT ENT exam: Present: mucous membranes dry - Neck Neck exam general surgery: Present: full ROM - Respiratory Respiratory exam: Present: decreased breath sounds, CTAB. Absent: accessory muscle use, rales, wheezes Additional comments: bases and mid lung marks bilaterally - Cardiovascular Cardiovascular exam: Present: RRR, +S1, +S2 - Extremities Exam Additional comments: Above the knee amputation of RLE. - Incison Incision: Present: clean and dry, intact. Absent: erythema - Neurological Exam Neurological exam: Present: alert, no focal deficits. Absent: facial droop, speech deficit Internal Medicine: Result - Labs CBC & Chem 7: 01/05/17 06:34 01/05/17 06:34 Labs: Short CBC 01/05/17 Range/Units 06:34 WBC 15.3 H (4.3-11.1) K/mcL Hgb 12.1 L (12.9-16.9) g/dL Hct 39.4 (37.5-50.1) % Plt Count 474 H (140-400) K/mcL BMP 01/05/17 06:34 Sodium 150 H Potassium 3.9 Chloride 119 H Carbon Dioxide 23 BUN 21 Creatinine 0.78 Glucose 183 H Calcium 8.1 L - ABG Interpretation ABG results: ABG ABG pH 7.42 pH Units (7.32-7.45) 12/30/16 05:44 ABG pCO2 51 mmHg (35-45) H 12/30/16 05:44 ABG pO2 71 mmHg (85-104) L 12/30/16 05:44 ABG O2 Saturation 94 % (95-98) L 12/30/16 05:44 PT/INR, D-dimer PT 13.2 Seconds (9.4-12.1) H 12/29/16 06:00 - VTE Documentation of Mechanical Device: Intermittent pneumatic compression device Consult Discharge Plan - Plan Referrals: Sunita Murrell MD [Primary Care Provider] - (THIS PATIENT IS GOING TO [facility] NO PCP APPOINTMENT IS NEEDED) <Augie Milian H - Last Filed: 01/05/17 16:34> Date of Encounter: 01/05/17 - Constitutional Vitals: Temp Pulse Resp BP Pulse Ox 99.9 F H 93 15 139/88 95 01/05/17 11:22 01/05/17 11:50 01/05/17 15:56 01/05/17 11:22 01/05/17 15:56 Internal Medicine: Result - Labs CBC & Chem 7: 01/05/17 06:34 01/05/17 06:34 Labs: Short CBC 01/05/17 Range/Units 06:34 WBC 15.3 H (4.3-11.1) K/mcL Hgb 12.1 L (12.9-16.9) g/dL Hct 39.4 (37.5-50.1) % Plt Count 474 H (140-400) K/mcL BMP 01/05/17 06:34 Sodium 150 H Potassium 3.9 Chloride 119 H Carbon Dioxide 23 BUN 21 Creatinine 0.78 Glucose 183 H Calcium 8.1 L - ABG Interpretation ABG results: ABG ABG pH 7.42 pH Units (7.32-7.45) 12/30/16 05:44 ABG pCO2 51 mmHg (35-45) H 12/30/16 05:44 ABG pO2 71 mmHg (85-104) L 12/30/16 05:44 ABG O2 Saturation 94 % (95-98) L 12/30/16 05:44 PT/INR, D-dimer PT 13.2 Seconds (9.4-12.1) H 12/29/16 06:00 - Attending Attestation ok to discontinue IV vancomycin ( had 14 days already). I examined this patient and my medical decision-making was reviewed with the Resident Physician. I agree with the documented findings, disposition and treatment plan as described except to the extent set forth below.
[2017-01-05] MEDS: Pantoprazole 40 MG VIAL IVP SCH (08:28)
[2017-01-05] MEDS: Chlorhexidine Rinse 15 ML MOUTHWASH MM SCH ×2 (08:28→21:52)
[2017-01-05] MEDS: Sennosides/Docusate Sodium TABLET PO SCH ×2 (08:28→21:53)
[2017-01-05] MEDS: Aspirin 81 MG TAB.CHEW PO SCH (08:28)
[2017-01-05] MEDS: Insulin DETEMIR 100 UNIT/ML X5UNITS SQ SCH ×2 (08:49→21:52)
[2017-01-05] MEDS ORDERED: Aminoglycoside Consult 1 EACH MC ONE (09:11)
[2017-01-05] MEDS: Leptospermum Honey Gel 44 ML TUBE TP SCH (21:11)
[2017-01-06] MEDS: Insulin LISPRO 300 UNITS/3 ML VIAL SQ SCH ×4 (00:34→17:52)
[2017-01-06] MEDS: Meropenem 1,000 MG in Water for inj. (sterile) 10 ML IVP SCH ×3 (01:23→17:51)
[2017-01-06] MEDS: *HR* Heparin 5,000 UNIT/ML VIAL SQ SCH ×2 (05:18→17:51)
[2017-01-06] MEDS: Budesonide/Formoterol 160/4.5 MDI IH SCH ×2 (07:37→19:50)
[2017-01-06] MEDS: Pantoprazole 40 MG VIAL IVP SCH (08:15)
[2017-01-06 08:33] LABS: Hematocrit 38.9 % (37.5-50.1); Hemoglobin 12.2 g/dL (12.9-16.9); Mean Corpuscular HGB Conc 31.4 g/dL (31.6-35.5); Mean Corpuscular Hemoglobin 28.5 pg (28.0-33.3); Mean Corpuscular Volume 90.9 fL (83.0-100.0); Mean Platelet Volume 9.7 fL (9.4-12.4); Platelet Count 446 K/mcL (140-400); Red Blood Count 4.28 M/mcL (4.19-5.50); Red Cell Distribution Width 15.6 % (11.5-14.5)
[2017-01-06 08:47] LABS: BUN/Creatinine Ratio 26 (6-26); Blood Urea Nitrogen 20 mg/dL (8-26); Calcium 8.3 mg/dL (8.6-10.8); Carbon Dioxide 24 mEq/L (19-29); Chloride 119 mEq/L (98-109); Glucose 185 mg/dL (70-99); Osmolality,Calculated 325 (280-300); Sodium 154 mEq/L (136-145); eGFR For African Americans > 60 (> 60); eGFR For Non-African Americans > 60 (> 60)
[2017-01-06] MEDS: Insulin DETEMIR 100 UNIT/ML X5UNITS SQ SCH ×2 (10:00→21:13)
[2017-01-06] MEDS: Aspirin 81 MG TAB.CHEW PO SCH (10:03)
[2017-01-06] MEDS: Sennosides/Docusate Sodium TABLET PO SCH ×2 (10:04→21:13)
[2017-01-06] MEDS: Chlorhexidine Rinse 15 ML MOUTHWASH MM SCH (10:04)
[2017-01-06] MEDS: Leptospermum Honey Gel 44 ML TUBE TP SCH ×2 (10:13→21:13)
--- NOTE | 2017-01-06 11:44 | Internal Med Progress Note ---
<Candace Yancey - Last Filed: 01/06/17 14:36> Date of Encounter: 01/06/17 Time of Encounter: 10:45 - Assessment and plan (1) Acute respiratory failure Current Visit: Yes Status: Acute Assessment and plan: - Likely secondary to septic shock and multifocal pneumonia. - Patient was successfully extubated on 12/31/16. - Continue bronchodilator, supplemental oxygen and incentive spirometry. - Continue meropenem for pneumonia, see below. Qualifiers: Respiratory failure complication: hypoxia Qualified Code(s): J96.01 - Acute respiratory failure with hypoxia (2) Septic shock Current Visit: Yes Status: Resolved Assessment and plan: - on admission, met 4 SIRS criteria (fever, tachycardia, tachypnea and leukocytosis) with persistent hypotension and lactic acid 7.2 - Likely secondary to right lower extremity gangrene/infection. The multifocal pneumonia found later on CT chest likely to have a role. -completed IV vancomycin. continue IV meropenem (since 12/26) for 2 more days to complete 14 day course. antibiotics. - remains afebrile and maintaining BP w/o pressor support -Continue to monitor. (3) Diabetes mellitus with peripheral angiopathy with gangrene Current Visit: Yes Status: Acute Assessment and plan: -sliding scale insulin in addition to basal insulin. -Monitor glucose with morning labs and POC accu-checks. 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 - Cardiology note from 12/14/16 recommended considering LHC prior to discharge after clinical status improves and blood count stabilizes. Patient was considered not a good candidate for cath at that time. (5) Electrolyte abnormality Current Visit: Yes Status: Acute Assessment and plan: -Hypernatremia and elevated chloride has developed over last few days d/t receiving IV vancomycin and multiple other IV meds in 0.9% saline solution. -Will correct hypernatremia (151) and hypokalemia (3) with 10 mEq K in D5 1/2NS 1,000 mL @ 100 mL -Encourage PO free water (6) Pneumonia Current Visit: Yes Status: Acute Assessment and plan: - CT chest on 12/27/16 found multifocal consolidation consistent with pneumonia with trace left pleural effusion. - Clinically improves as patient's respiratory status improves both subjectively and objectively. - vancomycin completed, IV meropenem (since 12/26) for 2 more days to finish total 14-day course. 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 Patient is resting in bed, is in no acute distress, and states he feels ok. Denies chest pain, dyspnea, shortness of breath, abdominal pain, nausea, vomiting, other areas of discomfort/pain. Admits cough. - Constitutional Vitals: Temp Pulse Resp BP Pulse Ox 98.7 F 88 26 123/86 95 01/06/17 11:29 01/06/17 11:29 01/06/17 11:29 01/06/17 11:29 01/06/17 11:29 General appearance: Present: no acute distress, answers questions appropriately - Head Head exam: Present: atraumatic, normocephalic - Eye Eye exam: Present: EOMI, normal appearance - Neck Neck exam general surgery: Present: full ROM - Respiratory Respiratory exam: Present: decreased breath sounds, CTAB. Absent: accessory muscle use, respiratory distress, wheezes, tachypnea - Cardiovascular Cardiovascular exam: Present: RRR, +S1, +S2 - GI/Abdominal GI/Abdominal exam: Present: normal bowel sounds, soft. Absent: distended, firm - Extremities Exam Extremities exam: Present: warm. Absent: cyanotic, pedal edema Additional comments: DP pulse present - Incison Incision: Present: clean and dry, intact - Neurological Exam Neurological exam: Present: alert, no focal deficits. Absent: facial droop, speech deficit Additional comments: Answers other questions appropriately, orientation difficult to determine as pt seems to choose not to cooperate in answering these questions. Internal Medicine: Result - Labs CBC & Chem 7: 01/06/17 08:03 01/06/17 08:03 Labs: Short CBC 01/06/17 Range/Units 08:03 WBC 15.8 H (4.3-11.1) K/mcL Hgb 12.2 L (12.9-16.9) g/dL Hct 38.9 (37.5-50.1) % Plt Count 446 H (140-400) K/mcL BMP 01/06/17 08:03 Sodium 154 H Potassium 3.0 L Chloride 119 H Carbon Dioxide 24 BUN 20 Creatinine 0.78 Glucose 185 H Calcium 8.3 L - ABG Interpretation ABG results: ABG ABG pH 7.42 pH Units (7.32-7.45) 12/30/16 05:44 ABG pCO2 51 mmHg (35-45) H 12/30/16 05:44 ABG pO2 71 mmHg (85-104) L 12/30/16 05:44 ABG O2 Saturation 94 % (95-98) L 12/30/16 05:44 PT/INR, D-dimer PT 13.2 Seconds (9.4-12.1) H 12/29/16 06:00 - VTE Documentation of Mechanical Device: Intermittent pneumatic compression device Consult Discharge Plan - Plan Referrals: Sunita Murrell MD [Primary Care Provider] - (THIS PATIENT IS GOING TO [facility] NO PCP APPOINTMENT IS NEEDED) <Augie Milian H - Last Filed: 01/06/17 15:18> Date of Encounter: 01/06/17 - Constitutional Vitals: Temp Pulse Resp BP Pulse Ox 98.7 F 88 26 123/86 95 01/06/17 11:29 01/06/17 11:29 01/06/17 11:29 01/06/17 11:29 01/06/17 11:29 Internal Medicine: Result - Labs CBC & Chem 7: 01/06/17 08:03 01/06/17 08:03 Labs: Short CBC 01/06/17 Range/Units 08:03 WBC 15.8 H (4.3-11.1) K/mcL Hgb 12.2 L (12.9-16.9) g/dL Hct 38.9 (37.5-50.1) % Plt Count 446 H (140-400) K/mcL BMP 01/06/17 08:03 Sodium 154 H Potassium 3.0 L Chloride 119 H Carbon Dioxide 24 BUN 20 Creatinine 0.78 Glucose 185 H Calcium 8.3 L - ABG Interpretation ABG results: ABG ABG pH 7.42 pH Units (7.32-7.45) 12/30/16 05:44 ABG pCO2 51 mmHg (35-45) H 12/30/16 05:44 ABG pO2 71 mmHg (85-104) L 12/30/16 05:44 ABG O2 Saturation 94 % (95-98) L 12/30/16 05:44 PT/INR, D-dimer PT 13.2 Seconds (9.4-12.1) H 12/29/16 06:00 - Attending Attestation hypernatremia start D5 at 100 cc/h, may decrease down to 50 cc/h if SOB possible CAD (NSTMI?), cardiology to decide on possible cardiac catheterization prior to discharge replete K I examined this patient and my medical decision-making was reviewed with the Resident Physician. I agree with the documented findings, disposition and treatment plan as described except to the extent set forth below.
[2017-01-06] MEDS ORDERED: Potassium Chloride Elixir 20 MEQ/15 ML UDC PO ONE (12:54)
[2017-01-06] MEDS ORDERED: traMADol 50 MG TABLET PO PRN (14:44)
[2017-01-06] MEDS: D5% in Water 1,000 ML IVC SCH (17:52)
[2017-01-06] MEDS ORDERED: Mirtazapine 15 MG TABLET PO SCH (21:00)
[2017-01-07] MEDS: Meropenem 1,000 MG in Water for inj. (sterile) 10 ML IVP SCH ×3 (00:02→15:19)
[2017-01-07] MEDS: Insulin LISPRO 300 UNITS/3 ML VIAL SQ SCH ×4 (00:03→17:59)
[2017-01-07] MEDS: D5% in Water 1,000 ML IVC SCH ×2 (03:20→15:19)
[2017-01-07 04:51] LABS: Hematocrit 37.1 % (37.5-50.1); Hemoglobin 11.5 g/dL (12.9-16.9); Mean Corpuscular Volume 90.5 fL (83.0-100.0); Mean Platelet Volume 9.4 fL (9.4-12.4); Platelet Count 413 K/mcL (140-400); Red Cell Distribution Width 15.4 % (11.5-14.5)
[2017-01-07 05:01] LABS: BUN/Creatinine Ratio 24 (6-26); Blood Urea Nitrogen 17 mg/dL (8-26); Calcium 8.3 mg/dL (8.6-10.8); Carbon Dioxide 25 mEq/L (19-29); Chloride 117 mEq/L (98-109); Glucose 178 mg/dL (70-99); Osmolality,Calculated 314 (280-300); Potassium 2.9 mEq/L (3.5-4.5); Sodium 149 mEq/L (136-145); eGFR For African Americans > 60 (> 60); eGFR For Non-African Americans > 60 (> 60)
[2017-01-07] MEDS: *HR* Heparin 5,000 UNIT/ML VIAL SQ SCH ×2 (06:10→17:57)
[2017-01-07] MEDS ORDERED: Potassium Chloride 40 MEQ, Lidocaine 1% 2 ML in D5% in Water 500 ML IVPB ONE (06:56)
[2017-01-07] MEDS: Insulin DETEMIR 100 UNIT/ML X5UNITS SQ SCH ×2 (08:21→22:46)
[2017-01-07] MEDS: Sennosides/Docusate Sodium TABLET PO SCH ×2 (08:29→22:20)
[2017-01-07] MEDS: Leptospermum Honey Gel 44 ML TUBE TP SCH ×2 (08:30→21:00)
[2017-01-07] MEDS: Aspirin 81 MG TAB.CHEW PO SCH (08:30)
--- NOTE | 2017-01-07 10:07 | Internal Med Progress Note ---
<Po Chakraborty - Last Filed: 01/07/17 11:47> Date of Encounter: 01/07/17 Time of Encounter: 10:05 - Assessment and plan (1) Elevated troponin Current Visit: Yes Status: Acute Assessment and plan: Upon admission patient had ST elevations in inferior leads, elevated troponin greater than 50 the setting of septic shock, anemia, hypotension requiring multiple vasopressors. TTE from 12/25/2016 demonstrated left ventricular ejection fraction at 30% global hypokinesis. - Patient underwent amputation of the right lower extremity above the knee. - Currently does not meet septic criteria, improving. - Originally cardiology discussed doing left heart catheterization prior to discharge. This was again discussed with the cardiology team today and as the patient has been nothing by mouth for potential intervention today. Awaiting further recommendations from cardiology. (2) Septic shock Current Visit: Yes Status: Resolved Assessment and plan: - on admission, met 4 SIRS criteria (fever, tachycardia, tachypnea and leukocytosis) with persistent hypotension and lactic acid 7.2 - Likely secondary to right lower extremity gangrene/infection. The multifocal pneumonia found later on CT chest likely to have a role. -completed IV vancomycin. continue IV meropenem (since 12/26) for 2 more days to complete 14 day course. antibiotics. - remains afebrile and maintaining BP w/o pressor support -Continue to monitor. (3) Diabetes mellitus with peripheral angiopathy with gangrene Current Visit: Yes Status: Acute Assessment and plan: -sliding scale insulin in addition to basal insulin. -Monitor glucose with morning labs and POC accu-checks. 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 - Patient was successfully extubated on 12/31/16. - Continue bronchodilator, supplemental oxygen and incentive spirometry. - Continue meropenem for pneumonia, see below. 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 - Clinically improves as patient's respiratory status improves both subjectively and objectively. - vancomycin completed, IV meropenem (since 12/26) for 1 more day to finish total 14-day course. Qualifiers: Pneumonia type: due to unspecified organism Laterality: bilateral Lung location: unspecified part of lung Qualified Code(s): J18.9 - Pneumonia, unspecified organism (7) Electrolyte abnormality Current Visit: Yes Status: Acute Assessment and plan: Resolving. Hypernatremia and elevated chloride has developed over last few days d/t poor oral intake, clinically dry, receiving IV vancomycin and multiple other IV meds in 0.9% saline solution. -Will we will continue treating hypernatremia with D5 half-normal saline at 100 mL's per hour. -Encourage PO free water Patient's hypokalemia, current potassium 2.9. Patient has an order for potassium 40 IV over 4 hours. We will also provide 40 KCl by mouth now. (8) Decubitus skin ulcer Current Visit: Yes Status: Acute Assessment and plan: Patient had beginning of skin breakdown at the time of admission. Wound care was consult that. Wound measures 3.5 cm wide and 10 cm long that he sires Botox roughly 0.3 cm deep. - Decubitus ulcer stage 3 Plan: - Continue wound care - Rotate patient appropriately - Maximize nutritional intake for wound healing. (9) DVT prophylaxis Current Visit: Yes Status: Acute Assessment and plan: heparin 5,000 units subQ daily IPCD on left lower extremity - Subjective Interval history: Mr. Garcia 56-year-old male is been seen and evaluated patient bedside this morning. He is laying on his right side as he is rotated due to his decubitus ulcer. Mental status is not appropriate, does not answer most questions appropriately. He denies any pain or discomfort or any concerns currently. I asked that he had knee discomfort with his decubitus ulcer and he states it is grumpy. He denies having an appetite and says he does not like the food but does not provide any other details. He does not further answer questions. - Constitutional Vitals: Temp Pulse Resp BP Pulse Ox 99.5 F 94 20 160/105 97 01/07/17 08:24 01/07/17 08:24 01/07/17 08:24 01/07/17 08:24 01/07/17 08:24 General appearance: Present: no acute distress, answers questions appropriately Exam: General: Patient alert, awake, interactive, in no acute distress HEENT: Normocephalic, atraumatic, pupils equal reactive to light, oral mucosa moist, neck supple trachea midline no palpable lymphadenopathy, no thyromegaly. Chest: Symmetric bilateral correlating with respiratory effort, effort nonlabored. Cardiac: Regular rate and rhythm, positive S1 and S2. no bruits appreciated bilateral carotids, Radial pulses 2+ bilateral Respiratory: Clear to auscultation all lung marks Abdomen: Soft, nontender, positive bowel sounds, no palpable masses appreciated on examination Extremities: Patient has right-sided [id number] amputation which is healing appropriately, no signs of erythema edema or drainage. Left lower extremity stable. Patient has decubitus ulcer which is currently covered without significant drainage. Internal Medicine: Result - Labs CBC & Chem 7: 01/07/17 04:30 01/07/17 04:30 Labs: Short CBC 01/07/17 Range/Units 04:30 WBC 12.2 H (4.3-11.1) K/mcL Hgb 11.5 L (12.9-16.9) g/dL Hct 37.1 L (37.5-50.1) % Plt Count 413 H (140-400) K/mcL BMP 01/07/17 04:30 Sodium 149 H Potassium 2.9 L Chloride 117 H Carbon Dioxide 25 BUN 17 Creatinine 0.70 L Glucose 178 H Calcium 8.3 L - ABG Interpretation ABG results: ABG ABG pH 7.42 pH Units (7.32-7.45) 12/30/16 05:44 ABG pCO2 51 mmHg (35-45) H 12/30/16 05:44 ABG pO2 71 mmHg (85-104) L 12/30/16 05:44 ABG O2 Saturation 94 % (95-98) L 12/30/16 05:44 PT/INR, D-dimer PT 13.2 Seconds (9.4-12.1) H 12/29/16 06:00 - VTE Documentation of Mechanical Device: Intermittent pneumatic compression device Consult Discharge Plan - Plan Referrals: Sunita Murrell MD [Primary Care Provider] - (THIS PATIENT IS GOING TO [facility] NO PCP APPOINTMENT IS NEEDED) <Augie Milian H - Last Filed: 01/07/17 15:04> Date of Encounter: 01/07/17 - Constitutional Vitals: Temp Pulse Resp BP Pulse Ox 98.6 F 76 18 114/82 95 01/07/17 11:15 01/07/17 11:15 01/07/17 11:51 01/07/17 11:15 01/07/17 11:51 Internal Medicine: Result - Labs CBC & Chem 7: 01/07/17 04:30 01/07/17 04:30 Labs: Short CBC 01/07/17 Range/Units 04:30 WBC 12.2 H (4.3-11.1) K/mcL Hgb 11.5 L (12.9-16.9) g/dL Hct 37.1 L (37.5-50.1) % Plt Count 413 H (140-400) K/mcL BMP 01/07/17 04:30 Sodium 149 H Potassium 2.9 L Chloride 117 H Carbon Dioxide 25 BUN 17 Creatinine 0.70 L Glucose 178 H Calcium 8.3 L - ABG Interpretation ABG results: ABG ABG pH 7.42 pH Units (7.32-7.45) 12/30/16 05:44 ABG pCO2 51 mmHg (35-45) H 12/30/16 05:44 ABG pO2 71 mmHg (85-104) L 12/30/16 05:44 ABG O2 Saturation 94 % (95-98) L 12/30/16 05:44 PT/INR, D-dimer PT 13.2 Seconds (9.4-12.1) H 12/29/16 06:00 - Attending Attestation cardiology will discuss options with the patient's brother to consider cardiac catheterization I examined this patient and my medical decision-making was reviewed with the Resident Physician. I agree with the documented findings, disposition and treatment plan as described except to the extent set forth below.
[2017-01-07] MEDS ORDERED: Potassium Chloride Elixir 20 MEQ/15 ML UDC PO ONE (10:11)
--- NOTE | 2017-01-07 10:41 | Cardiology Progress Note ---
Date of Encounter: 01/07/17 Time of Encounter: 09:00 Assessment and Plan (1) Septic shock Current Visit: Yes Status: Resolved Per cardiology: -Admitted after being found unresponsive at home. -S/p AKA per vascular surgery. -Had previously been on vasopressors. -Now tolerating beta binta. -BP 110-140s systolic. -Management per primary service. (2) Abnormal ECG Current Visit: Yes Status: Acute Per cardiology: -Had ECG changes on admission, improved in appearance on most recent ECG. -Denies chest pain or shortness of breath. -Will repeat ECG today. (3) Elevated troponin Current Visit: Yes Status: Acute Per cardiology: -Troponin >50 in the setting of septic shock, anemia, hypotension requireing multiple vasopressors. -Patient denies chest pain or shortness of breath -ECG with changes noted, improved since admission. -On asa, statin, beta binta, and plavix. -TTE 12/23 poor quality echo. -TTE 12/25 LVEF 30%, global hypokinesis. -Of note, patient is confused today and only oriented to person. -will change simvastatin to atorvastatin. -Discussed and reviewed with , Patient is not a good candidate for invasive cardiac procedures due to mental status and known severe vascular disease. Femoral angiogram report reviewed with right WELDING ROBOT OPERATOR with 80% stenosis, left WELDING ROBOT OPERATOR 70% stenosis. -Will repeat ECG today. If ECG unchanged, cardiology will sign off and will follow in outpatient setting. (4) PAD (peripheral artery disease) Current Visit: Yes Status: Chronic Per cardiology: -Known PAD s/p right AKA with . -Vascular surgery following. -Management per primary and vascular surgery. (5) Cardiomyopathy Current Visit: Yes Status: Acute Per cardiology: -TTE with LVEf 30%, global hypokinesis. -06/2015 Gated EF 68% per nuclear stress. -On beta binta. -Will add low dose lisinopril. -Will continue to monitor in outpatient setting. Qualifiers: Cardiomyopathy type: unspecified Qualified Code(s): I42.9 - Cardiomyopathy , unspecified Discussion w patient/family: The assessment and plan as outlined above was discussed with the patient. Thank you for involving us in the care of your patient. Please call with any questions. Discussed and reviewed with , Subjective Principal diagnosis: Ischemic limb Interval history: Patient sleeping upon entering room. Patient arouses to verbal stimuli. Patient alert and oriented to person only. Denies chest pain or shortness of breath. Objective Vital Signs, Last 4 Hours Temp Pulse Resp BP Pulse Ox 01/07/17 10:22 98.5 F 82 18 156/94 97 01/07/17 08:24 99.5 F 94 20 160/105 97 General: Conversant, No Apparent Distress HEENT: Atraumatic, Normocephaly, Mucus Membranes Moist Neck: No JVD, Normal carotid pulses Cardiac: Reg Rate and Rhythm, Normal S1 and S2, No Murmur Lungs: Other (Lung sound diminished throughout) Neuro: Alert and responsive, Other (Oriented to person only. ) Abdomen: Soft, Non-Tender Skin: No rashes noted on visualized skin Musculoskeletal: No Chest Wall Tenderness Extremities: No Clubbing, No Cyanosis, No Edema, Other (Right AKA noted, dressing intact. Left pedal pulse diminished. ) Results 01/07/17 04:30 01/07/17 04:30 Lab Results Active Medications Acetaminophen (Tylenol) 650 mg PO Q6HR PRN PRN Reason: Fever Stop: 06/27/17 04:25 Last Admin: 01/06/17 07:54 Dose: 650 mg Albuterol Sulfate (Albuterol Inhaler) 2 puff IH [id number] [facility] Stop: 06/30/17 12:01 Last Admin: 01/07/17 08:13 Dose: Not Given Aspirin (Aspirin) 81 mg PO DAILY [facility] Stop: 06/09/17 09:01 Last Admin: 01/07/17 08:30 Dose: 81 mg Budesonide/Formoterol Fumarate (Symbicort) 2 puff IH BIDR [facility] PRN Reason: Protocol Stop: 06/30/17 22:01 Last Admin: 01/06/17 19:50 Dose: Not Given Citalopram Hydrobromide (Celexa) 40 mg PO DAILY [facility] Stop: 06/27/17 09:01 Last Admin: 01/07/17 08:29 Dose: 40 mg Clopidogrel Bisulfate (Plavix) 75 mg PO DAILY [facility] Stop: 06/28/17 09:01 Last Admin: 01/07/17 08:29 Dose: 75 mg Dextrose/Water (Dextrose 50% (Syg)) 25 ml IVP AD PRN PRN Reason: Hypoglycemia Stop: 06/24/17 17:42 Glucagon (Glucagen) 1 mg IM ONCE PRN PRN Reason: Hypoglycemia Stop: 06/24/17 17:42 Glucose (Gluctose) 15 gm PO ONCE PRN PRN Reason: Hypoglycemia Stop: 06/24/17 17:42 Glucose (Gluctose) 30 gm PO ONCE PRN PRN Reason: Hypoglycemia Stop: 06/24/17 17:42 Heparin Sodium (Porcine) (Heparin) 5,000 unit SQ Q12HCO [facility] Stop: 06/28/17 18:01 Last Admin: 01/07/17 06:10 Dose: 5,000 unit Dextrose (Dextrose 5%) 1,000 mls @ 100 mls/hr IVC .Q10H PRN PRN Reason: HYPOGLYCEMIA Stop: 06/24/17 17:42 Meropenem 1,000 mg/ Sterile (Water) 10 mls @ 200 mls/hr IVP Q8HR [facility] Stop: 06/27/17 08:01 Last Admin: 01/07/17 08:12 Dose: 200 mls/hr Dextrose (Dextrose 5%) 1,000 mls @ 100 mls/hr IVC .Q10H [facility] Stop: 07/08/17 15:01 Last Admin: 01/07/17 03:20 Dose: 100 mls/hr Potassium Chloride 40 meq/ (Lidocaine 2 ml/ Dextrose) 522 mls @ 130.5 mls/hr IVPB ONCE ONE Stop: 01/07/17 10:55 Last Admin: 01/07/17 09:27 Dose: 130.5 mls/hr Insulin Detemir (Levemir) 15 unit SQ BID [facility] Stop: 06/28/17 21:01 Last Admin: 01/07/17 08:21 Dose: 15 unit Insulin Human Lispro (Humalog) 0 units SQ Q6HR [facility] PRN Reason: Protocol Stop: 07/08/17 12:01 Last Admin: 01/07/17 06:11 Dose: 4 units Leptospermum Honey (Medihoney) 1 appl TP BID [facility] Stop: 07/07/17 18:31 Last Admin: 01/07/17 08:30 Dose: 1 appl Lisinopril (Zestril) 2.5 mg PO DAILY [facility] PRN Reason: Protocol Stop: 07/09/17 10:46 Metoprolol Tartrate (Lopressor) 12.5 mg PO BID [facility] Stop: 06/29/17 09:01 Last Admin: 01/07/17 08:30 Dose: 12.5 mg Mirtazapine (Remeron) 7.5 mg PO HS [facility] Stop: 07/08/17 21:01 Last Admin: 01/06/17 21:12 Dose: 7.5 mg Naloxone HCl (Narcan) 0.4 mg IVP Q2MIN PRN PRN Reason: Opioid Reversal Stop: 06/24/17 17:23 Omeprazole (Prilosec) 40 mg PO DAILY@0630 [facility] PRN Reason: Protocol Stop: 07/09/17 06:31 Last Admin: 01/07/17 08:29 Dose: 40 mg Quetiapine Fumarate (Seroquel) 300 mg PO HS [facility] PRN Reason: Protocol Stop: 06/26/17 21:01 Last Admin: 01/06/17 21:12 Dose: 300 mg Senna/Docusate Sodium (Senna Plus) 2 each PO BID [facility] PRN Reason: Protocol Stop: 06/30/17 09:01 Last Admin: 01/07/17 08:29 Dose: 2 each Simvastatin (Zocor) 10 mg PO HS [facility] Stop: 06/26/17 21:01 Last Admin: 01/06/17 21:13 Dose: 10 mg Tramadol HCl (Ultram) 100 mg PO BID PRN PRN Reason: moderate to severe pain Stop: 07/08/17 21:01 Laboratory Tests 12/30/16 01/07/17 01/07/17 03:15 04:30 04:30 WBC 12.2 H Hgb 11.5 L Potassium 2.9 L Creatinine 0.70 L AST 30 ALT 25 - Imaging and Cardiology Chest Xray: report reviewed Stress Test: report reviewed Echo: report reviewed - EKG Interpretation EKG results cardiology: other (Telemetry reviewed with average HR previous 12 hours noted to be 97, sinus rhythm. PVCs and PACs noted. One 6 beat run of non- sustained ventricular tachycardia noted.) - VTE Documentation of Mechanical Device: Intermittent pneumatic compression device Consult Discharge Plan - Plan Referrals: Sunita Murrell MD [Primary Care Provider] - (THIS PATIENT IS GOING TO [facility] NO PCP APPOINTMENT IS NEEDED)
[2017-01-07] MEDS: Budesonide/Formoterol 160/4.5 MDI IH SCH ×2 (11:47→21:01)
--- NOTE | 2017-01-07 15:55 | Event Note ---
Date of Encounter: 01/07/17 Time of Encounter: 15:30 - Cardiology Event Note I spoke at length with brother and [id number] at bedside. Updated family on recommendations for LHC for cardiomypathy, elevated troponin, and ischemic ECG changes. Risks versus benefits of LHC explained to patient and family. Brother ( next of kin) states understanding and states that he does not want any invasive intervention at this point. Brother states he wants to see if patient's mental status improves and then decide on LHC. Cardiology will sign off and will follow in outpatient setting. Follow up set.
[2017-01-07] MEDS ORDERED: Mirtazapine 15 MG TABLET PO SCH (21:00)
[2017-01-08] MEDS: Meropenem 1,000 MG in Water for inj. (sterile) 10 ML IVP SCH ×2 (00:34→08:39)
[2017-01-08] MEDS: Insulin LISPRO 300 UNITS/3 ML VIAL SQ SCH ×3 (01:11→11:48)
[2017-01-08] MEDS ORDERED: D5% in Water 500 ML IVC SCH (05:45)
[2017-01-08] MEDS: *HR* Heparin 5,000 UNIT/ML VIAL SQ SCH (05:57)
--- NOTE | 2017-01-08 07:58 | Discharge Summary ---
<Candace Yancey - Last Filed: 01/08/17 12:02> Date of Encounter: 01/08/17 Time of Encounter: 07:56 - Discharge Diagnosis (1) Elevated troponin Priority: Secondary Status: Resolved Comments: Upon admission patient had ST elevations in inferior leads, elevated troponin greater than 50 the setting of septic shock, anemia, hypotension requiring multiple vasopressors. TTE from 12/25/2016 demonstrated left ventricular ejection fraction at 30% global hypokinesis. - Patient underwent amputation of the right lower extremity above the knee. - Currently does not meet septic criteria, improving. - Originally cardiology discussed doing left heart catheterization prior to discharge. This was again discussed with the cardiology team as the patient has been NPO for potential intervention. (2) Septic shock Priority: Primary Status: Acute Comments: - on admission, met 4 SIRS criteria (fever, tachycardia, tachypnea and leukocytosis) with persistent hypotension and lactic acid 7.2 - Likely secondary to right lower extremity gangrene/infection. The multifocal pneumonia found later on CT chest likely to have a role. -completed IV vancomycin. Last day IV meropenem to complete 14 day course. - remains afebrile and maintaining BP w/o pressor support -Continue to monitor (3) Diabetes mellitus with peripheral angiopathy with gangrene Priority: Secondary Status: Acute Comments: -sliding scale insulin in addition to basal insulin. -Monitor glucose with morning labs and POC accu-checks. 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 - Patient was successfully extubated on 12/31/16. - Continue bronchodilator, supplemental oxygen and incentive spirometry. - Last day meropenem for pneumonia. 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 - Clinically improves as patient's respiratory status improves both subjectively and objectively. - vancomycin completed, IV meropenem (since 12/26) for 1 more day to finish total 14-day course. Qualifiers: Pneumonia type: due to unspecified organism Laterality: bilateral Lung location: unspecified part of lung Qualified Code(s): J18.9 - Pneumonia, unspecified organism (7) Electrolyte abnormality Priority: Primary Status: Resolved Comments: Resolving. Hypernatremia and elevated chloride has developed over last few days d/t poor oral intake, clinically dry, receiving IV vancomycin and multiple other IV meds in 0.9% saline solution. -Will we will continue treating hypernatremia with D5 half-normal saline at 100 mL's per hour. -Encourage PO free water Patient's hypokalemia, current potassium 2.9. Patient has an order for potassium 40 IV over 4 hours. We will also provide 40 KCl by mouth now. (8) Decubitus skin ulcer Priority: Secondary Status: Chronic Comments: Patient had beginning of skin breakdown at the time of admission. Wound care was consult that. Wound measures 3.5 cm wide and 10 cm long that he sires Botox roughly 0.3 cm deep. - Decubitus ulcer stage 3 Plan: - Continue wound care - Rotate patient appropriately - Maximize nutritional intake for wound healing. Qualifiers: Pressure ulcer location: buttock Pressure ulcer stage: unspecified pressure ulcer stage Laterality: unspecified laterality Qualified Code(s): L89.309 - Pressure ulcer of unspecified buttock, unspecified stage (9) DVT prophylaxis Priority: Secondary Status: Acute Comments: heparin 5,000 units subQ daily IPCD on left lower extremity - Discharge Medications Prescriptions: LORazepam [Ativan] 1 mg PO HS #7 tablet Tramadol HCl [Tramadol HCl ER] 100 mg PO TID PRN #20 cpbp.25.75 PRN Reason: pain Home Medications: Gabapentin [Neurontin] 800 mg PO TID 07/19/15 [History] Lovastatin 40 mg PO HS 07/19/15 [History] Quetiapine Fumarate [Seroquel] 600 mg PO HS 07/19/15 [History] Ranitidine HCl [Zantac] 150 mg PO BID 07/19/15 [History] Zolpidem [Ambien] 10 mg PO HS 07/19/15 [History] Citalopram Hydrobromide [Celexa] 40 mg PO DAILY 01/24/16 [History] Empagliflozin [Jardiance] 10 mg PO DAILY 01/24/16 [History] Metformin HCl [Metformin HCl ER] 500 mg PO HS 01/24/16 [History] Naproxen [Naprosyn] 500 mg PO BID PRN 01/24/16 [History] Pentoxifylline [TRENtal] 400 mg PO BID 01/24/16 [History] Aspirin Enteric Coated [Aspirin EC] 81 mg PO DAILY 03/26/16 [History] glipiZIDE [Glipizide] 10 mg PO BID 03/26/16 [History] Furosemide [Lasix] 40 mg PO DAILY 08/28/16 [History] Alogliptin Benzoate [Alogliptin] 25 mg PO DAILY 11/25/16 [History] Amantadine HCl [Amantadine] 100 mg PO BID 11/25/16 [History] Potassium Chloride [Klor-Con 10] 10 meq PO DAILY 11/25/16 [History] Nicotine Patch [Nicoderm] 21 mg TD DAILY #30 patch.td24 11/26/16 [Rx] Rivaroxaban [Xarelto] 20 mg PO DAILY #30 tablet 11/26/16 [Rx] Clopidogrel [Plavix] 75 mg PO DAILY 12/23/16 [History] Insulin Glargine,Hum.rec.anlog [Basaglar Kwikpen U-100] 6 unit SQ DAILY [History] LORazepam [Ativan] 1 mg PO HS #7 tablet 01/08/17 [Rx] Metoprolol [Lopressor] 12.5 mg PO BID tablet 01/08/17 [Rx] Tramadol HCl [Tramadol HCl ER] 100 mg PO TID PRN #20 cpbp.25.75 01/08/17 [Rx] Allergies/Adverse Reactions: 3 Allergy/AdvReac Type Severity Reaction Status Date / Time No Known Allergies Allergy Verified 08/28/16 10:04 Procedures/tests Complete & Pending: Procedures Performed prior 72 hours Category Date Time Status ECG 12 lead ECG [ECG] Routine Y 01/07/17 11:25 Completed Date of admission: 12/23/16 16:24 Primary care physician: Sunita Murrell Consults: 12/24/16 12:59 Consult to Nutrition [CONS] Routine Comment: Consulting Provider: NUTRITION Reason for Dietary Consult: Other 12/26/16 07:49 Consult to Window Caser [CONS] Routine Reason for SW Consult: will need rehab once discharged 12/27/16 11:29 Consult to Nutrition [CONS] Routine Comment: Consulting Provider: NUTRITION Reason for Dietary Consult: TF Start and Manage 12/31/16 11:19 Consult to Speech Therapy [CONS] Routine Comment: Evaluate, develop and implement POC Reason for Consult: Swallow evaluation Call Completed: No 01/02/17 08:33 Consult to Physical Therapy [CONS] Routine Comment: Evaluate, develop and implement POC Reason for Consult: S/p right AKA on 12/23/16 OT [Consult to Occupational Therapy] [CONS] Routine Comment: Evaluate, develop and implement POC Reason for Consult: S/p right AKA on 12/23/16 01/03/17 17:46 Consult to Wound Care [CONS] Routine Reason for Consult: pressure ulcer note to coccyx. Call Completed: No 01/06/17 15:20 Consult to Cardiology [CONS] Routine Comment: Consulting Provider: Saturnino Jarquin Reason for Consult: evaluate for LHC; spoke with Le Reed PRODUCTION PACKAGER Time Notified: 15:21 Call Completed: Yes Discharging clinician: Candace Yancey - Patient Status Disposition: Transfer LTC Condition: Fair Overall status at discharge: patient is progressing back to baseline - Discharge Instructions Follow Up With: Sunita Murrell MD [Primary Care Provider] - (THIS PATIENT IS GOING TO [facility] NO PCP APPOINTMENT IS NEEDED) Additional Instructions: Continue wound care, follow-up with primary care physician within the next 2 weeks - Diet and Activity Diet: diabetic diet, low fat, low cholesterol Interval History: Patient seen and examined this morning at bedside, he his laying in bed. When asked if he has any pain or discomfort, the patient indicates he is having nonspecific abdominal discomfort and is unable to tell me when he last had a bowel movement. Patient feels his breathing has improved and denies any significant episodes of coughing. Hospital course: Mr. Almanza is a 56 year old male who presented to the emergency department with altered mental status, hypotension, and an ischemic, necrotic RLE. Blood cultures were drawn and antibiotics given immediately (Levaquin, Zosyn, Vancomycin). Cardiology evaluated the patient while in the emergency department , where he was noted to have abnormal EKGs, but it was determined he wasn't a candidate for LHC at the time due to his clinical status. On admission, labs significant for troponin of 3.17, lactic acid of 7.2, white count 18, Hgb of 6. He was evaluated in the ED by vascular surgery and immediately taken to OR for [id number]-[id number] amputation of RLE. He was then transferred to the ICU from the OR for further treatment and management and pressor support. Pt received total 10 units pRBCs with improvement of Hgb. During course of hospitalization, pt required intubation for respiratory failure secondary to septic shock in the setting of acute RLE ischemia, pulmonary edema, and multifocal pneumonia. Patient extubated on 12/31/16 and tolerated nasal cannula well. Septic shock gradually improved with fluids and administration of vancomycin and meropenem. Site of amputation healed well and vascular surgery followed the patient. Troponin peaked at greater than 50, cardiology recommended LHC once pt was more clinically stable. However, pt's brother declined invasive cardiac procedures. On day of discharge, pt was medically stable and vital signs were within normal limits; labs were back to baseline. [facility] - Time Spent with Patient Total time spent providing and/or coordinating discharge services: - Constitutional Vitals: Temp Pulse Resp BP Pulse Ox 98.7 F 80 24 117/83 95 01/08/17 07:28 01/08/17 07:28 01/08/17 07:28 01/08/17 07:28 01/08/17 07:28 General appearance: Present: no acute distress, answers questions appropriately Exam: General: Patient alert, awake, interactive, in no acute distress HEENT: Normocephalic, atraumatic, EOMI, neck supple with full ROM Cardiac: Regular rate and rhythm, positive S1 and S2. Respiratory: CTA bilaterally, normal respiratory effort Abdomen: Soft, nontender, Bowel sounds, present, no palpable masses appreciated on examination Extremities: Patient has right-sided [id number] amputation, left lower extremity stable. Neuro: Alert, interactive, appropriately answered questions - VTE Documentation of Mechanical Device: Intermittent pneumatic compression device <Augie Milian H - Last Filed: 01/08/17 12:56> Date of Encounter: 01/08/17 Procedures/tests Complete & Pending: Procedures Performed prior 72 hours Category Date Time Status ECG 12 lead ECG [ECG] Routine Y 01/07/17 11:25 Completed Date of admission: 12/23/16 16:24 Primary care physician: Sunita Murrell Consults: 12/24/16 12:59 Consult to Nutrition [CONS] Routine Comment: Consulting Provider: NUTRITION Reason for Dietary Consult: Other 12/26/16 07:49 Consult to Window Caser [CONS] Routine Reason for SW Consult: will need rehab once discharged 12/27/16 11:29 Consult to Nutrition [CONS] Routine Comment: Consulting Provider: NUTRITION Reason for Dietary Consult: TF Start and Manage 12/31/16 11:19 Consult to Speech Therapy [CONS] Routine Comment: Evaluate, develop and implement POC Reason for Consult: Swallow evaluation Call Completed: No 01/02/17 08:33 Consult to Physical Therapy [CONS] Routine Comment: Evaluate, develop and implement POC Reason for Consult: S/p right AKA on 12/23/16 OT [Consult to Occupational Therapy] [CONS] Routine Comment: Evaluate, develop and implement POC Reason for Consult: S/p right AKA on 12/23/16 01/03/17 17:46 Consult to Wound Care [CONS] Routine Reason for Consult: pressure ulcer note to coccyx. Call Completed: No 01/06/17 15:20 Consult to Cardiology [CONS] Routine Comment: Consulting Provider: Saturnino Jarquin Reason for Consult: evaluate for LHC; spoke with Le Reed CNP Time Notified: 15:21 Call Completed: Yes - Diet and Activity Diet: diabetic diet, low fat, low cholesterol Hospital course: Mr. Almanza is a 56 year old male - Time Spent with Patient Total time spent providing and/or coordinating discharge services: Greater than 30 minutes (40 min) - Constitutional Vitals: Temp Pulse Resp BP Pulse Ox 98.8 F 72 24 131/84 94 01/08/17 11:36 01/08/17 11:36 01/08/17 11:36 01/08/17 11:36 01/08/17 11:19 - Attending Attestation Septic shock secondary to right lower extremity gangrene/ischemic leg and multifocal pneumonia intubated due to acute hypoxic hypercapnic respiratory failure Non-STEMI Status post right budyr-opm-[id number] amputation Has completed 14 days of vancomycin and meropenem Patient and his brother rejected cardiology recommendations to have a cardiac catheterization even though he had ST elevations on the inferior leads on admission and a very elevated troponin more than 50 I examined this patient and my medical decision-making was reviewed with the Resident Physician. I agree with the documented findings, disposition and treatment plan as described except to the extent set forth below. Time spent on discharge: 40 minutes
[2017-01-08] MEDS: Budesonide/Formoterol 160/4.5 MDI IH SCH (08:08)
[2017-01-08] MEDS: Aspirin 81 MG TAB.CHEW PO SCH (08:40)
[2017-01-08] MEDS: Sennosides/Docusate Sodium TABLET PO SCH (08:40)
[2017-01-08] MEDS: Leptospermum Honey Gel 44 ML TUBE TP SCH (08:41)
[2017-01-08] MEDS: Insulin DETEMIR 100 UNIT/ML X5UNITS SQ SCH (08:44)
--- NOTE | 2017-01-08 09:13 | Physician Discharge Referral ---
<Candace Yancey - Last Filed: 01/08/17 09:10> [facility] Referral Info Institutional Level of Care: Skilled - Diagnosis (1) Elevated troponin Priority: Secondary Status: Resolved (2) Septic shock Priority: Secondary Status: Acute (3) Diabetes mellitus with peripheral angiopathy with gangrene Priority: Primary Status: Acute (4) Acute respiratory failure Priority: Primary Status: Acute (5) Atherosclerotic peripheral vascular disease with gangrene Priority: Primary Status: Chronic (6) Pneumonia Priority: Secondary Status: Resolved (7) Electrolyte abnormality Priority: Secondary Status: Resolved (8) Decubitus skin ulcer Priority: Secondary Status: Acute (9) DVT prophylaxis Priority: Secondary Status: Acute - Transfer Medications Prescriptions: LORazepam [Ativan] 1 mg PO HS #7 tablet Tramadol HCl [Tramadol HCl ER] 100 mg PO TID PRN #20 cpbp.25.75 PRN Reason: pain Home Medications: Gabapentin [Neurontin] 800 mg PO TID 07/19/15 [History] Lovastatin 40 mg PO HS 07/19/15 [History] Quetiapine Fumarate [Seroquel] 600 mg PO HS 07/19/15 [History] Ranitidine HCl [Zantac] 150 mg PO BID 07/19/15 [History] Zolpidem [Ambien] 10 mg PO HS 07/19/15 [History] Citalopram Hydrobromide [Celexa] 40 mg PO DAILY 01/24/16 [History] Empagliflozin [Jardiance] 10 mg PO DAILY 01/24/16 [History] Metformin HCl [Metformin HCl ER] 500 mg PO HS 01/24/16 [History] Naproxen [Naprosyn] 500 mg PO BID PRN 01/24/16 [History] Pentoxifylline [TRENtal] 400 mg PO BID 01/24/16 [History] Aspirin Enteric Coated [Aspirin EC] 81 mg PO DAILY 03/26/16 [History] glipiZIDE [Glipizide] 10 mg PO BID 03/26/16 [History] Furosemide [Lasix] 40 mg PO DAILY 08/28/16 [History] Alogliptin Benzoate [Alogliptin] 25 mg PO DAILY 11/25/16 [History] Amantadine HCl [Amantadine] 100 mg PO BID 11/25/16 [History] Potassium Chloride [Klor-Con 10] 10 meq PO DAILY 11/25/16 [History] Nicotine Patch [Nicoderm] 21 mg TD DAILY #30 patch.td24 11/26/16 [Rx] Rivaroxaban [Xarelto] 20 mg PO DAILY #30 tablet 11/26/16 [Rx] Clopidogrel [Plavix] 75 mg PO DAILY 12/23/16 [History] Insulin Glargine,Hum.rec.anlog [Basaglar Kwikpen U-100] 6 unit SQ DAILY [History] LORazepam [Ativan] 1 mg PO HS #7 tablet 01/08/17 [Rx] Metoprolol [Lopressor] 12.5 mg PO BID tablet 01/08/17 [Rx] Tramadol HCl [Tramadol HCl ER] 100 mg PO TID PRN #20 cpbp.25.75 01/08/17 [Rx] Allergies/Adverse Reactions: 3 Allergy/AdvReac Type Severity Reaction Status Date / Time No Known Allergies Allergy Verified 08/28/16 10:04 - Respiratory Orders Smoking Cessation: Smoking cessation has been advised. For more information, call the [place] Quit Line at 3-303-OMJHGlycoVaxynNOW. CERTIFICATION: I certify that the transfer of the above named patient to an Extended Care Facility is necessary for the continuing treatment of the diagnosis listed. The above information is true and accurate reflection of patient's current condition. Confidential - Redisclosure prohibited without a patient's written consent. <Augie Milian H - Last Filed: 01/08/17 12:57> [facility] Referral Info Provider in Charge after Transfer: PCP Institutional Level of Care: Skilled - Respiratory Orders Smoking Cessation: Smoking cessation has been advised. For more information, call the [place] Quit Line at 0-004-QKSH-NOW. - Advance Directives Code Status: Full Code CERTIFICATION: I certify that the transfer of the above named patient to an Extended Care Facility is necessary for the continuing treatment of the diagnosis listed. The above information is true and accurate reflection of patient's current condition. Confidential - Redisclosure prohibited without a patient's written consent. I examined this patient and my medical decision-making was reviewed with the Resident Physician. I agree with the documented findings, disposition and treatment plan as described except to the extent set forth below.
[2017-01-08 09:41] LABS: Hematocrit 37.2 % (37.5-50.1); Hemoglobin 11.8 g/dL (12.9-16.9); Mean Corpuscular HGB Conc 31.7 g/dL (31.6-35.5); Mean Corpuscular Hemoglobin 28.1 pg (28.0-33.3); Mean Corpuscular Volume 88.6 fL (83.0-100.0); Mean Platelet Volume 9.6 fL (9.4-12.4); Platelet Count 379 K/mcL (140-400); Red Cell Distribution Width 15.3 % (11.5-14.5)
[2017-01-08 09:52] LABS: BUN/Creatinine Ratio 23 (6-26); Blood Urea Nitrogen 14 mg/dL (8-26); Calcium 8.2 mg/dL (8.6-10.8); Carbon Dioxide 22 mEq/L (19-29); Chloride 116 mEq/L (98-109); Glucose 169 mg/dL (70-99); Osmolality,Calculated 306 (280-300); Sodium 146 mEq/L (136-145); eGFR For African Americans > 60 (> 60); eGFR For Non-African Americans > 60 (> 60)
[2017-01-08] MEDS ORDERED: Potassium Chloride Elixir 20 MEQ/15 ML UDC PO ONE (11:14)
[2017-01-08 15:04] VITALS: BP 134/85
--- NOTE | 2017-01-09 16:14 | Electrocardiograph Report ---
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
== END 2017-01-08 15:57 | DRG 710 ==
LOC: EMEROO 13:46 → ICNU 16:24 → SUATTDRO 16:24 → ICNU 16:44 → 2NNU 01-03 14:05
PROVIDERS: ADMIT Internal Medicine Hospice and Palliative Medicine; ATTEND Internal Medicine

== ENCOUNTER 2017-01-13 08:42 | Inpatient (IN) ==
[2017-01-13 09:10] LABS: Basophils % 0.1 %; Eosinophils # 0.1 K/mcL (0.0-0.6); Eosinophils % 0.6 %; Hematocrit 34.1 % (37.5-50.1); Hemoglobin 11.3 g/dL (12.9-16.9); Immature Granulocytes % 0.8 % (0-4); Lymphocytes # 1.7 K/mcL (0.6-4.6); Lymphocytes % 10.3 %; Mean Corpuscular HGB Conc 33.1 g/dL (31.6-35.5); Mean Corpuscular Hemoglobin 28.4 pg (28.0-33.3); Mean Corpuscular Volume 85.7 fL (83.0-100.0); Mean Platelet Volume 9.6 fL (9.4-12.4); Monocytes # 1.1 K/mcL (0.0-1.3); Monocytes % 6.8 %; Platelet Count 262 K/mcL (140-400); Red Blood Count 3.98 M/mcL (4.19-5.50); Red Cell Distribution Width 15.4 % (11.5-14.5); Segmented Neutrophils % 81.4 %
[2017-01-13 09:26] LABS: Bilirubin,Urine Negative (Negative); Blood,Urine Large (Negative); Clarity,Urine Clear (Clear); Color,Urine Yellow (Yellow); Glucose,Urine (UA) >=1000 mg/dL (Normal); Ketones,Urine Negative (Negative); Leukocyte Esterase,Urine Negative (Negative); Nitrite,Urine Negative (Negative); PH,Urine 6.5 pH Units (5.0-8.0); Protein,Urine Negative (Neg-Trace); Specific Gravity,Urine 1.015 (1.010-1.025); Urobilinogen,Urine Normal (Normal)
[2017-01-13 09:29] LABS: Bacteria,Urine None Seen per hpf (None-Few); Hyaline Casts,Urine Few per lpf (None-Few); RBC,Urine 50-100 per hpf (0-3); Squamous Epithelial Cell,Urine Moderate per lpf (None-Few); WBC,Urine 50-100 per hpf (0-3)
[2017-01-13] MEDS ORDERED: Aspirin 325 MG TABLET PO ONE (09:33)
--- NOTE | 2017-01-13 09:43 | Emergency Department Note ---
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 Denies: confusion, chest pain, cough, diaphoresis, fever/chills, headaches, loss of appetite, malaise, nausea/vomiting, rash, seizure, shortness of breath, syncope, weakness Treatments Prior to Arrival: none - Related Data Home Medications Medication Instructions Recorded Confirmed Gabapentin [Neurontin] 800 mg PO TID 07/19/15 12/23/16 Lovastatin 40 mg PO HS 07/19/15 12/23/16 Quetiapine Fumarate [Seroquel] 600 mg PO HS 07/19/15 12/23/16 Ranitidine HCl [Zantac] 150 mg PO BID 07/19/15 12/23/16 Zolpidem [Ambien] 10 mg PO HS 07/19/15 12/23/16 Citalopram Hydrobromide [Celexa] 40 mg PO DAILY 01/24/16 12/23/16 Empagliflozin [Jardiance] 10 mg PO DAILY 01/24/16 12/23/16 Metformin HCl [Metformin HCl ER] 500 mg PO HS 01/24/16 12/23/16 Naproxen [Naprosyn] 500 mg PO BID PRN 01/24/16 12/23/16 Pentoxifylline [TRENtal] 400 mg PO BID 01/24/16 12/23/16 Aspirin Enteric Coated [Aspirin EC] 81 mg PO DAILY 03/26/16 12/23/16 glipiZIDE [Glipizide] 10 mg PO BID 03/26/16 12/23/16 Furosemide [Lasix] 40 mg PO DAILY 08/28/16 12/23/16 Alogliptin Benzoate [Alogliptin] 25 mg PO DAILY 10/17/17 11/14/17 Amantadine HCl [Amantadine] 100 mg PO BID 11/25/16 12/23/16 Potassium Chloride [Klor-Con 10] 10 meq PO DAILY 11/25/16 12/23/16 Clopidogrel [Plavix] 75 mg PO DAILY 12/23/16 12/23/16 Insulin Glargine [Lantus] 6 unit SQ HS 01/13/17 01/13/17 Previous Rx's Medication Instructions Recorded Nicotine Patch [Nicoderm] 21 mg TD DAILY #30 patch.td24 11/26/16 Rivaroxaban [Xarelto] 20 mg PO DAILY #30 tablet 11/26/16 LORazepam [Ativan] 1 mg PO HS #7 tablet 01/08/17 Metoprolol [Lopressor] 12.5 mg PO BID tablet 01/08/17 Tramadol HCl [Tramadol HCl ER] 100 mg PO TID PRN #20 cpbp.25.75 01/08/17 Allergies Allergy/AdvReac Type Severity Reaction Status Date / Time No Known Allergies Allergy Verified 08/28/16 10:04 All systems ED: reviewed and negative except as stated. Review of Systems: As Per HPI Constitutional: Denies: fever, chills, weakness Eyes: Denies: eye pain, eye discharge, vision change ENT ED: Denies: ear pain, throat pain, congestion, dysphagia Cardiovascular: Denies: chest pain, palpitations, dyspnea on exertion, syncope Respiratory: Denies: cough, dyspnea, wheezes Gastrointestinal: Denies: abdominal pain, nausea, vomiting, diarrhea Musculoskeletal: Denies: back pain, neck pain, joint swelling Integumentary: Denies: rash Neurological: Denies: headache, weakness, numbness, paresthesias Hematological/Lymphatic: Denies: easy bleeding, easy bruising Past Medical History - Past Medical History Attestation: Yes The following information was validated with the patient. Source: patient Medical history: Reports: COPD, diabetes, hyperlipidemia, hypertension, peripheral artery disease Surgical history: Reports: cholecystectomy, vascular surgery (Bilateral femoral endarterectomy, bilateral femoral to popliteal artery bypass) Psychiatric history: Reports: anxiety, bipolar, other - Social History Smoking Status: Former smoker Smokeless Tobacco Status: No Alcohol use: Reports: none Drug use: Reports: none Physical Exam - General Limitations: no limitations General appearance: alert, in no apparent distress - Head Head exam: atraumatic, normocephalic, normal inspection - Eye Eye exam: Present: normal appearance, PERRL, EOMI. Absent: scleral icterus, conjunctival injection, periorbital swelling - ENT ENT exam: normal exam, mucous membranes moist, mucous membranes dry - Neck Neck exam: Present: normal inspection, full ROM, trachea midline, tenderness. Absent: meningismus, lymphadenopathy - Chest Chest inspection: Present: normal inspection, symmetric chest wall rise - Respiratory Respiratory exam: Present: normal lung sounds bilaterally. Absent: respiratory distress, wheezes, stridor, accessory muscle use - Cardiovascular Cardiovascular exam: Present: regular rate, normal rhythm, normal heart sounds - Abdominal Exam Abdominal exam: Present: soft, Non-Tender, normal bowel sounds. Absent: distention, guarding, rebound, rigidity, organomegaly, mass - Extremities Exam Extremities exam: Present: normal capillary refill. Absent: joint swelling - Expanded Lower Extremity Exam Hip/Pelvis exam: Present: full ROM Upper leg exam: Present: tenderness (right leg - residual limb - distal thigh. Healing incision. no drainage, mild hyperemia surrounding the medial aspect of the wound). Absent: swelling - Neurological Exam Neurological exam: Present: alert. Absent: motor sensory deficit - Expanded Neurological Exam Patient oriented to: Present: person, place. Absent: time Speech: Present: fluid speech Cranial nerves: EOM function (II, III, IV, ): Normal, facial sensation (V): Normal, facial palsy (VII): Normal, gag reflex (IX): Normal, spinal accessory function (XI): Normal, tongue deviation (XII): Normal Cerebellar function: finger to nose: Normal Motor strength - LUE: 5/5 Motor strength - RUE: 5/5 Motor strength - LLE: 5/5 Motor strength - RLE: 5/5 (hip flexion) Sensory exam lower extremity: light touch: Normal Coma Scale Eye Opening: Spontaneous Coma Scale Motor Response: Obeys Commands Coma Scale Verbal Response: Confused Coma Scale Total: 14 - Psychiatric Psychiatric exam: Present: normal mood, flat affect - Skin Skin exam: Present: warm, dry, intact, normal color Course Course Narrative: [facility] evaluation and treatment of hypokalemia. Patient's labs were drawn early this morning and his potassium was 2.2. [facility] has [facility] at the [facility] for several weeks status post right [id number] amputation. Patient denies any complaints at this time, specifically denies chest pain, palpitations, dizziness, vertigo, syncope, fever , chills, nausea, vomiting, cough, dyspnea or weakness. We will check labs and replace potassium. Patient was seen by Dr. Cheney. He has reviewed the patient's lab and imaging study results and agrees with the assessment and plan to admit patient. Patient has a mildly elevated troponin. Considering his troponin was greater than 50 a few weeks ago. It is possible that this is part of the decline. He does have a white blood cell count of 16 which is increased compared to a few days ago. Head CT is normal. His chest x-ray is normal. Urinalysis shows a lot of white blood cells, however, he has an indwelling Far[place] and is most likely colonized. He has no abdominal pain or tenderness. Given his elevated white blood cell count, elevated lactate and heart rate of 94, he would meet SIRS criteria, however we have not found any infection. His EKG shows a normal sinus rhythm with normal intervals, no ST elevation or depression. The EKG is unchanged compared to previous. Patient received magnesium 4 g, as well as potassium, both oral and IV. Case was discussed with the hospitalist. Patient has been accepted for admission. Vital Signs Temperature 98.9 F 01/13/17 08:44 Pulse Rate 94 01/13/17 08:44 Respiratory Rate 16 01/13/17 08:44 Blood Pressure 100/67 01/13/17 08:44 O2 Sat by Pulse Oximetry 96 01/13/17 08:44 Temperature 98.9 F 01/13/17 08:44 Pulse Rate 94 01/13/17 08:44 Respiratory Rate 16 01/13/17 08:44 Blood Pressure 100/67 01/13/17 08:44 O2 Sat by Pulse Oximetry 96 01/13/17 08:44 Oxygen Delivery Oxygen Delivery Room Air Medical Decision Making - Medical Records Medical records reviewed: Yes I reviewed the patient's medical records. - Lab Data Lab results reviewed: Yes I reviewed the patient's lab results. Lab results narrative: Laboratory Last Values WBC 16.0 K/mcL (4.3-11.1) H 01/13/17 09:03 RBC 3.98 M/mcL (4.19-5.50) L 01/13/17 09:03 Hgb 11.3 g/dL (12.9-16.9) L 01/13/17 09:03 Hct 34.1 % (37.5-50.1) L 01/13/17 09:03 MCV 85.7 fL (83.0-100.0) 01/13/17 09:03 MCH 28.4 pg (28.0-33.3) 01/13/17 09:03 MCHC 33.1 g/dL (31.6-35.5) 01/13/17 09:03 RDW 15.4 % (11.5-14.5) H 01/13/17 09:03 Plt Count 262 K/mcL (140-400) 01/13/17 09:03 MPV 9.6 fL (9.4-12.4) 01/13/17 09:03 Immature Gran % 0.8 % (0-4) 01/13/17 09:03 Seg Neutrophils % 81.4 % 01/13/17 09:03 Lymphocytes % 10.3 % 01/13/17 09:03 Monocytes % 6.8 % 01/13/17 09:03 Eosinophils % 0.6 % 01/13/17 09:03 Basophils % 0.1 % 01/13/17 09:03 Neutrophils # 13.0 K/mcL (1.6-8.9) H 01/13/17 09:03 Lymphocytes # 1.7 K/mcL (0.6-4.6) 01/13/17 09:03 Monocytes # 1.1 K/mcL (0.0-1.3) 01/13/17 09:03 Eosinophils # 0.1 K/mcL (0.0-0.6) 01/13/17 09:03 Basophils # 0.0 K/mcL (0.0-0.2) 01/13/17 09:03 PT 19.0 Seconds (9.4-12.1) H 01/13/17 09:03 INR 1.7 01/13/17 09:03 APTT 35.1 Seconds (26.0-36.0) 01/13/17 09:03 Sodium 138 mEq/L (136-145) 01/13/17 09:03 Potassium 2.4 mEq/L (3.5-4.5) L* 01/13/17 09:03 Chloride 100 mEq/L (98-109) 01/13/17 09:03 Carbon Dioxide 27 mEq/L (19-29) 01/13/17 09:03 BUN 9 mg/dL (8-26) 01/13/17 09:03 Creatinine 0.77 mg/dL (0.72-1.25) 01/13/17 09:03 Est GFR ( Amer) > 60 (> 60) 01/13/17 09:03 Est GFR (Non-Af Amer) > 60 (> 60) 01/13/17 09:03 BUN/Creatinine Ratio 12 (6-26) 01/13/17 09:03 Glucose 191 mg/dL (70-99) H 01/13/17 09:03 POC Glucose 103 (58-89) H 01/13/17 17:17 Calculated Osmolality 290 (280-300) 01/13/17 09:03 Lactic Acid 2.8 mmol/L (0.5-2.2) H 01/13/17 09:03 Calcium 8.7 mg/dL (8.6-10.8) 01/13/17 09:03 Magnesium 1.8 mg/dL (1.6-2.6) 01/13/17 09:03 Troponin I 0.30 ng/mL (0-0.03) H* 01/13/17 16:28 Urine Color Yellow (Yellow) 01/13/17 09:12 Urine Clarity Clear (Clear) 01/13/17 09:12 Urine pH 6.5 pH Units (5.0-8.0) 01/13/17 09:12 Ur Specific [place] 1.015 (1.010-1.025) 01/13/17 09:12 Urine Protein Negative mg/dL (Neg-Trace) 01/13/17 09:12 Urine Glucose (UA) >=1000 mg/dL (Normal) H 01/13/17 09:12 Urine Ketones Negative mg/dL (Negative) 01/13/17 09:12 Urine Blood Large (Negative) H 01/13/17 09:12 Urine Nitrite Negative (Negative) 01/13/17 09:12 Urine Bilirubin Negative (Negative) 01/13/17 09:12 Urine Urobilinogen Normal mg/dL (Normal) 01/13/17 09:12 Ur Leukocyte Esterase Negative (Negative) 01/13/17 09:12 Urine Microscopic RBC 50-100 per hpf (0-3) H 01/13/17 09:12 Urine Microscopic WBC 50-100 per hpf (0-3) H 01/13/17 09:12 Ur Squamous Epith Cells Moderate per lpf (None-Few) H 01/13/17 09:12 Urine Bacteria None Seen per hpf (None-Few) 01/13/17 09:12 Hyaline Casts Few per lpf (None-Few) 01/13/17 09:12 Ur Culture Indicated? NO (NO) 01/13/17 09:12 Ethyl Alcohol < 10 mg/dL (0-10) 01/13/17 16:28 Result diagrams: 01/13/17 09:03 Lab Results 01/13/17 01/13/17 01/13/17 Range/Units 09:03 09:03 09:12 WBC 16.0 H (4.3-11.1) K/mcL RBC 3.98 L (4.19-5.50) M/mcL Hgb 11.3 L (12.9-16.9) g/dL Hct 34.1 L (37.5-50.1) % MCV 85.7 (83.0-100.0) fL MCH 28.4 (28.0-33.3) pg MCHC 33.1 (31.6-35.5) g/dL RDW 15.4 H (11.5-14.5) % Plt Count 262 (140-400) K/mcL MPV 9.6 (9.4-12.4) fL Immature Gran % 0.8 (0-4) % Seg Neutrophils % 81.4 % Lymphocytes % 10.3 % Monocytes % 6.8 % Eosinophils % 0.6 % Basophils % 0.1 % Neutrophils # 13.0 H (1.6-8.9) K/mcL Lymphocytes # 1.7 (0.6-4.6) K/mcL Monocytes # 1.1 (0.0-1.3) K/mcL Eosinophils # 0.1 (0.0-0.6) K/mcL Basophils # 0.0 (0.0-0.2) K/mcL Troponin I 0.34 H* (0-0.03) ng/mL Urine Color Yellow (Yellow) Urine Clarity Clear (Clear) Urine pH 6.5 (5.0-8.0) pH Units Ur Specific [place] 1.015 (1.010-1.025) Urine Protein Negative (Neg-Trace) mg/dL Urine Glucose (UA) >=1000 H (Normal) mg/dL Urine Ketones Negative (Negative) mg/dL Urine Blood Large H (Negative) Urine Nitrite Negative (Negative) Urine Bilirubin Negative (Negative) Urine Urobilinogen Normal (Normal) mg/dL Ur Leukocyte Esterase Negative (Negative) Urine Microscopic RBC 50-100 H (0-3) per hpf Urine Microscopic WBC 50-100 H (0-3) per hpf Ur Squamous Epith Cells Moderate H (None-Few) per lpf Urine Bacteria None Seen (None-Few) per hpf Hyaline Casts Few (None-Few) per lpf Ur Culture Indicated? NO (NO) - Radiology Data Radiology results reviewed: Yes I reviewed the patient's radiology results. Chest X-Ray 01/13/17 08:55 IMPRESSION: No significant findings in the chest. D/ / Manny Humphries MD / Manny Humphries MD Interpreting Provider: Manny Humphries MD Head CT 01/13/17 08:57 IMPRESSION: No acute intracranial abnormality. D/ / Kirk Donahue MD / Kirk Donahue MD Interpreting Provider: Kirk Donahue MD
[2017-01-13 10:03] LABS: INR 1.7
[2017-01-13 10:06] LABS: Activated Partial Thrombo Time 35.1 Seconds (26.0-36.0)
[2017-01-13 10:25] LABS: BUN/Creatinine Ratio 12 (6-26); Blood Urea Nitrogen 9 mg/dL (8-26); Calcium 8.7 mg/dL (8.6-10.8); Carbon Dioxide 27 mEq/L (19-29); Chloride 100 mEq/L (98-109); Glucose 191 mg/dL (70-99); Osmolality,Calculated 290 (280-300); Sodium 138 mEq/L (136-145); eGFR For African Americans > 60 (> 60); eGFR For Non-African Americans > 60 (> 60)
[2017-01-13 10:27] LABS: Potassium 2.4 mEq/L (3.5-4.5)
[2017-01-13 10:33] LABS: Magnesium 1.8 mg/dL (1.6-2.6)
[2017-01-13] MEDS ORDERED: Ondansetron 4 MG/2 ML VIAL IVP PRN (15:51)
[2017-01-13] MEDS ORDERED: Naloxone 0.4 MG/ML INJ IVP PRN (15:51)
[2017-01-13] MEDS ORDERED: *HR* HYDROcodone/Acet 5/325 mg TABLET PO PRN (15:51)
[2017-01-13] MEDS ORDERED: Acetaminophen 325 MG TABLET PO PRN (15:51)
[2017-01-13] MEDS ORDERED: traMADol 50 MG TABLET PO PRN (15:59)
[2017-01-13] MEDS ORDERED: D5% in Water 1,000 ML IVC PRN (16:05)
[2017-01-13] MEDS ORDERED: *HR* Dextrose 50 % in Water (Syg) 50 ML SYRINGE IVP PRN (16:05)
[2017-01-13] MEDS ORDERED: Dextrose Gel 15 GM PO PRN ×2 (16:05)
[2017-01-13] MEDS ORDERED: Vancomycin 1,250 MG in D5% in Water 250 ML IVPB SCH (17:00)
--- NOTE | 2017-01-13 17:15 | Internal Med History&Physical ---
Date of Encounter: 01/13/17 Time of Encounter: 12:30 Assessment and Plan (1) Sepsis Current visit: Yes Status: Acute Acute sepsis based on WBC of 16.0 and HR >90 bpm. Suspected infection at amputation site. Lactic acid ordered. 0.9 NS bolus ordered to be followed by 125 mL/HR. Blood cultures x2. IVPB vancomycin pharmacy dosing and Zosyn 3.375 g every 8 for infection coverage. Continuous cardiac telemetry. O2 and SpO2 monitoring PRN. Monitor pt., VS, and f/u labs. Qualifiers: Sepsis type: sepsis due to unspecified organism Qualified Code(s): A41.9 - Sepsis, unspecified organism (2) Leukocytosis Current visit: Yes Status: Acute Acute leukocytosis of 16.0 on admission, most likely d/t infection at amputation site of RLE. Nereyda present at incision site with erythema noted on edges. Pt. also reports pain on palpation. Blood cultures x2 ordered. IVPB lincomycin with pharmacy dosing and Zosyn 3.375 g every 8 for infection coverage. IV 0.9 NS @ 100 mL/hr. Monitor follow-up labs in patient for signs of increasing infection, cardiac, and/or respiratory distress. Pt. currently meets SIRS criteria and will be monitored closely. Qualifiers: Leukocytosis type: unspecified Qualified Code(s): D72.829 - Elevated white blood cell count, unspecified (3) Elevated troponin Current visit: Yes Status: Acute Acutely elevated troponin of 0.34 on admission. Second troponin 0.30. Most likely reactive. Pt. denies chest pain or SOB. Will trend x1. Continuous cardiac telemetry. Echocardiogram ordered. (4) Hypokalemia Current visit: Yes Status: Acute Acute hypokalemia of 2.4 on admission. Pt. was given PO potassium and IVPB potassium in the ED. Will monitor potassium levels in f/u labs. Continuous cardiac telemetry. Repeat EKG. (5) Abnormal ECG Current visit: Yes Status: Acute ECG today shows sinus rhythm with ST deviation or T-wave abnormality with consideration of anterolateral ischemia and inferior ischemia. Continuous cardiac telemetry. Initial troponin 0.34. Will trend x2. Pt. denies SOB or chest pain. Elevated troponin most likely reactive. Second troponin 0.30. Monitor pt. closely for signs of cardiac changes. (6) Altered mental status Current visit: Yes Status: Acute Acute AMS most likely d/t infection at amputation site. U/A not indicative for culture. Blood cultures x 2. IVPB Acromycin with pharmacy dosing and Zosyn 3.375 g every 8 for infection coverage. Falls/syncope precautions. Qualifiers: Altered mental status type: disorientation Qualified Code(s): R41.0 - Disorientation, unspecified (7) HTN (hypertension) Current visit: Yes Status: Chronic Hx of chronic HTN. Monitor patient vital signs. Continue patient's Lopressor. Qualifiers: Hypertension type: essential hypertension Qualified Code(s): I10 - Essential (primary) hypertension (8) HLD (hyperlipidemia) Current visit: Yes Status: Chronic Hx of chronic HLD. Lipid panel in a.m. labs. Continue patient's lovastatin. Qualifiers: Hyperlipidemia type: pure hypercholesterolemia Qualified Code(s): E78.00 - Pure hypercholesterolemia, unspecified; E78.0 - Pure hypercholesterolemia (9) Diabetes Current visit: Yes Status: Chronic Hx of chronic DM controlled with oral anti-hyperglycemics and insulin. Will hold oral medications and continue patient's at bedtime Lantus. We will administer low-dose correction insulin sliding scale with hypoglycemic protocol. BG checks before meals and at bedtime. A1c in a.m. labs. 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 Hgb currently 11.3 and Hct is 34.1. Pt. denies unusual bleeding. Monitor H/H in f/u labs. Monitor pt. for signs of bleeding. Continue pts. Xarelto for DVT prophylaxis. Qualifiers: Anemia type: unspecified type Qualified Code(s): D64.9 - Anemia, unspecified (11) PAD (peripheral artery disease) Current visit: Yes Status: Chronic Hx of chronic PAD. Monitor pts. blood glucose and signs of wounds that are developing/not healing. Continue pts. Trental. (12) DVT prophylaxis Current visit: Yes Status: Acute Continue pts. Xarelto for DVT prophylaxis. Monitor patient for signs of bleeding. Internal Medicine - H&P: HPI Chief complaint: Hypokalemia Admitted From: Emergency Dept Plans for Post Hospital Care: Home History of present illness: Mr. Almanza is a 56 year old male with medical hx of COPD, diabetes, hyperlipidemia, hypertension, and PAD present from the ED with chief complaint of being referred to the ED due to hypokalemia. Patient states he has felt his heart racing for the past 24 hours intermittently and has felt confused for the past several days. Patient also states he had [id number] amputation of his right lower extremity over 3 months ago which he states has become red and painful to touch for the past 2-3 weeks. When asked why he had the amputation, patient states his brother found him sawing off his leg. Patient reports abdominal pain but denies recent illness, fever, chills, nausea, vomiting, cough , chest congestion, chest pain, shortness of breath, changes in vision, unusual bleeding, abdominal pain, diarrhea, constipation, dizziness, lightheadedness, presyncope, or syncope. Past Med Surg Social Fam HX - Past Medical History Source: patient, old records reviewed Medical history: COPD, diabetes, hyperlipidemia, hypertension, peripheral artery disease Psychiatric history: anxiety, bipolar, other - Past Surgical History Surgical History: cholecystectomy, vascular surgery, other ([id number]-qeb-sdgy amputation of the RLE) - Social History Smoking Status: Former smoker Smokeless Tobacco Status: No Alcohol use: none Drug use: none Current living situation: Assisted Living Activity Level: Uses cane/walker Recent Out of Country Travel Within the Last 8 Weeks: No Exposure or Possible Exposure to Illness During Travel: No - Family History Paternal Race: Family Member Ethnicity: Non- Living Status: Hx Family Respiratory Disorders: Yes (Emphysema) Hx Family Cancer: Yes (Prostate) Father History Unknown: Yes Living Status: Still Living Mother Race: Family Member Ethnicity: Non- Living Status: Age at : 37 Cause of : Stomach cancer Hx Family Cancer: Yes (Stomach) Brother Race: Family Member Ethnicity: Non- Living Status: Age at : 52 Cause of : CO Hx Family Cardiac Disorders: Yes (CO) Sister Race: Family Member Ethnicity: Non- Living Status: Age at : 37 Cause of : Stomach cancer Hx Family Cancer: Yes (Stomach) Internal Medicine - H&P: Meds Gabapentin [Neurontin] 800 mg PO TID 07/19/15 [History] Lovastatin 40 mg PO HS 07/19/15 [History] Quetiapine Fumarate [Seroquel] 600 mg PO HS 07/19/15 [History] Ranitidine HCl [Zantac] 150 mg PO BID 07/19/15 [History] Zolpidem [Ambien] 10 mg PO HS 07/19/15 [History] Citalopram Hydrobromide [Celexa] 40 mg PO DAILY 01/24/16 [History] Empagliflozin [Jardiance] 10 mg PO DAILY 01/24/16 [History] Metformin HCl [Metformin HCl ER] 500 mg PO HS 01/24/16 [History] Naproxen [Naprosyn] 500 mg PO BID PRN 01/24/16 [History] Pentoxifylline [TRENtal] 400 mg PO BID 01/24/16 [History] Aspirin Enteric Coated [Aspirin EC] 81 mg PO DAILY 03/26/16 [History] glipiZIDE [Glipizide] 10 mg PO BID 03/26/16 [History] Furosemide [Lasix] 40 mg PO DAILY 08/28/16 [History] Alogliptin Benzoate [Alogliptin] 25 mg PO DAILY 11/25/16 [History] Amantadine HCl [Amantadine] 100 mg PO BID 11/25/16 [History] Potassium Chloride [Klor-Con 10] 10 meq PO DAILY 11/25/16 [History] Nicotine Patch [Nicoderm] 21 mg TD DAILY #30 patch.td24 11/26/16 [Rx] Rivaroxaban [Xarelto] 20 mg PO DAILY #30 tablet 11/26/16 [Rx] Clopidogrel [Plavix] 75 mg PO DAILY 12/23/16 [History] LORazepam [Ativan] 1 mg PO HS #7 tablet 01/08/17 [Rx] Metoprolol [Lopressor] 12.5 mg PO BID tablet 01/08/17 [Rx] Tramadol HCl [Tramadol HCl ER] 100 mg PO TID PRN #20 cpbp.25.75 01/08/17 [Rx] Insulin Glargine [Lantus] 6 unit SQ HS 01/13/17 [History] 3 Allergy/AdvReac Type Severity Reaction Status Date / Time No Known Allergies Allergy Verified 08/28/16 10:04 All Systems PM: A 10-system review of systems was performed and is negative for pertinent findings except as documented above in the HPI. - Constitutional Constitutional: no chills, no fever(s), no night sweats - EENT Eyes: no change in vision, no discharge, no pain, no photophobia Ears: no ear discharge, no ear pain, no tinnitus Nose, mouth and throat: no dysphagia, no nasal discharge, no neck pain, no sore throat - Breasts Breasts: as per HPI - Cardiovascular Cardiovascular ROS IM: no chest pain, no diaphoresis, no dyspnea, no lightheadedness, no palpitations, no syncope - Respiratory Respiratory: no cough, no dyspnea, no wheezing, no excessive phlegm production - Gastrointestinal Gastrointestinal: as per HPI, abdominal pain, no diarrhea, no hematemesis, no hematochezia, no melena, no nausea, no vomiting - Genitourinary Genitourinary ROS male: as per HPI - Musculoskeletal Musculoskeletal ROS IM: no numbness, no tingling - Integumentary Integumentary IM: as per HPI, erythema, no rash, no unusual bruising - Neurological Neurological ROS: as per HPI, confusion, no convulsions, no focal weakness, no numbness, no tingling, no tremor(s) - Psychiatric Psychiatric: as per HPI, anxiety, depression - Endocrine Endocrine IM: as per HPI - Hematologic/Lymphatic Hematologic/Lymphatic: no easy bruising - Allergic/Immunologic Allergic/Immunologic: as per HPI - Constitutional Vitals: Temp Pulse Resp BP Pulse Ox 98.9 F 82 16 123/84 98 01/13/17 08:44 01/13/17 11:00 01/13/17 11:00 01/13/17 11:00 01/13/17 11:00 General appearance: Present: cooperative, A&O X 2, no acute distress, answers questions appropriately (After several attempts) - Head Head exam: Present: atraumatic, normocephalic - Eye Eye exam: Present: PERRL, conjuntiva pink, sclera anicteric Pupils: Present: PERRL - ENT ENT exam: Present: normal exam - Neck Neck exam general surgery: Present: normal inspection, supple, trachea midline. Absent: lymphadenopathy - Respiratory Respiratory exam: Present: CTAB. Absent: accessory muscle use, rales, rhonchi, wheezes - Cardiovascular Cardiovascular exam: Present: RRR, +S1, +S2. Absent: diastolic murmur, gallop, rubs, systolic murmur - GI/Abdominal GI/Abdominal exam: Present: normal bowel sounds, soft, tenderness, no peritoneal signs. Absent: distended - Rectal Rectal exam: Present: deferred - Additional comments: exam deferred. - Extremities Exam Extremities exam: Present: tenderness (At amputation site of RLE. Pt. reports pain w/palpation. Erythema present at edges of incision. Nereyda still present.) , warm, radial pulses palpable and symmetrical. Absent: calf tenderness, cyanotic, pedal edema - Incison Incision: Present: erythema - Back Exam Back exam: Present: normal inspection - Neurological Exam Neurological exam: Present: altered (Mildly altered. A&O x2), strengths equal and symetr throughout - Psychiatric Psychiatric exam: Present: normal affect, normal mood - Skin Skin exam: Present: erythema (At amputation site) Internal Med - H&P Results - Labs CBC & Chem 7: 01/13/17 09:03 01/13/17 09:03 - EKG Data EKG shows normal: sinus rhythm - EKG Data Prior EKG available for review: no Interpretation IM: suggestive of ischemia EKG comments: 01/13/17 17:25 EKG dated 01/13/17 shows sinus rhythm with ST deviation and moderate T-wave abnormality (consider anterolateral ischemia and consider inferior ischemia). - Diagnostic Studies Chest x-ray Additional comments: Impressions Chest X-Ray 01/13/17 08:55 IMPRESSION: No significant findings in the chest. D/ / Manny Humphries MD / Manny Humphries MD Interpreting Provider: Manny Humphries MD CT scan - head Additional comments: Impressions Head CT 01/13/17 08:57 IMPRESSION: No acute intracranial abnormality. D/ / Kirk Donahue MD / Kirk Donahue MD Interpreting Provider: Kirk Donahue MD
[2017-01-13] MEDS ORDERED: 0.9 % Sodium Chloride 1,000 ML IVC ONE (18:01)
[2017-01-13] MEDS: Vancomycin 1,000 MG in D5% in Water 250 ML IVPB SCH (18:16)
[2017-01-13] MEDS: Insulin LISPRO 300 UNITS/3 ML VIAL SQ SCH (18:22)
[2017-01-13 19:36] LABS: Amphetamine Screen,Urine Negative ng/mL (Cutoff=1000); Barbiturate Screen,Urine Negative ng/mL (Cutoff=200); Benzodiazepines Screen,Urine Negative ng/mL (Cutoff=200); Cannabinoid Screen,Urine Negative ng/mL (Cutoff = 50); Cocaine Screen,Urine Negative ng/mL (Cutoff= 300); Opiate Screen,Urine Negative ng/mL (Cutoff=300); Phencyclidine Screen,Urine Negative ng/mL (Cutoff=25)
[2017-01-13] MEDS: *HR* LORazepam 1 MG TABLET PO SCH (21:08)
[2017-01-13] MEDS: Gabapentin 400 MG CAPSULE PO SCH (21:08)
[2017-01-13] MEDS: Famotidine 20 MG TABLET PO SCH (21:10)
--- NOTE | 2017-01-13 22:24 | Electrocardiograph Report ---
[address] [address] Test Date: 2017-01-13 Pat Name: Hola Almanza Department: [id number] Room: 2A24 Gender: M Escrow Assistant: : 1960 Requested By: Celsa Erickson Order Number: [id number] Reading MD: Laura Ivy Measurements Intervals Violet Rate: 94 P: 52 RI: 136 QRS: 27 QRSD: 89 T: 257 QT: 441 QTc: 492 Interpretive Statements SINUS RHYTHM ST DEVIATION AND MODERATE T-WAVE ABNORMALITY, CONSIDER ANTEROLATERAL ISCHEMIA ST DEVIATION AND MODERATE T-WAVE ABNORMALITY, CONSIDER INFERIOR ISCHEMIA Electronically Signed On 01-13-2017 22:22:49 EST by Laura Ivy
[2017-01-14] MEDS: Insulin DETEMIR 100 UNIT/ML X5UNITS SQ SCH ×2 (00:06→22:15)
[2017-01-14] MEDS: Piperacillin/Tazobactam 3.375 GM/200 ML BAG IVPB SCH ×2 (00:08→11:22)
[2017-01-14 05:09] LABS: Basophils % 0.1 %; Eosinophils # 0.5 K/mcL (0.0-0.6); Eosinophils % 4.2 %; Hematocrit 31.5 % (37.5-50.1); Hemoglobin 10.5 g/dL (12.9-16.9); INR 1.3; Immature Granulocytes % 0.8 % (0-4); Lymphocytes # 1.6 K/mcL (0.6-4.6); Lymphocytes % 14.2 %; Mean Corpuscular HGB Conc 33.3 g/dL (31.6-35.5); Mean Corpuscular Hemoglobin 28.8 pg (28.0-33.3); Mean Corpuscular Volume 86.3 fL (83.0-100.0); Mean Platelet Volume 9.9 fL (9.4-12.4); Monocytes # 0.9 K/mcL (0.0-1.3); Monocytes % 8.1 %; Neutrophils # 8.3 K/mcL (1.6-8.9); Platelet Count 246 K/mcL (140-400); Prothrombin Time 13.6 Seconds (9.4-12.1); Red Blood Count 3.65 M/mcL (4.19-5.50); Red Cell Distribution Width 15.3 % (11.5-14.5); Segmented Neutrophils % 72.6 %
[2017-01-14 05:12] LABS: Activated Partial Thrombo Time 26.8 Seconds (26.0-36.0)
[2017-01-14 05:14] LABS: Hemoglobin A1C 5.4 %
[2017-01-14 05:20] LABS: Alanine Aminotransferase 29 Units/L (0-55); Albumin 2.5 g/dL (3.5-5.0); Albumin/Globulin Ratio 0.6 (1.1-2.2); Alkaline Phosphatase 152 Units/L (38-126); Aspartate Amino Transferase 21 Units/L (5-34); BUN/Creatinine Ratio 11 (6-26); Bilirubin,Total 1.1 mg/dL (0.2-1.2); Blood Urea Nitrogen 8 mg/dL (8-26); Calcium 8.2 mg/dL (8.6-10.8); Carbon Dioxide 27 mEq/L (19-29); Chloride 99 mEq/L (98-109); Chol/HDL Ratio 7.6 (0-4.9); Cholesterol 159 mg/dL (< 200); Globulin 3.9 g/dL (2.4-3.5); Glucose 125 mg/dL (70-99); HDL Cholesterol 21 mg/dL (40-59); LDL Cholesterol,Calculated 93 mg/dL (0-99); Magnesium 2.3 mg/dL (1.6-2.6); Osmolality,Calculated 286 (280-300); Potassium 2.8 mEq/L (3.5-4.5); Sodium 138 mEq/L (136-145); Total Protein 6.4 g/dL (6.0-8.3); Triglycerides 224 mg/dL (< 150); eGFR For African Americans > 60 (> 60); eGFR For Non-African Americans > 60 (> 60)
[2017-01-14] MEDS: Vancomycin 1,000 MG in D5% in Water 250 ML IVPB SCH (06:33)
--- NOTE | 2017-01-14 07:26 | Event Note ---
Date of Encounter: 01/13/17 Time of Encounter: 18:00 Discussed with MILDRED and agree with assessment and plan. Suspect leukocytosis secondary to cellulitis at the [id number]-[id number] amputation of his right lower extremity Will continue IV vancomycin and Zosyn Will also continue potassium replacement for hypokalemia.
[2017-01-14] MEDS ORDERED: traMADol 50 MG TABLET PO PRN (08:07)
[2017-01-14] MEDS ORDERED: Aminoglycoside Consult 1 EACH MC ONE (08:52)
[2017-01-14] MEDS: Insulin LISPRO 300 UNITS/3 ML VIAL SQ SCH ×4 (10:49→22:16)
[2017-01-14] MEDS: Aspirin Enteric Coated 81 MG Tablet PO SCH (11:13)
[2017-01-14] MEDS: Gabapentin 400 MG CAPSULE PO SCH ×3 (11:13→21:27)
[2017-01-14] MEDS: *HR* Rivaroxaban 10 MG TABLET PO SCH (11:13)
[2017-01-14] MEDS: Famotidine 20 MG TABLET PO SCH ×2 (11:13→21:28)
[2017-01-14] MEDS: Furosemide 40 MG TABLET PO SCH (11:14)
[2017-01-14] MEDS: 0.9 % Sodium Chloride 1,000 ML IVC SCH ×2 (11:25→17:59)
--- NOTE | 2017-01-14 15:49 | Internal Med Progress Note ---
<Thony Glez - Last Filed: 01/14/17 15:46> Date of Encounter: 01/14/17 Time of Encounter: 15:46 - Assessment and plan (1) Hypokalemia Current Visit: Yes Status: Acute Assessment and plan: Potassium 2.4 presentation, likely related to diuretic use. Improved to 2.8 this morning. We will supplement with 40 mEq by mouth twice a day. Recheck in the morning. No cardiac abnormalities noted. (2) Sepsis Current Visit: Yes Status: Ruled-out Assessment and plan: I do not believe this patient is septic due to infection. He did have an elevated white count and a heart rate in the low 90s however he does not have a clear source of infection. His right lower leg stump does not appear cellulitic or acutely infected. His urinalysis is unremarkable, chest x-ray is negative. Leukocytosis did come down quickly to 11.4 from 16. Patient does have cultures pending we will discontinue antibiotics and continue to monitor. Qualifiers: Sepsis type: sepsis due to unspecified organism Qualified Code(s): A41.9 - Sepsis, unspecified organism (3) Elevated troponin Current Visit: Yes Status: Acute Assessment and plan: Troponin is elevated but is been trending down since admission. Likely related to his recent admission for septic shock and gangrene where his troponin peaked at greater than 50. Repeat limited echo showed preserved EF. Patient declined Left heart catheterization on last admission which was supported by his brother. (4) Altered mental status Current Visit: Yes Status: Acute Assessment and plan: Patient appears to be at his baseline. Head CT is negative. We will continue to monitor. Qualifiers: Altered mental status type: disorientation Qualified Code(s): R41.0 - Disorientation, unspecified (5) PAD (peripheral artery disease) Current Visit: Yes Status: Chronic Assessment and plan: Stable. Continue aspirin, statin, Plavix, Xarelto, and Trental. (6) HTN (hypertension) Current Visit: Yes Status: Chronic Assessment and plan: Blood pressure stable. Continue home medications. Qualifiers: Hypertension type: essential hypertension Qualified Code(s): I10 - Essential (primary) hypertension (7) Diabetes Current Visit: Yes Status: Chronic Assessment and plan: Sugars have been under good control since admission. Continue Levemir at night with sliding scale coverage. Adjust insulin regimen based on sugars. 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 Patient states that he feels pretty good today. He has no specific complaints. He reports mild pain at his above-the- knee amputation incision site. Otherwise denies fever, chills, chest pain, shortness of breath. - Constitutional Vitals: Temp Pulse Resp BP Pulse Ox 98.1 F 83 19 124/69 98 01/14/17 11:37 01/14/17 11:37 01/14/17 11:37 01/14/17 11:37 01/14/17 11:37 General appearance: Present: cooperative, A&O X 2, no acute distress, answers questions appropriately (After several attempts) - Respiratory Respiratory exam: Present: CTAB. Absent: rales, rhonchi, wheezes - Cardiovascular Cardiovascular exam: Present: RRR. Absent: gallop, rubs, systolic murmur - GI/Abdominal GI/Abdominal exam: Present: normal bowel sounds, soft. Absent: distended, tenderness - Extremities Exam Extremities exam: Present: pedal edema (Trace in left lower extremity), warm. Absent: tenderness Additional comments: Right wsghc-buc-fegy amputation. Incision site has andrea present and is clean dry and intact. No erythema, edema, drainage noted. - Neurological Exam Neurological exam: Present: alert, CN II-XII intact, no focal deficits Internal Medicine: Result - Labs CBC & Chem 7: 01/14/17 04:49 01/14/17 04:49 Labs: Short CBC 01/14/17 Range/Units 04:49 WBC 11.4 H (4.3-11.1) K/mcL Hgb 10.5 L (12.9-16.9) g/dL Hct 31.5 L (37.5-50.1) % Plt Count 246 (140-400) K/mcL Neutrophils # 8.3 (1.6-8.9) K/mcL BMP 01/14/17 04:49 Sodium 138 Potassium 2.8 L Chloride 99 Carbon Dioxide 27 BUN 8 Creatinine 0.70 L Glucose 125 H Calcium 8.2 L Cardiac Enzymes 01/13/17 01/13/17 01/14/17 Range/Units 16:28 22:35 07:33 Troponin I 0.30 H* 0.28 H* 0.27 H* (0-0.03) ng/mL Liver Function 01/14/17 Range/Units 04:49 Total Bilirubin 1.1 (0.2-1.2) mg/dL AST 21 (5-34) Units/L ALT 29 (0-55) Units/L Alkaline Phosphatase 152 H (38-126) Units/L Albumin 2.5 L (3.5-5.0) g/dL - ABG Interpretation ABG results: PT/INR, D-dimer PT 13.6 Seconds (9.4-12.1) H 01/14/17 04:49 - Impressions Impressions Echocardiogram Limited Views 01/13/17 16:03 Impressions: In the few images obtained, the left ventricle appeared mildly dilated and hypokinetic. Patient refused to complete the study. Findings: Study Quality * Technically sub-optimal due to clinical status. Patient refused to allow the study to be performed. ECG Findings * Normal sinus rhythm. Left Ventricle * In the few images obtained, the left ventricle appeared mildly dilated and hypokinetic. Patient refused to complete the study. Consult Discharge Plan - Plan Instructions: Diabetes Mellitus Type 2 in Adults (DC), Peripheral Vascular Disorders (DC), Chronic Hypertension (DC) Additional Instructions: Please follow-up with your primary care physician as scheduled. Please resume your home medications. Please take potassium supplementation twice a day. Please have your labs checked at signature in one week. Please return for any new or worsening symptoms. Referrals: Sunita Murrell MD [Primary Care Provider] - 01/21/17 2:30 pm (please follow up as schedule....) Prescriptions: Potassium Chloride 20 meq PO BIDWM #60 [email or web address] <[place] Rice - Last Filed: 01/15/17 17:45> Date of Encounter: 01/15/17 - Constitutional Vitals: Temp Pulse Resp BP Pulse Ox 99.1 F 83 18 145/77 93 01/15/17 16:26 01/15/17 16:26 01/15/17 16:26 01/15/17 16:26 01/15/17 16:26 Internal Medicine: Result - Labs CBC & Chem 7: 01/15/17 05:25 01/15/17 13:20 Labs: Short CBC 01/15/17 Range/Units 05:25 WBC 10.1 (4.3-11.1) K/mcL Hgb 9.7 L (12.9-16.9) g/dL Hct 29.6 L (37.5-50.1) % Plt Count 218 (140-400) K/mcL Neutrophils # 6.8 (1.6-8.9) K/mcL BMP 01/15/17 01/15/17 05:25 13:20 Sodium 141 Potassium 3.1 L 4.0 Chloride 108 Carbon Dioxide 20 BUN 7 L Creatinine 0.64 L Glucose 121 H Calcium 7.8 L - ABG Interpretation ABG results: PT/INR, D-dimer PT 13.6 Seconds (9.4-12.1) H 01/14/17 04:49 - Attending Attestation I conducted a face to face diagnostic evaluation of this patient and my medical decision-making was reviewed with the Resident Physician, Dr. Thony Glez. I agree with the documented findings, disposition and treatment plan as described except to the extent set forth below: Continue with potassium repletion. Examination of his amputation stump reveals no sign of infection. Wound is healing well. We will discontinue antibiotics. Sepsis has been ruled out.
[2017-01-14] MEDS: Nicotine 21 MG PATCH.TD24 TD SCH (17:56)
[2017-01-14] MEDS: *HR* LORazepam 1 MG TABLET PO SCH (21:28)
[2017-01-15] MEDS: 0.9 % Sodium Chloride 1,000 ML IVC SCH (05:54)
[2017-01-15 06:08] LABS: Basophils % 0.2 %; Eosinophils # 0.4 K/mcL (0.0-0.6); Eosinophils % 4.1 %; Hematocrit 29.6 % (37.5-50.1); Hemoglobin 9.7 g/dL (12.9-16.9); Lymphocytes # 1.7 K/mcL (0.6-4.6); Lymphocytes % 17.2 %; Mean Corpuscular HGB Conc 32.8 g/dL (31.6-35.5); Mean Corpuscular Hemoglobin 28.7 pg (28.0-33.3); Mean Corpuscular Volume 87.6 fL (83.0-100.0); Mean Platelet Volume 10.1 fL (9.4-12.4); Neutrophils # 6.8 K/mcL (1.6-8.9); Platelet Count 218 K/mcL (140-400); Red Blood Count 3.38 M/mcL (4.19-5.50); Red Cell Distribution Width 15.5 % (11.5-14.5); Segmented Neutrophils % 67.5 %
[2017-01-15 06:18] LABS: BUN/Creatinine Ratio 11 (6-26); Blood Urea Nitrogen 7 mg/dL (8-26); Calcium 7.8 mg/dL (8.6-10.8); Carbon Dioxide 20 mEq/L (19-29); Chloride 108 mEq/L (98-109); Glucose 121 mg/dL (70-99); Magnesium 1.7 mg/dL (1.6-2.6); Osmolality,Calculated 291 (280-300); Potassium 3.1 mEq/L (3.5-4.5); Sodium 141 mEq/L (136-145); eGFR For African Americans > 60 (> 60); eGFR For Non-African Americans > 60 (> 60)
[2017-01-15] MEDS: Aspirin Enteric Coated 81 MG Tablet PO SCH (08:08)
[2017-01-15] MEDS: *HR* Rivaroxaban 10 MG TABLET PO SCH (08:08)
[2017-01-15] MEDS: Famotidine 20 MG TABLET PO SCH ×2 (08:08→21:21)
[2017-01-15] MEDS: Furosemide 40 MG TABLET PO SCH (08:08)
[2017-01-15] MEDS: Nicotine 21 MG PATCH.TD24 TD SCH (08:09)
[2017-01-15] MEDS: Gabapentin 400 MG CAPSULE PO SCH ×3 (08:09→21:21)
[2017-01-15] MEDS: Insulin LISPRO 300 UNITS/3 ML VIAL SQ SCH ×4 (08:10→21:20)
--- NOTE | 2017-01-15 08:26 | Discharge Summary ---
<Thony Glez - Last Filed: 01/15/17 09:20> Date of Encounter: 01/15/17 Time of Encounter: 08:24 - Discharge Diagnosis (1) Hypokalemia Priority: Primary Status: Acute (2) Sepsis Priority: Secondary Status: Ruled-out Qualifiers: Sepsis type: sepsis due to unspecified organism Qualified Code(s): A41.9 - Sepsis, unspecified organism (3) Elevated troponin Priority: Secondary Status: Chronic (4) Altered mental status Priority: Secondary Status: Chronic Qualifiers: Altered mental status type: disorientation Qualified Code(s): R41.0 - Disorientation, unspecified (5) PAD (peripheral artery disease) Priority: Secondary Status: Chronic (6) HTN (hypertension) Priority: Secondary Status: Chronic Qualifiers: Hypertension type: essential hypertension Qualified Code(s): I10 - Essential (primary) hypertension (7) Diabetes Priority: Secondary Status: Chronic Qualifiers: Diabetes mellitus type: type 2 Diabetes mellitus complication status: with unspecified complications 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: unspecified correction insulin use status Qualified Code(s): E11.8 - Type 2 diabetes mellitus with unspecified complications - Discharge Medications Prescriptions: Potassium Chloride 20 meq PO BIDWM #60 tab.er.prt Home Medications: Gabapentin [Neurontin] 800 mg PO TID 07/19/15 [History] Lovastatin 40 mg PO HS 07/19/15 [History] Quetiapine Fumarate [Seroquel] 600 mg PO HS 07/19/15 [History] Ranitidine HCl [Zantac] 150 mg PO BID 07/19/15 [History] Zolpidem [Ambien] 10 mg PO HS 07/19/15 [History] Citalopram Hydrobromide [Celexa] 40 mg PO DAILY 01/24/16 [History] Empagliflozin [Jardiance] 10 mg PO DAILY 01/24/16 [History] Metformin HCl [Metformin HCl ER] 500 mg PO HS 01/24/16 [History] Naproxen [Naprosyn] 500 mg PO BID PRN 01/24/16 [History] Pentoxifylline [TRENtal] 400 mg PO BID 01/24/16 [History] Aspirin Enteric Coated [Aspirin EC] 81 mg PO DAILY 03/26/16 [History] glipiZIDE [Glipizide] 10 mg PO BID 03/26/16 [History] Furosemide [Lasix] 40 mg PO DAILY 08/28/16 [History] Alogliptin Benzoate [Alogliptin] 25 mg PO DAILY 11/25/16 [History] Amantadine HCl [Amantadine] 100 mg PO BID 11/25/16 [History] Nicotine Patch [Nicoderm] 21 mg TD DAILY #30 patch.td24 11/26/16 [Rx] Rivaroxaban [Xarelto] 20 mg PO DAILY #30 tablet 11/26/16 [Rx] Clopidogrel [Plavix] 75 mg PO DAILY 12/23/16 [History] LORazepam [Ativan] 1 mg PO HS #7 tablet 01/08/17 [Rx] Metoprolol [Lopressor] 12.5 mg PO BID tablet 01/08/17 [Rx] Tramadol HCl [Tramadol HCl ER] 100 mg PO TID PRN #20 cpbp.25.75 01/08/17 [Rx] Insulin Glargine [Lantus] 6 unit SQ HS 01/13/17 [History] Potassium Chloride 20 meq PO BIDWM #60 tab.er.prt 01/15/17 [Rx] Allergies/Adverse Reactions: 3 Allergy/AdvReac Type Severity Reaction Status Date / Time No Known Allergies Allergy Verified 08/28/16 10:04 Procedures/tests Complete & Pending: Procedures Performed prior 72 hours Category Date Time Status EV limited echocardiogram Stat Y 01/13/17 16:03 Completed Date of admission: 01/13/17 16:00 Primary care physician: Sunita Murrell Consults: 01/14/17 09:32 Consult to Speech Therapy [CONS] Routine Comment: Evaluate, develop and implement POC Reason for Consult: Dysphagia Call Completed: Yes Discharging clinician: Thony Glez Anticipated date of discharge: 01/15/17 - Patient Status Disposition: Transfer SNF Condition: Fair Functional capacity at discharge: wheelchair bound Overall status at discharge: patient is progressing back to baseline - Discharge Instructions Instructions: Diabetes Mellitus Type 2 in Adults (DC), Peripheral Vascular Disorders (DC), Chronic Hypertension (DC) Follow Up With: Sunita Murrell MD [Primary Care Provider] - 01/21/17 2:30 pm (please follow up as schedule....) Additional Instructions: Please follow-up with your primary care physician as scheduled. Please resume your home medications. Please take potassium supplementation twice a day. Please have your labs checked at [facility] in one week. Please return for any new or worsening symptoms. - Diet and Activity Activity: as per physical therapy, increase activity as tolerated Diet: diabetic diet, low salt diet Interval History: Patient seen and examined at bedside. Patient states that he feels pretty good today. He has no complaints at this time. He denies fever, chills, chest pain , shortness of breath, abdominal pain, nausea, vomiting. Hospital course: Mr. Almanza is a 56 year old male with history of peripheral artery disease, coronary artery disease who presented from [facility] due to hypokalemia. He had labs checked at [facility] that showed a potassium of 2.3. Patient was asymptomatic with this. He did not have any EKG changes. Patient was initially admitted for hypokalemia and concerns for sepsis due to cellulitis. On reevaluation the next morning we do not feel that the patient had acute cellulitis and his antibiotics were discontinued. He did have an initial leukocytosis that resolved quickly despite stopping antibiotics. Patient was placed on oral potassium supplementation and his potassium has increased to 3.1. His hypokalemia was most likely related to furosemide use. The patient remained asymptomatic throughout his stay. Patient will be discharged to [facility] on potassium supplementation. - Time Spent with Patient Total time spent providing and/or coordinating discharge services: Greater than 30 minutes - Constitutional Vitals: Temp Pulse Resp BP Pulse Ox 98.1 F 85 17 122/81 95 01/15/17 07:04 01/15/17 07:04 01/15/17 07:04 01/15/17 07:04 01/15/17 07:04 General appearance: Present: cooperative, A&O X 2, no acute distress, answers questions appropriately - Respiratory Respiratory exam: Present: CTAB. Absent: rales, rhonchi, wheezes - Cardiovascular Cardiovascular exam: Present: RRR. Absent: gallop, rubs, systolic murmur - GI/Abdominal GI/Abdominal exam: Present: normal bowel sounds, soft. Absent: distended, tenderness - Extremities Exam Extremities exam: Present: warm. Absent: pedal edema, tenderness Additional comments: Right [id number] amputation. Incision site is clean dry and intact. There are andrea present. There is no erythema, edema, drainage noted. - Neurological Exam Neurological exam: Present: alert, CN II-XII intact, oriented X3, no focal deficits <Dwayne[place]ana - Last Filed: 01/15/17 18:15> Date of Encounter: 01/15/17 Procedures/tests Complete & Pending: Procedures Performed prior 72 hours Category Date Time Status EV limited echocardiogram Stat Y 01/13/17 16:03 Completed Date of admission: 01/13/17 16:00 Primary care physician: Sunita Murrell Consults: 01/14/17 09:32 Consult to Speech Therapy [CONS] Routine Comment: Evaluate, develop and implement POC Reason for Consult: Dysphagia Call Completed: Yes Hospital course: Mr. Almanza is a 56 year old male - Time Spent with Patient Total time spent providing and/or coordinating discharge services: - Constitutional Vitals: Temp Pulse Resp BP Pulse Ox 99.1 F 83 18 145/77 93 01/15/17 16:26 01/15/17 16:26 01/15/17 16:26 01/15/17 16:26 01/15/17 16:26 - Attending Attestation I conducted a face to face diagnostic evaluation of this patient and my medical decision-making was reviewed with the Resident Physician, Dr. Thony Glez. I agree with the documented findings, disposition and treatment plan as described except to the extent set forth below: Patient's potassium is back to normal. PT OT evaluated the patient recommended subacute rehabilitation. He will be discharged to [facility]. He will be prescribed potassium chloride 20 mEq oral twice a day and have a Chem-7 rechecked within a week.
--- NOTE | 2017-01-15 08:30 | Physician Discharge Referral ---
ExtendedCare Referral Info Transfer To: [facility] Provider in Charge after Transfer: PCP Institutional Level of Care: Skilled - Diagnosis (1) Hypokalemia Priority: Primary Status: Acute (2) Sepsis Priority: Secondary Status: Ruled-out (3) Elevated troponin Priority: Secondary Status: Chronic (4) Altered mental status Priority: Secondary Status: Chronic (5) PAD (peripheral artery disease) Priority: Secondary Status: Chronic (6) HTN (hypertension) Priority: Secondary Status: Chronic (7) Diabetes Priority: Secondary Status: Chronic Prognosis: Fair Aware of Diagnosis: Patient Aware of Prognosis: Patient - Transfer Medications Prescriptions: Potassium Chloride 20 meq PO BIDWM #60 tab.er.prt Home Medications: Gabapentin [Neurontin] 800 mg PO TID 07/19/15 [History] Lovastatin 40 mg PO HS 07/19/15 [History] Quetiapine Fumarate [Seroquel] 600 mg PO HS 07/19/15 [History] Ranitidine HCl [Zantac] 150 mg PO BID 07/19/15 [History] Zolpidem [Ambien] 10 mg PO HS 07/19/15 [History] Citalopram Hydrobromide [Celexa] 40 mg PO DAILY 01/24/16 [History] Empagliflozin [Jardiance] 10 mg PO DAILY 01/24/16 [History] Metformin HCl [Metformin HCl ER] 500 mg PO HS 01/24/16 [History] Naproxen [Naprosyn] 500 mg PO BID PRN 01/24/16 [History] Pentoxifylline [TRENtal] 400 mg PO BID 01/24/16 [History] Aspirin Enteric Coated [Aspirin EC] 81 mg PO DAILY 03/26/16 [History] glipiZIDE [Glipizide] 10 mg PO BID 03/26/16 [History] Furosemide [Lasix] 40 mg PO DAILY 08/28/16 [History] Alogliptin Benzoate [Alogliptin] 25 mg PO DAILY 11/25/16 [History] Amantadine HCl [Amantadine] 100 mg PO BID 11/25/16 [History] Nicotine Patch [Nicoderm] 21 mg TD DAILY #30 patch.td24 11/26/16 [Rx] Rivaroxaban [Xarelto] 20 mg PO DAILY #30 tablet 11/26/16 [Rx] Clopidogrel [Plavix] 75 mg PO DAILY 12/23/16 [History] LORazepam [Ativan] 1 mg PO HS #7 tablet 01/08/17 [Rx] Metoprolol [Lopressor] 12.5 mg PO BID tablet 01/08/17 [Rx] Tramadol HCl [Tramadol HCl ER] 100 mg PO TID PRN #20 cpbp.25.75 01/08/17 [Rx] Insulin Glargine [Lantus] 6 unit SQ HS 01/13/17 [History] Potassium Chloride 20 meq PO BIDWM #60 tab.er.prt 01/15/17 [Rx] Allergies/Adverse Reactions: 3 Allergy/AdvReac Type Severity Reaction Status Date / Time No Known Allergies Allergy Verified 08/28/16 10:04 - Respiratory Orders Smoking Cessation: Smoking cessation has been advised. For more information, call the [place] Tobacco Quit Line at 3-934-YUVI-NOW. - Lab Orders Lab Orders: Other (include drug levels w/frequency) (BMP in 1 week) - Ancillary Orders May use pressure relief devices daily prn, May consult with Dentist, Insulation Board Coater Operator, Harbor Department Manager PRN - Advance Directives Living Will: No Power of Livestock Rancher: No Code Status: Full Code - Mobility Orders Ambulate (with assist) - Rehabiliation Orders Rehab Potential: Fair Rehab Orders: ROM Exercises, Evaluation for Physical Therapy, Evaluation for Occupational Therapy - Treatments Skin tear care topically daily PRN per policy, May check for fecal impaction rectally daily PRN, Fleet enema rectally every other day PRN cleansing purposes - Diet Orders Regular, No Added Salt (DANIKA), Cardiac CERTIFICATION: I certify that the transfer of the above named patient to an Extended Care Facility is necessary for the continuing treatment of the diagnosis listed. The above information is true and accurate reflection of patient's current condition. Confidential - Redisclosure prohibited without a patient's written consent.
[2017-01-15] MEDS: *HR* LORazepam 1 MG TABLET PO SCH (21:21)
[2017-01-15] MEDS: Insulin DETEMIR 100 UNIT/ML X5UNITS SQ SCH (21:24)
[2017-01-16] MEDS: Furosemide 40 MG TABLET PO SCH (08:03)
[2017-01-16] MEDS: Famotidine 20 MG TABLET PO SCH (08:03)
[2017-01-16] MEDS: *HR* Rivaroxaban 10 MG TABLET PO SCH (08:03)
[2017-01-16] MEDS: Aspirin Enteric Coated 81 MG Tablet PO SCH (08:03)
[2017-01-16] MEDS: Gabapentin 400 MG CAPSULE PO SCH ×2 (08:04→14:17)
[2017-01-16] MEDS: Nicotine 21 MG PATCH.TD24 TD SCH (08:04)
[2017-01-16] MEDS: Insulin LISPRO 300 UNITS/3 ML VIAL SQ SCH ×3 (08:07→16:47)
--- NOTE | 2017-01-16 09:42 | Internal Med Progress Note ---
<Thnoy Glez - Last Filed: 01/16/17 09:39> Date of Encounter: 01/16/17 Time of Encounter: 09:39 - Assessment and plan (1) Hypokalemia Current Visit: Yes Status: Acute Assessment and plan: Potassium 2.4 presentation, likely related to diuretic use. Improved to 4.0 yesterday and decreased to 3.1 today. We will supplement with 40 mEq this morning and discharge the patient on 20 mEq 3 times a day. No cardiac abnormalities noted. Patient is stable for discharge and is awaiting precertification. Please review discharge summary from yesterday for complete discharge information. (2) Sepsis Current Visit: Yes Status: Ruled-out Assessment and plan: Ruled out. He did have an elevated white count and a heart rate in the low 90s however he does not have a clear source of infection. His right lower leg stump does not appear cellulitic or acutely infected. His urinalysis is unremarkable, chest x-ray is negative. Leukocytosis did normalize quickly from 16. Blood cultures are negative. Qualifiers: Sepsis type: sepsis due to unspecified organism Qualified Code(s): A41.9 - Sepsis, unspecified organism (3) Elevated troponin Current Visit: Yes Status: Chronic Assessment and plan: No active chest pain or cardiac conduction abnormalities. Troponin is elevated but is been trending down since admission. Likely related to his recent admission for septic shock and gangrene where his troponin peaked at greater than 50. Repeat limited echo showed preserved EF. Patient declined Left heart catheterization on last admission which was supported by his brother. (4) Altered mental status Current Visit: Yes Status: Chronic Assessment and plan: Patient appears to be at his baseline. Head CT is negative. We will continue to monitor. Qualifiers: Altered mental status type: disorientation Qualified Code(s): R41.0 - Disorientation, unspecified (5) PAD (peripheral artery disease) Current Visit: Yes Status: Chronic Assessment and plan: Stable. Continue aspirin, statin, Plavix, Xarelto, and Trental. (6) HTN (hypertension) Current Visit: Yes Status: Chronic Assessment and plan: Blood pressure stable. Continue home medications. Qualifiers: Hypertension type: essential hypertension Qualified Code(s): I10 - Essential (primary) hypertension (7) Diabetes Current Visit: Yes Status: Chronic Assessment and plan: Sugars have been under good control since admission. Continue Levemir at night with sliding scale coverage. Adjust insulin regimen based on sugars. Qualifiers: Diabetes mellitus type: type 2 Diabetes mellitus complication status: with unspecified complications Diabetes mellitus care home insulin use: unspecified terminal carman insulin use status Qualified Code(s): E11.8 - Type 2 diabetes mellitus with unspecified complications - Subjective Interval history: Patient seen and examined at bedside. Patient states that he feels pretty good today. He has no specific complaints. Denies fever, chills, chest pain, shortness of breath. - Constitutional Vitals: Temp Pulse Resp BP Pulse Ox 98.9 F 85 17 128/85 97 01/16/17 07:20 01/16/17 07:20 01/16/17 07:20 01/16/17 07:20 01/16/17 07:20 General appearance: Present: cooperative, A&O X 2, no acute distress, answers questions appropriately - Respiratory Respiratory exam: Present: CTAB. Absent: rales, rhonchi, wheezes - Cardiovascular Cardiovascular exam: Present: RRR. Absent: gallop, rubs, systolic murmur - Extremities Exam Additional comments: Right lower extremity [id number] amputation: Incision site is clean dry and intact. Nereyda present, no significant erythema or drainage noted. - Neurological Exam Neurological exam: Present: alert, CN II-XII intact, no focal deficits Internal Medicine: Result - Labs CBC & Chem 7: 01/15/17 05:25 01/16/17 02:47 Labs: BMP 01/15/17 01/16/17 13:20 02:47 Potassium 4.0 3.1 L - ABG Interpretation ABG results: PT/INR, D-dimer PT 13.6 Seconds (9.4-12.1) H 01/14/17 04:49 Consult Discharge Plan - Plan Instructions: Diabetes Mellitus Type 2 in Adults (DC), Peripheral Vascular Disorders (DC), Chronic Hypertension (DC) Additional Instructions: Please follow-up with your primary care physician as scheduled. Please resume your home medications. Please take potassium supplementation twice a day. Please have your labs checked at [facility] in one week. Please return for any new or worsening symptoms. Referrals: Sunita Murrell MD [Primary Care Provider] - 01/21/17 2:30 pm (please follow up as schedule....) Prescriptions: Potassium Chloride 20 meq PO TID #90 tab.er.prt <[place] Rice - Last Filed: 01/16/17 16:51> Date of Encounter: 01/16/17 - Constitutional Vitals: Temp Pulse Resp BP Pulse Ox 99.1 F 82 17 120/69 98 01/16/17 15:31 01/16/17 15:31 01/16/17 15:31 01/16/17 15:31 01/16/17 15:31 Internal Medicine: Result - Labs CBC & Chem 7: 01/15/17 05:25 01/16/17 02:47 Labs: BMP 01/16/17 02:47 Potassium 3.1 L - ABG Interpretation ABG results: PT/INR, D-dimer PT 13.6 Seconds (9.4-12.1) H 01/14/17 04:49 - Attending Attestation I conducted a face to face diagnostic evaluation of this patient and my medical decision-making was reviewed with the Resident Physician, Dr. Thony Glez. I agree with the documented findings, disposition and treatment plan as described except to the extent set forth below: Patient's potassium is within normal levels. We will discharge him back to shelter with potassium supplementation. Sepsis was ruled out during this admission.
[2017-01-16 15:32] VITALS: BP 120/69
== END 2017-01-16 17:58 | DRG 425 ==
LOC: 2ANU 08:42 → EMEROO 08:42 → 2ANU 11:42
PROVIDERS: ADMIT Hospitalist; ATTEND Internal Medicine

== ENCOUNTER 2017-03-17 21:55 | Inpatient (IN) ==
[2017-03-17] MEDS ORDERED: 0.9 % Sodium Chloride 1,000 ML IVC ONE (22:27)
[2017-03-17] MEDS ORDERED: *HR* OxyCODONE/APAP 5/325 TABLET PO ONE (22:29)
[2017-03-17] MEDS ORDERED: Ondansetron ODT 4 MG TAB.RAPDIS SL ONE (22:29)
[2017-03-17 23:18] LABS: Basophils % 0.2 %; Hematocrit 33.8 % (37.5-50.1); Hemoglobin 10.8 g/dL (12.9-16.9); Immature Granulocytes % 0.5 % (0-4); Lymphocytes # 1.3 K/mcL (0.6-4.6); Lymphocytes % 7.3 %; Mean Corpuscular Hemoglobin 28.6 pg (28.0-33.3); Mean Corpuscular Volume 89.4 fL (83.0-100.0); Mean Platelet Volume 9.1 fL (9.4-12.4); Monocytes # 1.8 K/mcL (0.0-1.3); Monocytes % 10.4 %; Neutrophils # 14.3 K/mcL (1.6-8.9); Platelet Count 327 K/mcL (140-400); Red Blood Count 3.78 M/mcL (4.19-5.50); Red Cell Distribution Width 15.1 % (11.5-14.5); Segmented Neutrophils % 81.6 %
[2017-03-17 23:21] LABS: Bilirubin,Urine Negative (Negative); Blood,Urine Negative (Negative); Clarity,Urine Clear (Clear); Color,Urine Yellow (Yellow); Glucose,Urine (UA) >=1000 mg/dL (Normal); Ketones,Urine Negative (Negative); Leukocyte Esterase,Urine Negative (Negative); Nitrite,Urine Negative (Negative); Protein,Urine Trace mg/dL (Neg-Trace); Specific Gravity,Urine > 1.030 (1.010-1.025); Urobilinogen,Urine Normal (Normal)
[2017-03-17 23:24] LABS: Bacteria,Urine None Seen per hpf (None-Few); Hyaline Casts,Urine None Seen per lpf (None-Few); RBC,Urine 0-3 per hpf (0-3); Squamous Epithelial Cell,Urine None Seen per lpf (None-Few); WBC,Urine 0-3 per hpf (0-3)
[2017-03-17 23:38] LABS: BUN/Creatinine Ratio 15 (6-26); Blood Urea Nitrogen 11 mg/dL (6-20); Calcium 9.4 mg/dL (8.6-10.3); Carbon Dioxide 25 mEq/L (23-29); Chloride 96 mEq/L (98-107); Glucose 160 mg/dL (70-105); Osmolality,Calculated 277 (280-300); Potassium 3.1 mEq/L (3.5-5.1); Sodium 132 mEq/L (136-145); eGFR For African Americans > 60 (> 60); eGFR For Non-African Americans > 60 (> 60)
--- NOTE | 2017-03-17 23:59 | Emergency Department Note ---
Disposition Clinical Impression: Pseudoaneurysm, Diffuse pain in right lower extremity Leukocytosis Qualifiers: Leukocytosis type: unspecified Qualified Code(s): D72.829 - Elevated white blood cell count, unspecified Disposition: Admitted As Inpatient Time of Disposition: 02:08 Extremity Problem HPI - General Chief complaint: ED Extremity Problem,Nontraumatic Stated complaint: right lower extremity pain Time Seen by Provider: 03/17/17 22:21 Source: patient Limitations: no limitations Nursing Notes Reviewed: Yes Vital Signs Reviewed: Yes - History of Present Illness Pt Subjective Complaint: extremity pain Onset (ago): day(s) Consistency: Worsening Injury Location: right, lower extremity Pain Scale: 10 Quality: aching Radiation: distal Improves with: nothing Worsens with: palpation Associated symptoms: Reports: redness. Denies: chest pain, shortness of breath , abdominal pain, back pain, bowel/bladder symptoms, fever, rash Context: history of peripheral vascular disease, other (Right AKA) - Related Data Home Medications Medication Instructions Recorded Confirmed Gabapentin [Neurontin] 800 mg PO TID 07/19/15 01/26/17 Lovastatin 40 mg PO HS 07/19/15 01/26/17 Quetiapine Fumarate [Seroquel] 600 mg PO HS 07/19/15 01/26/17 Ranitidine HCl [Zantac] 150 mg PO BID 07/19/15 01/26/17 Zolpidem [Ambien] 10 mg PO HS 07/19/15 01/26/17 Citalopram Hydrobromide [Celexa] 40 mg PO DAILY 01/24/16 01/26/17 Empagliflozin [Jardiance] 10 mg PO DAILY 01/24/16 01/26/17 Metformin HCl [Metformin HCl ER] 500 mg PO HS 01/24/16 01/26/17 Pentoxifylline [TRENtal] 400 mg PO BID 01/24/16 01/26/17 Aspirin Enteric Coated [Aspirin EC] 81 mg PO DAILY 03/26/16 01/26/17 glipiZIDE [Glipizide] 10 mg PO BID 03/26/16 01/26/17 Furosemide [Lasix] 40 mg PO DAILY 08/28/16 01/26/17 Alogliptin Benzoate [Alogliptin] 25 mg PO DAILY 11/25/16 01/26/17 Amantadine HCl [Amantadine] 100 mg PO BID 11/25/16 01/26/17 Clopidogrel [Plavix] 75 mg PO DAILY 12/23/16 01/26/17 Insulin Glargine [Lantus] 6 unit SQ HS 01/13/17 01/26/17 Previous Rx's Medication Instructions Recorded Nicotine Patch [Nicoderm] 21 mg TD DAILY #30 patch.td24 11/26/16 Rivaroxaban [Xarelto] 20 mg PO DAILY #30 tablet 11/26/16 LORazepam [Ativan] 1 mg PO HS #7 tablet 01/08/17 Metoprolol [Lopressor] 12.5 mg PO BID tablet 01/08/17 Tramadol HCl [Tramadol HCl ER] 100 mg PO TID PRN #20 cpbp.25.75 01/08/17 Potassium Chloride 20 meq PO TID #90 tab.er.prt 01/16/17 Allergies Allergy/AdvReac Type Severity Reaction Status Date / Time No Known Allergies Allergy Verified 01/26/17 13:40 All systems ED: reviewed and negative except as stated. Review of Systems: As Per HPI Constitutional: Denies: fever, chills Eyes: Denies: vision change ENT ED: Denies: throat pain Cardiovascular: Denies: palpitations Respiratory: Denies: dyspnea Gastrointestinal: Denies: abdominal pain Genitourinary: Denies: dysuria Musculoskeletal: Denies: back pain Integumentary: Denies: rash Neurological: Denies: headache, weakness Psychiatric: Denies: anxiety Endocrine: Denies: fatigue Hematological/Lymphatic: Denies: easy bleeding Allergic/Immunologic: Denies: facial swelling Past Medical History - Past Medical History Medical history: Reports: COPD, diabetes, hyperlipidemia, hypertension, myocardial infarction, peripheral artery disease Surgical history: Reports: cholecystectomy, vascular surgery, other Psychiatric history: Reports: anxiety, bipolar, depression, other - Social History Smoking Status: Current every day smoker Smokeless Tobacco Status: No Alcohol use: Reports: none Drug use: Reports: none Physical Exam - General Limitations: no limitations General appearance: alert, in no apparent distress - Head Head exam: normocephalic - Eye Eye exam: Present: EOMI - ENT ENT exam: mucous membranes moist - Neck Neck exam: Present: normal inspection, full ROM - Chest Chest inspection: Present: symmetric chest wall rise - Respiratory Respiratory exam: Present: normal lung sounds bilaterally. Absent: respiratory distress - Cardiovascular Cardiovascular exam: Present: regular rate, normal rhythm, tachycardia - Abdominal Exam Abdominal exam: Present: soft, Non-Tender - Expanded Lower Extremity Exam Hip/Pelvis exam: Absent: tenderness Upper leg exam: Present: erythema (right inguinal, mild induration), other ( Righ AKA, amputation site appears well healed, no drainage, discharge, erythema) Knee exam: Present: full ROM. Absent: tenderness Lower leg exam: Present: normal inspection. Absent: tenderness Foot/toe exam: Absent: tenderness Neurovascular/Tendon exam: Present: normal capillary refill Gait: not tested/not observed - Back Exam Back exam: Present: full ROM. Absent: CVA tenderness (R), CVA tenderness (L) - Neurological Exam Neurological exam: Present: alert, oriented X3 - Psychiatric Psychiatric exam: Present: normal affect, normal mood - Skin Skin exam: Present: warm, dry, intact, normal color. Absent: rash, cyanosis, diaphoresis Course Course Narrative: Pt is a 56-year-old male, arrives via squad from [facility]. He presents with worsening right leg pain. He describes this as redness just been worsening over the past days, worse with touch, and radiating down into his right lower extremity. He does have a right-sided [id number] amputation, that he tells me was performed here approximately 3 months ago. He denies any abdominal pain, chest pain, shortness of breath. Patient seen and examined. Discussed with Dr. chrissie Rivera, who had a stomach patient agreed with workup, and DVT , CTA. - Reevaluation(s) Reevaluation #1: Preliminary DVT study, concerning for large pseudoaneurysm. Disccused with vascular surgery Dr. Hansen, who advised for CTA. This has been ordered. We will follow patient's labs, initiate IV antibiotics and fluids for elevated white count/tachy/febrile. The patient does describe having a procedure in that area however he is unsure of the date, review of medical records show that he had had a catheter here although this was 2 years ago. No record of any procedures the past month. Time: 00:15 Reevaluation #2: Patient resting comfortable in bed. 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 Time: 01:50 Reevaluation #3: Patient accepted by hospitalist Dr. Wilson. Time: 02:22 - Consultations Consultation #1: Discussed pt with on vascular surgeon Dr. Pkie, who was familiar with patient. He feels this is likely not a pseudoaneurysm, and is recommending CTA of the abdomen and pelvis, groin, and will await call back after we get these results. Time: 00:01 Consultation #2: Discussed CTA results with Dr. Hansen, who advised for , and he agreed to see patient tomorrow as a consult. Time: 02:03 Vital Signs Temperature 101 F H 03/17/17 21:56 Pulse Rate 103 03/17/17 21:56 Respiratory Rate 20 03/17/17 21:56 Blood Pressure 144/81 03/17/17 21:56 O2 Sat by Pulse Oximetry 97 03/17/17 21:56 Temperature 99.9 F H 03/18/17 00:01 Pulse Rate 103 03/18/17 02:23 Respiratory Rate 16 03/18/17 02:23 Blood Pressure 100/69 03/18/17 02:23 O2 Sat by Pulse Oximetry 95 03/18/17 02:23 Oxygen Delivery Oxygen Delivery Room Air Extremity Problem, Nontraumati - MDM Narrative Medical decision making narrative: Chest X-Ray 03/17/17 22:28 IMPRESSION: No acute cardiopulmonary abnormality. 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 D/ / Ezio Shoemaker MD / Ezio Shoemaker MD Interpreting Provider: Ezio Shoemaker MD Laboratory Tests 03/17/17 03/17/17 03/17/17 23:05 23:05 23:05 WBC 17.5 H RBC 3.78 L Hgb 10.8 L Hct 33.8 L MCV 89.4 MCH 28.6 MCHC 32.0 RDW 15.1 H Plt Count 327 MPV 9.1 L Immature Gran % 0.5 Seg Neutrophils % 81.6 Lymphocytes % 7.3 Monocytes % 10.4 Eosinophils % 0.0 Basophils % 0.2 Neutrophils # 14.3 H Lymphocytes # 1.3 Monocytes # 1.8 H Eosinophils # 0.0 Basophils # 0.0 Sodium 132 L Potassium 3.1 L Chloride 96 L Carbon Dioxide 25 BUN 11 Creatinine 0.75 Est GFR ( Amer) > 60 Est GFR (Non-Af Amer) > 60 BUN/Creatinine Ratio 15 Glucose 160 H Calculated Osmolality 277 L Lactic Acid Calcium 9.4 Urine Color Yellow Urine Clarity Clear Urine pH 6.0 Ur Specific [place] > 1.030 H Urine Protein Trace Urine Glucose (UA) >=1000 H Urine Ketones Negative Urine Blood Negative Urine Nitrite Negative Urine Bilirubin Negative Urine Urobilinogen Normal Ur Leukocyte Esterase Negative Urine Microscopic RBC 0-3 Urine Microscopic WBC 0-3 Ur Squamous Epith Cells None Seen Urine Bacteria None Seen Hyaline Casts None Seen Ur Culture Indicated? NO 03/17/17 23:05 WBC RBC Hgb Hct MCV MCH MCHC RDW Plt Count MPV Immature Gran % Seg Neutrophils % Lymphocytes % Monocytes % Eosinophils % Basophils % Neutrophils # Lymphocytes # Monocytes # Eosinophils # Basophils # Sodium Potassium Chloride Carbon Dioxide BUN Creatinine Est GFR ( Amer) Est GFR (Non-Af Amer) BUN/Creatinine Ratio Glucose Calculated Osmolality Lactic Acid 1.5 Calcium Urine Color Urine Clarity Urine pH Ur Specific [place] Urine Protein Urine Glucose (UA) Urine Ketones Urine Blood Urine Nitrite Urine Bilirubin Urine Urobilinogen Ur Leukocyte Esterase Urine Microscopic RBC Urine Microscopic WBC Ur Squamous Epith Cells Urine Bacteria Hyaline Casts Ur Culture Indicated? - Lab Data Lab results reviewed: Yes I reviewed the patient's lab results. Result diagrams: 03/17/17 23:05 03/17/17 23:05 Lab Results 03/17/17 03/17/17 03/17/17 Range/Units 23:05 23:05 23:05 WBC 17.5 H (4.3-11.1) K/mcL RBC 3.78 L (4.19-5.50) M/mcL Hgb 10.8 L (12.9-16.9) g/dL Hct 33.8 L (37.5-50.1) % MCV 89.4 (83.0-100.0) fL MCH 28.6 (28.0-33.3) pg MCHC 32.0 (31.6-35.5) g/dL RDW 15.1 H (11.5-14.5) % Plt Count 327 (140-400) K/mcL MPV 9.1 L (9.4-12.4) fL Immature Gran % 0.5 (0-4) % Seg Neutrophils % 81.6 % Lymphocytes % 7.3 % Monocytes % 10.4 % Eosinophils % 0.0 % Basophils % 0.2 % Neutrophils # 14.3 H (1.6-8.9) K/mcL Lymphocytes # 1.3 (0.6-4.6) K/mcL Monocytes # 1.8 H (0.0-1.3) K/mcL Eosinophils # 0.0 (0.0-0.6) K/mcL Basophils # 0.0 (0.0-0.2) K/mcL Sodium 132 L (136-145) mEq/L Potassium 3.1 L (3.5-5.1) mEq/L Chloride 96 L (98-107) mEq/L Carbon Dioxide 25 (23-29) mEq/L BUN 11 (6-20) mg/dL Creatinine 0.75 (0.70-1.30) mg/dL Est GFR ( Amer) > 60 (> 60) Est GFR (Non-Af Amer) > 60 (> 60) BUN/Creatinine Ratio 15 (6-26) Glucose 160 H (70-105) mg/dL Calculated Osmolality 277 L (280-300) Lactic Acid (0.5-2.2) mmol/L Calcium 9.4 (8.6-10.3) mg/dL Urine Color Yellow (Yellow) Urine Clarity Clear (Clear) Urine pH 6.0 (5.0-8.0) pH Units Ur Specific [place] > 1.030 H (1.010-1.025) Urine Protein Trace (Neg-Trace) mg/dL Urine Glucose (UA) >=1000 H (Normal) mg/dL Urine Ketones Negative (Negative) mg/dL Urine Blood Negative (Negative) Urine Nitrite Negative (Negative) Urine Bilirubin Negative (Negative) Urine Urobilinogen Normal (Normal) mg/dL Ur Leukocyte Esterase Negative (Negative) Urine Microscopic RBC 0-3 (0-3) per hpf Urine Microscopic WBC 0-3 (0-3) per hpf Ur Squamous Epith Cells None Seen (None-Few) per lpf Urine Bacteria None Seen (None-Few) per hpf Hyaline Casts None Seen (None-Few) per lpf Ur Culture Indicated? NO (NO) 03/17/17 Range/Units 23:05 WBC (4.3-11.1) K/mcL RBC (4.19-5.50) M/mcL Hgb (12.9-16.9) g/dL Hct (37.5-50.1) % MCV (83.0-100.0) fL MCH (28.0-33.3) pg MCHC (31.6-35.5) g/dL RDW (11.5-14.5) % Plt Count (140-400) K/mcL MPV (9.4-12.4) fL Immature Gran % (0-4) % Seg Neutrophils % % Lymphocytes % % Monocytes % % Eosinophils % % Basophils % % Neutrophils # (1.6-8.9) K/mcL Lymphocytes # (0.6-4.6) K/mcL Monocytes # (0.0-1.3) K/mcL Eosinophils # (0.0-0.6) K/mcL Basophils # (0.0-0.2) K/mcL Sodium (136-145) mEq/L Potassium (3.5-5.1) mEq/L Chloride (98-107) mEq/L Carbon Dioxide (23-29) mEq/L BUN (6-20) mg/dL Creatinine (0.70-1.30) mg/dL Est GFR ( Amer) (> 60) Est GFR (Non-Af Amer) (> 60) BUN/Creatinine Ratio (6-26) Glucose (70-105) mg/dL Calculated Osmolality (280-300) Lactic Acid 1.5 (0.5-2.2) mmol/L Calcium (8.6-10.3) mg/dL Urine Color (Yellow) Urine Clarity (Clear) Urine pH (5.0-8.0) pH Units Ur Specific [place] (1.010-1.025) Urine Protein (Neg-Trace) mg/dL Urine Glucose (UA) (Normal) mg/dL Urine Ketones (Negative) mg/dL Urine Blood (Negative) Urine Nitrite (Negative) Urine Bilirubin (Negative) Urine Urobilinogen (Normal) mg/dL Ur Leukocyte Esterase (Negative) Urine Microscopic RBC (0-3) per hpf Urine Microscopic WBC (0-3) per hpf Ur Squamous Epith Cells (None-Few) per lpf Urine Bacteria (None-Few) per hpf Hyaline Casts (None-Few) per lpf Ur Culture Indicated? (NO) - Radiology Data Radiology results reviewed: Yes I reviewed the patient's radiology results.
[2017-03-18] MEDS ORDERED: Piperacillin/Tazobactam 3.375 GM in Water for inj. (sterile) 20 ML IVP ONE (00:27)
[2017-03-18] MEDS ORDERED: 0.9 % Sodium Chloride 1,000 ML IVC ONE (00:27)
[2017-03-18] MEDS ORDERED: 0.9 % Sodium Chloride 1,000 ML ONE (00:59)
[2017-03-18] MEDS ORDERED: *HR* HYDROcodone/Acet 5/325 mg TABLET PO PRN (02:54)
[2017-03-18] MEDS ORDERED: Acetaminophen 325 MG TABLET PO PRN ×2 (02:54→10:41)
[2017-03-18] MEDS ORDERED: *HR* OxyCODONE Immed Rel 5 MG TABLET PO PRN ×2 (02:54→10:41)
[2017-03-18] MEDS ORDERED: Naloxone 0.4 MG/ML INJ IVP PRN ×2 (02:54→10:41)
[2017-03-18] MEDS ORDERED: 0.9 % Sodium Chloride 1,000 ML IVC SCH ×2 (03:00→03:12)
[2017-03-18] MEDS ORDERED: *HR* Labetalol 20 MG/4 ML SYRINGE IVP PRN ×2 (03:03→10:41)
[2017-03-18] MEDS ORDERED: D5% in Water 1,000 ML IVC PRN ×2 (03:05→10:41)
[2017-03-18] MEDS ORDERED: Dextrose Gel 15 GM/37.5 ML TUBE PO PRN ×4 (03:05→10:41)
[2017-03-18] MEDS ORDERED: *HR* Dextrose 50 % in Water (Syg) 50 ML SYRINGE IVP PRN ×2 (03:05→10:41)
--- NOTE | 2017-03-18 03:11 | Internal Med History&Physical ---
Date of Encounter: 03/18/17 Time of Encounter: 02:00 Assessment and Plan (1) Pseudoaneurysm Current visit: Yes Status: Acute Pt has increased groin mass with pain, CTA shows pseudoaneurysm. I have discussed varscular surgery Dr Hansen on phone regarding the management. - Keep pt NPO, IVF - Pain management - Hold all blood thinner at this point - Normalize BP, I placed labetalol 10mg iv q1h prn for SBP > 140 - Closely monitor pt in tele. (2) CHF (congestive heart failure) Current visit: Yes Status: Acute Last echo shows LVEF 30% (Dec 2016). Pt appears euvolemic now. Qualifiers: Congestive heart failure type: systolic Congestive heart failure chronicity : chronic Qualified Code(s): I50.22 - Chronic systolic (congestive) heart failure (3) Diabetes mellitus type 2 in nonobese Current visit: No Status: Chronic Place pt on NPO now for possible surgery. Place pt on SSI. (4) PVD (peripheral vascular disease) Current visit: No Status: Chronic (5) DVT prophylaxis Current visit: No Status: Acute Pt is on xarelto. Hold now for possible surgery. (6) SIRS (systemic inflammatory response syndrome) Current visit: No Status: Acute Pt present with fever, leukocytosis, tachycardia, meet SIRS criteria, infection site consider mild cellulitis on right leg but other occult infection cannot fully r/o. - Will place pt on broad spectrum Abx Vanco and zosyn - F/U blood culture. - IVF for early goal directed resuscitation - First lactate 1.5, will repeat. Internal Medicine - H&P: HPI Chief complaint: Right leg pain Admitted From: Home Plans for Post Hospital Care: Home History of present illness: Mr. Almanza is a 56 year old male with Hx of DM, systolic CHF with LVEF 30% on last echo in Dec 2016, PVD s/p left bypass and right AKA, tremor, present to ER for right leg pain. Pt had Rt AKA in Dec 2016. Pt said since last Thursday he found there is a cyst on his right groin area, pulsatile, increase size gradually. Pt has pain since 4 days ago, sharp, pulsatile, 4-5/10. Pain is getting worse graddually and was 10/10 last night. He has fever yesterday at 100 and 101. Denies chest pain, SOB, nausea, or vomiting. In ER, US leg has been done, negative for DVT but positive for a pseudoaneurysm. Vascular surgery consult called by ER and was recommend for a CTA. CTA confirmed the diagnosis of pseudoaneurysm with size of 5.2 x 8.0 cm. Pt was admitted for further evaluation and management per vascular recommendation. Past Med Surg Social Fam HX - Past Medical History Medical history: COPD, diabetes, hyperlipidemia, hypertension, myocardial infarction, peripheral artery disease Psychiatric history: anxiety, bipolar, depression, other - Past Surgical History Surgical History: cholecystectomy, vascular surgery, other - Social History Smoking Status: Current every day smoker Smokeless Tobacco Status: No Alcohol use: none Drug use: none - Family History Paternal Family Member Ethnicity: Non- Living Status: Hx Family Cardiac Disorders: No Hx Family Respiratory Disorders: Yes (Emphysema) Hx Family Cancer: Yes (Prostate) Hx Family GI Disorders: No Hx Family Endocrine Disorder: Yes (Grandmother) Hx Family Neuromuscular Disorders: No Hx Family Neurologic Disorders: No Hx Family HEENT Disorders: No Hx Family Autoimmune Disorders: No Father Living Status: Still Living Mother Family Member Ethnicity: Non- Living Status: Hx Family Cancer: Yes (Stomach) Brother Family Member Ethnicity: Non- Living Status: Hx Family Cardiac Disorders: Yes (MS) Sister Family Member Ethnicity: Non- Living Status: Hx Family Cancer: Yes (Stomach) Internal Medicine - H&P: Meds Gabapentin [Neurontin] 800 mg PO TID 07/19/15 [History] Lovastatin 40 mg PO HS 07/19/15 [History] Quetiapine Fumarate [Seroquel] 600 mg PO HS 07/19/15 [History] Ranitidine HCl [Zantac] 150 mg PO BID 07/19/15 [History] Zolpidem [Ambien] 10 mg PO HS 07/19/15 [History] Citalopram Hydrobromide [Celexa] 40 mg PO DAILY 01/24/16 [History] Empagliflozin [Jardiance] 10 mg PO DAILY 01/24/16 [History] Metformin HCl [Metformin HCl ER] 500 mg PO HS 01/24/16 [History] Pentoxifylline [TRENtal] 400 mg PO BID 01/24/16 [History] Aspirin Enteric Coated [Aspirin EC] 81 mg PO DAILY 03/26/16 [History] glipiZIDE [Glipizide] 10 mg PO BID 03/26/16 [History] Furosemide [Lasix] 40 mg PO DAILY 08/28/16 [History] Alogliptin Benzoate [Alogliptin] 25 mg PO DAILY 11/25/16 [History] Amantadine HCl [Amantadine] 100 mg PO BID 11/25/16 [History] Nicotine Patch [Nicoderm] 21 mg TD DAILY #30 patch.td24 11/26/16 [Rx] Rivaroxaban [Xarelto] 20 mg PO DAILY #30 tablet 11/26/16 [Rx] Clopidogrel [Plavix] 75 mg PO DAILY 12/23/16 [History] LORazepam [Ativan] 1 mg PO HS #7 tablet 01/08/17 [Rx] Metoprolol [Lopressor] 12.5 mg PO BID tablet 01/08/17 [Rx] Tramadol HCl [Tramadol HCl ER] 100 mg PO TID PRN #20 cpbp.25.75 01/08/17 [Rx] Insulin Glargine [Lantus] 6 unit SQ HS 01/13/17 [History] Potassium Chloride 20 meq PO TID #90 tab.er.prt 01/16/17 [Rx] 3 Allergy/AdvReac Type Severity Reaction Status Date / Time No Known Allergies Allergy Verified 01/26/17 13:40 All Systems PM: A 10-system review of systems was performed and is negative for pertinent findings except as documented above in the HPI. - Constitutional Vitals: Temp Pulse Resp BP Pulse Ox 99.9 F H 103 16 100/69 95 03/18/17 00:01 03/18/17 02:23 03/18/17 02:23 03/18/17 02:23 03/18/17 02:23 General appearance: Present: mild distress, A&O X 3, answers questions appropriately - Head Head exam: Present: atraumatic, normocephalic - Eye Eye exam: Present: PERRL, conjuntiva pink, sclera anicteric Pupils: Present: PERRL - Neck Neck exam general surgery: Present: supple, trachea midline. Absent: lymphadenopathy - Respiratory Respiratory exam: Present: CTAB. Absent: accessory muscle use, rales, rhonchi, wheezes - Cardiovascular Cardiovascular exam: Present: RRR, +S1, +S2. Absent: diastolic murmur, gallop, rubs, systolic murmur - GI/Abdominal GI/Abdominal exam: Present: normal bowel sounds, soft, no peritoneal signs. Absent: distended, tenderness - Extremities Exam Extremities exam: Present: warm, radial pulses palpable and symmetrical. Absent : calf tenderness, cyanotic, pedal edema Additional comments: On right groin area there is a pulsatile mass with bruising on the skin. Rt AKA with mild redness on the incision, no discharge. - Neurological Exam Neurological exam: Present: CN II-XII intact, oriented X3, no focal deficits. Absent: pronater drift, facial droop, speech deficit - Skin Skin exam: Present: dry, intact, petechiae (On right groin area) Internal Med - H&P Results - Labs CBC & Chem 7: 03/17/17 23:05 03/17/17 23:05
--- NOTE | 2017-03-18 03:22 | Emergency Department Note ---
START Narrative - START START: I examined this patient and my medical decision-making was reviewed with the Resident Physician. I agree with the documented findings, disposition and treatment plan as described except to the extent set forth below. Findings consistent with aneurysm of the right femoral region. Discussed case with on- call vascular surgeon. We will proceed with admission for further management.
[2017-03-18] MEDS ORDERED: Vancomycin 1,250 MG in D5% in Water 250 ML IVPB SCH ×2 (04:00)
--- NOTE | 2017-03-18 05:37 | Vascular/Endovasc Consult Note ---
Date of Encounter: 03/18/17 Time of Encounter: 05:15 Assessment and Plan (1) Femoral artery aneurysm, right Current Visit: Yes Status: Acute The patient has developed a symptomatic right femoral anastamotic aneurysm. The aneurysm was not present on his prior CT scan last year. Urgent repair is recommended to reduce his risk of rupture. The risks, benefits and alternatives were discussed and all questions were answered. The patient expressed understanding and wishes to proceed. Given the onset, associated fevers and elevated white blood count, a mycotic aneurysm cannot be ruled out. Will plan to obtain intraoperative cultures. Recommend continued antibiotics. 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 Almanza is a 56 year old male with a longstanding history of peripheral vascular disease. The patient previously presented to [facility] critically ill with extensive right lower extremity gangrene to the level of the knee. He required emergency right above knee amputation. The patient healed and recovered from his illness and now resides at a nursing facility. He reports that he began to experience right groin pain for several days with expanding right groin swelling. The patient presented to [facility] ED. He underwent a right lower extremity duplex that was suspicious for aneurysm and then underwnet a CT scan. He appears to have an anastamotic anuerysm arising from the anastamosis of his prior right femoral to popliteal artery bypass graft. At the time of examination, he is resting comfortably. He reports minimal inguinal pain at this time. He denies chest pain or shortness of breath. Past Med Surg Social Fam HX - Past Medical History Medical history: COPD, diabetes, hyperlipidemia, hypertension, myocardial infarction, peripheral artery disease Psychiatric history: anxiety, bipolar, depression - Past Surgical History Surgical History: cholecystectomy, LE Bypass, vascular surgery, other (right above knee amputation) - Social History Smoking Status: Current some day smoker Smokeless Tobacco Status: No Alcohol use: none Drug use: none - Family History Paternal Family Member Ethnicity: Non- Living Status: Hx Family Cardiac Disorders: No Hx Family Respiratory Disorders: Yes (Emphysema) Hx Family Cancer: Yes (Prostate) Hx Family GI Disorders: No Hx Family Endocrine Disorder: Yes (Grandmother) Hx Family Neuromuscular Disorders: No Hx Family Neurologic Disorders: No Hx Family HEENT Disorders: No Hx Family Autoimmune Disorders: No Father Living Status: Still Living Mother Family Member Ethnicity: Non- Living Status: Hx Family Cancer: Yes (Stomach) Brother Family Member Ethnicity: Non- Living Status: Hx Family Cardiac Disorders: Yes (OR) Sister Family Member Ethnicity: Non- Living Status: Hx Family Cancer: Yes (Stomach) Medications and Allergies Gabapentin [Neurontin] 800 mg PO TID 07/19/15 [History] Lovastatin 40 mg PO HS 07/19/15 [History] Quetiapine Fumarate [Seroquel] 600 mg PO HS 07/19/15 [History] Ranitidine HCl [Zantac] 150 mg PO BID 07/19/15 [History] Zolpidem [Ambien] 10 mg PO HS 07/19/15 [History] Citalopram Hydrobromide [Celexa] 40 mg PO DAILY 01/24/16 [History] Empagliflozin [Jardiance] 10 mg PO DAILY 01/24/16 [History] Metformin HCl [Metformin HCl ER] 500 mg PO HS 01/24/16 [History] Pentoxifylline [TRENtal] 400 mg PO BID 01/24/16 [History] Aspirin Enteric Coated [Aspirin EC] 81 mg PO DAILY 03/26/16 [History] glipiZIDE [Glipizide] 10 mg PO QPM 03/26/16 [History] Furosemide [Lasix] 40 mg PO DAILY 08/28/16 [History] Alogliptin Benzoate [Alogliptin] 25 mg PO DAILY 11/25/16 [History] Amantadine HCl [Amantadine] 100 mg PO BID 11/25/16 [History] Nicotine Patch [Nicoderm] 21 mg TD DAILY #30 patch.td24 11/26/16 [Rx] Rivaroxaban [Xarelto] 20 mg PO DAILY #30 tablet 11/26/16 [Rx] Clopidogrel [Plavix] 75 mg PO DAILY 12/23/16 [History] Metoprolol [Lopressor] 12.5 mg PO BID tablet 01/08/17 [Rx] Tramadol HCl [Tramadol HCl ER] 100 mg PO TID PRN #20 cpbp.25.75 01/08/17 [Rx] Insulin Glargine [Lantus] 10 unit SQ HS 01/13/17 [History] Potassium Chloride 20 meq PO TID #90 tab.er.prt 01/16/17 [Rx] Benztropine Mesylate 0.5 mg PO HS 03/18/17 [History] LORazepam [Ativan] 0.5 mg PO BID 03/18/17 [History] Loperamide [Imodium] 2 mg PO Q4HR PRN 03/18/17 [History] Multivitamin with Minerals [One-A-Day Maximum Formula] 1 each PO DAILY 03/18/17 [History] Pantoprazole Sodium [Protonix] 40 mg PO DAILY 03/18/17 [History] Paroxetine HCl [Paxil] 10 mg PO DAILY 03/18/17 [History] Sulfamethoxazole/Trimeth DS [Bactrim DS] 1 each PO BID 03/18/17 [History] 3 Allergy/AdvReac Type Severity Reaction Status Date / Time No Known Allergies Allergy Verified 01/26/17 13:40 All Systems Review: A 10-system review of systems was performed and is negative for pertinent findings except as documented above in the HPI. - Constitutional Constitutional: fever(s), no chills - Cardiovascular Cardiovascular: no chest pain at rest, no chest pain with exertion, no dyspnea at rest, no dyspnea on exertion Exam Vital Signs, Last 4 Hours Temp Pulse Resp BP Pulse Ox 03/18/17 03:00 98.5 F 79 17 111/70 98 General: Present: Conversant, No Apparent Distress HEENT: Present: Trachea midline, Pupils equal Neck: Absent: Lymphadenopathy, Left Carotid bruit, Right Carotid bruit Cardiac: Present: Reg Rate and Rhythm, Normal S1 and S2 Lungs: Present: Normal Breath Sounds, No Wheeze, Rales, Rhonchi Neuro: Present: Alert and responsive, No focal deficits noted, Motor nerves grossly intact, Sensory nerves grossly intact Abdomen: Present: Soft, Non-tender. Absent: Masses Vascular: Present: Other (Pulsatile mass at the right groin, tender to palpation , no eccymosis, induration at the inguinal fold, no purulence). Absent: Cyanosis, Edema Consult Discharge Plan - Plan Referrals: Sunita Murrell MD [Primary Care Provider] -
[2017-03-18] MEDS ORDERED: *HR* Midazolam HCl 2 MG/2 ML VIAL ONE (05:58)
[2017-03-18] MEDS ORDERED: *HR* FentaNYL (PF) 100 MCG/2 ML VIAL ONE ×2 (05:58→08:05)
[2017-03-18] MEDS ORDERED: *HR* Propofol 200 MG/20 ML VIAL IVP ONE (05:59)
[2017-03-18] MEDS ORDERED: Lidocaine -MPF 2% 2 ML VIAL ONE (05:59)
[2017-03-18] MEDS ORDERED: *HR* Succinylcholine 200 MG/10 ML VIAL IVP ONE (05:59)
[2017-03-18] MEDS ORDERED: *HR* Rocuronium Bromide 50 MG/5 ML VIAL ONE (06:01)
[2017-03-18] MEDS ORDERED: Heparin 1,000 UNITS/500 mL 1,000 ML ONE (06:04)
--- NOTE | 2017-03-18 06:09 | Anesthesia Evaluation PreOp ---
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) Other Medical History: Diabetes Type II, Other (anxiety/bipolar depression) Anesthesia History: No Prior Anesthetic Complications, Past Anesthesia Alcohol Use: none Drug use: none Medications and Allergies Gabapentin [Neurontin] 800 mg PO TID 07/19/15 [History] Lovastatin 40 mg PO HS 07/19/15 [History] Quetiapine Fumarate [Seroquel] 600 mg PO HS 07/19/15 [History] Ranitidine HCl [Zantac] 150 mg PO BID 07/19/15 [History] Zolpidem [Ambien] 10 mg PO HS 07/19/15 [History] Citalopram Hydrobromide [Celexa] 40 mg PO DAILY 01/24/16 [History] Empagliflozin [Jardiance] 10 mg PO DAILY 01/24/16 [History] Metformin HCl [Metformin HCl ER] 500 mg PO HS 01/24/16 [History] Pentoxifylline [TRENtal] 400 mg PO BID 01/24/16 [History] Aspirin Enteric Coated [Aspirin EC] 81 mg PO DAILY 03/26/16 [History] glipiZIDE [Glipizide] 10 mg PO QPM 03/26/16 [History] Furosemide [Lasix] 40 mg PO DAILY 08/28/16 [History] Alogliptin Benzoate [Alogliptin] 25 mg PO DAILY 11/25/16 [History] Amantadine HCl [Amantadine] 100 mg PO BID 11/25/16 [History] Nicotine Patch [Nicoderm] 21 mg TD DAILY #30 patch.td24 11/26/16 [Rx] Rivaroxaban [Xarelto] 20 mg PO DAILY #30 tablet 11/26/16 [Rx] Clopidogrel [Plavix] 75 mg PO DAILY 12/23/16 [History] Metoprolol [Lopressor] 12.5 mg PO BID tablet 01/08/17 [Rx] Tramadol HCl [Tramadol HCl ER] 100 mg PO TID PRN #20 cpbp.25.75 01/08/17 [Rx] Insulin Glargine [Lantus] 10 unit SQ HS 01/13/17 [History] Potassium Chloride 20 meq PO TID #90 tab.er.prt 01/16/17 [Rx] Benztropine Mesylate 0.5 mg PO HS 03/18/17 [History] LORazepam [Ativan] 0.5 mg PO BID 03/18/17 [History] Loperamide [Imodium] 2 mg PO Q4HR PRN 03/18/17 [History] Multivitamin with Minerals [One-A-Day Maximum Formula] 1 each PO DAILY 03/18/17 [History] Pantoprazole Sodium [Protonix] 40 mg PO DAILY 03/18/17 [History] Paroxetine HCl [Paxil] 10 mg PO DAILY 03/18/17 [History] Sulfamethoxazole/Trimeth DS [Bactrim DS] 1 each PO BID 03/18/17 [History] 3 Allergy/AdvReac Type Severity Reaction Status Date / Time No Known Allergies Allergy Verified 01/26/17 13:40 - Meds/Allergy Pre-op Review Medications Reviewed: Yes Allergies Reviewed: Yes Beta Blockers on Current Med List: Yes Anesthesia Results - Labs 03/17/17 23:05 03/17/17 23:05 - Imaging EKG: report reviewed (01/13/[address] DEVIATION AND MODERATE T-WAVE ABNORMALITY, CONSIDER ANTEROLATERAL ISCHEMIA ST DEVIATION AND MODERATE T-WAVE ABNORMALITY, CONSIDER INFERIOR ISCHEMIA) Additional studies: 02/17/2017 Stress Impression: Prior infarct involving the inferior wall, inferoseptum and inferolateral wall. There is mild worsening of perfusion in the basal-mid and inferior apical wall representing reversible ischemia. Pharmacologic stress ECG is non diagnostic for ischemia due to baseline non-specific ST and T changes. Gated EF = 40%. LV is dilated. Findings communicated to ordering provider. 01/13/2017 Limited Echo Impressions: In the few images obtained, the left ventricle appeared mildly dilated and hypokinetic. Patient refused to complete the study. Findings: Study Quality * Technically sub-optimal due to clinical status. Patient refused to allow the study to be performed. ECG Findings * Normal sinus rhythm. Left Ventricle * In the few images obtained, the left ventricle appeared mildly dilated and hypokinetic. Patient refused to complete the study. Anesthesia Exam Vital Signs/O2 Sat, Most Current Temp Pulse Resp BP Pulse Ox 98.5 F 79 17 111/70 98 03/18/17 03:00 03/18/17 03:00 03/18/17 03:00 03/18/17 03:00 03/18/17 03:00 Height: 5'10"/1.78 m Weight: 169 lbs/76.7 kg NPO (# of Hours): 8 Pain Scale: 0 Pain Scale Used: Numeric (1 - 10) - HEENT Pupil (Motor): EOMI Mallampati: II Teeth: Edentulous Oral Opening: Greater than 3 - BLOW TORCH OPERATOR LOC: Oriented BLOW TORCH OPERATOR Motor: Normal RUE, Normal LUE, Normal RLE, Normal LLE, Normal Face BLOW TORCH OPERATOR Sensory: Normal: RUE, LUE, Face, Deficit: RLE, LLE - Cardiac Rhythm: Regular Murmur: None - Pulmonary Breath Sounds: bilateral Clear Respiratory Effort: Symmetrical Anesthesia Assess/Plan ASA Score: 4, E Modified Radha Scale for Level of Consciousness: Cooperative, oriented, and tranquil Anesthetic Plan: General Monitoring Plan: Standard Monitors Recovery Plan: PACU
[2017-03-18] MEDS ORDERED: Vancomycin 1,000 MG VIAL ONE ×2 (06:44→08:46)
[2017-03-18] MEDS ORDERED: Insulin LISPRO 300 UNITS/3 ML VIAL SQ SCH ×3 (07:30→21:00)
[2017-03-18] MEDS ORDERED: *HR* PHENYLEPHRINE 1,000 MCG/10 ML SYRINGE IVP ONE (07:30)
[2017-03-18] MEDS ORDERED: Ondansetron 4 MG/2 ML VIAL ONE (08:10)
[2017-03-18] MEDS ORDERED: Dexamethasone 4 MG/ML VIAL ONE (08:10)
[2017-03-18] MEDS ORDERED: *HR* FentaNYL (PF) 100 MCG/2 ML VIAL IVP PRN (08:56)
[2017-03-18] MEDS: MORPHINE SUL Oral CONC 10 MG/0.5 ML ORAL.SYG SL PRN ×2 (09:28→09:38)
--- NOTE | 2017-03-18 10:04 | Anesthesia Evaluation Post Op ---
Date of Encounter: 03/18/17 Time of Encounter: 10:04 - Vital Signs Vital Signs: Selected Entries 03/18/17 09:20 Temperature 99 F Pulse Rate 111 Respiratory Rate 16 O2 Sat by Pulse Oximetry 97 Oxygen Flow Rate (LPM) 2 - Lungs Lungs: Clear Ascult./Percussion - Airway Airway: Non-obstructed - Cardiovascular Regular Rate - Mental Status Mental Status: Alert & Oriented, Answers Appropriately - Pain Pain Scale: 0 Pain Scale used: Numeric (1 - 10) - Nausea Vomiting Nausea Vomiting: Not Present - Hydration Hydration: Ice chips, Has not voided - Discharge PostOp Status: Transfer Patient to floor
--- NOTE | 2017-03-18 10:08 | Operative Note ---
Date of procedure: 03/18/17 Pre-op diagnosis: Right femoral artery aneurysm Post-op diagnosis: same Procedure: Repair of ruptured right common femoral artery anastamotic aneurysm. Complications: None Anesthesia: GETA Surgeon: Wale Hansen Was there an teacher's assistant present: No Estimated blood loss (cc): 450 Specimen: None Condition: stable Disposition: PACU Procedure in Detail: Indications: The patient is a 56 year old male with an extensive history of peripheral vascular disease. He had previosuly undergone a right femoral to popliteal artery bypass. The patient has also previously undergone a right above knee amputation. The patient presented to the ER with approimately 1 week of right groin pain and swelling. He was noted to have a large right femoral artery aneurysm. Repair was recommended. Procedure: The patient was identified in the preoperative area. The risks, benefits, and alternatives of the procedure were discussed. All questions were answered. The patient was taken to the operating room and placed in supine position on the operating room table. After the induction of general endotracheal anesthesia, he was cleaned and draped in normal sterile fashion. An oblique incision was made over the right groin through his prior scar sharply. Hemostasis was obtained with electrocautery. Upon entering the subcutaneous tissue a large pulsatile hematoma was encountered. Upon further dissection, vigorus bleeding was encountered. The femoral artery was quickly identified and controlled with a clamp. Dense inflammation was noted to be surrounding the femoral artery. Through a process of blunt, sharp, and electrocautery dissection, the right femoral vessels were dissected and clamped. The graft was then resected off the femoral artery. The entire residual graft was dissected from the thigh and removed. The margins of the commno femoral artery appeared friable and were also resected. Cultures were taken and sent due to the high suspicion of arteritis due to infection. No purulence was noted. The hematoma was removed. Using 6-0 prolene, the femoral artery was closed primarily. The clamps were removed and no further bleeding was noted. The wound was irrigated with antibiotic containing saline. Platelet rich and platelet poor plasma were infused into the wounds. Meticulous hemostasis was obtained throughout the wound with electrocautery. Wounds were reapproximated with layers of 2-0 and 3-0 Vicryl. Skin was reapproximated with 3-0 Monocryl. Sterile dressing was applied. The patient was extubated and taken to recovery room in stable condition.
[2017-03-18] MEDS ORDERED: Ringers Solution, Lactated 1,000 ML ONE (10:20)
[2017-03-18] MEDS ORDERED: Ondansetron 4 MG/2 ML VIAL IVP PRN (10:41)
[2017-03-18 11:46] LABS: Basophils % 0.2 %; Eosinophils % 0.1 %; Hematocrit 34.1 % (37.5-50.1); Hemoglobin 10.3 g/dL (12.9-16.9); Immature Granulocytes % 0.6 % (0-4); Lymphocytes # 0.6 K/mcL (0.6-4.6); Lymphocytes % 3.1 %; Mean Corpuscular HGB Conc 30.2 g/dL (31.6-35.5); Mean Corpuscular Hemoglobin 28.2 pg (28.0-33.3); Mean Corpuscular Volume 93.4 fL (83.0-100.0); Mean Platelet Volume 8.9 fL (9.4-12.4); Monocytes # 1.3 K/mcL (0.0-1.3); Monocytes % 7.4 %; Platelet Count 270 K/mcL (140-400); Red Blood Count 3.65 M/mcL (4.19-5.50); Red Cell Distribution Width 15.1 % (11.5-14.5); Segmented Neutrophils % 88.6 %
[2017-03-18 11:57] LABS: INR 1.4
[2017-03-18 12:10] LABS: BUN/Creatinine Ratio 13 (6-26); Blood Urea Nitrogen 10 mg/dL (6-20); Calcium 8.4 mg/dL (8.6-10.3); Carbon Dioxide 23 mEq/L (23-29); Chloride 107 mEq/L (98-107); Glucose 188 mg/dL (70-105); Magnesium 2.1 mg/dL (1.6-2.6); Osmolality,Calculated 288 (280-300); Potassium 4.3 mEq/L (3.5-5.1); Sodium 137 mEq/L (136-145); eGFR For African Americans > 60 (> 60); eGFR For Non-African Americans > 60 (> 60)
[2017-03-18] MEDS: 0.9 % Sodium Chloride 1,000 ML IVC SCH (12:25)
[2017-03-18] MEDS: Insulin LISPRO 300 UNITS/3 ML VIAL SQ SCH ×2 (12:26→17:16)
--- NOTE | 2017-03-18 14:41 | Event Note ---
Date of Encounter: 03/18/17 Time of Encounter: 11:50 Patient underwent surgery earlier this morning repair of right common femoral artery aneurysm. Wound cultures sent. Will follow results. Continue current antibiotics. Patient appears to be doing well postprocedure. Monitor vital signs closely.
[2017-03-18] MEDS: *HR* LORazepam 0.5 MG TABLET PO SCH ×2 (16:48→20:04)
[2017-03-18] MEDS: Gabapentin 400 MG CAPSULE PO SCH ×2 (16:48→20:04)
[2017-03-18] MEDS: Nicotine 21 MG PATCH.TD24 TD SCH (16:49)
[2017-03-18] MEDS: Vancomycin 1,250 MG in D5% in Water 250 ML IVPB SCH (16:49)
[2017-03-18] MEDS: *HR* HYDROcodone/Acet 5/325 mg TABLET PO PRN (18:15)
[2017-03-18 20:14] LABS: Enterococcus by PCR Not Detected (Not Detect); blaKPC Carbapenem-Resist Gene Not Detected (Not Detect); mecA Methicillin-Resist Gene ***DETECTED*** (Not Detect); vanA/B Vancomycin-Resist Genes Not Detected (Not Detect)
[2017-03-18 20:15] LABS: Acinetobacter baumannii by PCR Not Detected (Not Detect); Staphylococcus aureus by PCR Not Detected (Not Detect); Streptococcus agalactiae(B)PCR Not Detected (Not Detect); Streptococcus by PCR Not Detected (Not Detect); Streptococcus pneumoniae PCR Not Detected (Not Detect); Streptococcus pyogenes (A) PCR Not Detected (Not Detect)
[2017-03-18 20:16] LABS: Candida albicans by PCR Not Detected (Not Detect); Candida glabrata by PCR Not Detected (Not Detect); Candida krusei by PCR Not Detected (Not Detect); Candida parapsilosis by PCR Not Detected (Not Detect); Candida tropicalis by PCR Not Detected (Not Detect); Escherichia coli by PCR Not Detected (Not Detect); Klebsiella oxytoca by PCR Not Detected (Not Detect); Klebsiella pneumoniae by PCR Not Detected (Not Detect); Pseudomonas aeruginosa by PCR Not Detected (Not Detect); Serratia marcescens by PCR Not Detected (Not Detect)
[2017-03-18] MEDS ORDERED: *HR* LORazepam 0.5 MG TABLET PO SCH (21:00)
[2017-03-19] MEDS: 0.9 % Sodium Chloride 1,000 ML IVC SCH (03:11)
[2017-03-19] MEDS: Vancomycin 1,250 MG in D5% in Water 250 ML IVPB SCH ×2 (03:12→16:02)
[2017-03-19] MEDS: Insulin LISPRO 300 UNITS/3 ML VIAL SQ SCH ×5 (07:38→20:20)
[2017-03-19] MEDS: Furosemide 40 MG TABLET PO SCH (07:49)
[2017-03-19] MEDS: Nicotine 21 MG PATCH.TD24 TD SCH (07:49)
[2017-03-19] MEDS: Aspirin Enteric Coated 81 MG Tablet PO SCH (07:49)
[2017-03-19] MEDS: *HR* LORazepam 0.5 MG TABLET PO SCH ×2 (07:49→20:20)
[2017-03-19] MEDS: Gabapentin 400 MG CAPSULE PO SCH ×3 (07:49→20:20)
[2017-03-19] MEDS: Multivit/Ca/Min/Fe/FA 1 TAB TABLET PO SCH (07:50)
[2017-03-19] MEDS: *HR* HYDROcodone/Acet 5/325 mg TABLET PO PRN ×3 (07:53→23:31)
[2017-03-19 08:51] LABS: Basophils % 0.2 %; Eosinophils # 0.2 K/mcL (0.0-0.6); Eosinophils % 1.1 %; Hematocrit 26.7 % (37.5-50.1); Immature Granulocytes % 0.8 % (0-4); Lymphocytes # 1.5 K/mcL (0.6-4.6); Lymphocytes % 11.4 %; Mean Corpuscular HGB Conc 31.1 g/dL (31.6-35.5); Mean Corpuscular Hemoglobin 28.9 pg (28.0-33.3); Mean Platelet Volume 9.1 fL (9.4-12.4); Monocytes # 1.5 K/mcL (0.0-1.3); Monocytes % 11.1 %; Platelet Count 247 K/mcL (140-400); Red Blood Count 2.87 M/mcL (4.19-5.50); Red Cell Distribution Width 15.1 % (11.5-14.5); Segmented Neutrophils % 75.4 %
[2017-03-19 08:52] LABS: Hemoglobin 8.3 g/dL (12.9-16.9)
[2017-03-19 09:07] LABS: BUN/Creatinine Ratio 12 (6-26); Blood Urea Nitrogen 8 mg/dL (6-20); Calcium 8.4 mg/dL (8.6-10.3); Carbon Dioxide 23 mEq/L (23-29); Chloride 108 mEq/L (98-107); Glucose 135 mg/dL (70-105); Osmolality,Calculated 286 (280-300); Potassium 3.7 mEq/L (3.5-5.1); Sodium 138 mEq/L (136-145); eGFR For African Americans > 60 (> 60); eGFR For Non-African Americans > 60 (> 60)
--- NOTE | 2017-03-19 12:50 | Vascular/Endovas Progress Note ---
Date of Encounter: 03/19/17 Time of Encounter: 11:00 - Assessment and plan (1) Femoral artery aneurysm, right Current Visit: Yes Status: Acute He underwent right femoral aneurysm repair yesterday. His wound appears to be healing. Gram positive cocci in blood culture. Await sensitivities. Continue with antibiotics. May resume anticoagulation today. 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 He denies fevers or chills. Vital Signs, Last 4 Hours Pulse Resp BP Pulse Ox 03/19/17 11:43 72 03/19/17 11:28 77 18 97/58 99 - Physical Examination General: Present: Conversant, No Apparent Distress Cardiac: Present: Reg Rate and Rhythm Lungs: Present: Normal Breath Sounds Neuro: Present: No focal deficits noted Vascular: Present: Surgical incisions (incision clean, dry and intact wihtout erythema or drainage) - VTE Documentation of Mechanical Device: Intermittent pneumatic compression device Results 03/19/17 08:33 03/19/17 08:33 Lab Results, Last 24 hours 03/19/17 03/19/17 08:33 08:33 WBC 13.3 H Hgb 8.3 L D Hct 26.7 L Plt Count 247 Sodium 138 Potassium 3.7 Chloride 108 H Carbon Dioxide 23 BUN 8 Creatinine 0.69 L Glucose 135 H Calcium 8.4 L Consult Discharge Plan - Plan Referrals: Sunita Murrell MD [Primary Care Provider] -
--- NOTE | 2017-03-19 15:35 | Internal Med Progress Note ---
Date of Encounter: 03/19/17 Time of Encounter: 10:10 - Assessment and plan (1) Femoral artery aneurysm, right Current Visit: Yes Status: Acute Assessment and plan: With possible infection. Continue current antibiotics. Patient underwent surgery yesterday with the repair of ruptured right common femoral artery anastomotic aneurysm. Doing well post procedure. Wound cultures have so far grown no bacteria. Vascular surgery following. (2) Diabetes mellitus with peripheral angiopathy without gangrene Current Visit: Yes Status: Chronic Assessment and plan: Blood sugars are elevated at this time. Will increase insulin regimen. 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 (5) Sepsis Current Visit: Yes Status: Acute Assessment and plan: Patient being treated for possible sepsis with intravenous antibiotics. Blood cultures positive for gram-positive cocci. On vancomycin. Will repeat blood cultures. Could be related to possible mycotic aneurysm versus cellulitis involving the right groin. High risk for complications. Qualifiers: Sepsis type: sepsis due to unspecified organism Qualified Code(s): A41.9 - Sepsis, unspecified organism (6) DVT prophylaxis Current Visit: No Status: Acute Assessment and plan: Patient on Xarelto - Subjective Interval history: Patient is awake and alert. Doing well overall. Denies any new complaints at this time. Has not had any fever or chills overnight. Pain is improving and right groin. - Constitutional Vitals: Temp Pulse Resp BP Pulse Ox 98.9 F 72 18 97/58 99 03/19/17 06:50 03/19/17 11:43 03/19/17 11:28 03/19/17 11:28 03/19/17 11:28 General appearance: Present: mild distress, A&O X 3, answers questions appropriately - Neck Neck exam general surgery: Present: supple, trachea midline. Absent: lymphadenopathy - Respiratory Respiratory exam: Present: CTAB. Absent: accessory muscle use, rales, rhonchi, wheezes - Cardiovascular Cardiovascular exam: Present: RRR, +S1, +S2. Absent: diastolic murmur, gallop, rubs, systolic murmur - GI/Abdominal GI/Abdominal exam: Present: normal bowel sounds, soft, no peritoneal signs. Absent: distended, tenderness - Extremities Exam Extremities exam: Absent: calf tenderness, cyanotic, pedal edema Additional comments: Status post right AKA - Neurological Exam Neurological exam: Present: alert, oriented X3, no focal deficits. Absent: facial droop, speech deficit - Skin Skin exam: Present: dry, intact Internal Medicine: Result - Labs CBC & Chem 7: 03/19/17 08:33 03/19/17 08:33 Labs: Short CBC 03/19/17 Range/Units 08:33 WBC 13.3 H (4.3-11.1) K/mcL Hgb 8.3 L D (12.9-16.9) g/dL Hct 26.7 L (37.5-50.1) % Plt Count 247 (140-400) K/mcL Neutrophils # 10.0 H (1.6-8.9) K/mcL BMP 03/19/17 08:33 Sodium 138 Potassium 3.7 Chloride 108 H Carbon Dioxide 23 BUN 8 Creatinine 0.69 L Glucose 135 H Calcium 8.4 L - ABG Interpretation ABG results: PT/INR, D-dimer PT 15.0 Seconds (9.4-12.1) H 03/18/17 11:33 - VTE Documentation of Mechanical Device: Intermittent pneumatic compression device Consult Discharge Plan - Plan Referrals: Sunita Murrell MD [Primary Care Provider] - Wale Hansen MD [Partnered Physician] - 04/28/17 1:00 pm
[2017-03-19] MEDS: *HR* Rivaroxaban 10 MG TABLET PO SCH (17:17)
[2017-03-20] MEDS: Vancomycin 1,250 MG in D5% in Water 250 ML IVPB SCH ×2 (03:17→15:37)
[2017-03-20 04:11] LABS: Basophils % 0.3 %; Eosinophils # 0.3 K/mcL (0.0-0.6); Eosinophils % 2.9 %; Hematocrit 25.7 % (37.5-50.1); Hemoglobin 7.8 g/dL (12.9-16.9); Immature Granulocytes % 0.6 % (0-4); Lymphocytes # 2.5 K/mcL (0.6-4.6); Lymphocytes % 21.3 %; Mean Corpuscular HGB Conc 30.4 g/dL (31.6-35.5); Mean Corpuscular Hemoglobin 28.2 pg (28.0-33.3); Mean Corpuscular Volume 92.8 fL (83.0-100.0); Mean Platelet Volume 9.1 fL (9.4-12.4); Monocytes # 1.2 K/mcL (0.0-1.3); Monocytes % 10.4 %; Neutrophils # 7.5 K/mcL (1.6-8.9); Platelet Count 288 K/mcL (140-400); Red Blood Count 2.77 M/mcL (4.19-5.50); Red Cell Distribution Width 15.3 % (11.5-14.5); Segmented Neutrophils % 64.5 %
[2017-03-20 04:45] LABS: BUN/Creatinine Ratio 9 (6-26); Blood Urea Nitrogen 6 mg/dL (6-20); Calcium 8.3 mg/dL (8.6-10.3); Carbon Dioxide 24 mEq/L (23-29); Chloride 107 mEq/L (98-107); Glucose 130 mg/dL (70-105); Osmolality,Calculated 287 (280-300); Potassium 3.2 mEq/L (3.5-5.1); Sodium 139 mEq/L (136-145); eGFR For African Americans > 60 (> 60); eGFR For Non-African Americans > 60 (> 60)
[2017-03-20] MEDS: Insulin LISPRO 300 UNITS/3 ML VIAL SQ SCH ×4 (08:35→23:57)
[2017-03-20] MEDS: Furosemide 40 MG TABLET PO SCH (08:40)
[2017-03-20] MEDS: Gabapentin 400 MG CAPSULE PO SCH ×3 (08:41→21:26)
[2017-03-20] MEDS: *HR* LORazepam 0.5 MG TABLET PO SCH ×2 (08:42→21:26)
[2017-03-20] MEDS: Aspirin Enteric Coated 81 MG Tablet PO SCH (08:42)
[2017-03-20] MEDS: *HR* HYDROcodone/Acet 5/325 mg TABLET PO PRN ×2 (08:43→23:59)
[2017-03-20] MEDS: Multivit/Ca/Min/Fe/FA 1 TAB TABLET PO SCH (08:44)
[2017-03-20] MEDS: Nicotine 21 MG PATCH.TD24 TD SCH (08:46)
--- NOTE | 2017-03-20 11:03 | Infectious Disease Consult ---
Date of Encounter: 03/20/17 Time of Encounter: 10:58 Assessment and Plan (1) Staphylococcus hemolyticus sepsis Status: Acute Assessment and plan: The patient presented febrile, tachycardic, tachypneic, leukocytosis. This is all resolved. Secondary to Staphylococcus hemolyticus bacteremia (2) Bacteremia due to coagulase-negative Staphylococcus Status: Acute Assessment and plan: 03/17/17 blood cultures: One out of 2 positive for Staphylococcus hemolyticus resistant to oxacillin 03/19/17 with cultures are both negative. Wound culture negative preliminarily. CTA showed pseudoaneurysm 5.28.0 of the right femoral artery with adjacent fat stranding which extends to the right anterior thigh. Operative note noted high suspicion of arteritis due to infection and inflammation around femoral artery. Patient has 3 minor Dubois criteria including fever, blood culture results, femoral pseudoaneurysm patient denies hx of hardware plan: continue vancomycin. d/c zosyn await final 03/19 blood cultures (3) Femoral artery aneurysm, right Status: Acute Assessment and plan: S/P r. femoral aneurysm repair right incision intact, dressed. (4) PVD (peripheral vascular disease) Status: Chronic (5) Diabetes mellitus type 2 in nonobese Status: Chronic Assessment and plan: controlled DM last HGA1c 4.7 Infectious Disease HPI - Data of Consult Patient: new to practice Consult date: 03/20/17 Requesting Physician: Lauren Khan MD Primary Care Provider: Sunita Murrell - Consult Narrative Reason for consult: Staph hemolyticus bacteremia History of present illness: Mr. Almanza is a 56 year old male presented on 03/17/17 with chief complaint of right groin pain. Infectious diseases consultation on 03/20/17 for Staphylococcus hemolyticus bacteremia. Patient has a history of peripheral vascular disease complicated by right extremity gangrene to the level of the knee, status post right AKA dec 2016 and status post right and left femoral artery bypass graft, and insulin-dependent diabetes mellitus. Patient states last Thursday he started having fullness in his right groinpulsatile which progressively increased in size and then became painful. Hip sharp pain in his right groin radiating down his right leg. He also mentioned fever 100-101. December 2016 patient was admitted for right lower extremity gangrene, also developed septic shock secondary to gangrene, multifocal pneumonia was treated with IV vancomycin and meropenem for 14 days. At that time and cultures grew Maya albicans and enterococcus species sensitive to vancomycin. Blood cultures were negative. Patient reports chronic headache, chronic sinus drainage, nosebleeds the past 2 weeks chronic productive cough, chronic numbness in the left lower extremity. He denies chills, ear pain, sore throat, chest pain, palpitations, shortness of breath, abdominal pain, nausea, vomiting, diarrhea, lower extremity swelling, rash. Patient lives alone at home. He has a pet dog that does scratch them. Patient states he abuses alcohol, chronic smoker. Denies IV drug use. 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 Patient presented febrile and tachycardic, tachypneic with a WBC of 17. Juan C neutrophilic. Lactic acid was 1.5. Urinalysis negative for infection. The 1 out of 2 cultures obtained and 03/17/17 grew staph hemolyticus. Repeat blood cultures on 03/19 have been negative. Patient had chest x-ray on admission was negative. Venous duplex was negative for DVT but showed a right femoral artery aneurysm. CTA of the abdomen and pelvis showed a right pseudoaneurysm near the right groin 5.28.0 cm with occluded bypass graft, with stranding of the right thigh and a patent left femoral bypass graft. Patient was urgently taken to or by vascular surgery. Operative note stated there is high suspicion of arteritis due to infection and there is inflammation around the femoral artery. Wound cultures were collected during the surgery and have been negative. Patient was started on vancomycin and Zosyn since admission. Patient 's fever, leukocytosis, tachycardia, tachypnea has resolved. Today he reports minimal pain in the right groin. He reports having a sore throat after being intubated surgery. He has no other complaints. He is afebrile. CC: Lauren Khan MD Past Med Surg Social Fam HX - Past Medical History Medical history: COPD, diabetes, hyperlipidemia, hypertension, myocardial infarction, peripheral artery disease Psychiatric history: anxiety, bipolar, depression - Past Surgical History Surgical History: cholecystectomy, LE Bypass, vascular surgery, other (right above knee amputation) - Social History Smoking Status: Current some day smoker Smokeless Tobacco Status: No Alcohol use: none Drug use: none - Family History Paternal Family Member Ethnicity: Non- Living Status: Hx Family Cardiac Disorders: No Hx Family Respiratory Disorders: Yes (Emphysema) Hx Family Cancer: Yes (Prostate) Hx Family GI Disorders: No Hx Family Endocrine Disorder: Yes (Grandmother) Hx Family Neuromuscular Disorders: No Hx Family Neurologic Disorders: No Hx Family HEENT Disorders: No Hx Family Autoimmune Disorders: No Father Living Status: Still Living Mother Family Member Ethnicity: Non- Living Status: Hx Family Cancer: Yes (Stomach) Brother Family Member Ethnicity: Non- Living Status: Hx Family Cardiac Disorders: Yes (NM) Sister Family Member Ethnicity: Non- Living Status: Hx Family Cancer: Yes (Stomach) Infectious Disease-CN:Meds Gabapentin [Neurontin] 800 mg PO TID 07/19/15 [History] Lovastatin 40 mg PO HS 07/19/15 [History] Quetiapine Fumarate [Seroquel] 600 mg PO HS 07/19/15 [History] Ranitidine HCl [Zantac] 150 mg PO BID 07/19/15 [History] Zolpidem [Ambien] 10 mg PO HS 07/19/15 [History] Citalopram Hydrobromide [Celexa] 40 mg PO DAILY 01/24/16 [History] Empagliflozin [Jardiance] 10 mg PO DAILY 01/24/16 [History] Metformin HCl [Metformin HCl ER] 500 mg PO HS 01/24/16 [History] Pentoxifylline [TRENtal] 400 mg PO BID 01/24/16 [History] Aspirin Enteric Coated [Aspirin EC] 81 mg PO DAILY 03/26/16 [History] glipiZIDE [Glipizide] 10 mg PO QPM 03/26/16 [History] Furosemide [Lasix] 40 mg PO DAILY 08/28/16 [History] Alogliptin Benzoate [Alogliptin] 25 mg PO DAILY 11/25/16 [History] Amantadine HCl [Amantadine] 100 mg PO BID 11/25/16 [History] Nicotine Patch [Nicoderm] 21 mg TD DAILY #30 patch.td24 11/26/16 [Rx] Rivaroxaban [Xarelto] 20 mg PO DAILY #30 tablet 11/26/16 [Rx] Clopidogrel [Plavix] 75 mg PO DAILY 12/23/16 [History] Metoprolol [Lopressor] 12.5 mg PO BID tablet 01/08/17 [Rx] Tramadol HCl [Tramadol HCl ER] 100 mg PO TID PRN #20 cpbp.25.75 01/08/17 [Rx] Insulin Glargine [Lantus] 10 unit SQ HS 01/13/17 [History] Potassium Chloride 20 meq PO TID #90 tab.er.prt 01/16/17 [Rx] Benztropine Mesylate 0.5 mg PO HS 03/18/17 [History] LORazepam [Ativan] 0.5 mg PO BID 03/18/17 [History] Loperamide [Imodium] 2 mg PO Q4HR PRN 03/18/17 [History] Multivitamin with Minerals [One-A-Day Maximum Formula] 1 each PO DAILY 03/18/17 [History] Naproxen [Naprosyn] 500 mg PO DAILY 03/18/17 [History] Pantoprazole Sodium [Protonix] 40 mg PO DAILY 03/18/17 [History] Paroxetine HCl [Paxil] 10 mg PO DAILY 03/18/17 [History] Sulfamethoxazole/Trimeth DS [Bactrim DS] 1 each PO BID 03/18/17 [History] 3 Allergy/AdvReac Type Severity Reaction Status Date / Time No Known Allergies Allergy Verified 01/26/17 13:40 All systems: reviewed and no additional remarkable complaints except as stated Exam - Constitutional Vitals: Temp Pulse Resp BP Pulse Ox 98.5 F 95 19 96/67 98 03/20/17 03:45 03/20/17 08:30 03/20/17 08:30 03/20/17 08:30 03/20/17 08:30 - Additional findings Additional findings: General: without distress HEENT: Head atraumatic, normocephalic, EOMI, PERRL, neck nontender to palpation , absent lymphadenopathy, Moist Mucous Membranes, absent conjunctival hemorrhages blood and nasal mucosa. Heart: Regular rate and rhythm with no murmur. Absent also her nerves, absent [place] lesions Lungs: Clear to auscultation bilaterally Abdomen: Soft nontender, nondistended positive bowel sounds Neck: Nontender to palpation Skin: warm and dry and right groin incision intact, trest. Extremities: Right [id number] amputation. Absent pedal edema. no joint effusion or erythema Neuro: Alert and Oriented 3, decreased sensation to light touch of the left lower extremity. Vascular: Pedal pulses 2 out of 4 on the left. Bilateral radial pulses 2 out of the 4 Infectious Disease CN: Results - Labs CBC & Chem 7: 03/20/17 03:34 03/20/17 03:34 Cultures: Cultures 03/19/17 04:19 Blood Culture - Preliminary Peripheral Venipuncture No growth. 03/19/17 04:19 Blood Culture - Preliminary Peripheral Venipuncture No growth. 03/18/17 08:42 Wound Culture - Preliminary Groin No pathogens isolated. - VTE Documentation of Mechanical Device: Intermittent pneumatic compression device Consult Discharge Plan - Plan Referrals: Sunita Murrell MD [Primary Care Provider] - Wale Hansen MD [Partnered Physician] - 04/28/17 1:00 pm - Attending Attestation I examined this patient and my medical decision-making was reviewed with the Resident Physician. I agree with the documented findings, disposition and treatment plan as described except to the extent set forth below. This is an addendum to original report dictated by resident physician. Please refer to the physicians note for full detail. ~ Patient is a 62-year-old woman with past medical history mentioned below including history of left foot osteomyelitis, diabetes mellitus type 2, coronary artery disease and CHF who was seen by us previously in October 2016 for infection of osteomyelitis of the first MTP joint with group B strep, MSSA and Morganella Morgagni who received 14 days of IV Rocephin and Levaquin. Patient also had a history of C. difficile that was treated appropriately. Apparently on 03/06/2017 patient came in with abdominal pain, diarrhea, acute kidney injury and dehydration. The diarrhea was present for 7 days prior to admission. She also had intermittent lower abdominal cramping and fatigue and chills and weakness. Patient denied any chest pain, shortness of breath, dizziness or numbness and tingling. Patient was admitted for further workup and evaluation. ~ Initially the patient showed up she was afebrile with normal heart rate in the 80s, a WBC of 6.0 with normal differential and creatinine of 2.44. C. difficile was checked and came back negative, patient had positive Hemoccult blood. GI panel was also negative. A UA was obtained and was positive for pyuria, cultures revealed Escherichia coli that was resistant to ampicillin, ampicillin sulbactam and levofloxacin. Initial CT abdomen and pelvis done on 03/06/2017 showed no acute abnormalities identified in the abdomen or pelvis. Patient was given Rocephin on 03/07/2017. During the hospital stay patient started spiking fevers, and having worsening leukocytosis. Patient was placed on broad-spectrum antibiotic including vancomycin and Zosyn and we were asked to evaluate the patients make further recommendations. Currently patient has a WBC of 16.5 with a neutrophilic predominance at 88%, thrombocytopenia at 91. Viral panel was obtained and came back negative. Repeat urine culture showed yeast species. A chest x-ray on 03/16/2017 revealed new moderate bilateral pleural effusion and interstitial pulmonary edema representing CHF. A repeat chest x-ray on 03/18/2017 revealed worsening pulmonary edema with improving right basilar pleural parenchymal disease. At this point I'm not sure why the patient came in with sepsis. Could be secondary to the hematoma and the inflammation around the pulsating aneurysm versus other. Patient was bacteremic with the coag-negative staph 1 out of 2 sets. And deep cultures that were obtained intraoperatively by Dr. Mercado as there were no growth to date. Patient intraoperatively did even have purulence. At this point DC Zosyn Continue vancomycin with goal Vanco trough of 10-15 Monitor closely Probably DC vancomycin prior to discharge but were not sure if Patient had a CHRISTOS that was negative. Monitor labs and for drug toxicity
--- NOTE | 2017-03-20 15:05 | Vascular/[facility] Progress Note ---
Date of Encounter: 03/20/17 Time of Encounter: 15:03 - Assessment and plan (1) Femoral artery aneurysm, right Current Visit: Yes Status: Acute Patient is postoperative day #2 following emergency resection of right common femoral artery pseudoaneurysm. Patient does not appear septic. Wound culture suggests possible contamination. Patient appears to be doing otherwise very well. Patient was identified as having anemia with a hemoglobin of 7.8. The blood has been ordered for later today. Plan on removing dressing tomorrow. - Subjective Interval history: Patient is postoperative day #2 following resection of left common femoral artery pseudoaneurysm. He has no complaints. He is status post echocardiogram earlier today. Vital Signs, Last 4 Hours Temp Pulse Resp BP Pulse Ox 03/20/17 11:20 98.6 F 79 18 107/52 98 - Physical Examination General: Present: Conversant, No Apparent Distress, Well developed, Well nourished HEENT: Present: Atraumatic, Normocephaly Neck: Absent: JVD Cardiac: Present: Reg Rate and Rhythm Neuro: Present: Alert and responsive, No focal deficits noted Vascular: Present: Surgical incisions (Right groin incision is covered with initial postoperative dressing. There is no swelling or discoloration. The right [id number] amputation site is otherwise clean and dry.) Abdomen: Present: Soft, Non-tender Skin: Present: No rashes noted on visualized skin - VTE Documentation of Mechanical Device: Intermittent pneumatic compression device Results 03/20/17 03:34 03/20/17 03:34 Lab Results, Last 24 hours 03/20/17 03/20/17 03:34 03:34 WBC 11.6 H Hgb 7.8 L Hct 25.7 L Plt Count 288 Sodium 139 Potassium 3.2 L Chloride 107 Carbon Dioxide 24 BUN 6 Creatinine 0.68 L Glucose 130 H Calcium 8.3 L Consult Discharge Plan - Plan Referrals: Sunita Murrell MD [Primary Care Provider] - Wale Hansen MD [Partnered Physician] - 04/28/17 1:00 pm
--- NOTE | 2017-03-20 16:35 | Internal Med Progress Note ---
Date of Encounter: 03/20/17 Time of Encounter: 10:45 - Assessment and plan (1) Femoral artery aneurysm, right Current Visit: Yes Status: Acute Assessment and plan: Status post repair and resection. Wound culture growing Corynebacterium. Likely contaminant. Blood culture growing staph hemolyticus. Only one set is positive. Cultures have so far been negative. Continue IV vancomycin for now. DC Zosyn. (2) Diabetes mellitus with peripheral angiopathy without gangrene Current Visit: Yes Status: Chronic Assessment and plan: Blood sugars are elevated. Will place patient on long-acting insulin. Qualifiers: Diabetes mellitus type: type 2 Diabetes mellitus [facility] insulin use: with long term care social worker use Qualified Code(s): E11.51 - Type 2 diabetes mellitus with diabetic peripheral angiopathy without gangrene; Z79.4 - detention (current) use of insulin; Z79.4 - detention (current) use of insulin; Z79.4 - detention ( current) use of insulin; Z79.4 - detention (current) use of insulin (3) Mixed hyperlipidemia Current Visit: Yes Status: Chronic Assessment and plan: Continue Lipitor (4) PVD (peripheral vascular disease) Current Visit: Yes Status: Chronic Assessment and plan: on aspirin and Plavix and xarelto. (5) Sepsis Current Visit: Yes Status: Acute Assessment and plan: Sepsis appears to be resolving. Continue vancomycin for now. Follow ID recommendations. Qualifiers: Sepsis type: sepsis due to unspecified organism Qualified Code(s): A41.9 - Sepsis, unspecified organism (6) Anemia Current Visit: Yes Status: Chronic Assessment and plan: Hemoglobin level at 7.8. We will transfuse 1 unit packed red blood cells. Most likely related to intraoperative blood loss. Qualifiers: Anemia type: unspecified type Qualified Code(s): D64.9 - Anemia, unspecified (7) DVT prophylaxis Current Visit: No Status: Acute - Subjective Interval history: Does awake and alert. Denies any new complaints at this time. No nausea or vomiting. Pain in right groin is improving. No fever or chills reported overnight. - Constitutional Vitals: Temp Pulse Resp BP Pulse Ox 98.2 F 72 18 111/55 97 03/20/17 15:38 03/20/17 15:38 03/20/17 15:38 03/20/17 15:38 03/20/17 15:38 General appearance: Present: mild distress, A&O X 3, answers questions appropriately - Neck Neck exam general surgery: Present: supple, trachea midline. Absent: lymphadenopathy - Respiratory Respiratory exam: Present: CTAB. Absent: accessory muscle use, rales, rhonchi, wheezes - Cardiovascular Cardiovascular exam: Present: RRR, +S1, +S2. Absent: diastolic murmur, gallop, rubs, systolic murmur - GI/Abdominal GI/Abdominal exam: Present: normal bowel sounds, soft, no peritoneal signs. Absent: distended, tenderness - Extremities Exam Extremities exam: Present: warm, radial pulses palpable and symmetrical. Absent : calf tenderness, cyanotic, pedal edema - Neurological Exam Neurological exam: Present: alert, CN II-XII intact, oriented X3, no focal deficits. Absent: facial droop, speech deficit Internal Medicine: Result - Labs CBC & Chem 7: 03/20/17 03:34 03/20/17 03:34 Labs: Short CBC 03/20/17 Range/Units 03:34 WBC 11.6 H (4.3-11.1) K/mcL Hgb 7.8 L (12.9-16.9) g/dL Hct 25.7 L (37.5-50.1) % Plt Count 288 (140-400) K/mcL Neutrophils # 7.5 (1.6-8.9) K/mcL BMP 03/20/17 03:34 Sodium 139 Potassium 3.2 L Chloride 107 Carbon Dioxide 24 BUN 6 Creatinine 0.68 L Glucose 130 H Calcium 8.3 L - ABG Interpretation ABG results: PT/INR, D-dimer PT 15.0 Seconds (9.4-12.1) H 03/18/17 11:33 - Impressions Impressions Echocardiogram 03/19/17 15:42 Impressions: LVEF 50-55%. Normal LV chamber size and wall thickness. Mild left ventricular diastolic dysfunction. Atypical septal motion of unclear etiology. Normal right ventricular structure and function. No evidence of pulmonary hypertension. No obvious vegetations visualized. Repeat study or consider CHRISTOS as clinically indicated Findings: Study Quality * Technically sub-optimal due to poor echocardiographic windows. ECG Findings * Normal sinus rhythm. Left Ventricle * LVEF 50-55%. Not all LV segments were well visualized, but overall LVEF appears normal. * Normal LV chamber size and wall thickness. * Mild left ventricular diastolic dysfunction. * Atypical septal motion of unclear etiology. Right Ventricle * Normal right ventricular structure and function. Left Atrium * Mildly dilated left atrium. Right Atrium * Mildly dilated right atrium. Interatrial Septum * Interatrial septum not well evaluated. Aortic Valve * Aortic valve not well visualized. * No aortic regurgitation. * No aortic stenosis. Mitral Valve * Normal mitral valve structure and function. * No mitral regurgitation. * No mitral stenosis. Tricuspid Valve * Normal tricuspid valve structure and function. * Trace tricuspid regurgitation. * No evidence of pulmonary hypertension. Pulmonic Valve * Pulmonic valve not well visualized. * No pulmonic regurgitation. Aorta * Normally sized aortic root. Pericardium * The pericardium appears normal. IVC * Normal IVC dimensions and inspiratory collapse. Pulmonary Artery * Normal visualized portions of the main pulmonary artery. - VTE Documentation of Mechanical Device: Intermittent pneumatic compression device Consult Discharge Plan - Plan Referrals: Sunita Murrell MD [Primary Care Provider] - Wale Hansen MD [Partnered Physician] - 04/28/17 1:00 pm
[2017-03-20] MEDS: *HR* Rivaroxaban 10 MG TABLET PO SCH (17:52)
[2017-03-20] MEDS: Insulin DETEMIR 100 UNIT/ML X5UNITS SQ SCH (21:25)
[2017-03-21] MEDS: Vancomycin 1,250 MG in D5% in Water 250 ML IVPB SCH ×2 (04:31→16:31)
[2017-03-21 07:53] LABS: Basophils % 0.3 %; Eosinophils # 0.6 K/mcL (0.0-0.6); Eosinophils % 4.8 %; Hematocrit 28.4 % (37.5-50.1); Hemoglobin 9.1 g/dL (12.9-16.9); Immature Granulocytes % 0.6 % (0-4); Lymphocytes # 1.5 K/mcL (0.6-4.6); Lymphocytes % 13.1 %; Mean Corpuscular Hemoglobin 28.6 pg (28.0-33.3); Mean Corpuscular Volume 89.3 fL (83.0-100.0); Monocytes # 1.2 K/mcL (0.0-1.3); Monocytes % 10.5 %; Neutrophils # 8.2 K/mcL (1.6-8.9); Platelet Count 346 K/mcL (140-400); Red Blood Count 3.18 M/mcL (4.19-5.50); Segmented Neutrophils % 70.7 %
[2017-03-21] MEDS: Gabapentin 400 MG CAPSULE PO SCH ×3 (08:24→20:54)
[2017-03-21] MEDS: Furosemide 40 MG TABLET PO SCH (08:24)
[2017-03-21] MEDS: Aspirin Enteric Coated 81 MG Tablet PO SCH (08:24)
[2017-03-21] MEDS: *HR* LORazepam 0.5 MG TABLET PO SCH ×2 (08:24→20:54)
[2017-03-21] MEDS: Multivit/Ca/Min/Fe/FA 1 TAB TABLET PO SCH (08:25)
[2017-03-21] MEDS: *HR* HYDROcodone/Acet 5/325 mg TABLET PO PRN ×2 (08:25→20:53)
[2017-03-21] MEDS: Nicotine 21 MG PATCH.TD24 TD SCH (08:26)
[2017-03-21] MEDS: Insulin LISPRO 300 UNITS/3 ML VIAL SQ SCH ×4 (08:29→21:50)
[2017-03-21 08:50] LABS: BUN/Creatinine Ratio 8 (6-26); Blood Urea Nitrogen 5 mg/dL (6-20); Calcium 8.7 mg/dL (8.6-10.3); Carbon Dioxide 27 mEq/L (23-29); Chloride 106 mEq/L (98-107); Glucose 156 mg/dL (70-105); Osmolality,Calculated 290 (280-300); Potassium 3.6 mEq/L (3.5-5.1); Sodium 140 mEq/L (136-145); eGFR For African Americans > 60 (> 60); eGFR For Non-African Americans > 60 (> 60)
--- NOTE | 2017-03-21 12:22 | Vascular/[facility] Progress Note ---
Date of Encounter: 03/21/17 Time of Encounter: 12:20 - Assessment and plan (1) Femoral artery aneurysm, right Current Visit: Yes Status: Acute Patient is postoperative day #3 following emergency resection of right common femoral artery pseudoaneurysm. Patient does not appear septic. Wound culture suggests possible contamination. Patient appears to be doing otherwise very well. Patient was identified as having anemia with a hemoglobin of 7.8. He was transfused yesterday with an appropriate elevation of his hemoglobin today. There appears to be no active bleeding at this time. I have no objection to the patient being transferred to the extended care facility tomorrow per potential hospitalist plans. The patient will need to follow-up with Dr. Hansen for his right groin femoral pseudoaneurysm resection surgery. He is to use the applied jud dressing for 5 days and this may be changed with another ujd dressing applied at the [facility]. Any further questions regarding this dressing change can be addressed to our office. - Subjective Interval history: Patient is postoperative day #3 following resection of left common femoral artery pseudoaneurysm. He has no new complaints. He had an uneventful night. He was noted by the nursing staff the patient had spontaneous drainage from his right groin and had staining on his gown. The patient denies any fevers. Vital Signs, Last 4 Hours Temp Pulse Resp BP Pulse Ox 03/21/17 10:55 98.4 F 69 18 98/71 97 - Physical Examination General: Present: Conversant, No Apparent Distress, Well developed HEENT: Present: Atraumatic, Normocephaly Neck: Absent: JVD Cardiac: Present: Reg Rate and Rhythm Vascular: Present: Surgical incisions (Evaluation of the right groin incision demonstrates a 60 and serosanguineous drainage which appears to be old blood or old hematoma drainage. Therefore I applied gentle pressure around the wound in order to evacuate as much of this fluid as possible. There was no purulence. There was a small decrease in the amount of induration around the incision following my manipulation. A JUD dressing will be applied to the right groin incision in order to enhance further removal of the residual fluid.) Abdomen: Present: Soft, Non-tender - VTE Documentation of Mechanical Device: Intermittent pneumatic compression device Results 03/21/17 07:19 03/21/17 07:19 Lab Results, Last 24 hours 03/21/17 03/21/17 07:19 07:19 WBC 11.7 H Hgb 9.1 L Hct 28.4 L Plt Count 346 Sodium 140 Potassium 3.6 Chloride 106 Carbon Dioxide 27 BUN 5 L Creatinine 0.63 L Glucose 156 H Calcium 8.7 Consult Discharge Plan - Plan Additional Instructions: Please send additional jud dressing with the patient to [facility]. The present jud dressing may be removed in 5 days assuming the drainage capacity has not been exceeded in that time. I would then continue the second jud dressing for an additional 5 days. Referrals: Sunita Murrell MD [Primary Care Provider[facility] - 04/28/17 1:00 pm
--- NOTE | 2017-03-21 16:17 | Internal Med Progress Note ---
Date of Encounter: 03/21/17 Time of Encounter: 10:20 - Assessment and plan (1) Femoral artery aneurysm, right Current Visit: Yes Status: Acute Assessment and plan: Status post emergency resection and repair. Doing well overall. Repeat cultures have been negative. If cultures remain negative plan on discharge tomorrow to skilled rehabilitation. (2) Diabetes mellitus with peripheral angiopathy without gangrene Current Visit: Yes Status: Chronic Assessment and plan: Improved with long acting insulin. Continue current insulin regimen. 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 use Qualified Code(s): E11.51 - Type 2 diabetes mellitus with diabetic peripheral angiopathy without gangrene; Z79.4 - termination clerk (current) use of insulin; Z79.4 - termination clerk (current) use of insulin; Z79.4 - termination clerk ( current) use of insulin; Z79.4 - long-term (current) use of insulin (3) Mixed hyperlipidemia Current Visit: Yes Status: Chronic Assessment and plan: Continue atorvastatin (4) PVD (peripheral vascular disease) Current Visit: Yes Status: Chronic (5) Sepsis Current Visit: Yes Status: Acute Assessment and plan: Bacteremia with staph hemolyticus-1 out of 2 sets positive. Likely contaminant. Repeat cultures have been negative. 2-D echocardiogram does not show any vegetations. Continue vancomycin for now. If cultures remain negative tomorrow, will discontinue antibiotics and discharge patient to skilled rehabilitation. Qualifiers: Sepsis type: sepsis due to unspecified organism Qualified Code(s): A41.9 - Sepsis, unspecified organism (6) Anemia Current Visit: Yes Status: Chronic Assessment and plan: Improved with blood transfusion. Continue to monitor hemoglobin levels. Qualifiers: Anemia type: unspecified type Qualified Code(s): D64.9 - Anemia, unspecified (7) DVT prophylaxis Current Visit: No Status: Acute Assessment and plan: Patient is on anticoagulation with xarelto - Subjective Interval history: Patient is awake and alert. No new complaints at this time. Doing well overall. No fever or chills reported overnight - Constitutional Vitals: Temp Pulse Resp BP Pulse Ox 98.4 F 69 18 98/71 97 03/21/17 10:55 03/21/17 10:55 03/21/17 10:55 03/21/17 10:55 03/21/17 10:55 General appearance: Present: cooperative, A&O X 3, no acute distress, answers questions appropriately - Neck Neck exam general surgery: Present: supple, trachea midline. Absent: lymphadenopathy - Respiratory Respiratory exam: Present: CTAB. Absent: accessory muscle use, rales, rhonchi, wheezes - Cardiovascular Cardiovascular exam: Present: RRR, +S1, +S2. Absent: diastolic murmur, gallop, rubs, systolic murmur - GI/Abdominal GI/Abdominal exam: Present: normal bowel sounds, soft, no peritoneal signs. Absent: distended, tenderness - Extremities Exam Extremities exam: Present: warm, radial pulses palpable and symmetrical. Absent : calf tenderness, cyanotic, pedal edema Additional comments: Status post right AKA - Neurological Exam Neurological exam: Present: alert, oriented X3, no focal deficits. Absent: facial droop, speech deficit Internal Medicine: Result - Labs CBC & Chem 7: 03/21/17 07:19 03/21/17 07:19 Labs: Short CBC 03/21/17 Range/Units 07:19 WBC 11.7 H (4.3-11.1) K/mcL Hgb 9.1 L (12.9-16.9) g/dL Hct 28.4 L (37.5-50.1) % Plt Count 346 (140-400) K/mcL Neutrophils # 8.2 (1.6-8.9) K/mcL BMP 03/21/17 07:19 Sodium 140 Potassium 3.6 Chloride 106 Carbon Dioxide 27 BUN 5 L Creatinine 0.63 L Glucose 156 H Calcium 8.7 - ABG Interpretation ABG results: PT/INR, D-dimer PT 15.0 Seconds (9.4-12.1) H 03/18/17 11:33 - VTE Documentation of Mechanical Device: Intermittent pneumatic compression device Consult Discharge Plan - Plan Additional Instructions: Please send additional jared dressing with the patient to [facility]. The present jared dressing may be removed in 5 days assuming the drainage capacity has not been exceeded in that time. I would then continue the second jared dressing for an additional 5 days. Referrals: Sunita Murrell MD [Primary Care Provider] - Wale Hansen MD [Partnered Physician] - 04/28/17 1:00 pm
[2017-03-21] MEDS: *HR* Rivaroxaban 10 MG TABLET PO SCH (17:28)
[2017-03-21] MEDS: Insulin DETEMIR 100 UNIT/ML X5UNITS SQ SCH (20:54)
[2017-03-22] MEDS: Vancomycin 1,250 MG in D5% in Water 250 ML IVPB SCH (03:55)
[2017-03-22 07:35] VITALS: BP 109/77
[2017-03-22] MEDS: Gabapentin 400 MG CAPSULE PO SCH (08:45)
[2017-03-22] MEDS: *HR* LORazepam 0.5 MG TABLET PO SCH (08:46)
[2017-03-22] MEDS: Aspirin Enteric Coated 81 MG Tablet PO SCH (08:46)
[2017-03-22] MEDS: *HR* HYDROcodone/Acet 5/325 mg TABLET PO PRN (08:46)
[2017-03-22] MEDS: Multivit/Ca/Min/Fe/FA 1 TAB TABLET PO SCH (08:47)
[2017-03-22] MEDS: Nicotine 21 MG PATCH.TD24 TD SCH (08:47)
[2017-03-22] MEDS: Furosemide 40 MG TABLET PO SCH (08:47)
[2017-03-22] MEDS: Insulin LISPRO 300 UNITS/3 ML VIAL SQ SCH ×2 (08:53→12:15)
--- NOTE | 2017-03-22 11:06 | Discharge Summary ---
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 Qualified Code(s): E11.51 - Type 2 diabetes mellitus with diabetic peripheral angiopathy without gangrene; Z79.4 - exterminator termite (current) use of insulin; Z79.4 - long-term (current) use of insulin; Z79.4 - exterminator termite ( current) use of insulin; Z79.4 - long-term (current) use of insulin (3) Mixed hyperlipidemia Priority: Secondary Status: Chronic (4) PVD (peripheral vascular disease) Priority: Secondary Status: Chronic (5) Sepsis Priority: Secondary Status: Resolved Qualifiers: Sepsis type: sepsis due to unspecified organism Qualified Code(s): A41.9 - Sepsis, unspecified organism (6) Anemia Priority: Secondary Status: Chronic Qualifiers: Anemia type: unspecified type Qualified Code(s): D64.9 - Anemia, unspecified (7) DVT prophylaxis Priority: Secondary Status: Acute - Discharge Medications Prescriptions: Gabapentin [Neurontin] 800 mg PO TID #30 capsule LORazepam [Ativan] 0.5 mg PO BID PRN 7 Days #10 tablet PRN Reason: Anxiety Tramadol HCl [Tramadol HCl ER] 100 mg PO TID PRN 7 Days #20 cpbp.25.75 PRN Reason: pain Zolpidem [Ambien] 10 mg PO HS 7 Days #7 tablet Home Medications: Lovastatin 40 mg PO HS 07/19/15 [History] Quetiapine Fumarate [Seroquel] 600 mg PO HS 07/19/15 [History] Ranitidine HCl [Zantac] 150 mg PO BID 07/19/15 [History] Citalopram Hydrobromide [Celexa] 40 mg PO DAILY 01/24/16 [History] Empagliflozin [Jardiance] 10 mg PO DAILY 01/24/16 [History] Metformin HCl [Metformin HCl ER] 500 mg PO HS 01/24/16 [History] Pentoxifylline [TRENtal] 400 mg PO BID 01/24/16 [History] Aspirin Enteric Coated [Aspirin EC] 81 mg PO DAILY 03/26/16 [History] glipiZIDE [Glipizide] 10 mg PO QPM 03/26/16 [History] Furosemide [Lasix] 40 mg PO DAILY 08/28/16 [History] Alogliptin Benzoate [Alogliptin] 25 mg PO DAILY 11/25/16 [History] Amantadine HCl [Amantadine] 100 mg PO BID 11/25/16 [History] Nicotine Patch [Nicoderm] 21 mg TD DAILY #30 patch.td24 11/26/16 [Rx] Rivaroxaban [Xarelto] 20 mg PO DAILY #30 tablet 11/26/16 [Rx] Clopidogrel [Plavix] 75 mg PO DAILY 12/23/16 [History] Metoprolol [Lopressor] 12.5 mg PO BID tablet 01/08/17 [Rx] Insulin Glargine [Lantus] 10 unit SQ HS 01/13/17 [History] Potassium Chloride 20 meq PO TID #90 tab.er.prt 01/16/17 [Rx] Benztropine Mesylate 0.5 mg PO HS 03/18/17 [History] Loperamide [Imodium] 2 mg PO Q4HR PRN 03/18/17 [History] Multivitamin with Minerals [One-A-Day Maximum Formula] 1 each PO DAILY 03/18/17 [History] Naproxen [Naprosyn] 500 mg PO DAILY 03/18/17 [History] Pantoprazole Sodium [Protonix] 40 mg PO DAILY 03/18/17 [History] Paroxetine HCl [Paxil] 10 mg PO DAILY 03/18/17 [History] Acetaminophen [Tylenol] 650 mg PO Q6HR PRN tablet 03/22/17 [Rx] Gabapentin [Neurontin] 800 mg PO TID #30 capsule 03/22/17 [Rx] LORazepam [Ativan] 0.5 mg PO BID PRN 7 Days #10 tablet 03/22/17 [Rx] Tramadol HCl [Tramadol HCl ER] 100 mg PO TID PRN 7 Days #20 cpbp.25.75 03/22/17 [Rx] Zolpidem [Ambien] 10 mg PO HS 7 Days #7 tablet 03/22/17 [Rx] Allergies/Adverse Reactions: 3 Allergy/AdvReac Type Severity Reaction Status Date / Time No Known Allergies Allergy Verified 01/26/17 13:40 Procedures/tests Complete & Pending: Procedures Performed prior 72 hours Category Date Time Status EV echocardiogram Routine Y 03/19/17 15:42 Completed Date of admission: 03/18/17 02:54 Primary care physician: Sunita Murrell Consults: 03/19/17 10:15 Consult to Occupational Therapy [CONS] Routine Comment: Evaluate, develop and implement POC Reason for Consult: Discharge planning Consult to Physical Therapy [CONS] Routine Comment: Evaluate, develop and implement POC Reason for Consult: Discharge planning 03/20/17 08:14 Consult to Infectious Diseases [CONS] Routine Consulting Provider: Infectious Disease Mil[facility] Reason for Consult: Staph hemolyticus bacteremia with underlying sepsis Call Completed: Yes Discharging clinician: Lauren Khan Anticipated date of discharge: 03/22/17 - Patient Status Disposition: Transfer SNF Functional capacity at discharge: wheelchair bound Overall status at discharge: patient is progressing back to baseline - Discharge Instructions Instructions: Peripheral Vascular Disorders (DC) Follow Up With: Sunita Murrell MD [Primary Care Provider] - Wale Hansen MD [Partnered Physician] - 04/28/17 1:00 pm Additional Instructions: Please send additional jared dressing with the patient to [facility]. The present jared dressing may be removed in 5 days assuming the drainage capacity has not been exceeded in that time. I would then continue the second jared dressing for an additional 5 days. - Diet and Activity Activity: as per physical therapy, increase activity as tolerated Diet: diabetic diet, low fat, low cholesterol, low salt diet Hospital course: Mr. 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 Vascular surgery was therefore consulted. Patient was also having signs of sepsis with leukocytosis, fever and tachycardia. He was started on IV antibiotics for possible in flexion associated with this pseudoaneurysm. Blood cultures were drawn. Vascular surgery evaluated the patient and took him for emergency repair and resection of the aneurysm. Since then patient's condition has significantly improved. One set of blood cultures drawn in the ER was positive for Staphylococcus hemolyticus and the other cultures positive for gram-positive rods. These are likely contaminants. Patient received vancomycin until today. His repeat blood cultures have been negative. Infectious disease was consulted. They recommended following repeat blood cultures for 48 hours and to discharge the patient if they remain negative. Patient has so far received 5 days of vancomycin therapy and at this time does not require any further antibiotics. He is stable to discharge back to skilled rehabilitation. Patient did receive 1 unit of packed blood cell transfusion due to drop in hemoglobin to 7.8 postoperatively. His hemoglobin levels have remained stable since then. - Time Spent with Patient Total time spent providing and/or coordinating discharge services: Greater than 30 minutes (35 min) - Constitutional Vitals: Temp Pulse Resp BP Pulse Ox 99.5 F 84 18 109/77 99 03/22/17 07:34 03/22/17 07:34 03/22/17 07:34 03/22/17 07:34 03/22/17 07:34 General appearance: Present: cooperative, A&O X 3, no acute distress, answers questions appropriately - Respiratory Respiratory exam: Present: CTAB. Absent: accessory muscle use, rales, rhonchi, wheezes - Cardiovascular Cardiovascular exam: Present: RRR, +S1, +S2. Absent: diastolic murmur, gallop, rubs, systolic murmur - Extremities Exam Extremities exam: Present: warm, radial pulses palpable and symmetrical. Absent : calf tenderness, cyanotic, pedal edema Additional comments: s/p right AKA - VTE Documentation of Mechanical Device: Intermittent pneumatic compression device
--- NOTE | 2017-03-22 11:27 | Physician Discharge Referral ---
ExtendedCare Referral Info Transfer To: [facility] Provider in Charge after Transfer: PCP Institutional Level of Care: Skilled - Diagnosis (1) Femoral artery aneurysm, right Priority: Primary Status: Acute (2) Diabetes mellitus with peripheral angiopathy without gangrene Priority: Secondary Status: Chronic (3) Mixed hyperlipidemia Priority: Secondary Status: Chronic (4) PVD (peripheral vascular disease) Priority: Secondary Status: Chronic (5) Sepsis Priority: Secondary Status: Resolved (6) Anemia Priority: Secondary Status: Chronic (7) DVT prophylaxis Priority: Secondary Status: Acute Prognosis: Good Aware of Diagnosis: Patient Aware of Prognosis: Patient - Transfer Medications Prescriptions: Gabapentin [Neurontin] 800 mg PO TID #30 capsule Tramadol HCl [Tramadol HCl ER] 100 mg PO TID PRN 7 Days #20 cpbp.25.75 PRN Reason: pain Zolpidem [Ambien] 10 mg PO HS 7 Days #7 tablet Home Medications: Lovastatin 40 mg PO HS 07/19/15 [History] Quetiapine Fumarate [Seroquel] 600 mg PO HS 07/19/15 [History] Ranitidine HCl [Zantac] 150 mg PO BID 07/19/15 [History] Citalopram Hydrobromide [Celexa] 40 mg PO DAILY 01/24/16 [History] Empagliflozin [Jardiance] 10 mg PO DAILY 01/24/16 [History] Metformin HCl [Metformin HCl ER] 500 mg PO HS 01/24/16 [History] Pentoxifylline [TRENtal] 400 mg PO BID 01/24/16 [History] Aspirin Enteric Coated [Aspirin EC] 81 mg PO DAILY 03/26/16 [History] glipiZIDE [Glipizide] 10 mg PO QPM 03/26/16 [History] Furosemide [Lasix] 40 mg PO DAILY 08/28/16 [History] Alogliptin Benzoate [Alogliptin] 25 mg PO DAILY 11/25/16 [History] Amantadine HCl [Amantadine] 100 mg PO BID 11/25/16 [History] Nicotine Patch [Nicoderm] 21 mg TD DAILY #30 patch.td24 11/26/16 [Rx] Rivaroxaban [Xarelto] 20 mg PO DAILY #30 tablet 11/26/16 [Rx] Clopidogrel [Plavix] 75 mg PO DAILY 12/23/16 [History] Metoprolol [Lopressor] 12.5 mg PO BID tablet 01/08/17 [Rx] Insulin Glargine [Lantus] 10 unit SQ HS 01/13/17 [History] Potassium Chloride 20 meq PO TID #90 tab.er.prt 01/16/17 [Rx] Benztropine Mesylate 0.5 mg PO HS 03/18/17 [History] LORazepam [Ativan] 0.5 mg PO BID 03/18/17 [History] Loperamide [Imodium] 2 mg PO Q4HR PRN 03/18/17 [History] Multivitamin with Minerals [One-A-Day Maximum Formula] 1 each PO DAILY 03/18/17 [History] Naproxen [Naprosyn] 500 mg PO DAILY 03/18/17 [History] Pantoprazole Sodium [Protonix] 40 mg PO DAILY 03/18/17 [History] Paroxetine HCl [Paxil] 10 mg PO DAILY 03/18/17 [History] Acetaminophen [Tylenol] 650 mg PO Q6HR PRN tablet 03/22/17 [Rx] Gabapentin [Neurontin] 800 mg PO TID #30 capsule 03/22/17 [Rx] Tramadol HCl [Tramadol HCl ER] 100 mg PO TID PRN 7 Days #20 cpbp.25.75 03/22/17 [Rx] Zolpidem [Ambien] 10 mg PO HS 7 Days #7 tablet 03/22/17 [Rx] Allergies/Adverse Reactions: 3 Allergy/AdvReac Type Severity Reaction Status Date / Time No Known Allergies Allergy Verified 01/26/17 13:40 - Respiratory Orders Smoking Cessation: Smoking cessation has been advised. For more information, call the [place] Tobacco Quit Line at 4-572-ARIS-NOW. - Ancillary Orders May consult with Dentist, Sports Broadcaster, Aromatherapist PRN - Advance Directives Code Status: Full Code - Mobility Orders Chair - Rehabiliation Orders Rehab Potential: Fair Rehab Orders: Evaluation for Physical Therapy, Evaluation for Occupational Therapy - Diet Orders No Concentrated Sweets, Cardiac CERTIFICATION: I certify that the transfer of the above named patient to an Extended Care Facility is necessary for the continuing treatment of the diagnosis listed. The above information is true and accurate reflection of patient's current condition. Confidential - Redisclosure prohibited without a patient's written consent.
[2017-03-22] MEDS ORDERED: Aminoglycoside Consult 1 EACH MC ONE (13:39)
== END 2017-03-22 13:40 | DRG 181 ==
LOC: EMEROO 21:55 → 2NNU 21:55
PROVIDERS: ADMIT Internal Medicine; ATTEND Internal Medicine